=== PATIENT | female | born 1970 | race American Indian/Alaskan Native ===

== ENCOUNTER 2016-09-19 20:13 | Emergency (ER) | payer MEDICAID, OTHER ==
[2016-09-19] MEDS ORDERED: Sodium Chloride 0.9% 1,000 ML IV ONE (20:34)
--- NOTE | 2016-09-19 20:41 | EDM.PDOC ---
ED HPI GI/ABDOMINAL - General Chief Complaint: Gastrointestinal Problem Stated Complaint: BLEEDING Time Seen by Provider: 09/19/16 20:34 Source of Information: Reports: Patient History Limitations: Reports: No limitations - History of Present Illness INITIAL COMMENTS - FREE TEXT/NARRATIVE: 45 yo Ramona Female c/o blood per rectum started Tuesday AM. Pt. admits to taking daily aspirin and Naproxyn BID. 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 - Related Data Allergies/ADRs: Allergies Allergy/AdvReac Type Severity Reaction Status Date / Time No Known Allergies Allergy Verified 09/19/16 20:19 Home Meds: Home Meds Aspirin [Jane Chewable Aspirin] 1 tab PO DAILY 09/30/13 [History] Atenolol [Tenormin] 50 mg PO DAILY 09/30/13 [History] Fenofibrate [Fenoglide] 45 mg PO DAILY 09/30/13 [History] Gabapentin [Neurontin] 300 mg PO Q6HR PRN 09/30/13 [History] Lisinopril [Prinivil] 20 mg PO DAILY 09/30/13 [History] Omeprazole 20 mg PO DAILY 09/30/13 [History] Simvastatin [Zocor] 20 mg PO BEDTIME 09/30/13 [History] Insulin Detemir [Levemir] 20 units SQ BEDTIME 06/30/14 [History] buPROPion [Wellbutrin XL] 150 mg PO BID 06/30/14 [History] Insulin Aspart [NovoLOG] 15 unit SUBCUT BIDAC 09/19/16 [History] Past Medical History Cardiovascular History: Reports: High cholesterol, Hypertension Gastrointestinal History: Reports: Cholelithiasis Genitourinary History: Reports: Renal calculus 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: Psychiatric History: Reports: Anxiety Endocrine/Metabolic History: Reports: Diabetes, type II Dermatologic History: Reports: Cellulitis - Infectious Disease History Infectious Disease History: Reports: Chicken pox, MRSA - Past Surgical History GI Surgical History: Reports: Cholecystectomy Female Surgical History: Reports: Hysterectomy Other Female Surgeries/Procedures: partial hysterectomy, just took out urerus Social & Family History - Tobacco Use Smoking Status *Q: Current Every Day Smoker Years of Tobacco use: 20 Packs/Tins Daily: 0.3 Used Tobacco, but Quit: No Second Hand Smoke Exposure: Yes - Caffeine Use Caffeine Use: Reports: Coffee - Alcohol Use Days Per Week of Alcohol Use: 0 - Recreational Drug Use Recreational Drug Use: No ED ROS GENERAL - Review of Systems Review Of Systems: See Below Constitutional: Reports: no symptoms HEENT: Reports: No symptoms Respiratory: Reports: No Symptoms Cardiovascular: Reports: No symptoms Endocrine: Reports: no symptoms GI/Abdominal: Reports: Abdominal pain (low mid) : Reports: no symptoms Musculoskeletal: Reports: leg pain (chronic) Skin: Reports: no symptoms Neurological: Reports: No Symptoms Psychiatric: Reports: No symptoms Hematologic/Lymphatic: Reports: no symptoms Immunologic: Reports: no symptoms ED EXAM, GI/ABD - Physical Exam Exam: See Below Exam Limited By: No limitations General Appearance: alert, no apparent distress Eyes: bilateral: EOMI Ears: normal external exam Nose: normal inspection Throat/Mouth: Normal inspection Head: atraumatic Neck: normal inspection Respiratory/Chest: no respiratory distress, lungs clear Cardiovascular: normal peripheral pulses GI/Abdominal: normal bowel sounds, soft (Female) Exam: Normal external exam Rectal (Female) Exam: Bloody stool, Heme - stool, Heme + stool Back Exam: normal inspection Extremities: normal inspection Neurological: alert, oriented, CN II-XII intact Psychiatric: normal affect Skin Exam: Warm, Dry Lymphatic: no adenopathy Course - Vital Signs Text/Narrative:: Pt. observed while getting protonix and she had two stool with dark blood. Initial Hgb 13.4 and repeat Hgb 10.[address] Bianchi -Hospitalist @ will accept on transfer. Last Recorded V/S: Last Vital Signs Temp 37.3 C 09/19/16 23:01 Pulse 73 09/19/16 23:01 Resp 20 09/19/16 23:01 BP 107/67 09/20/16 00:24 Pulse Ox 96 09/20/16 00:24 - Orders/Labs/Meds Orders: Active Orders 24 hr Category Date Time Status IRON [REF] Stat Lab 09/19/16 20:35 Received Pantoprazole [ProTONIX IV] 40 mg Med 09/19/16 20:45 Active Sodium Chloride 0.9% [Normal Saline] 100 ml IV .CONTINUOS Medication Orders Pantoprazole Sodium 40 mg/ (Sodium Chloride) 100 mls @ 20 mls/hr IV .CONTINUOS [facility] Last Admin: 09/19/16 20:53 Dose: 20 mls/hr Labs: Laboratory Tests 09/19/16 09/19/16 09/19/16 Range/Units 20:35 20:35 20:35 WBC 9.1 (5.0-10.0) 10^3/uL RBC 4.25 (4.2-5.4) 10^6/uL Hgb 13.4 (12.0-16.0) g/dL Hct 37.3 (37.0-47.0) % MCV 87.8 (80-100) fL MCH 31.5 (27.0-34.0) pg MCHC 35.9 H (33.0-35.0) g/dL Plt Count 308 (150-450) 10^3/uL Neut % (Auto) 56.3 (42.2-75.2) % Lymph % (Auto) 32.6 (20.5-50.1) % [place] % (Auto) 8.9 H (2-8) % Eos % (Auto) 1.4 (1.0-3.0) % Baso % (Auto) 0.8 (0.0-1.0) % PT 9.8 (9.0-12.0) SEC INR 1.0 (0.9-1.2) Sodium 132 L (135-145) mmol/L Potassium 3.9 (3.6-5.0) mmol/L Chloride 98 L (101-111) mmol/L Carbon Dioxide 25.0 (21.0-31.0) mmol/L Anion Gap 12.9 BUN 20 H (7-18) mg/dL Creatinine 0.6 (0.6-1.3) mg/dL Est Cr Clr Drug Dosing 86.84 mL/min Estimated GFR (MDRD) > 60 BUN/Creatinine Ratio 33.33 Glucose 349 H (74-105) mg/dL Calcium 9.4 (8.4-10.2) mg/dl Total Bilirubin 0.3 (0.2-1.0) mg/dL AST 20 (10-42) IU/L ALT 24 (10-60) IU/L Alkaline Phosphatase 86 (42-121) IU/L Total Protein 7.2 (6.7-8.2) g/dl Albumin 3.9 (3.2-5.5) g/dl Globulin 3.3 Albumin/Globulin Ratio 1.18 Urine Color (YELLOW) Urine Appearance (CLEAR) Urine pH (5.0-9.0) Ur Specific [place] (1.005-1.030) Urine Protein (NEGATIVE) Urine Glucose (UA) (NEGATIVE) Urine Ketones (NEGATIVE) Urine Occult Blood (NEGATIVE) Urine Nitrite (NEGATIVE) Urine Bilirubin (NEGATIVE) Urine Urobilinogen (0.2-1.0) mg/dL Ur Leukocyte Esterase (NEGATIVE) Urine RBC /HPF Urine WBC (0-5/HPF) /HPF Ur Epithelial Cells /HPF Urine Bacteria (0-FEW/HPF) /HPF 09/19/16 09/20/16 Range/Units 23:05 01:44 WBC 9.4 (5.0-10.0) 10^3/uL RBC 3.47 L (4.2-5.4) 10^6/uL Hgb 10.8 L (12.0-16.0) g/dL Hct 31.0 L (37.0-47.0) % MCV 89.3 (80-100) fL MCH 31.1 (27.0-34.0) pg MCHC 34.8 (33.0-35.0) g/dL Plt Count 254 (150-450) 10^3/uL Neut % (Auto) 45.7 (42.2-75.2) % Lymph % (Auto) 43.1 (20.5-50.1) % [place] % (Auto) 8.1 H (2-8) % Eos % (Auto) 2.4 (1.0-3.0) % Baso % (Auto) 0.7 (0.0-1.0) % PT (9.0-12.0) SEC INR (0.9-1.2) Sodium (135-145) mmol/L Potassium (3.6-5.0) mmol/L Chloride (101-111) mmol/L Carbon Dioxide (21.0-31.0) mmol/L Anion Gap BUN (7-18) mg/dL Creatinine (0.6-1.3) mg/dL Est Cr Clr Drug Dosing mL/min Estimated GFR (MDRD) BUN/Creatinine Ratio Glucose (74-105) mg/dL Calcium (8.4-10.2) mg/dl Total Bilirubin (0.2-1.0) mg/dL AST (10-42) IU/L ALT (10-60) IU/L Alkaline Phosphatase (42-121) IU/L Total Protein (6.7-8.2) g/dl Albumin (3.2-5.5) g/dl Globulin Albumin/Globulin Ratio Urine Color Yellow (YELLOW) Urine Appearance Clear (CLEAR) Urine pH 5.5 (5.0-9.0) Ur Specific [place] 1.015 (1.005-1.030) Urine Protein Negative (NEGATIVE) Urine Glucose (UA) 500 H (NEGATIVE) Urine Ketones Negative (NEGATIVE) Urine Occult Blood Moderate H (NEGATIVE) Urine Nitrite Negative (NEGATIVE) Urine Bilirubin Negative (NEGATIVE) Urine Urobilinogen 0.2 (0.2-1.0) mg/dL Ur Leukocyte Esterase Negative (NEGATIVE) Urine RBC 30-40 H /HPF Urine WBC 0-5 (0-5/HPF) /HPF Ur Epithelial Cells Many H /HPF Urine Bacteria Few (0-FEW/HPF) /HPF Meds: Medications Generic Name Dose Route Start Last Admin Trade Name Freq PRN Reason Stop Dose Admin Pantoprazole Sodium 40 mg/ 100 mls @ 20 mls/hr 09/19/16 20:45 09/19/16 20:53 Sodium Chloride IV 20 mls/hr .CONTINUOS NGUYEN Administration Discontinued Medications Generic Name Dose Route Start Last Admin Trade Name Freq PRN Reason Stop Dose Admin Al Hydroxide/Mg Hydroxide 30 ml 09/19/16 22:19 09/19/16 22:24 Gi Cocktail PO 09/19/16 22:20 30 ml ONETIME ONE Administration Cyclobenzaprine HCl 10 mg 09/19/16 23:26 09/19/16 23:32 Flexeril PO 09/19/16 23:27 10 mg ONETIME ONE Administration Sodium Chloride 1,000 mls @ 999 mls/hr 09/19/16 20:34 09/19/16 20:53 Normal Saline IV 09/19/16 21:34 999 mls/hr .BOLUS ONE Administration Insulin Human Regular 5 unit 09/19/16 21:32 09/19/16 22:07 Novolin R SUBCUT 09/19/16 21:33 5 unit NOW STA Administration Protocol Ondansetron HCl 4 mg 09/19/16 22:19 09/19/16 22:23 Zofran IV 09/19/16 22:20 4 mg ONETIME ONE Administration Departure - Departure Time of Disposition: 02:19 Disposition: DC/Tfer to Acute Hospital 02 Condition: fair Clinical Impression: GI bleed Qualifiers: GI bleed type/associated pathology: unspecified gastrointestinal hemorrhage type Qualified Code(s): K92.2 - Gastrointestinal hemorrhage, unspecified Forms: ED Department Discharge, Interfacility Transfer EMTALA - My Orders Last 24 Hours: My Active Orders 09/19/16 20:35 IRON [REF] Stat 09/19/16 20:45 Pantoprazole [ProTONIX IV] 40 mg Sodium Chloride 0.9% [Normal Saline] 100 ml IV .CONTINUOS - Assessment/Plan Last 24 Hours: My Active Orders 09/19/16 20:35 IRON [REF] Stat 09/19/16 20:45 Pantoprazole [ProTONIX IV] 40 mg Sodium Chloride 0.9% [Normal Saline] 100 ml IV .CONTINUOS
[2016-09-19] MEDS ORDERED: Pantoprazole 40 MG in Sodium Chloride 0.9% 100 ML IV SCH (20:45)
[2016-09-19 21:07] LABS: CHLORIDE,CL 98 mmol/L (101-111); SODIUM,NA 132 mmol/L (135-145)
[2016-09-19] MEDS ORDERED: Insulin Regular, Human 100 Units/ML 10 ML Vial SUBCUT STA (21:32)
[2016-09-19] MEDS ORDERED: Ondansetron 4 MG/2 ML SDV IV ONE (22:19)
[2016-09-19] MEDS ORDERED: GI Cocktail Oral Solution 30 ML PO ONE (22:19)
[2016-09-19] MEDS ORDERED: Cyclobenzaprine 10 MG Tab PO ONE (23:26)
[2016-09-20 00:25] VITALS: BP 107/67
[2016-09-20] MEDS ORDERED: Sodium Chloride 0.9% 1,000 ML IV SCH (02:30)
== END 2016-09-20 02:56 ==
LOC: DL.ED 20:13
DX: K92.2 Gastrointestinal hemorrhage, unspecified (principal); I10 Essential (primary) hypertension; E78.00 Pure hypercholesterolemia, unspecified; E11.9 Type 2 diabetes mellitus without complications; Z79.4 Long term (current) use of insulin; F41.9 Anxiety disorder, unspecified; Z79.82 Long term (current) use of aspirin; Z79.899 Other long term (current) drug therapy
CPT/HCPCS: 36415; 80053; 81001; 82272; 82962; 83540; 85025; 85610; 96365; 96366; 96375; 99285; A9270; C9113; J2405; J7030; J7050; J1815-GY

== ENCOUNTER 2016-12-21 18:25 | Emergency (ER) | payer MEDICAID, OTHER ==
--- NOTE | 2016-12-21 19:27 | EDM.PDOC ---
ED HPI GENERAL MEDICAL PROBLEM - General Chief Complaint: Gastrointestinal Problem Stated Complaint: BLEEDING, [id number] Time Seen by Provider: 12/21/16 19:27 Source of Information: Reports: Patient History Limitations: Reports: No Limitations - History of Present Illness INITIAL COMMENTS - FREE TEXT/NARRATIVE: ED ambulatory with c/o lwer abdominal pain with 2 dark red stools with clots this afternoon., Nauseated. No vomiting. Prior hx GI bleed in September and transferred to , believed to have been caused by use of Naprosyn. Has not used Naprosyn or ibuprofen since. Rare ETOH use, smoker. Diabetic. Onset: Today Quality: Reports: Dull Severity: Mild Middle Abdomen Pain Score (Numeric/FACES): 5 - Related Data Allergies Allergy/AdvReac Type Severity Reaction Status Date / Time No Known Allergies Allergy Verified 12/21/16 18:51 Home Meds: Home Meds Aspirin [Jane Chewable Aspirin] 1 tab PO DAILY 09/30/13 [History] Atenolol [Tenormin] 50 mg PO DAILY 09/30/13 [History] Fenofibrate [Fenoglide] 45 mg PO DAILY 09/30/13 [History] Gabapentin [Neurontin] 300 mg PO Q6HR PRN 09/30/13 [History] Lisinopril [Prinivil] 20 mg PO DAILY 09/30/13 [History] Omeprazole 20 mg PO DAILY 09/30/13 [History] Simvastatin [Zocor] 20 mg PO BEDTIME 09/30/13 [History] Insulin Detemir [Levemir] 20 units SQ BEDTIME 06/30/14 [History] buPROPion [Wellbutrin XL] 150 mg PO BID 06/30/14 [History] Insulin Aspart [NovoLOG] 15 unit SUBCUT BIDAC 09/19/16 [History] Past Medical History HEENT History: Reports: None Cardiovascular History: Reports: High Cholesterol, Hypertension Respiratory History: Reports: None Gastrointestinal History: Reports: Cholelithiasis Genitourinary History: Reports: Renal Calculus 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: Musculoskeletal History: Reports: Arthritis Neurological History: Reports: None Psychiatric History: Reports: Anxiety Endocrine/Metabolic History: Reports: Diabetes, Type II Hematologic History: Reports: None Immunologic History: Reports: None Oncologic (Cancer) History: Reports: None Dermatologic History: Reports: Cellulitis - Infectious Disease History Infectious Disease History: Reports: Chicken Pox, MRSA - Past Surgical History GI Surgical History: Reports: Cholecystectomy Female Surgical History: Reports: Hysterectomy Social & Family History - Tobacco Use Smoking Status *Q: Heavy Tobacco Smoker Years of Tobacco use: 20 Packs/Tins Daily: 0.5 Used Tobacco, but Quit: No Second Hand Smoke Exposure: Yes - Caffeine Use Caffeine Use: Reports: Coffee, Soda - Alcohol Use Days Per Week of Alcohol Use: 0 - Recreational Drug Use Recreational Drug Use: No ED ROS GENERAL - Review of Systems Review Of Systems: See Below Constitutional: Reports: No Symptoms HEENT: Reports: No Symptoms Respiratory: Reports: No Symptoms Cardiovascular: Reports: Blood Pressure Problem (has been out of lisinopril and atenolol for one week) Endocrine: Reports: High Glucose (has been running 300's) GI/Abdominal: Reports: Abdominal Pain (epigastric and low abdomen), Hematemesis : Reports: No Symptoms Musculoskeletal: Reports: No Symptoms Skin: Reports: No Symptoms Neurological: Reports: No Symptoms Psychiatric: Reports: No Symptoms ED EXAM, GI/ABD - Physical Exam Exam: See Below Exam Limited By: No Limitations General Appearance: Alert, No Apparent Distress Eyes: Bilateral: EOMI Ears: Normal External Exam Throat/Mouth: Normal Inspection Head: Atraumatic, Normocephalic Neck: Normal Inspection Respiratory/Chest: No Respiratory Distress, Lungs Clear, Normal Breath Sounds Cardiovascular: Normal Peripheral Pulses, Regular Rate, Rhythm GI/Abdominal: Normal Bowel Sounds, Soft, Tenderness (epigastric RUQ and lower abdomen). No: Guarding, Rebound Rectal (Female) Exam: Normal Rectal Tone, Heme + Stool Back Exam: Normal Inspection Extremities: Normal Inspection Neurological: Alert, Oriented, CN II-XII Intact, Normal Cognition Psychiatric: Normal Affect, Normal Mood Skin Exam: Warm, Dry, Intact, Normal Color Course - Vital Signs Last Recorded V/S: Last Vital Signs Temp 98.3 F 12/21/16 20:50 Pulse 74 12/21/16 21:49 Resp 16 12/21/16 20:50 BP 169/113 H 12/21/16 21:49 Pulse Ox 98 12/21/16 20:50 - Orders/Labs/Meds Orders: Active Orders 24 hr Category Date Time Status Blood Glucose Check, Bedside [RC] ONETIME Care 12/21/16 20:48 Active CULTURE BLOOD [BC] Stat Lab 12/21/16 19:10 Received CULTURE BLOOD [BC] Stat Lab 12/21/16 19:15 Received Blood Culture x2 Reflex Set [OM.PC] Stat Oth 12/21/16 19:02 Ordered Labs: Laboratory Tests 12/21/16 12/21/16 12/21/16 Range/Units 19:10 19:10 19:10 WBC 6.9 (5.0-10.0) 10^3/uL RBC 6.04 H (4.2-5.4) 10^6/uL Hgb 15.8 (12.0-16.0) g/dL Hct 46.1 (37.0-47.0) % MCV 76.3 L (80-100) fL MCH 26.2 L (27.0-34.0) pg MCHC 34.3 (33.0-35.0) g/dL Plt Count 260 (150-450) 10^3/uL Neut % (Auto) 60.5 (42.2-75.2) % Lymph % (Auto) 27.8 (20.5-50.1) % [place] % (Auto) 9.2 H (2-8) % Eos % (Auto) 2.2 (1.0-3.0) % Baso % (Auto) 0.3 (0.0-1.0) % Sodium 133 L (135-145) mmol/L Potassium 3.3 L (3.6-5.0) mmol/L Chloride 98 L (101-111) mmol/L Carbon Dioxide 23.0 (21.0-31.0) mmol/L Anion Gap 15.3 BUN 10 (7-18) mg/dL Creatinine 0.5 L (0.6-1.3) mg/dL Est Cr Clr Drug Dosing 103.13 mL/min Estimated GFR (MDRD) > 60 BUN/Creatinine Ratio 20.00 Glucose 423 H* (74-105) mg/dL Lactic Acid 0.8 (0.5-2.2) mmol/L Calcium 8.9 (8.4-10.2) mg/dl Total Bilirubin 0.5 (0.2-1.0) mg/dL AST 16 (10-42) IU/L ALT 15 (10-60) IU/L Alkaline Phosphatase 112 (42-121) IU/L Total Protein 7.4 (6.7-8.2) g/dl Albumin 3.6 (3.2-5.5) g/dl Globulin 3.8 Albumin/Globulin Ratio 0.95 Amylase 65 (28-100) U/L Lipase 48 (22-51) U/L Urine Color (YELLOW) Urine Appearance (CLEAR) Urine pH (5.0-9.0) Ur Specific [place] (1.005-1.030) Urine Protein (NEGATIVE) Urine Glucose (UA) (NEGATIVE) Urine Ketones (NEGATIVE) Urine Occult Blood (NEGATIVE) Urine Nitrite (NEGATIVE) Urine Bilirubin (NEGATIVE) Urine Urobilinogen (0.2-1.0) mg/dL Ur Leukocyte Esterase (NEGATIVE) Urine RBC /HPF Urine WBC (0-5/HPF) /HPF Ur Epithelial Cells /HPF Urine Bacteria (0-FEW/HPF) /HPF Urine Yeast (0/HPF) /HPF 12/21/16 Range/Units 19:36 WBC (5.0-10.0) 10^3/uL RBC (4.2-5.4) 10^6/uL Hgb (12.0-16.0) g/dL Hct (37.0-47.0) % MCV (80-100) fL MCH (27.0-34.0) pg MCHC (33.0-35.0) g/dL Plt Count (150-450) 10^3/uL Neut % (Auto) (42.2-75.2) % Lymph % (Auto) (20.5-50.1) % [place] % (Auto) (2-8) % Eos % (Auto) (1.0-3.0) % Baso % (Auto) (0.0-1.0) % Sodium (135-145) mmol/L Potassium (3.6-5.0) mmol/L Chloride (101-111) mmol/L Carbon Dioxide (21.0-31.0) mmol/L Anion Gap BUN (7-18) mg/dL Creatinine (0.6-1.3) mg/dL Est Cr Clr Drug Dosing mL/min Estimated GFR (MDRD) BUN/Creatinine Ratio Glucose (74-105) mg/dL Lactic Acid (0.5-2.2) mmol/L Calcium (8.4-10.2) mg/dl Total Bilirubin (0.2-1.0) mg/dL AST (10-42) IU/L ALT (10-60) IU/L Alkaline Phosphatase (42-121) IU/L Total Protein (6.7-8.2) g/dl Albumin (3.2-5.5) g/dl Globulin Albumin/Globulin Ratio Amylase (28-100) U/L Lipase (22-51) U/L Urine Color Yellow (YELLOW) Urine Appearance Slightly cloudy (CLEAR) Urine pH 5.5 (5.0-9.0) Ur Specific [place] 1.015 (1.005-1.030) Urine Protein 100 H (NEGATIVE) Urine Glucose (UA) 500 H (NEGATIVE) Urine Ketones 40 H (NEGATIVE) Urine Occult Blood Trace-intact H (NEGATIVE) Urine Nitrite Negative (NEGATIVE) Urine Bilirubin Negative (NEGATIVE) Urine Urobilinogen 0.2 (0.2-1.0) mg/dL Ur Leukocyte Esterase Negative (NEGATIVE) Urine RBC 0-5 /HPF Urine WBC 10-20 H (0-5/HPF) /HPF Ur Epithelial Cells Few /HPF Urine Bacteria Rare (0-FEW/HPF) /HPF Urine Yeast Few H (0/HPF) /HPF Meds: Medications Discontinued Medications Generic Name Dose Route Start Last Admin Trade Name Freq PRN Reason Stop Dose Admin Sodium Chloride 1,000 mls @ 999 mls/hr 12/21/16 19:41 12/21/16 19:50 Normal Saline IV 12/21/16 20:41 999 mls/hr .BOLUS ONE Administration Potassium Chloride 10 meq/ 100 mls @ 100 mls/hr 12/21/16 19:47 12/21/16 20:31 Premix IV 12/21/16 20:46 100 mls/hr ONETIME ONE Administration Sodium Chloride 1,000 mls @ 150 mls/hr 12/21/16 21:14 12/21/16 21:16 Normal Saline IV 12/22/16 03:53 150 mls/hr .BOLUS ONE Administration Insulin Human Regular 5 unit 12/21/16 19:49 12/21/16 20:04 Humulin R IV 12/21/16 19:50 5 units ONETIME ONE Administration Protocol Iopamidol 75 ml 12/21/16 20:09 12/21/16 20:18 Isovue-300 (61%) IVPUSH 12/21/16 20:10 75 ml ONETIME ONE Administration Metoprolol Tartrate 2.5 mg 12/21/16 20:55 12/21/16 21:02 Lopressor IVPUSH 12/21/16 20:56 2.5 mg ONETIME ONE Administration Metoprolol Tartrate 2.5 mg 12/21/16 21:34 12/21/16 21:49 Lopressor IVPUSH 12/21/16 21:35 2.5 mg ONETIME ONE Administration Nicotine 21 mg 12/21/16 20:56 12/21/16 21:04 Habitrol TRDERM 12/21/16 20:57 21 mg ONETIME ONE Administration Ondansetron HCl 4 mg 12/21/16 19:48 12/21/16 20:06 Zofran IV 12/21/16 19:49 4 mg ONETIME ONE Administration Pantoprazole Sodium 80 mg 12/21/16 19:47 12/21/16 20:08 Protonix Iv IVPUSH 12/21/16 19:48 80 mg .BOLUS ONE Administration - Radiology Interpretation Free Text/Narrative:: Abdomen pelvis CT with contrast.: Few scattered diverticuli without signs of diverticulitis, Fluid within small bowel without evidence of mesenteric lymphadenopathy. Departure - Departure Time of Disposition: 22:00 Disposition: DC/Tfer to Acute Hospital 02 Condition: Fair Clinical Impression: GI bleed Qualifiers: GI bleed type/associated pathology: unspecified gastrointestinal hemorrhage type Qualified Code(s): K92.2 - Gastrointestinal hemorrhage, unspecified - Discharge Information Referrals: Shelbie Mcghee [Primary Care Provider] - Forms: ED Department Discharge - My Orders Last 24 Hours: My Active Orders 12/21/16 19:02 Blood Culture x2 Reflex Set [OM.PC] Stat 12/21/16 19:10 CULTURE BLOOD [BC] Stat 12/21/16 19:15 CULTURE BLOOD [BC] Stat 12/21/16 20:48 Blood Glucose Check, Bedside [RC] ONETIME - Assessment/Plan Last 24 Hours: My Active Orders 12/21/16 19:02 Blood Culture x2 Reflex Set [OM.PC] Stat 12/21/16 19:10 CULTURE BLOOD [BC] Stat 12/21/16 19:15 CULTURE BLOOD [BC] Stat 12/21/16 20:48 Blood Glucose Check, Bedside [RC] ONETIME
[2016-12-21 19:37] LABS: CHLORIDE,CL 98 mmol/L (101-111); SODIUM,NA 133 mmol/L (135-145)
[2016-12-21] MEDS ORDERED: Sodium Chloride 0.9% 1,000 ML IV ONE ×2 (19:41→21:14)
[2016-12-21] MEDS ORDERED: Potassium Chloride 10 MEQ in Premix Bag 1 BAG IV ONE (19:47)
[2016-12-21] MEDS ORDERED: Pantoprazole 40 MG Vial IVPUSH ONE (19:47)
[2016-12-21] MEDS ORDERED: Ondansetron 4 MG/2 ML SDV IV ONE (19:48)
[2016-12-21] MEDS ORDERED: Insulin Regular, Human 100 Units/ML 3 ML Vial IV ONE (19:49)
[2016-12-21] MEDS ORDERED: Iopamidol 612 MG/ML 75 ML Bottle IVPUSH ONE (20:09)
[2016-12-21] MEDS ORDERED: Metoprolol Tartrate 5 MG/5 ML SDV IVPUSH ONE ×2 (20:55→21:34)
[2016-12-21] MEDS ORDERED: Nicotine 21 MG/24 Hr Patch TRDERM ONE (20:56)
[2016-12-21 21:50] VITALS: BP 169/113
== END 2016-12-21 22:00 ==
LOC: DL.ED 18:25
DX: K92.2 Gastrointestinal hemorrhage, unspecified (principal); E11.9 Type 2 diabetes mellitus without complications; E78.00 Pure hypercholesterolemia, unspecified; I10 Essential (primary) hypertension; F41.9 Anxiety disorder, unspecified; F17.200 Nicotine dependence, unspecified, uncomplicated; Z79.899 Other long term (current) drug therapy; Z79.4 Long term (current) use of insulin; Z79.82 Long term (current) use of aspirin
CPT/HCPCS: 36415; 74177; 80053; 81001; 82150; 82272; 82962; 83605; 83690; 85025; 87040; 96361; 96365; 96375; 99285; A9270; C9113; J1815; J2405; J3480; J7030; Q9967; J3490

== ENCOUNTER 2017-06-30 14:18 | Observation (INO) | payer MEDICAID, OTHER ==
[2017-06-30] MEDS ORDERED: Sodium Chloride 0.9% 1,000 ML IV ONE (14:25)
[2017-06-30] MEDS ORDERED: Ondansetron 4 MG/2 ML SDV IV ONE (14:25)
[2017-06-30] MEDS ORDERED: diphenhydrAMINE 50 MG/ML SDV IVPUSH ONE (14:25)
[2017-06-30] MEDS ORDERED: Sodium Chloride 0.9% 10 ML Syringe FLUSH PRN (14:25)
--- NOTE | 2017-06-30 14:31 | EDM.PDOC ---
ED HPI GENERAL MEDICAL PROBLEM - General Chief Complaint: Gastrointestinal Problem Stated Complaint: AB PAIN IN BY AMBULANCE Time Seen by Provider: 06/30/17 14:18 Source of Information: Reports: Patient History Limitations: Reports: No Limitations - History of Present Illness INITIAL COMMENTS - FREE TEXT/NARRATIVE: Patient comes emergency Department today by ambulance with complaints of nausea vomiting and abdominal pain. The patient woke this morning at approximately 0800 hrs. and developed generalized abdominal pain and cramping. She has vomited multiple times at home and very weak and dizzy. She is a diabetic for which she takes insulin. She has not taken any insulin today she did take some yesterday but prior to that she had not taken it in quite some time. She is rather poor historian. She is unsure if she has not taken her insulin for 2 weeks or 2 months. But she did take some yesterday she was not feeling very well. She denies any fever or chills. She denies any chest pain shortness of breath difficulty breathing cough or congestion. She does complain of generalized malaise fatigue and body aches. She complains of generalized abdominal pain/cramping. She denies any flank pain. She denies any hematuria dysuria or urinary frequency. Left Upper Abdominal Pain Score (Numeric/FACES): 10 - Related Data Allergies Allergy/AdvReac Type Severity Reaction Status Date / Time No Known Allergies Allergy Verified 06/30/17 14:27 Home Meds: Home Meds Aspirin [Jane Chewable Aspirin] 1 tab PO DAILY 09/30/13 [History] Atenolol [Tenormin] 50 mg PO DAILY 09/30/13 [History] Fenofibrate [Fenoglide] 45 mg PO DAILY 09/30/13 [History] Gabapentin [Neurontin] 300 mg PO Q6HR PRN 09/30/13 [History] Lisinopril [Prinivil] 20 mg PO DAILY 09/30/13 [History] Omeprazole 20 mg PO DAILY 09/30/13 [History] Simvastatin [Zocor] 20 mg PO BEDTIME 09/30/13 [History] Insulin Detemir [Levemir] 20 units SQ BEDTIME 06/30/14 [History] buPROPion [Wellbutrin XL] 150 mg PO BID 06/30/14 [History] Insulin Aspart [NovoLOG] 15 unit SUBCUT BIDAC 09/19/16 [History] Past Medical History HEENT History: Reports: None Cardiovascular History: Reports: High Cholesterol, Hypertension Respiratory History: Reports: None Gastrointestinal History: Reports: Cholelithiasis Genitourinary History: Reports: Renal Calculus 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: Musculoskeletal History: Reports: Arthritis Neurological History: Reports: None Psychiatric History: Reports: Anxiety Endocrine/Metabolic History: Reports: Diabetes, Type II Hematologic History: Reports: None Immunologic History: Reports: None Oncologic (Cancer) History: Reports: None Dermatologic History: Reports: Cellulitis - Infectious Disease History Infectious Disease History: Reports: Chicken Pox, MRSA - Past Surgical History GI Surgical History: Reports: Cholecystectomy Female Surgical History: Reports: Hysterectomy Social & Family History - Tobacco Use Smoking Status *Q: Heavy Tobacco Smoker Years of Tobacco use: 20 Packs/Tins Daily: 0.5 Used Tobacco, but Quit: No Second Hand Smoke Exposure: Yes - Caffeine Use Caffeine Use: Reports: Coffee, Soda - Alcohol Use Days Per Week of Alcohol Use: 0 - Recreational Drug Use Recreational Drug Use: No ED ROS GENERAL - Review of Systems Review Of Systems: ROS reveals no pertinent complaints other than HPI. ED EXAM, GI/ABD - Physical Exam Exam: See Below Text/Narrative:: Patient is lying in the position on her left side with her knees up. Exam Limited By: No Limitations General Appearance: Alert, WD/WN, Mild Distress Eyes: Bilateral: Normal Appearance Ears: Normal External Exam, Normal Canal Nose: Normal Inspection, Normal Mucosa Throat/Mouth: Normal Lips, Normal Teeth, Normal Oropharynx. No: Normal Inspection (Normal except for dry mucous membranes.) Head: Atraumatic, Normocephalic Neck: Normal Inspection, Supple, Non-Tender, Full Range of Motion Respiratory/Chest: No Respiratory Distress, Lungs Clear, Normal Breath Sounds, No Accessory Muscle Use Cardiovascular: Normal Peripheral Pulses, Regular Rate, Rhythm (Mildly tachycardic) GI/Abdominal Exam: Normal Bowel Sounds, Soft, Tender (Generalized tenderness throughout. No guarding or rebound.). No: Distended (Female) Exam: Deferred Rectal (Female) Exam: Deferred Back Exam: Full Range of Motion, CVA Tenderness (L). No: CVA Tenderness (R) Extremities: Normal Inspection, Normal Range of Motion, Normal Capillary Refill Neurological: Alert, Oriented Psychiatric: Normal Affect, Normal Mood Skin Exam: Cool, Diaphoretic, Pallor, Other (horipilation. ) EKG INTERPRETATION EKG Date: 06/30/17 Time: 16:26 Rhythm: NSR Rate (Beats/Min): 64 [place]: Normal P-Wave: Present QRS: Normal ST-T: Normal QT: Normal Comparison: NA - No Prior EKG Course - Vital Signs Last Recorded V/S: Last Vital Signs Temp 36.1 C 06/30/17 14:28 Pulse 63 06/30/17 14:28 Resp 24 H 06/30/17 14:28 BP 197/82 H 06/30/17 14:28 Pulse Ox 97 06/30/17 14:28 - Orders/Labs/Meds Orders: Active Orders 24 hr Category Date Time Status Blood Glucose Check, Bedside [] ONETIME Care 06/30/17 14:25 Active EKG 12 Lead [EKG Documentation Completion] [] URGENT Care 06/30/17 16:00 Active Peripheral IV Care [] . DIRECTED Care 06/30/17 14:26 Active Insulin Regular, Human [HumuLIN R] 100 unit Med 06/30/17 16:15 Active Sodium Chloride 0.9% [Normal Saline] 99 ml IV TITRATE Sodium Chloride 0.9% [Normal Saline] 1,000 ml Med 06/30/17 15:15 Active IV ASDIRECTED Sodium Chloride 0.9% [Saline Flush] Med 06/30/17 14:25 Active 10 ml FLUSH ASDIRECTED PRN Peripheral IV Insertion Adult [OM.PC] Stat Oth 06/30/17 14:25 Ordered Medication Orders Sodium Chloride (Normal Saline) 1,000 mls @ 250 mls/hr IV ASDIRECTED NGUYEN Last Admin: 06/30/17 15:19 Dose: 250 mls/hr Insulin Human Regular 100 unit (/ Sodium Chloride) 100 mls @ 5.66 mls/hr IV TITRATE NGUYEN; 0.1 UNITS/KG/HR PRN Reason: Protocol Sodium Chloride (Saline Flush) 10 ml FLUSH ASDIRECTED PRN PRN Reason: Keep Vein Open Last Admin: 06/30/17 14:42 Dose: 10 ml Labs: Laboratory Tests 06/30/17 06/30/17 06/30/17 Range/Units 14:25 14:25 14:25 WBC (5.0-10.0) 10^3/uL RBC (4.2-5.4) 10^6/uL Hgb (12.0-16.0) g/dL Hct (37.0-47.0) % MCV (80-100) fL MCH (27.0-34.0) pg MCHC (33.0-35.0) g/dL Plt Count (150-450) 10^3/uL Neut % (Auto) (42.2-75.2) % Lymph % (Auto) (20.5-50.1) % [place] % (Auto) (2-8) % Eos % (Auto) (1.0-3.0) % Baso % (Auto) (0.0-1.0) % VBG pH 7.35 (7.31-7.41) VBG pCO2 30 L (41-51) mmHg VBG pO2 37 (35-42) mmHg VBG HCO3 21 (19-25) mmol/l VBG O2 Saturation 73 (60-80) % VBG Base Excess -4 L ((-2)-(+3)) mmol/l O2 Delivery Device Room air Sodium 132 L (135-145) mmol/L Potassium 4.3 (3.6-5.0) mmol/L Chloride 96 L (101-111) mmol/L Carbon Dioxide 22.0 (21.0-31.0) mmol/L Anion Gap 18.3 BUN 10 (7-18) mg/dL Creatinine 0.6 (0.6-1.3) mg/dL Est Cr Clr Drug Dosing 85.94 mL/min Estimated GFR (MDRD) > 60 BUN/Creatinine Ratio 16.66 Glucose 359 H (74-105) mg/dL Lactic Acid 2.0 (0.5-2.2) mmol/L Calcium 9.4 (8.4-10.2) mg/dl Total Bilirubin 1.4 H (0.2-1.0) mg/dL AST 67 H (10-42) IU/L ALT 135 H (10-60) IU/L Alkaline Phosphatase 95 (42-121) IU/L Total Protein 8.8 H (6.7-8.2) g/dl Albumin 4.5 (3.2-5.5) g/dl Globulin 4.3 Albumin/Globulin Ratio 1.05 Lipase 30 (22-51) U/L Urine Color (YELLOW) Urine Appearance (CLEAR) Urine pH (5.0-9.0) Ur Specific [place] (1.005-1.030) Urine Protein (NEGATIVE) Urine Glucose (UA) (NEGATIVE) Urine Ketones (NEGATIVE) Urine Occult Blood (NEGATIVE) Urine Nitrite (NEGATIVE) Urine Bilirubin (NEGATIVE) Urine Urobilinogen (0.2-1.0) mg/dL Ur Leukocyte Esterase (NEGATIVE) Urine RBC /HPF Urine WBC (0-5/HPF) /HPF Ur Epithelial Cells /HPF Urine Bacteria (0-FEW/HPF) /HPF Ketones 06/30/17 06/30/17 06/30/17 Range/Units 14:30 14:36 15:18 WBC 11.7 H (5.0-10.0) 10^3/uL RBC 5.85 H (4.2-5.4) 10^6/uL Hgb 17.3 H D (12.0-16.0) g/dL Hct 48.7 H (37.0-47.0) % MCV 83.2 D (80-100) fL MCH 29.6 (27.0-34.0) pg MCHC 35.5 H (33.0-35.0) g/dL Plt Count 263 (150-450) 10^3/uL Neut % (Auto) 89.0 H (42.2-75.2) % Lymph % (Auto) 8.5 L (20.5-50.1) % [place] % (Auto) 2.1 (2-8) % Eos % (Auto) 0.1 L (1.0-3.0) % Baso % (Auto) 0.3 (0.0-1.0) % VBG pH (7.31-7.41) VBG pCO2 (41-51) mmHg VBG pO2 (35-42) mmHg VBG HCO3 (19-25) mmol/l VBG O2 Saturation (60-80) % VBG Base Excess ((-2)-(+3)) mmol/l O2 Delivery Device Sodium (135-145) mmol/L Potassium (3.6-5.0) mmol/L Chloride (101-111) mmol/L Carbon Dioxide (21.0-31.0) mmol/L Anion Gap BUN (7-18) mg/dL Creatinine (0.6-1.3) mg/dL Est Cr Clr Drug Dosing mL/min Estimated GFR (MDRD) BUN/Creatinine Ratio Glucose (74-105) mg/dL Lactic Acid (0.5-2.2) mmol/L Calcium (8.4-10.2) mg/dl Total Bilirubin (0.2-1.0) mg/dL AST (10-42) IU/L ALT (10-60) IU/L Alkaline Phosphatase (42-121) IU/L Total Protein (6.7-8.2) g/dl Albumin (3.2-5.5) g/dl Globulin Albumin/Globulin Ratio Lipase (22-51) U/L Urine Color Yellow (YELLOW) Urine Appearance Clear (CLEAR) Urine pH 6.5 (5.0-9.0) Ur Specific [place] 1.015 (1.005-1.030) Urine Protein 100 H (NEGATIVE) Urine Glucose (UA) 500 H (NEGATIVE) Urine Ketones >=160 H (NEGATIVE) Urine Occult Blood Negative (NEGATIVE) Urine Nitrite Negative (NEGATIVE) Urine Bilirubin Negative (NEGATIVE) Urine Urobilinogen 0.2 (0.2-1.0) mg/dL Ur Leukocyte Esterase Negative (NEGATIVE) Urine RBC 0-5 /HPF Urine WBC 0-5 (0-5/HPF) /HPF Ur Epithelial Cells Occasional /HPF Urine Bacteria Occasional (0-FEW/HPF) /HPF Ketones Negative Meds: Medications Generic Name Dose Route Start Last Admin Trade Name Freq PRN Reason Stop Dose Admin Sodium Chloride 1,000 mls @ 250 mls/hr 06/30/17 15:15 06/30/17 15:19 Normal Saline IV 250 mls/hr ASDIRECTED NGUYEN Administration Insulin Human Regular 100 unit 100 mls @ 5.66 mls/hr 06/30/17 16:15 / Sodium Chloride IV TITRATE NGUYEN Protocol 0.1 UNITS/KG/HR Sodium Chloride 10 ml 06/30/17 14:25 06/30/17 14:42 Saline Flush FLUSH 10 ml ASDIRECTED PRN Administration Keep Vein Open Discontinued Medications Generic Name Dose Route Start Last Admin Trade Name Freq PRN Reason Stop Dose Admin Diphenhydramine HCl 25 mg 06/30/17 14:25 06/30/17 14:40 Benadryl IVPUSH 06/30/17 14:26 25 mg ONETIME ONE Administration Fentanyl 50 mcg 06/30/17 15:25 06/30/17 16:24 Sublimaze IVPUSH 06/30/17 15:26 50 mcg ONETIME ONE Administration Haloperidol Lactate 1 mg 06/30/17 16:23 Haldol IVPUSH 06/30/17 16:24 ONETIME ONE Sodium Chloride 1,000 mls @ 999 mls/hr 06/30/17 14:25 06/30/17 14:41 Normal Saline IV 06/30/17 15:25 999 mls/hr .BOLUS ONE Administration Insulin Human Regular 5 unit 06/30/17 15:58 06/30/17 16:30 Humulin R IV 06/30/17 15:59 5 unit ONETIME ONE Administration Protocol Iopamidol 75 ml 06/30/17 15:40 06/30/17 15:56 Isovue-300 (61%) IVPUSH 06/30/17 15:41 75 ml ONETIME ONE Administration Ketorolac Tromethamine 30 mg 06/30/17 14:38 06/30/17 14:43 Toradol IVPUSH 06/30/17 14:39 30 mg ONETIME ONE Administration Ondansetron HCl 4 mg 06/30/17 14:25 06/30/17 14:41 Zofran IV 06/30/17 14:26 4 mg ONETIME ONE Administration Pantoprazole Sodium 40 mg 06/30/17 16:24 Protonix Iv IVPUSH 06/30/17 16:25 ONETIME ONE Promethazine HCl 25 mg 06/30/17 15:06 06/30/17 15:19 Phenergan IM 06/30/17 15:07 25 mg ONETIME ONE Administration - Re-Assessments/Exams Free Text/Narrative Re-Assessment/Exam: 06/30/17 14:31 IV normal saline 1 L wide open. 25 mg Benadryl IV push for nausea. Zofran 4 mg IV push for nausea vomiting. 06/30/17 16:38 Patient received multiple doses of pain medication as well as nausea medication and continued to have nausea vomiting and retching in the emergency department. Although her pH is within normal limits she has quite a bit of ketonuria as well as hyperglycemia. CT of the abdomen shows a normal acute findings which was done as she has elevated liver enzymes with a normal lipase. She was initiated with a insulin bolus and insulin drip. She also received Protonix for gastritis concerns. We are unable to control her nausea vomiting and her pain I do not feel that discharge at this time is most appropriate. We will admit her to the hospital for further care and evaluation. The patient was comfortable with this plan. 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 Graves and my concerns of the ketosis and hyperglycemia. CT abd okay. PH okay but poor compliance at home and not tolderating PO in the ER with recurrent nausea and vomiting. HPI ER COURSE relayed and he accepted the patient under his care here at [facility].) - My Orders Last 24 Hours: My Active Orders 06/30/17 14:25 Blood Glucose Check, Bedside [RC] ONETIME Sodium Chloride 0.9% [Saline Flush] 10 ml FLUSH ASDIRECTED PRN Peripheral IV Insertion Adult [OM.PC] Stat 06/30/17 14:26 Peripheral IV Care [RC] . DIRECTED 06/30/17 15:15 Sodium Chloride 0.9% [Normal Saline] 1,000 ml IV ASDIRECTED 06/30/17 16:00 EKG 12 Lead [EKG Documentation Completion] [RC] URGENT 06/30/17 16:15 Insulin Regular, Human [HumuLIN R] 100 unit Sodium Chloride 0.9% [Normal Saline] 99 ml IV TITRATE - Assessment/Plan Last 24 Hours: My Active Orders 06/30/17 14:25 Blood Glucose Check, Bedside [RC] ONETIME Sodium Chloride 0.9% [Saline Flush] 10 ml FLUSH ASDIRECTED PRN Peripheral IV Insertion Adult [OM.PC] Stat 06/30/17 14:26 Peripheral IV Care [RC] . DIRECTED 06/30/17 15:15 Sodium Chloride 0.9% [Normal Saline] 1,000 ml IV ASDIRECTED 06/30/17 16:00 EKG 12 Lead [EKG Documentation Completion] [RC] URGENT 06/30/17 16:15 Insulin Regular, Human [HumuLIN R] 100 unit Sodium Chloride 0.9% [Normal Saline] 99 ml IV TITRATE Assessment:: Nausea vomiting generalized abdominal pain. Hyperglycemia as well as ketonuria. Does not meet criteria for DKA as her pH is within normal limits although she does not tolerate oral fluids. Elevated liver enzymes. Dehydration. Plan: Admit DR. Graves for further care management and work up.
[2017-06-30] MEDS ORDERED: Ketorolac 30 MG/ML SDV IVPUSH ONE (14:38)
[2017-06-30] MEDS ORDERED: Promethazine 25 MG/ML SDV IM ONE (15:06)
[2017-06-30 15:08] LABS: ANION GAP 18.3; CHLORIDE,CL 96 mmol/L (101-111); SODIUM,NA 132 mmol/L (135-145)
[2017-06-30 15:09] LABS: O2 DELIVERY DEVICE ROOM AIR
[2017-06-30 15:11] LABS: O2 SATURATION VENOUS 73 % (60-80); PCO2 VENOUS 30 mmHg (41-51); PH,VENOUS 7.35 (7.31-7.41); PO2 VENOUS 37 mmHg (35-42)
[2017-06-30 15:12] LABS: BASE EXCESS VENOUS -4 mmol/l ((-2)-(+3)); BICARBONATE,VENOUS 21 mmol/l (19-25)
[2017-06-30] MEDS: Sodium Chloride 0.9% 1,000 ML IV SCH ×2 (15:19→20:20)
[2017-06-30] MEDS ORDERED: fentaNYL 100 MCG/2 ML SDV IVPUSH ONE (15:25)
[2017-06-30] MEDS ORDERED: Iopamidol 612 MG/ML 75 ML Bottle IVPUSH ONE (15:40)
[2017-06-30] MEDS ORDERED: Insulin Regular, Human 100 Units/ML 3 ML Vial IV ONE (15:58)
--- NOTE | 2017-06-30 16:22 | CT ---
Clinical history: 46-year-old hypertensive 125 pound diabetic female smoker with diffuse abdominal pa in. Scan technique: Volume acquisition of data from the abdomen and pelvis obtained without oral contrast but during/after intravenous infusion 75 cc nonionic Isovue contrast while patient was lying supine on the Siemens multi slice scanner [place], [place]. All data archived in the PACS system for storage, reformatting and study. Interpretation: 1. Surgical clips gallbladder fossa RUQ. Gastric bypass surgery. 2. Diverticula sigmoid colon left lower quadrant without associated inflammatory changes. 3. Liver, spleen, pancreas and adrenal glands unremarkable. Normal reniform size axis and configurati on bilaterally. No renal cortical mass lesion, signs of nephrolithiasis or obstructive uropathy. Symm etrically distended normal appearing urinary bladder. 4. Apparent hysterectomy however solitary 3.6 cm diameter cyst left adnexa may originate in remaining ovary. 5. No other pelvic or abdominal mass lesion, signs of mesenteric or retroperitoneal lymphadenopathy, inflammatory "dirty" peritoneal fat, mechanical bowel obstruction, ascites or free intraperitoneal ai r. Normal appendix RLQ. 6. Normal caliber abdominal aorta. Lumbar spine unremarkable. Lung bases clear. CONCLUSION: Sigmoid diverticulosis. Solitary left adnexal cyst. Cholecystectomy and gastric surgery. Otherwise negative exam.
[2017-06-30] MEDS ORDERED: Haloperidol Lactate 5 MG/ML SDV IVPUSH ONE (16:23)
[2017-06-30] MEDS ORDERED: Pantoprazole 40 MG Vial IVPUSH ONE (16:24)
[2017-06-30] MEDS ORDERED: Gabapentin 300 MG Cap PO PRN (17:29)
[2017-06-30] MEDS ORDERED: Acetaminophen 325 MG Tab PO PRN (18:03)
[2017-06-30] MEDS ORDERED: LORazepam 2 MG/ML Syringe IVPUSH PRN (18:03)
[2017-06-30] MEDS ORDERED: Zolpidem 5 MG Tab PO PRN (18:03)
--- NOTE | 2017-06-30 18:16 | PCM.HP ---
H&P History of Present Illness - General Date of Service: 06/30/17 Admit Problem/Dx: Admission Diagnosis/Problem Admission Diagnosis/Problem Nausea and vomiting Source of Information: Patient - History of Present Illness Initial Comments - Free Text/Narative: The patient is a very poor historian. It appears that she has been taking aspirin for previous shoulder injury. She was not taking her blood pressure medications nor her insulin. Yesterday she was doing well but this morning woke up with the nausea and vomiting. This is associated with crampy abdominal pain. She had the last bowel movement early this morning which was "normal" The vomitus is yellow. No blood in it She came into the emergency room and was noted to have hyperglycemia. She continues to have severe nausea. Left Upper Abdominal Pain Score (Numeric/FACES): 10 - Related Data Allergies/Adverse Reactions: Allergies Allergy/AdvReac Type Severity Reaction Status Date / Time No Known Allergies Allergy Verified 06/30/17 14:27 Home Medications: Home Meds Atenolol [Tenormin] 50 mg PO DAILY 09/30/13 [History] Gabapentin [Neurontin] 100 mg PO TID PRN 09/30/13 [History] Lisinopril [Prinivil] 20 mg PO DAILY 09/30/13 [History] Omeprazole 20 mg PO BID 09/30/13 [History] Insulin Detemir [Levemir] 30 units SQ BEDTIME 06/30/14 [History] Insulin Aspart [NovoLOG] 15 unit SUBCUT BIDAC 09/19/16 [History] Simvastatin [Zocor] 10 mg PO DAILY 06/30/17 [History] Past Medical History HEENT History: Reports: None Cardiovascular History: Reports: High Cholesterol, Hypertension Respiratory History: Reports: None Gastrointestinal History: Reports: Cholelithiasis Genitourinary History: Reports: Renal Calculus 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: Musculoskeletal History: Reports: Arthritis Neurological History: Reports: None Psychiatric History: Reports: Anxiety Endocrine/Metabolic History: Reports: Diabetes, Type II Hematologic History: Reports: None Immunologic History: Reports: None Oncologic (Cancer) History: Reports: None Dermatologic History: Reports: Cellulitis - Infectious Disease History Infectious Disease History: Reports: Chicken Pox, MRSA - Past Surgical History GI Surgical History: Reports: Cholecystectomy Female Surgical History: Reports: Hysterectomy Social & Family History - Family History Family Medical History: Noncontributory - Tobacco Use Smoking Status *Q: Heavy Tobacco Smoker Years of Tobacco use: 20 Packs/Tins Daily: 0.5 Used Tobacco, but Quit: No Second Hand Smoke Exposure: Yes - Caffeine Use Caffeine Use: Reports: Coffee, Soda - Alcohol Use Days Per Week of Alcohol Use: 0 - Recreational Drug Use Recreational Drug Use: No H&P Review of Systems - Review of Systems: Review Of Systems: See Below General: Denies: Fever, Chills Pulmonary: Denies: Shortness of Breath Cardiovascular: Denies: Chest Pain Gastrointestinal: Reports: Abdominal Pain (Cramping), Nausea, Vomiting. Denies : Diarrhea Genitourinary: Denies: Dysuria Psychiatric: Denies: Confusion Exam - Exam Exam: See Below - Vital Signs Vital Signs: Last Vital Signs Temp 37.4 C 06/30/17 17:22 Pulse 66 06/30/17 17:22 Resp 20 06/30/17 17:22 BP 203/97 H 06/30/17 17:22 Pulse Ox 98 06/30/17 17:22 Weight: 59.375 kg - Exam General: Alert, Oriented, Moderate Distress (Complaining of nausea) Neck: Supple Lungs: Clear to Auscultation, Normal Respiratory Effort Cardiovascular: Regular Rate, Regular Rhythm GI/Abdominal Exam: Normal Bowel Sounds, Soft, No Distention. No: Distended, Rigid, Rebound, Tender Extremities: No Pedal Edema Neuro Extensive - Mental Status: Alert, Oriented x3 Psychiatric: Labile Mood (Irritated, poorly cooperating) - Patient Data Lab Results Last 24 hrs: Laboratory Results - last 24 hr 06/30/17 Range/Units 17:49 POC Glucose 236 H (70-105) mg/dl Result Diagrams: 06/30/17 14:36 06/30/17 14:25 *Q Meaningful Use (ADM) - VTE *Q VTE Criteria *Q: - Stroke *Q Stroke Criteria *Q: - AMI *Q AMI Criteria *Q: - Problem List (1) Nausea and vomiting SNOMED Code(s): 11258905 ICD Code: R11.2 - NAUSEA WITH VOMITING, UNSPECIFIED Status: Acute Current Visit: Yes (2) Diabetes SNOMED Code(s): 13394541 ICD Code: E11.9 - TYPE 2 DIABETES MELLITUS WITHOUT COMPLICATIONS Status: Acute Current Visit: Yes Problem List Initiated/Reviewed/Updated: Yes Orders Last 24hrs: Active Orders 24 hr Category Date Time Status Patient Status [ADT] Routine ADT 06/30/17 18:03 Ordered Antiembolic Devices [RC] PER UNIT ROUTINE Care 06/30/17 18:06 Ordered Blood Glucose Check, Bedside [RC] Q1HR Care 06/30/17 17:26 Active Oxygen Therapy [RC] PRN Care 06/30/17 18:03 Ordered POCTesting [POC Labs] [RC] ASDIRECTED Care 06/30/17 17:28 Active Up With Assistance [RC] ASDIRECTED Care 06/30/17 18:03 Ordered VTE/DVT Education [RC] PER UNIT ROUTINE Care 06/30/17 18:03 Ordered Vital Signs [RC] Q4H Care 06/30/17 18:03 Ordered Clear Liquid Diet [DIET] Diet 06/30/17 Breakfast Ordered BASIC METABOLIC PANEL,BMP [CHEM] AM Lab 07/01/17 05:15 Ordered CBC WITH AUTO DIFF [HEME] AM Lab 07/01/17 05:15 Ordered DRUG SCREEN, URINE [URCHEM] Routine Lab 06/30/17 17:31 Uncollected INSULIN [REF] Routine Lab 06/30/17 14:25 Stop Req LACTIC ACID [CHEM] AM Lab 07/01/17 05:11 Ordered MAGNESIUM [CHEM] AM Lab 07/01/17 05:11 Ordered PHOSPHORUS [CHEM] AM Lab 07/01/17 05:11 Ordered Acetaminophen [Tylenol] Med 06/30/17 18:03 Ordered 650 mg PO Q4H PRN Atenolol [Tenormin] Med 07/01/17 09:00 Ordered 50 mg PO DAILY Gabapentin [Neurontin] Med 07/01/17 00:00 Ordered 150 mg PO Q6HR Heparin Sodium Med 06/30/17 22:00 Ordered 5,000 units SUBCUT Q8HR Insulin Regular, Human [HumuLIN R] Med 06/30/17 17:30 Hold See Protocol IV Q1H LORazepam [Ativan] Med 06/30/17 18:03 Ordered 1 mg IVPUSH Q6H PRN Lisinopril [Prinivil] Med 07/01/17 09:00 Ordered 20 mg PO DAILY Morphine Med 06/30/17 17:57 Ordered 1 mg IVPUSH Q4H PRN Ondansetron [Zofran] Med 06/30/17 17:56 Ordered 4 mg IV Q4H PRN Pantoprazole [ProTONIX IV] Med 06/30/17 21:00 Ordered 40 mg IVPUSH BID Promethazine [Phenergan] Med 06/30/17 18:03 Ordered 12.5 mg IM Q6H PRN Zolpidem [Ambien] Med 06/30/17 18:03 Ordered 5 mg PO BEDTIME PRN buPROPion [Wellbutrin XL] Med 06/30/17 21:00 Active 150 mg PO BID Sequential Compression Device [OM.PC] Per Unit Routine Oth 06/30/17 18:05 Ordered Resuscitation Status Routine Resus Stat 06/30/17 18:03 Ordered Medication Orders Acetaminophen (Tylenol) 650 mg PO Q4H PRN PRN Reason: Pain (Mild 1-3)/fever Atenolol (Tenormin) 50 mg PO DAILY NGUYEN Bupropion HCl (Wellbutrin Xl) 150 mg PO BID NGUYEN Gabapentin (Neurontin) 150 mg PO Q6HR NGUYEN Heparin Sodium (Porcine) (Heparin Sodium) 5,000 units SUBCUT Q8HR NGUYEN Sodium Chloride (Normal Saline) 1,000 mls @ 150 mls/hr IV ASDIRECTED NGUYEN Last Infusion: 06/30/17 17:51 Dose: 150 mls/hr Admin: 06/30/17 15:19 Dose: 250 mls/hr Insulin Human Regular (Humulin R) 0 unit IV Q1H NGUYEN PRN Reason: Protocol Lisinopril (Prinivil) 20 mg PO DAILY NGUYEN Lorazepam (Ativan) 1 mg IVPUSH Q6H PRN PRN Reason: Anxiety Morphine Sulfate (Morphine) 1 mg IVPUSH Q4H PRN PRN Reason: Pain Ondansetron HCl (Zofran) 4 mg IV Q4H PRN PRN Reason: Nausea/Vomiting Pantoprazole Sodium (Protonix Iv) 40 mg IVPUSH BID NGUYEN Promethazine HCl (Phenergan) 12.5 mg IM Q6H PRN PRN Reason: Nausea/Vomiting Zolpidem Tartrate (Ambien) 5 mg PO BEDTIME PRN PRN Reason: Sleep Assessment/Plan Comment:: The patient is a 46-year-old lady with a history of diabetes, hypertension. She has poor medical compliance. She presented with nausea, abdominal cramping pain. #1 nausea, vomiting The etiology might be due to nonsteroidal use, gastritis. We'll start the patient on proton pump inhibitor twice a day The patient's abdomen examination is benign, lactic acid is not elevated. CT showed no acute findings. Will treat with antiemetics, pain medication Give IV fluids, clear liquid diet Follow clinically #2 diabetes uncontrolled hyperglycemia Doesn't appear to have DKA While the blood sugar is high Will give IV fluids, insulin drip Hydrate well When able to have good oral intake with transition to subcutaneous regimen #3 hypertension Treat with atenolol and lisinopril Right now the blood pressure measurements are not reliable while the patient has a active nausea #4 check urine test Check urine toxicology screen DVT prophylaxis with subcutaneous heparin
[2017-06-30] MEDS: Morphine 2 MG/ML Syringe IVPUSH PRN ×2 (18:38→22:45)
[2017-06-30] MEDS: Ondansetron 4 MG/2 ML SDV IV PRN (18:38)
[2017-06-30] MEDS: Insulin Regular, Human 100 Units/ML 3 ML Vial IV SCH ×6 (18:41→23:59)
[2017-06-30] MEDS: buPROPion 150 MG Tab.ER PO SCH ×2 (20:45→21:17)
[2017-06-30] MEDS: Promethazine 25 MG/ML SDV IM PRN (20:45)
[2017-06-30] MEDS: Pregabalin 50 MG Cap PO SCH ×2 (20:45→21:17)
[2017-06-30] MEDS: Heparin Sodium 5,000 Units/ML Vial SUBCUT SCH (21:17)
[2017-06-30] MEDS ORDERED: amLODIPine 5 MG Tab PO ONE (23:35)
[2017-07-01] MEDS ORDERED: Gabapentin 300 MG Cap PO SCH
[2017-07-01] MEDS: Insulin Regular, Human 100 Units/ML 3 ML Vial IV SCH ×11 (01:12→11:12)
[2017-07-01] MEDS: Ondansetron 4 MG/2 ML SDV IV PRN ×2 (01:32→10:17)
[2017-07-01] MEDS: Sodium Chloride 0.9% 1,000 ML IV SCH (03:10)
[2017-07-01] MEDS: Promethazine 25 MG/ML SDV IM PRN ×2 (03:32→12:23)
[2017-07-01] MEDS: Metoclopramide 10 MG/2 ML SDV IVPUSH PRN ×2 (04:54→12:25)
[2017-07-01] MEDS: Heparin Sodium 5,000 Units/ML Vial SUBCUT SCH ×2 (06:05→17:28)
[2017-07-01 07:07] LABS: CHLORIDE,CL 105 mmol/L (101-111); SODIUM,NA 137 mmol/L (135-145)
[2017-07-01] MEDS ORDERED: Atenolol 50 MG Tab PO SCH (09:00)
[2017-07-01] MEDS ORDERED: Pantoprazole 40 MG Vial IVPUSH SCH (09:00)
[2017-07-01] MEDS ORDERED: Lisinopril 20 MG Tab PO SCH (09:00)
[2017-07-01] MEDS ORDERED: Omeprazole 20 MG Cap.CR PO SCH (09:00)
[2017-07-01] MEDS ORDERED: Insulin Detemir 100 Units/ML 3 ML Pen SUBCUT SCH (09:00)
[2017-07-01] MEDS ORDERED: Aspirin 81 MG Tab.Chew PO SCH (09:00)
[2017-07-01] MEDS ORDERED: Pantoprazole 40 MG Tab.CR PO SCH (10:00)
[2017-07-01] MEDS: Phosphorus #1 250 MG Tab PO SCH ×2 (10:29→12:14)
[2017-07-01] MEDS: Potassium Chloride 10 MEQ Tab.ER PO SCH ×2 (10:29→17:28)
[2017-07-01] MEDS: buPROPion 150 MG Tab.ER PO SCH (10:29)
[2017-07-01] MEDS: Pregabalin 50 MG Cap PO SCH ×2 (10:31→17:28)
[2017-07-01] MEDS ORDERED: amLODIPine 5 MG Tab PO SCH (11:45)
--- NOTE | 2017-07-01 11:56 | PCM.DCSUM1 ---
Discharge Summary - Hospital Course Free Text/Narrative:: On admission: The patient is a 46-year-old lady with a history of diabetes, hypertension. She has poor medical compliance. The patient is a very poor historian. It appears that she has been taking aspirin for previous shoulder injury. She was not taking her blood pressure medications nor her insulin. Yesterday she was doing well but this morning woke up with the nausea and vomiting. This is associated with crampy abdominal pain. She had the last bowel movement early this morning which was "normal" The vomitus is yellow. No blood in it She came into the emergency room and was noted to have hyperglycemia. She continues to have severe nausea. Overnight: The patient was admitted and started on IV fluids, insulin drip. She has received multiple doses of different antiemetics including Zofran and metoclopramide, Phenergan. She received pain medication and Ativan. She continues to have severe nausea and dry heaving, crampy abdominal pain. #1 nausea, vomiting The patient's abdomen examination is benign, lactic acid is not elevated. CT showed no acute findings. The etiology might be due to nonsteroidal use, gastritis. Possible hyperemesis due to marijuana. treat the patient with proton pump inhibitor twice a day, Maalox Will treat with antiemetics, pain medication cont IV fluids will transfer to [facility] in case she needs GI consult if not improved #2 diabetes admitted with uncontrolled hyperglycemia Overnight has been on insulin drip Blood sugars have improved Transitioned to subcutaneous long-acting/short-acting regimen Hydrate well #3 hypertension Treat with atenolol and lisinopril Right now the blood pressure measurements are not reliable while the patient has a active nausea #4 DVT prophylaxis with subcutaneous heparin - Discharge Data Discharge Date: 07/01/17 Discharge Disposition: DC/Tfer to Acute Hospital 02 Condition: Good - Discharge Diagnosis/Problem(s) (1) Nausea and vomiting SNOMED Code(s): 54606893 ICD Code: R11.2 - NAUSEA WITH VOMITING, UNSPECIFIED Status: Acute Current Visit: Yes (2) Diabetes SNOMED Code(s): 76153763 ICD Code: E11.9 - TYPE 2 DIABETES MELLITUS WITHOUT COMPLICATIONS Status: Acute Current Visit: Yes - Patient Instructions Diet: Clear Liquid Diet Activity: As Tolerated - Discharge Plan Home Medications: Home Meds Atenolol [Tenormin] 50 mg PO DAILY 09/30/13 [History] Lisinopril [Prinivil] 20 mg PO DAILY 09/30/13 [History] Omeprazole 20 mg PO BID 09/30/13 [History] Insulin Detemir [Levemir] 30 units SQ BEDTIME 06/30/14 [History] Insulin Aspart [NovoLOG] 15 unit SUBCUT BIDAC 09/19/16 [History] Simvastatin [Zocor] 10 mg PO DAILY 06/30/17 [History] Alum Hydrox/Mag Hydrox/Simeth [Mag-Al Plus] 30 ml PO TID cup 07/01/17 [Rx] Insulin Aspart [NovoLOG] 0 unit SUBCUT TIDAC pen 07/01/17 [Rx] Insulin Detemir [Levemir] 20 unit SUBCUT DAILY pen 07/01/17 [Rx] Pantoprazole [ProTONIX] 40 mg PO BIDAC tab.cr 07/01/17 [Rx] Pregabalin [Lyrica] 100 mg PO TID cap 07/01/17 [Rx] buPROPion [buPROPion XL] 150 mg PO BID tab.er 07/01/17 [Rx] - General Info Date of Service: 07/01/17 Functional Status: Denies: Pain Controlled, Tolerating Diet - Review of Systems General: Reports: Weakness, Malaise. Denies: Fever Gastrointestinal: Reports: Abdominal Pain (Cramping), Nausea, Vomiting ( Intractable) Skin: Reports: No Symptoms Neurological: Reports: No Symptoms - Patient Data Vitals - Most Recent: Last Vital Signs Temp 37.4 C 07/01/17 03:45 Pulse 87 07/01/17 10:31 Resp 20 07/01/17 03:45 BP 181/92 H 07/01/17 10:31 Pulse Ox 97 07/01/17 03:45 Weight - Most Recent: 59.375 kg I&O - Last 24 hours: Intake & Output 06/30/17 07/01/17 07/01/17 22:59 06:59 14:59 Intake Total 653 Balance 653 Lab Results - Last 24 hrs: Laboratory Results - last 24 hr 06/30/17 06/30/17 06/30/17 Range/Units 18:30 19:54 21:07 WBC (5.0-10.0) 10^3/uL RBC (4.2-5.4) 10^6/uL Hgb (12.0-16.0) g/dL Hct (37.0-47.0) % MCV (80-100) fL MCH (27.0-34.0) pg MCHC (33.0-35.0) g/dL Plt Count (150-450) 10^3/uL Neut % (Auto) (42.2-75.2) % Lymph % (Auto) (20.5-50.1) % Robertson % (Auto) (2-8) % Eos % (Auto) (1.0-3.0) % Baso % (Auto) (0.0-1.0) % Sodium (135-145) mmol/L Potassium (3.6-5.0) mmol/L Chloride (101-111) mmol/L Carbon Dioxide (21.0-31.0) mmol/L Anion Gap BUN (7-18) mg/dL Creatinine (0.6-1.3) mg/dL Est Cr Clr Drug Dosing mL/min Estimated GFR (MDRD) Glucose (74-105) mg/dL POC Glucose 256 H 219 H (70-105) mg/dl Lactic Acid (0.5-2.2) mmol/L Calcium (8.4-10.2) mg/dl Phosphorus (2.5-4.6) mg/dL Magnesium (1.8-2.5) mg/dL Urine Opiates Screen Negative (NEGATIVE) Ur Oxycodone Screen Negative (NEGATIVE) Urine Methadone Screen Negative (NEGATIVE) Ur Barbiturates Screen Negative (NEGATIVE) U Tricyclic Antidepress Negative (NEGATIVE) Ur Phencyclidine Scrn Negative (NEGATIVE) Ur Amphetamine Screen Negative (NEGATIVE) U Methamphetamines Scrn Negative (NEGATIVE) Urine MDMA Screen Negative (NEGATIVE) U Benzodiazepines Scrn Negative (NEGATIVE) Urine Cocaine Screen Negative (NEGATIVE) U Marijuana (THC) Screen Positive H (NEGATIVE) 06/30/17 06/30/17 06/30/17 Range/Units 22:02 22:52 23:57 WBC (5.0-10.0) 10^3/uL RBC (4.2-5.4) 10^6/uL Hgb (12.0-16.0) g/dL Hct (37.0-47.0) % MCV (80-100) fL MCH (27.0-34.0) pg MCHC (33.0-35.0) g/dL Plt Count (150-450) 10^3/uL Neut % (Auto) (42.2-75.2) % Lymph % (Auto) (20.5-50.1) % Robertson % (Auto) (2-8) % Eos % (Auto) (1.0-3.0) % Baso % (Auto) (0.0-1.0) % Sodium (135-145) mmol/L Potassium (3.6-5.0) mmol/L Chloride (101-111) mmol/L Carbon Dioxide (21.0-31.0) mmol/L Anion Gap BUN (7-18) mg/dL Creatinine (0.6-1.3) mg/dL Est Cr Clr Drug Dosing mL/min Estimated GFR (MDRD) Glucose (74-105) mg/dL POC Glucose 203 H 196 H 164 H (70-105) mg/dl Lactic Acid (0.5-2.2) mmol/L Calcium (8.4-10.2) mg/dl Phosphorus (2.5-4.6) mg/dL Magnesium (1.8-2.5) mg/dL Urine Opiates Screen (NEGATIVE) Ur Oxycodone Screen (NEGATIVE) Urine Methadone Screen (NEGATIVE) Ur Barbiturates Screen (NEGATIVE) U Tricyclic Antidepress (NEGATIVE) Ur Phencyclidine Scrn (NEGATIVE) Ur Amphetamine Screen (NEGATIVE) U Methamphetamines Scrn (NEGATIVE) Urine MDMA Screen (NEGATIVE) U Benzodiazepines Scrn (NEGATIVE) Urine Cocaine Screen (NEGATIVE) U Marijuana (THC) Screen (NEGATIVE) 07/01/17 07/01/17 07/01/17 Range/Units 01:10 02:15 03:07 WBC (5.0-10.0) 10^3/uL RBC (4.2-5.4) 10^6/uL Hgb (12.0-16.0) g/dL Hct (37.0-47.0) % MCV (80-100) fL MCH (27.0-34.0) pg MCHC (33.0-35.0) g/dL Plt Count (150-450) 10^3/uL Neut % (Auto) (42.2-75.2) % Lymph % (Auto) (20.5-50.1) % Robertson % (Auto) (2-8) % Eos % (Auto) (1.0-3.0) % Baso % (Auto) (0.0-1.0) % Sodium (135-145) mmol/L Potassium (3.6-5.0) mmol/L Chloride (101-111) mmol/L Carbon Dioxide (21.0-31.0) mmol/L Anion Gap BUN (7-18) mg/dL Creatinine (0.6-1.3) mg/dL Est Cr Clr Drug Dosing mL/min Estimated GFR (MDRD) Glucose (74-105) mg/dL POC Glucose 180 H 185 H 162 H (70-105) mg/dl Lactic Acid (0.5-2.2) mmol/L Calcium (8.4-10.2) mg/dl Phosphorus (2.5-4.6) mg/dL Magnesium (1.8-2.5) mg/dL Urine Opiates Screen (NEGATIVE) Ur Oxycodone Screen (NEGATIVE) Urine Methadone Screen (NEGATIVE) Ur Barbiturates Screen (NEGATIVE) U Tricyclic Antidepress (NEGATIVE) Ur Phencyclidine Scrn (NEGATIVE) Ur Amphetamine Screen (NEGATIVE) U Methamphetamines Scrn (NEGATIVE) Urine MDMA Screen (NEGATIVE) U Benzodiazepines Scrn (NEGATIVE) Urine Cocaine Screen (NEGATIVE) U Marijuana (THC) Screen (NEGATIVE) 07/01/17 07/01/17 07/01/17 Range/Units 04:07 04:59 06:03 WBC (5.0-10.0) 10^3/uL RBC (4.2-5.4) 10^6/uL Hgb (12.0-16.0) g/dL Hct (37.0-47.0) % MCV (80-100) fL MCH (27.0-34.0) pg MCHC (33.0-35.0) g/dL Plt Count (150-450) 10^3/uL Neut % (Auto) (42.2-75.2) % Lymph % (Auto) (20.5-50.1) % Robertson % (Auto) (2-8) % Eos % (Auto) (1.0-3.0) % Baso % (Auto) (0.0-1.0) % Sodium (135-145) mmol/L Potassium (3.6-5.0) mmol/L Chloride (101-111) mmol/L Carbon Dioxide (21.0-31.0) mmol/L Anion Gap BUN (7-18) mg/dL Creatinine (0.6-1.3) mg/dL Est Cr Clr Drug Dosing mL/min Estimated GFR (MDRD) Glucose (74-105) mg/dL POC Glucose 153 H 155 H 155 H (70-105) mg/dl Lactic Acid (0.5-2.2) mmol/L Calcium (8.4-10.2) mg/dl Phosphorus (2.5-4.6) mg/dL Magnesium (1.8-2.5) mg/dL Urine Opiates Screen (NEGATIVE) Ur Oxycodone Screen (NEGATIVE) Urine Methadone Screen (NEGATIVE) Ur Barbiturates Screen (NEGATIVE) U Tricyclic Antidepress (NEGATIVE) Ur Phencyclidine Scrn (NEGATIVE) Ur Amphetamine Screen (NEGATIVE) U Methamphetamines Scrn (NEGATIVE) Urine MDMA Screen (NEGATIVE) U Benzodiazepines Scrn (NEGATIVE) Urine Cocaine Screen (NEGATIVE) U Marijuana (THC) Screen (NEGATIVE) 07/01/17 07/01/17 07/01/17 Range/Units 06:25 06:25 06:25 WBC 13.5 H (5.0-10.0) 10^3/uL RBC 5.04 (4.2-5.4) 10^6/uL Hgb 14.9 D (12.0-16.0) g/dL Hct 42.4 (37.0-47.0) % MCV 84.1 (80-100) fL MCH 29.6 (27.0-34.0) pg MCHC 35.1 H (33.0-35.0) g/dL Plt Count 253 (150-450) 10^3/uL Neut % (Auto) 80.7 H (42.2-75.2) % Lymph % (Auto) 12.0 L (20.5-50.1) % Robertson % (Auto) 7.2 (2-8) % Eos % (Auto) 0.0 L (1.0-3.0) % Baso % (Auto) 0.1 (0.0-1.0) % Sodium 137 (135-145) mmol/L Potassium 3.0 L (3.6-5.0) mmol/L Chloride 105 (101-111) mmol/L Carbon Dioxide 21.0 (21.0-31.0) mmol/L Anion Gap 14.0 BUN 15 (7-18) mg/dL Creatinine 0.5 L (0.6-1.3) mg/dL Est Cr Clr Drug Dosing 103.13 mL/min Estimated GFR (MDRD) > 60 Glucose 159 H (74-105) mg/dL POC Glucose (70-105) mg/dl Lactic Acid 0.8 (0.5-2.2) mmol/L Calcium 7.9 L D (8.4-10.2) mg/dl Phosphorus 1.9 L (2.5-4.6) mg/dL Magnesium 1.5 L (1.8-2.5) mg/dL Urine Opiates Screen (NEGATIVE) Ur Oxycodone Screen (NEGATIVE) Urine Methadone Screen (NEGATIVE) Ur Barbiturates Screen (NEGATIVE) U Tricyclic Antidepress (NEGATIVE) Ur Phencyclidine Scrn (NEGATIVE) Ur Amphetamine Screen (NEGATIVE) U Methamphetamines Scrn (NEGATIVE) Urine MDMA Screen (NEGATIVE) U Benzodiazepines Scrn (NEGATIVE) Urine Cocaine Screen (NEGATIVE) U Marijuana (THC) Screen (NEGATIVE) 07/01/17 07/01/17 07/01/17 Range/Units 07:05 08:06 09:01 WBC (5.0-10.0) 10^3/uL RBC (4.2-5.4) 10^6/uL Hgb (12.0-16.0) g/dL Hct (37.0-47.0) % MCV (80-100) fL MCH (27.0-34.0) pg MCHC (33.0-35.0) g/dL Plt Count (150-450) 10^3/uL Neut % (Auto) (42.2-75.2) % Lymph % (Auto) (20.5-50.1) % Robertson % (Auto) (2-8) % Eos % (Auto) (1.0-3.0) % Baso % (Auto) (0.0-1.0) % Sodium (135-145) mmol/L Potassium (3.6-5.0) mmol/L Chloride (101-111) mmol/L Carbon Dioxide (21.0-31.0) mmol/L Anion Gap BUN (7-18) mg/dL Creatinine (0.6-1.3) mg/dL Est Cr Clr Drug Dosing mL/min Estimated GFR (MDRD) Glucose (74-105) mg/dL POC Glucose 153 H 140 H 169 H (70-105) mg/dl Lactic Acid (0.5-2.2) mmol/L Calcium (8.4-10.2) mg/dl Phosphorus (2.5-4.6) mg/dL Magnesium (1.8-2.5) mg/dL Urine Opiates Screen (NEGATIVE) Ur Oxycodone Screen (NEGATIVE) Urine Methadone Screen (NEGATIVE) Ur Barbiturates Screen (NEGATIVE) U Tricyclic Antidepress (NEGATIVE) Ur Phencyclidine Scrn (NEGATIVE) Ur Amphetamine Screen (NEGATIVE) U Methamphetamines Scrn (NEGATIVE) Urine MDMA Screen (NEGATIVE) U Benzodiazepines Scrn (NEGATIVE) Urine Cocaine Screen (NEGATIVE) U Marijuana (THC) Screen (NEGATIVE) 07/01/17 07/01/17 Range/Units 10:11 11:10 WBC (5.0-10.0) 10^3/uL RBC (4.2-5.4) 10^6/uL Hgb (12.0-16.0) g/dL Hct (37.0-47.0) % MCV (80-100) fL MCH (27.0-34.0) pg MCHC (33.0-35.0) g/dL Plt Count (150-450) 10^3/uL Neut % (Auto) (42.2-75.2) % Lymph % (Auto) (20.5-50.1) % Robertson % (Auto) (2-8) % Eos % (Auto) (1.0-3.0) % Baso % (Auto) (0.0-1.0) % Sodium (135-145) mmol/L Potassium (3.6-5.0) mmol/L Chloride (101-111) mmol/L Carbon Dioxide (21.0-31.0) mmol/L Anion Gap BUN (7-18) mg/dL Creatinine (0.6-1.3) mg/dL Est Cr Clr Drug Dosing mL/min Estimated GFR (MDRD) Glucose (74-105) mg/dL POC Glucose 171 H 171 H (70-105) mg/dl Lactic Acid (0.5-2.2) mmol/L Calcium (8.4-10.2) mg/dl Phosphorus (2.5-4.6) mg/dL Magnesium (1.8-2.5) mg/dL Urine Opiates Screen (NEGATIVE) Ur Oxycodone Screen (NEGATIVE) Urine Methadone Screen (NEGATIVE) Ur Barbiturates Screen (NEGATIVE) U Tricyclic Antidepress (NEGATIVE) Ur Phencyclidine Scrn (NEGATIVE) Ur Amphetamine Screen (NEGATIVE) U Methamphetamines Scrn (NEGATIVE) Urine MDMA Screen (NEGATIVE) U Benzodiazepines Scrn (NEGATIVE) Urine Cocaine Screen (NEGATIVE) U Marijuana (THC) Screen (NEGATIVE) Med Orders - Current: Current Medications Acetaminophen (Tylenol) 650 mg PO Q4H PRN PRN Reason: Pain (Mild 1-3)/fever Last Admin: 07/01/17 10:30 Dose: 650 mg Al Hydroxide/Mg Hydroxide (Mag-Al Plus) 30 ml PO TID [facility] Stop: 07/02/17 09:01 Amlodipine Besylate (Norvasc) 5 mg PO DAILY [facility] Atenolol (Tenormin) 50 mg PO DAILY [facility] Last Admin: 07/01/17 10:31 Dose: 50 mg Bupropion HCl (Wellbutrin Xl) 150 mg PO BID [facility] Last Admin: 07/01/17 10:29 Dose: 150 mg Heparin Sodium (Porcine) (Heparin Sodium) 5,000 units SUBCUT Q8HR [facility] Last Admin: 07/01/17 06:05 Dose: 5,000 units Sodium Chloride (Normal Saline) 1,000 mls @ 150 mls/hr IV ASDIRECTED [facility] Last Admin: 07/01/17 03:10 Dose: 150 mls/hr Insulin Aspart (Novolog) 0 unit SUBCUT TIDAC [facility] PRN Reason: Protocol Insulin Detemir (Levemir) 20 unit SUBCUT DAILY [facility] Lisinopril (Prinivil) 20 mg PO DAILY [facility] Last Admin: 07/01/17 10:28 Dose: 20 mg Lorazepam (Ativan) 1 mg IVPUSH Q6H PRN PRN Reason: Anxiety Last Admin: 06/30/17 21:17 Dose: 1 mg Magnesium Oxide (Magnesium Oxide) 250 mg PO BIDM [facility] Stop: 07/01/17 18:01 Last Admin: 07/01/17 10:31 Dose: 250 mg Metoclopramide HCl (Reglan) 10 mg IVPUSH Q6H PRN PRN Reason: Nausea/Vomiting Last Admin: 07/01/17 04:54 Dose: 10 mg Morphine Sulfate (Morphine) 1 mg IVPUSH Q4H PRN PRN Reason: Pain Last Admin: 06/30/17 22:45 Dose: 1 mg Ondansetron HCl (Zofran) 4 mg IV Q4H PRN PRN Reason: Nausea/Vomiting Last Admin: 07/01/17 10:17 Dose: 4 mg Pantoprazole Sodium (Protonix) 40 mg PO BIDAC [facility] Last Admin: 07/01/17 10:31 Dose: 40 mg Potassium Chloride (Klor-Con 10) 40 meq PO Q6H [facility] Stop: 07/01/17 14:31 Last Admin: 07/01/17 10:29 Dose: 40 meq Pregabalin (Lyrica) 100 mg PO TID [facility] Last Admin: 07/01/17 10:31 Dose: 100 mg Promethazine HCl (Phenergan) 12.5 mg IM Q6H PRN PRN Reason: Nausea/Vomiting Last Admin: 07/01/17 03:32 Dose: 12.5 mg Sodium Phosphate (Neutra-Phos) 250 mg PO QID [facility] Stop: 07/01/17 13:01 Last Admin: 07/01/17 10:29 Dose: 250 mg Zolpidem Tartrate (Ambien) 5 mg PO BEDTIME PRN PRN Reason: Sleep Discontinued Medications Amlodipine Besylate (Norvasc) 5 mg PO ONETIME ONE Stop: 06/30/17 23:36 Last Admin: 06/30/17 23:53 Dose: 5 mg Aspirin (Aspirin) mg PO DAILY [facility] Diphenhydramine HCl (Benadryl) 25 mg IVPUSH ONETIME ONE Stop: 06/30/17 14:26 Last Admin: 06/30/17 14:40 Dose: 25 mg Fentanyl (Sublimaze) 50 mcg IVPUSH ONETIME ONE Stop: 06/30/17 15:26 Last Admin: 06/30/17 16:24 Dose: 50 mcg Gabapentin (Neurontin) 300 mg PO Q6HR PRN PRN Reason: Pain Gabapentin (Neurontin) 150 mg PO Q6HR [facility] Haloperidol Lactate (Haldol) 1 mg IVPUSH ONETIME ONE Stop: 06/30/17 16:24 Last Admin: 06/30/17 16:36 Dose: 1 mg Sodium Chloride (Normal Saline) 1,000 mls @ 999 mls/hr IV .BOLUS ONE Stop: 06/30/17 15:25 Last Admin: 06/30/17 14:41 Dose: 999 mls/hr Insulin Human Regular 100 unit (/ Sodium Chloride) 100 mls @ 5.66 mls/hr IV TITRATE NGUYEN; 0.1 UNITS/KG/HR PRN Reason: Protocol Insulin Human Regular 100 unit (/ Sodium Chloride) 100 mls @ 5.93 mls/hr IV TITRATE NGUYEN; 0.1 UNITS/KG/HR PRN Reason: Protocol Insulin Human Regular (Humulin R) 5 unit IV ONETIME ONE PRN Reason: Protocol Stop: 06/30/17 15:59 Last Admin: 06/30/17 16:30 Dose: 5 unit Insulin Human Regular (Humulin R) 0 unit IV Q1H [facility] PRN Reason: Protocol Last Admin: 07/01/17 11:12 Dose: 2 units Iopamidol (Isovue-300 (61%)) 75 ml IVPUSH ONETIME ONE Stop: 06/30/17 15:41 Last Admin: 06/30/17 15:56 Dose: 75 ml Ketorolac Tromethamine (Toradol) 30 mg IVPUSH ONETIME ONE Stop: 06/30/17 14:39 Last Admin: 06/30/17 14:43 Dose: 30 mg Omeprazole (Omeprazole) 20 mg PO DAILY [facility] Ondansetron HCl (Zofran) 4 mg IV ONETIME ONE Stop: 06/30/17 14:26 Last Admin: 06/30/17 14:41 Dose: 4 mg Pantoprazole Sodium (Protonix Iv) 40 mg IVPUSH ONETIME ONE Stop: 06/30/17 16:25 Last Admin: 06/30/17 16:39 Dose: 40 mg Pantoprazole Sodium (Protonix Iv) 40 mg IVPUSH BID [facility] Last Admin: 07/01/17 10:37 Dose: Not Given Promethazine HCl (Phenergan) 25 mg IM ONETIME ONE Stop: 06/30/17 15:07 Last Admin: 06/30/17 15:19 Dose: 25 mg Sodium Chloride (Saline Flush) 10 ml FLUSH ASDIRECTED PRN PRN Reason: Keep Vein Open Last Admin: 06/30/17 14:42 Dose: 10 ml - Exam General: Reports: Alert, Oriented, Moderate Distress Lungs: Reports: Clear to Auscultation, Normal Respiratory Effort Cardiovascular: Reports: Regular Rate, Regular Rhythm GI/Abdominal Exam: Soft, No Distention, Tender Extremities: No Pedal Edema Skin: Reports: Warm Neurological: Reports: No New Focal Deficit Psy/Mental Status: Reports: Alert, Other (Moderate distress) *Q Meaningful Use (DIS) - VTE *Q VTE Criteria *Q: - Stroke *Q Stroke Criteria *Q: - AMI *Q AMI Criteria *Q:
[2017-07-01] MEDS: Aluminum Hydroxide/Magnesium Hydroxide/Simethicone Susp 30 ML Cup PO SCH ×2 (12:15→17:28)
[2017-07-01 12:26] VITALS: BP 185/90
[2017-07-01] MEDS ORDERED: Insulin Aspart 100 Units/ML 3 ML Pen SUBCUT SCH (17:00)
--- NOTE | 2017-07-05 14:55 | EKG ---
06/30/2017- MAYRA CAMARENA - FINDINGS: EKG per my reading shows sinus rhythm at the rate of 64. MOD /[id number]
== END 2017-07-01 12:40 ==
LOC: DL.ED 14:18 → DL.MS 16:40 → UNDOADMOB 16:40 → DL.MS 18:03
PROVIDERS: ADMIT Internal Medicine; ATTEND Internal Medicine
DX: R11.2 Nausea with vomiting, unspecified (principal); E11.65 Type 2 diabetes mellitus with hyperglycemia; I10 Essential (primary) hypertension; R10.9 Unspecified abdominal pain; E78.00 Pure hypercholesterolemia, unspecified; F17.210 Nicotine dependence, cigarettes, uncomplicated; F41.0 Panic disorder [episodic paroxysmal anxiety]; E86.0 Dehydration; R94.5 Abnormal results of liver function studies; M19.90 Unspecified osteoarthritis, unspecified site; Z91.14 Patient's other noncompliance with medication regimen; Z87.442 Personal history of urinary calculi; Z86.14 Personal history of Methicillin resistant Staphylococcus aureus infection; Z79.4 Long term (current) use of insulin; Z79.899 Other long term (current) drug therapy; Z90.710 Acquired absence of both cervix and uterus; Z90.49 Acquired absence of other specified parts of digestive tract
CPT/HCPCS: 36415; 74177; 80048; 80053; 80305; 81001; 82009; 82803; 82962; 83605; 83690; 83735; 84100; 85025; 87804; 93005; 96365; 96372; 96375; 99285; A9270; C9113; J1200; J1630; J1644; J1815; J1885; J2060; J2270; J2405; J2550; J2765; J3010; J7030; J7050; Q9967; 96361; 96374; 96376; G0378

== ENCOUNTER 2017-08-01 00:46 | Inpatient (IN) | payer MEDICAID, OTHER ==
[2017-08-01] MEDS ORDERED: Sodium Chloride 0.9% 1,000 ML IV ONE ×3 (01:06→02:04)
[2017-08-01] MEDS ORDERED: Ondansetron 4 MG/2 ML SDV IV ONE (01:06)
[2017-08-01] MEDS ORDERED: LORazepam 2 MG/ML Syringe IVPUSH ONE (01:09)
[2017-08-01] MEDS ORDERED: HYDROmorphone 1 MG/ML Syringe IVPUSH ONE (01:16)
[2017-08-01] MEDS ORDERED: Insulin Regular, Human 100 Units/ML 3 ML Vial IV ONE (01:35)
[2017-08-01 01:40] LABS: O2 DELIVERY DEVICE ROOM AIR
[2017-08-01 01:51] LABS: ANION GAP 26.3; CHLORIDE,CL 87 mmol/L (101-111); SODIUM,NA 134 mmol/L (135-145)
[2017-08-01] MEDS ORDERED: Metoprolol Tartrate 5 MG/5 ML SDV IVPUSH ONE (02:09)
--- NOTE | 2017-08-01 02:29 | EDM.PDOC ---
ED HPI GENERAL MEDICAL PROBLEM - General Chief Complaint: Abdominal Pain Stated Complaint: IN BY AMBULANCE Time Seen by Provider: 08/01/17 02:20 Source of Information: Reports: Patient History Limitations: Reports: No Limitations - History of Present Illness INITIAL COMMENTS - FREE TEXT/NARRATIVE: ED with c/o severe abdominal pain, and vomiting tonight, loose slimy diarrhea this am. Vomiting most of day. Notes hx of upper and lower GI bleeds. No blood in stool, Some of vomit darker in color. Dabetic, has not taken any of her medications today. 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 (see below) Other Treatments POWERHOUSE MECHANIC HELPER: none Left Upper Abdomen Pain Score (Numeric/FACES): 9 - Related Data Allergies Allergy/AdvReac Type Severity Reaction Status Date / Time No Known Allergies Allergy Verified 08/01/17 03:44 Home Meds: Home Meds Atenolol [Tenormin] 50 mg PO DAILY 09/30/13 [History] Lisinopril [Prinivil] 20 mg PO DAILY 09/30/13 [History] Omeprazole 20 mg PO BID 09/30/13 [History] Insulin Detemir [Levemir] 30 units SQ BEDTIME 06/30/14 [History] Insulin Aspart [NovoLOG] 15 unit SUBCUT BIDAC 09/19/16 [History] Simvastatin [Zocor] 10 mg PO DAILY 06/30/17 [History] Alum Hydrox/Mag Hydrox/Simeth [Mag-Al Plus] 30 ml PO TID cup 07/01/17 [Rx] Insulin Aspart [NovoLOG] 0 unit SUBCUT TIDAC pen 07/01/17 [Rx] Insulin Detemir [Levemir] 20 unit SUBCUT DAILY pen 07/01/17 [Rx] Pantoprazole [ProTONIX] 40 mg PO BIDAC tab.cr 07/01/17 [Rx] Pregabalin [Lyrica] 100 mg PO TID cap 07/01/17 [Rx] buPROPion [buPROPion XL] 150 mg PO BID tab.er 07/01/17 [Rx] Past Medical History HEENT History: Reports: None Cardiovascular History: Reports: High Cholesterol, Hypertension Respiratory History: Reports: None Gastrointestinal History: Reports: Cholelithiasis Genitourinary History: Reports: Renal Calculus 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: Musculoskeletal History: Reports: Arthritis Neurological History: Reports: None Psychiatric History: Reports: Anxiety Endocrine/Metabolic History: Reports: Diabetes, Type II Hematologic History: Reports: None Immunologic History: Reports: None Oncologic (Cancer) History: Reports: None Dermatologic History: Reports: Cellulitis - Infectious Disease History Infectious Disease History: Reports: Chicken Pox, MRSA - Past Surgical History GI Surgical History: Reports: Cholecystectomy Female Surgical History: Reports: Hysterectomy Social & Family History - Family History Family Medical History: Noncontributory - Tobacco Use Smoking Status *Q: Heavy Tobacco Smoker Years of Tobacco use: 20 Packs/Tins Daily: 0.5 Used Tobacco, but Quit: No Second Hand Smoke Exposure: Yes - Caffeine Use Caffeine Use: Reports: Coffee, Soda - Alcohol Use Days Per Week of Alcohol Use: 0 - Recreational Drug Use Recreational Drug Use: No Recreational Drug Use Frequency: Patient Refuses To Answer ED ROS GENERAL - Review of Systems Review Of Systems: See Below Constitutional: Reports: Chills HEENT: Reports: No Symptoms Respiratory: Reports: No Symptoms Cardiovascular: Reports: No Symptoms Endocrine: Reports: High Glucose GI/Abdominal: Reports: Abdominal Pain (LUQ), Diarrhea, Nausea, Vomiting : Reports: Other (odor) Musculoskeletal: Reports: No Symptoms Skin: Reports: No Symptoms Neurological: Reports: No Symptoms Psychiatric: Reports: No Symptoms ED EXAM, GI/ABD - Physical Exam Exam: See Below Exam Limited By: No Limitations General Appearance: Alert, Moderate Distress Eyes: Bilateral: EOMI Ears: Normal External Exam Nose: Normal Inspection Throat/Mouth: Normal Inspection Head: Atraumatic, Normocephalic Neck: Normal Inspection, Full Range of Motion Respiratory/Chest: No Respiratory Distress, Lungs Clear Cardiovascular: No Edema, Tachycardia GI/Abdominal Exam: No Distention, Guarding, Tender (LUQ), Abnormal Bowel Sounds (hypoactive). No: Distended Back Exam: Normal Inspection. No: CVA Tenderness (L), CVA Tenderness (R) Extremities: Normal Range of Motion Neurological: Alert, Oriented, Normal Cognition Psychiatric: Anxious Skin Exam: Warm, Dry, Intact, Normal Color Course - Vital Signs Last Recorded V/S: Last Vital Signs Temp 98.8 F 08/01/17 02:56 Pulse 105 H 08/01/17 02:56 Resp 19 08/01/17 02:56 BP 133/75 08/01/17 02:56 Pulse Ox 95 02/19/18 02:56 - Orders/Labs/Meds Orders: Active Orders 24 hr Category Date Time Status EKG 12 Lead [EKG Documentation Completion] [] URGENT Care 08/01/17 01:53 Active Glucose [Blood Glucose Check, Bedside] [] ONETIME Care 08/01/17 01:16 Active Glucose [Blood Glucose Check, Bedside] [] ONETIME Care 08/01/17 02:04 Active Glucose [Blood Glucose Check, Bedside] [] ONETIME Care 08/01/17 04:12 Active CULTURE BLOOD [BC] Stat Lab 08/01/17 01:25 Received Labs: Laboratory Tests 08/01/17 08/01/17 08/01/17 Range/Units 00:58 00:58 01:25 WBC 18.0 H (5.0-10.0) 10^3/uL RBC 6.22 H (4.2-5.4) 10^6/uL Hgb 18.6 H D (12.0-16.0) g/dL Hct 50.9 H (37.0-47.0) % MCV 81.8 (80-100) fL MCH 29.9 (27.0-34.0) pg MCHC 36.5 H (33.0-35.0) g/dL Plt Count 316 (150-450) 10^3/uL Neut % (Auto) 86.7 H (42.2-75.2) % Lymph % (Auto) 6.8 L (20.5-50.1) % [place] % (Auto) 6.3 (2-8) % Eos % (Auto) 0.0 L (1.0-3.0) % Baso % (Auto) 0.2 (0.0-1.0) % VBG pH VBG pCO2 VBG pO2 VBG HCO3 VBG O2 Saturation VBG Base Excess Capillary pH (7.33-7.49) 2 Capillary pCO2 (31-50) mmHg Capillary pO2 (20-40) mmHg Capillary HCO3 (22-26) mmol/l Capillary Base Excess ((-2)-(+3)) mmol/l O2 Delivery Device Sodium 134 L (135-145) mmol/L Potassium 3.3 L (3.6-5.0) mmol/L Chloride 87 L D (101-111) mmol/L Carbon Dioxide 24.0 (21.0-31.0) mmol/L Anion Gap 26.3 BUN 20 H (7-18) mg/dL Creatinine 1.0 (0.6-1.3) mg/dL Est Cr Clr Drug Dosing TNP Estimated GFR (MDRD) > 60 BUN/Creatinine Ratio 20.00 Glucose 460 H* (74-105) mg/dL POC Glucose (70-105) mg/dl Lactic Acid (0.5-2.2) mmol/L Calcium 9.3 (8.4-10.2) mg/dl Total Bilirubin 1.6 H (0.2-1.0) mg/dL AST 32 (10-42) IU/L ALT 42 (10-60) IU/L Alkaline Phosphatase 101 (42-121) IU/L Troponin I (0.00-0.02) ng/ml Total Protein 9.2 H (6.7-8.2) g/dl Albumin 4.6 (3.2-5.5) g/dl Globulin 4.6 Albumin/Globulin Ratio 1.00 Amylase 50 (28-100) U/L Lipase 17 L (22-51) U/L Urine Color (YELLOW) Urine Appearance (CLEAR) Urine pH (5.0-9.0) Ur Specific [place] (1.005-1.030) Urine Protein (NEGATIVE) Urine Glucose (UA) (NEGATIVE) Urine Ketones (NEGATIVE) Urine Occult Blood (NEGATIVE) Urine Nitrite (NEGATIVE) Urine Bilirubin (NEGATIVE) Urine Urobilinogen (0.2-1.0) mg/dL Ur Leukocyte Esterase (NEGATIVE) Urine RBC /HPF Urine WBC (0-5/HPF) /HPF Ur Epithelial Cells /HPF Amorphous Sediment (0/HPF) /HPF Urine Bacteria (0-FEW/HPF) /HPF Ethyl Alcohol < 5 mg/dL Ketones Positive (small) 08/01/17 08/01/17 08/01/17 Range/Units 01:25 01:25 01:33 WBC (5.0-10.0) 10^3/uL RBC (4.2-5.4) 10^6/uL Hgb (12.0-16.0) g/dL Hct (37.0-47.0) % MCV (80-100) fL MCH (27.0-34.0) pg MCHC (33.0-35.0) g/dL Plt Count (150-450) 10^3/uL Neut % (Auto) (42.2-75.2) % Lymph % (Auto) (20.5-50.1) % [place] % (Auto) (2-8) % Eos % (Auto) (1.0-3.0) % Baso % (Auto) (0.0-1.0) % VBG pH VBG pCO2 VBG pO2 VBG HCO3 VBG O2 Saturation VBG Base Excess Capillary pH (7.33-7.49) 2 Capillary pCO2 (31-50) mmHg Capillary pO2 (20-40) mmHg Capillary HCO3 (22-26) mmol/l Capillary Base Excess ((-2)-(+3)) mmol/l O2 Delivery Device Sodium (135-145) mmol/L Potassium (3.6-5.0) mmol/L Chloride (101-111) mmol/L Carbon Dioxide (21.0-31.0) mmol/L Anion Gap BUN (7-18) mg/dL Creatinine (0.6-1.3) mg/dL Est Cr Clr Drug Dosing Estimated GFR (MDRD) BUN/Creatinine Ratio Glucose (74-105) mg/dL POC Glucose 424 H* (70-105) mg/dl Lactic Acid 3.8 H (0.5-2.2) mmol/L Calcium (8.4-10.2) mg/dl Total Bilirubin (0.2-1.0) mg/dL AST (10-42) IU/L ALT (10-60) IU/L Alkaline Phosphatase (42-121) IU/L Troponin I < 0.02 (0.00-0.02) ng/ml Total Protein (6.7-8.2) g/dl Albumin (3.2-5.5) g/dl Globulin Albumin/Globulin Ratio Amylase (28-100) U/L Lipase (22-51) U/L Urine Color (YELLOW) Urine Appearance (CLEAR) Urine pH (5.0-9.0) Ur Specific [place] (1.005-1.030) Urine Protein (NEGATIVE) Urine Glucose (UA) (NEGATIVE) Urine Ketones (NEGATIVE) Urine Occult Blood (NEGATIVE) Urine Nitrite (NEGATIVE) Urine Bilirubin (NEGATIVE) Urine Urobilinogen (0.2-1.0) mg/dL Ur Leukocyte Esterase (NEGATIVE) Urine RBC /HPF Urine WBC (0-5/HPF) /HPF Ur Epithelial Cells /HPF Amorphous Sediment (0/HPF) /HPF Urine Bacteria (0-FEW/HPF) /HPF Ethyl Alcohol mg/dL Ketones 08/01/17 08/01/17 08/01/17 Range/Units 01:35 02:05 02:45 WBC (5.0-10.0) 10^3/uL RBC (4.2-5.4) 10^6/uL Hgb (12.0-16.0) g/dL Hct (37.0-47.0) % MCV (80-100) fL MCH (27.0-34.0) pg MCHC (33.0-35.0) g/dL Plt Count (150-450) 10^3/uL Neut % (Auto) (42.2-75.2) % Lymph % (Auto) (20.5-50.1) % [place] % (Auto) (2-8) % Eos % (Auto) (1.0-3.0) % Baso % (Auto) (0.0-1.0) % VBG pH Cancelled VBG pCO2 Cancelled VBG pO2 Cancelled VBG HCO3 Cancelled VBG O2 Saturation Cancelled VBG Base Excess Cancelled Capillary pH 7.427 (7.33-7.49) 2 Capillary pCO2 33 (31-50) mmHg Capillary pO2 60 H (20-40) mmHg Capillary HCO3 22.1 (22-26) mmol/l Capillary Base Excess -2 ((-2)-(+3)) mmol/l O2 Delivery Device Room air Sodium (135-145) mmol/L Potassium (3.6-5.0) mmol/L Chloride (101-111) mmol/L Carbon Dioxide (21.0-31.0) mmol/L Anion Gap BUN (7-18) mg/dL Creatinine (0.6-1.3) mg/dL Est Cr Clr Drug Dosing Estimated GFR (MDRD) BUN/Creatinine Ratio Glucose (74-105) mg/dL POC Glucose 287 H (70-105) mg/dl Lactic Acid (0.5-2.2) mmol/L Calcium (8.4-10.2) mg/dl Total Bilirubin (0.2-1.0) mg/dL AST (10-42) IU/L ALT (10-60) IU/L Alkaline Phosphatase (42-121) IU/L Troponin I (0.00-0.02) ng/ml Total Protein (6.7-8.2) g/dl Albumin (3.2-5.5) g/dl Globulin Albumin/Globulin Ratio Amylase (28-100) U/L Lipase (22-51) U/L Urine Color Yellow (YELLOW) Urine Appearance Cloudy (CLEAR) Urine pH 5.0 (5.0-9.0) Ur Specific [place] 1.020 (1.005-1.030) Urine Protein >=300 H (NEGATIVE) Urine Glucose (UA) 500 H (NEGATIVE) Urine Ketones 80 H (NEGATIVE) Urine Occult Blood Trace-lysed H (NEGATIVE) Urine Nitrite Negative (NEGATIVE) Urine Bilirubin Negative (NEGATIVE) Urine Urobilinogen 0.2 (0.2-1.0) mg/dL Ur Leukocyte Esterase Negative (NEGATIVE) Urine RBC 0-5 /HPF Urine WBC 0-5 (0-5/HPF) /HPF Ur Epithelial Cells Moderate H /HPF Amorphous Sediment Many H (0/HPF) /HPF Urine Bacteria Moderate H (0-FEW/HPF) /HPF Ethyl Alcohol mg/dL Ketones //18 Range/Units 04:19 WBC (5.0-10.0) 10^3/uL RBC (4.2-5.4) 10^6/uL Hgb (12.0-16.0) g/dL Hct (37.0-47.0) % MCV (80-100) fL MCH (27.0-34.0) pg MCHC (33.0-35.0) g/dL Plt Count (150-450) 10^3/uL Neut % (Auto) (42.2-75.2) % Lymph % (Auto) (20.5-50.1) % [place] % (Auto) (2-8) % Eos % (Auto) (1.0-3.0) % Baso % (Auto) (0.0-1.0) % VBG pH VBG pCO2 VBG pO2 VBG HCO3 VBG O2 Saturation VBG Base Excess Capillary pH (7.33-7.49) 2 Capillary pCO2 (31-50) mmHg Capillary pO2 (20-40) mmHg Capillary HCO3 (22-26) mmol/l Capillary Base Excess ((-2)-(+3)) mmol/l O2 Delivery Device Sodium (135-145) mmol/L Potassium (3.6-5.0) mmol/L Chloride (101-111) mmol/L Carbon Dioxide (21.0-31.0) mmol/L Anion Gap BUN (7-18) mg/dL Creatinine (0.6-1.3) mg/dL Est Cr Clr Drug Dosing Estimated GFR (MDRD) BUN/Creatinine Ratio Glucose (74-105) mg/dL POC Glucose 306 H (70-105) mg/dl Lactic Acid (0.5-2.2) mmol/L Calcium (8.4-10.2) mg/dl Total Bilirubin (0.2-1.0) mg/dL AST (10-42) IU/L ALT (10-60) IU/L Alkaline Phosphatase (42-121) IU/L Troponin I (0.00-0.02) ng/ml Total Protein (6.7-8.2) g/dl Albumin (3.2-5.5) g/dl Globulin Albumin/Globulin Ratio Amylase (28-100) U/L Lipase (22-51) U/L Urine Color (YELLOW) Urine Appearance (CLEAR) Urine pH (5.0-9.0) Ur Specific [place] (1.005-1.030) Urine Protein (NEGATIVE) Urine Glucose (UA) (NEGATIVE) Urine Ketones (NEGATIVE) Urine Occult Blood (NEGATIVE) Urine Nitrite (NEGATIVE) Urine Bilirubin (NEGATIVE) Urine Urobilinogen (0.2-1.0) mg/dL Ur Leukocyte Esterase (NEGATIVE) Urine RBC /HPF Urine WBC (0-5/HPF) /HPF Ur Epithelial Cells /HPF Amorphous Sediment (0/HPF) /HPF Urine Bacteria (0-FEW/HPF) /HPF Ethyl Alcohol mg/dL Ketones Meds: Medications Discontinued Medications Generic Name Dose Route Start Last Admin Trade Name Freq PRN Reason Stop Dose Admin Hydromorphone HCl 1 mg 08/01/17 01:16 08/01/17 01:26 Dilaudid IVPUSH 08/01/17 01:17 1 mg ONETIME ONE Administration Sodium Chloride 1,000 mls @ 500 mls/hr 08/01/17 01:08 Normal Saline IV 02/19/18 03:07 ASDIRECTED ONE Sodium Chloride 1,000 mls @ 999 mls/hr 08/01/17 01:06 08/01/17 01:11 Normal Saline IV 08/01/17 02:06 999 mls/hr .BOLUS ONE Administration Sodium Chloride 1,000 mls @ 999 mls/hr 08/01/17 02:04 08/01/17 02:18 Normal Saline IV 08/01/17 03:04 999 mls/hr .BOLUS ONE Administration Insulin Human Regular 10 unit 08/01/17 01:35 08/01/17 01:40 Humulin R IV 08/01/17 01:36 10 units ONETIME ONE Administration Iopamidol 75 ml 08/01/17 02:36 08/01/17 03:30 Isovue-300 (61%) IVPUSH 08/01/17 02:37 75 ml ONETIME ONE Administration Lorazepam 1 mg 08/01/17 01:09 08/01/17 01:19 Ativan IVPUSH 08/01/17 01:10 1 mg ONETIME ONE Administration Metoprolol Tartrate 2.5 mg 08/01/17 02:09 08/01/17 02:18 Lopressor IVPUSH 08/01/17 02:10 2.5 mg ONETIME ONE Administration Ondansetron HCl 4 mg 08/01/17 01:06 08/01/17 01:16 Zofran IV 08/01/17 01:07 4 mg ONETIME ONE Administration - Radiology Interpretation Free Text/Narrative:: CXR: normal Abdomen pelvis CT: cystic mass within right labia some fluid seen within the endovaginal canal diverticulosis of descending and sigmoid colon without evidence of diverticulitis normal appearing appendix no evidence for ureteral obstruction - Re-Assessments/Exams Free Text/Narrative Re-Assessment/Exam: 08/01/17 02:31 Retching on arrival , clear watery emesis, no obvious blood, cramping stabbing LUQ pain. Improved following dilaudid resting no further emesis. LUQ mild tenderness with palpation. 08/01/17 04:40 Milld tenderness LUQ and low epigastric with palpation. Patient reporting pain returning, describes pain type as sharp and crampy but not as severe as on admission. TC consult Dr. Montenegro, accepting patient for admission hyperglycemia, vomiting, diarrhea with abdominal pain, Departure - Departure Time of Disposition: 04:43 Disposition: Admitted As Inpatient 68 Condition: Undetermined Clinical Impression: Gastroenteritis, Hyperglycemia Abdominal pain Qualifiers: Abdominal location: left upper quadrant Qualified Code(s): R10.12 - Left upper quadrant pain Nausea and vomiting Qualifiers: Vomiting type: unspecified Vomiting Intractability: non-intractable Qualified Code(s): R11.2 - Nausea with vomiting, unspecified - Discharge Information Forms: ED Department Discharge - My Orders Last 24 Hours: My Active Orders 08/01/17 01:16 Glucose [Blood Glucose Check, Bedside] [RC] ONETIME 08/01/17 01:25 CULTURE BLOOD [BC] Stat 08/01/17 01:53 EKG 12 Lead [EKG Documentation Completion] [RC] URGENT 08/01/17 02:04 Glucose [Blood Glucose Check, Bedside] [RC] ONETIME 08/01/17 04:12 Glucose [Blood Glucose Check, Bedside] [RC] ONETIME - Assessment/Plan Last 24 Hours: My Active Orders 08/01/17 01:16 Glucose [Blood Glucose Check, Bedside] [RC] ONETIME 08/01/17 01:25 CULTURE BLOOD [BC] Stat 08/01/17 01:53 EKG 12 Lead [EKG Documentation Completion] [RC] URGENT 08/01/17 02:04 Glucose [Blood Glucose Check, Bedside] [RC] ONETIME 08/01/17 04:12 Glucose [Blood Glucose Check, Bedside] [RC] ONETIME
[2017-08-01] MEDS ORDERED: Iopamidol 612 MG/ML 75 ML Bottle IVPUSH ONE (02:36)
--- NOTE | 2017-08-01 05:18 | PCM.HP ---
H&P History of Present Illness - General Date of Service: 08/01/17 Admit Problem/Dx: Admitted with: Nausea, Vomiting , Diarrhea and Mid-Epigastric Pain Source of Information: Patient, Old Records History Limitations: Reports: No Limitations - History of Present Illness Initial Comments - Free Text/Narative: This is a 46-year-old female who carries past medical history of: Hypertension and Diabetes mellitus requiring insulin.Pt presented to ER with epigastric pain. Onset of symptoms was abrupt 1 day~ago~with unchanged~course since that time., she had multiple vomiting episode with epigastic pain --- ~Vomitus was brown and yellow In 09/2016 she had EGD which showed gastritis. She had an EGD by Dr. Cortez, which showed some mild erythema in the gastric antrum and a colonoscopy that was negative except for some old blood in the colon and some diverticulosis. A capsule study was ordered, but the patient somehow did not follow up with that. In ED she had CT scan with IV contrast that showed : Cystic mass within Rt Labia -absecess can not be excluded, Diverticulosis of the descending and sigmoid colon without evidence of Diverticulitis, Normal appearing appendix, No evidence of ureteral obstruction. In ED lab showed WBC 18, Hgb 18.6 and Potassium was 3.3. in ED stool occult blood was negative. Onset of Symptoms: Reports: Gradual Duration of Symptoms: Reports: Colic, Getting Worse Location: Reports: Abdomen Quality: Reports: Sharp Improves with: Reports: None Left Upper Abdomen Pain Score (Numeric/FACES): 9 - Related Data Allergies/Adverse Reactions: Allergies Allergy/AdvReac Type Severity Reaction Status Date / Time No Known Allergies Allergy Verified 08/01/17 03:44 Home Medications: Home Meds Atenolol [Tenormin] 50 mg PO DAILY 09/30/13 [History] Lisinopril [Prinivil] 20 mg PO DAILY 09/30/13 [History] Omeprazole 20 mg PO BID 09/30/13 [History] Insulin Detemir [Levemir] 20 units SQ BEDTIME 06/30/14 [History] Insulin Aspart [NovoLOG] 18 unit SUBCUT BIDAC 09/19/16 [History] Pregabalin [Lyrica] 100 mg PO TID cap 07/01/17 [Rx] Insulin Detemir [Levemir] 15 unit SUBCUT DAILY 08/01/17 [History] Past Medical History HEENT History: Reports: None Cardiovascular History: Reports: High Cholesterol, Hypertension Respiratory History: Reports: None Gastrointestinal History: Reports: Cholelithiasis Genitourinary History: Reports: Renal Calculus 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: Musculoskeletal History: Reports: Arthritis Neurological History: Reports: None Psychiatric History: Reports: Anxiety Endocrine/Metabolic History: Reports: Diabetes, Type II Hematologic History: Reports: None Immunologic History: Reports: None Oncologic (Cancer) History: Reports: None Dermatologic History: Reports: Cellulitis - Infectious Disease History Infectious Disease History: Reports: Chicken Pox, MRSA - Past Surgical History GI Surgical History: Reports: Cholecystectomy Female Surgical History: Reports: Hysterectomy Social & Family History - Family History Family Medical History: Noncontributory - Tobacco Use Smoking Status *Q: Heavy Tobacco Smoker Years of Tobacco use: 20 Packs/Tins Daily: 0.5 Used Tobacco, but Quit: No Second Hand Smoke Exposure: Yes - Caffeine Use Caffeine Use: Reports: Coffee, Soda Other Caffeine Use: green tea - Alcohol Use Days Per Week of Alcohol Use: 0 - Recreational Drug Use Recreational Drug Use: No Drug Use in Last 12 Months: Yes Recreational Drug Type: Reports: Marijuana/Hashish Recreational Drug Use Frequency: Patient Refuses To Answer H&P Review of Systems - Review of Systems: Review Of Systems: See Below General: Reports: Weakness. Denies: Fever, Chills, Weight Loss HEENT: Denies: Hearing Changes, Rhinitis, Post Nasal Drip, Sinus Congestion, Sore Throat Pulmonary: Denies: Shortness of Breath, Wheezing, Pleuritic Chest Pain, Cough, Sputum, Hemoptysis Cardiovascular: Denies: Chest Pain, Palpitations, Lightheadedness Gastrointestinal: Reports: Abdominal Pain, Diarrhea, Mucous in Stool, Nausea, Vomiting. Denies: Difficulty Swallowing Genitourinary: Denies: Dysuria, Frequency, Burning, Urgency, Flank Pain Musculoskeletal: Denies: Neck Pain, Shoulder Pain, Joint Pain, Muscle Stiffness Skin: Denies: Cyanosis, Jaundice, Bruising, Pruritis, Rash Neurological: Denies: Confusion, Numbness, Tremors Hematologic/Lymphatic: Reports: No Symptoms Immunologic: Reports: No Symptoms Exam - Exam Exam: See Below - Vital Signs Vital Signs: Last Vital Signs Temp 37.1 C 08/01/17 02:56 Pulse 105 H 08/01/17 02:56 Resp 19 08/01/17 02:56 BP 133/75 08/01/17 02:56 Pulse Ox 95 08/01/17 02:56 Weight: 58.967 kg - Exam Quality Assessment: DVT Prophylaxis. No: Supplemental Oxygen, Urinary Catheter , Skin Breakdown General: Alert, Oriented, Cooperative HEENT: Conjunctiva Clear, EOMI, Hearing Intact, Mucosa Moist & [place], Pupils Equal Neck: Supple. No: Lymphadenopathy, JVD Lungs: Clear to Auscultation, Normal Respiratory Effort. No: Crackles, Wheezing Cardiovascular: Regular Rate, Regular Rhythm GI/Abdominal Exam: Normal Bowel Sounds, Soft, Tender (mid epigastric area). No : Guarding, Rebound (Female) Exam: Deferred Rectal (Female) Exam: Other (done in ED) Back Exam: Normal Inspection, Full Range of Motion Extremities: Normal Inspection, No Pedal Edema Skin: Warm, Dry, Intact Neurological: Cranial Nerves Intact, Reflexes Equal Bilateral Neuro Extensive - Mental Status: Alert, Oriented x3, Normal Mood/Affect, Normal Cognition Neuro Extensive - Motor, Sensory, Reflexes: CN II-XII Intact, Normal Gait, Normal Reflexes Psychiatric: Alert, Normal Affect, Normal Mood - Patient Data Result Diagrams: 08/01/17 00:58 08/01/17 00:58 *Q Meaningful Use (ADM) - VTE *Q VTE Criteria *Q: - Stroke *Q Stroke Criteria *Q: - AMI *Q AMI Criteria *Q: - Problem List (1) Abdominal pain SNOMED Code(s): 51325365 ICD Code: R10.9 - UNSPECIFIED ABDOMINAL PAIN Status: Acute Current Visit : Yes Qualifiers: Abdominal location: left upper quadrant Qualified Code(s): R10.12 - Left upper quadrant pain (2) Gastroenteritis SNOMED Code(s): 58668282 ICD Code: K52.9 - NONINFECTIVE GASTROENTERITIS AND COLITIS, UNSPECIFIED Status: Acute Current Visit: Yes (3) Hyperglycemia SNOMED Code(s): 82647822 ICD Code: R73.9 - HYPERGLYCEMIA, UNSPECIFIED Status: Acute Current Visit : Yes (4) Nausea and vomiting SNOMED Code(s): 49132183 ICD Code: R11.2 - NAUSEA WITH VOMITING, UNSPECIFIED Status: Acute Current Visit: Yes Qualifiers: Vomiting type: unspecified Vomiting Intractability: non-intractable Qualified Code(s): R11.2 - Nausea with vomiting, unspecified (5) Abscess of vulva SNOMED Code(s): 31906534 ICD Code: N76.4 - ABSCESS OF VULVA Status: Acute Current Visit: No Problem List Initiated/Reviewed/Updated: Yes Assessment/Plan Comment:: Ms. Damico is a 46 y.o.~ female~who presented with epigastric pain. Onset of symptoms was about 1 day ago with unchanged course since that time. She had vomited multiple times and also had several episode of diarrhea , stool occult blood negative, CT is negative for any itra-abdominal pathology , but noted to have cystic mass/abscess in Rt Labia, she is afebrile and had elevated blood sugar. Impression and Plan: 1. Epigastric Pain: This is likely from gastritis -Will start her on NS with potassium 20 meq at 100 ml/hr -Will give protonix IN 40 mg BID -Will keep her NPO and later advace diet as tolerated 2. Nausea and Vomiting: This is also likely from gastritis -Will continue IV fliuid and IV zofran -Keep NPO for Now 3. Diarrhea: This is also likely from Gatritis possily viral origin -Will send stool foe c.diff, [facility] and paracytes 4. Diabetes: Blood sugar was elevated, will start q4 hrs blood sugar check with high-dose insuulin sliding scale coverage 5. Hypertension: BP was elevated, will resume home Medication 6. GI prophylaxis: Start Protonix 40 mg IV BID 7. Hypokalemia: Will continue potssium in IV Fluids and re-check potassium at 4: 00 PM 8. DVT prophylaxis: Start Enoxapain 9. Code Status: Full Code
[2017-08-01] MEDS ORDERED: Acetaminophen 325 MG Tab PO PRN (05:35)
[2017-08-01] MEDS ORDERED: Docusate Sodium 100 MG Cap PO PRN (05:35)
[2017-08-01] MEDS ORDERED: Morphine 2 MG/ML Syringe SUBCUT PRN (05:43)
[2017-08-01] MEDS ORDERED: Loperamide 2 MG Cap PO PRN (05:44)
[2017-08-01] MEDS ORDERED: NS + KCl 20mEq/L 1,000 ML IV SCH (06:00)
[2017-08-01] MEDS: Ondansetron 4 MG/2 ML SDV IV PRN (06:20)
[2017-08-01] MEDS: Pantoprazole 40 MG Vial IVPUSH SCH ×2 (06:27→17:59)
[2017-08-01] MEDS ORDERED: Sodium Chloride 0.9% 10 ML Syringe FLUSH PRN (06:38)
[2017-08-01] MEDS: Morphine 2 MG/ML Syringe IV PRN ×2 (06:51→19:18)
[2017-08-01] MEDS ORDERED: Insulin Aspart 100 Units/ML 3 ML Pen SUBCUT SCH (09:00)
[2017-08-01] MEDS: Atenolol 25 MG Tab PO SCH (09:31)
[2017-08-01] MEDS: Pregabalin 50 MG Cap PO SCH ×3 (09:31→21:52)
[2017-08-01] MEDS: Lisinopril 5 MG Tab PO SCH (09:31)
[2017-08-01] MEDS: Enoxaparin 40 MG/0.4 ML Syringe SUBCUT SCH (09:32)
[2017-08-01] MEDS: Insulin Aspart 100 Units/ML 3 ML Pen SUBCUT SCH ×3 (09:32→17:59)
[2017-08-01 10:37] LABS: BASE EXCESS VENOUS -2.6 mmol/l ((-2)-(+3)); BICARBONATE,VENOUS 22 mmol/l (19-25); O2 DELIVERY DEVICE ROOM AIR; O2 SATURATION VENOUS 89.7 % (60-80); PCO2 VENOUS 40 mmHg (41-51); PH,VENOUS 7.36 (7.31-7.41); PO2 VENOUS 60 mmHg (35-42)
[2017-08-01] MEDS: Metoclopramide 10 MG/2 ML SDV IVPUSH PRN (10:38)
[2017-08-01 10:46] LABS: ANION GAP 19.1; CHLORIDE,CL 97 mmol/L (101-111); SODIUM,NA 134 mmol/L (135-145)
[2017-08-01] MEDS ORDERED: Magnesium Sulfate/Water 2 GM in Premix Bag 1 BAG IV ONE ×2 (11:19→15:45)
[2017-08-01] MEDS: Piperacillin/Tazobactam 3.375 GM in Sodium Chloride 0.9% 100 ML IV SCH ×2 (12:35→17:58)
--- NOTE | 2017-08-01 13:02 | CT ---
Addendum report: Well-defined, benign-appearing, oval fluid filled cyst vaginal labrum, on the right, on a plain with the urethra, that measures 1.3 x 2.1 cm. Probable [place]'s gland cyst. No associated inflammatory "dirty" surrounding fat. Note: This lesion probably present in retrospect on the lowest axial "cut" (#91) CT exam June 14 018; and, on earlier exam 21 December 2016 (smaller but present on [address] exam).
[2017-08-01 14:18] LABS: CHLORIDE,CL 101 mmol/L (101-111); SODIUM,NA 134 mmol/L (135-145)
[2017-08-01] MEDS ORDERED: Dextrose 5%-0.9% NaCl with KCl 1,000 ML IV SCH (15:15)
[2017-08-01] MEDS ORDERED: 50% Dextrose in Water 50 ML Syringe IVPUSH ONE (15:50)
[2017-08-01] MEDS ORDERED: 25% Dextrose in Water 10 ML Syringe IVPUSH ONE (15:51)
[2017-08-01] MEDS: NS + KCl 20mEq/L 1,000 ML IV SCH (17:58)
[2017-08-01 18:38] LABS: ANION GAP 15.4; CHLORIDE,CL 99 mmol/L (101-111); SODIUM,NA 133 mmol/L (135-145)
[2017-08-01 18:48] LABS: PCO2 CAPILLARY 33 mmHg (31-50); PH,CAPILLARY 7.427 2 (7.33-7.49)
[2017-08-01 18:49] LABS: BASE EXCESS CAPILLARY -2 mmol/l ((-2)-(+3)); BICARBONATE,CAPILLARY 22.1 mmol/l (22-26); PO2 CAPILLARY 60 mmHg (20-40)
[2017-08-01] MEDS: Insulin Detemir 100 Units/ML 3 ML Pen SUBCUT SCH (21:51)
[2017-08-01] MEDS: Acetaminophen/oxyCODONE 325-5 MG Tab PO PRN (22:37)
[2017-08-01] MEDS: GI Cocktail Oral Solution 30 ML PO PRN (22:41)
[2017-08-01 22:50] LABS: ANION GAP 10.6; CHLORIDE,CL 102 mmol/L (101-111); SODIUM,NA 135 mmol/L (135-145)
[2017-08-02] MEDS: Piperacillin/Tazobactam 3.375 GM in Sodium Chloride 0.9% 100 ML IV SCH ×4 (00:19→17:54)
[2017-08-02] MEDS: Morphine 2 MG/ML Syringe IV PRN ×2 (01:36→12:40)
[2017-08-02] MEDS: Pantoprazole 40 MG Vial IVPUSH SCH ×2 (06:30→17:13)
[2017-08-02 06:45] LABS: ANION GAP 8.1; CHLORIDE,CL 106 mmol/L (101-111); SODIUM,NA 135 mmol/L (135-145)
--- NOTE | 2017-08-02 07:09 | CONS ---
SERVICE DATE: 08/01/2017 INDICATION FOR CONSULTATION: Concern for right labial abscess, requesting incision and drainage of appropriate. HISTORY OF PRESENT ILLNESS: A 46-year-old female admitted to the hospital during the overnight hours with diabetic ketoacidosis and also reporting abdominal pain. CT scan showed an incidental cyst in the right labia. Hospitalist provider believes that this may be the source of an infection and requested evaluation for possible incision and drainage. The patient is currently on Zosyn and vancomycin. She also has a report of some diarrhea, so they are evaluating for possible C. difficile colitis. The patient reports that this cyst has been there for several years. Now, she denies any pain or discomfort with that. She has not had any fever or chills related to it. Denies that it is tender to the touch or having any redness, not having any difficulties with voiding. Denies dyspareunia. She would prefer to leave it alone and she has not reporting any complaints from it. OBSTETRICAL HISTORY: section x1 for vaginal after . GYNECOLOGICAL HISTORY: Prior abnormal Pap smears and a history of potential herpes per the ER notes at [facility]. PAST MEDICAL HISTORY: 1. Type 2 diabetes, poorly controlled with insulin. 2. Hypertension. 3. Kidney stones. 4. Epigastric pain. PAST SURGICAL HISTORY: 1. Cholecystectomy. 2. Diagnostic colonoscopy. 3. Achilles tendon repair on the left. 4. Laparoscopic-assisted vaginal hysterectomy. 5. History of lithotripsy. 6. History of laparoscopy for paratubal cyst. 7. History of section. 8. History of tubal ligation. 9. History of salpingo-oophorectomy done via scope for endometriosis as well. 10.History of upper diagnostic GI study. SOCIAL HISTORY: The patient is and lives with her 3 daughters. ALLERGIES: No known drug allergies. MEDICATIONS: Currently include: 1. Tylenol. 2. Atenolol. 3. Docusate sodium. 4. Lovenox. 5. Regular insulin. 6. Lisinopril. 7. Loperamide. 8. Magnesium sulfate. 9. Reglan. 10.Morphine sulfate. 11.Zofran. 12.Protonix. 13.Piperacillin and tazobactam. 14.Potassium chloride. 15.Pregabalin. 16.Vancomycin. REVIEW OF SYSTEMS: The patient is currently denying any fever or chills. Denies any unusual vaginal discharge. No lower pelvic discomfort. No unusual vaginal drainage or bleeding. Denies any pain radiating down into the thighs or buttocks region. PHYSICAL EXAMINATION: Temp 96.8, Pulse 70, BP 117/75, Resp 20, O2 sat 98%. General: A pleasant 46-year-old female, who is very tired at this time, but oriented to our conversation. Heart: Regular, no murmur. Lungs: Clear bilaterally. Genitourinary: External genitalia without any signs of any erythema, redness, or tenderness. No obvious discharge at the vaginal opening. On the right labia adjacent to the urethral opening, Denhoff's duct seems to be obstructed, and there is a 2 x 1.5 cm cyst present. No features of abscess such as erythema or tenderness to touch, pain on motion or other such indicators. The patient tolerates full exam including rather firm squeezing of the lesion without any discomfort. Skin: Warm, dry, appropriate for race. LABORATORY: Briefly reviewed. The patient's white cell count is 22.9, hemoglobin 16.5, neutrophils 87.2%, platelets 290. Blood gases and chemistries are being addressed by the hospitalist. Urinalysis did not show urinary tract infection, but did have a large amount of protein and glucose as well as ketones and epithelial cells. 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 PLAN: Discussed with the patient that I encouraged her having this followed up as an outpatient with a telephone sex worker for further surgical treatment and management. I have also called Dr. Wharton and discussed with him that unfortunately this is not the source of her infection; therefore, I did not recommend it being drained or treated at this time, especially during her acute hospitalization when she already has some other infection going on. This location is high risk for complications should it become infected, even spreading of infection through the fascial planes in the pelvic area. Current report of diarrhea increases risk of infection if the cyst is opened. Recommend that any surgical treatment be deferred until her diabetes is under better control. [facility] /[id number] [facility]
[2017-08-02] MEDS: NS + KCl 20mEq/L 1,000 ML IV SCH (07:55)
[2017-08-02] MEDS: Acetaminophen/oxyCODONE 325-5 MG Tab PO PRN ×3 (07:56→20:36)
[2017-08-02] MEDS: Pregabalin 50 MG Cap PO SCH ×4 (07:56→20:38)
[2017-08-02] MEDS: Enoxaparin 40 MG/0.4 ML Syringe SUBCUT SCH ×2 (07:58→08:29)
[2017-08-02] MEDS: Insulin Aspart 100 Units/ML 3 ML Pen SUBCUT SCH ×2 (08:06→17:26)
[2017-08-02] MEDS: GI Cocktail Oral Solution 30 ML PO PRN ×3 (08:22→17:12)
[2017-08-02] MEDS: Metoclopramide 10 MG/2 ML SDV IVPUSH PRN ×2 (08:22→17:13)
[2017-08-02] MEDS: Insulin Detemir 100 Units/ML 3 ML Pen SUBCUT SCH ×2 (08:27→23:00)
[2017-08-02] MEDS: Lisinopril 5 MG Tab PO SCH (08:30)
[2017-08-02] MEDS: Atenolol 25 MG Tab PO SCH (08:30)
[2017-08-02] MEDS ORDERED: Magnesium Sulfate/Water 2 GM in Premix Bag 1 BAG IV ONE (09:19)
--- NOTE | 2017-08-02 09:21 | PCM.PN ---
- General Info Date of Service: 08/02/17 Admission Dx/Problem (Free Text): Admitted with: Nausea, Vomiting , Diarrhea and Mid-Epigastric Pain Functional Status: Reports: Pain Controlled - Review of Systems General: Reports: No Symptoms HEENT: Reports: No Symptoms Pulmonary: Reports: No Symptoms Cardiovascular: Reports: No Symptoms Gastrointestinal: Reports: No Symptoms Genitourinary: Reports: No Symptoms Musculoskeletal: Reports: No Symptoms Skin: Reports: No Symptoms Neurological: Reports: No Symptoms Psychiatric: Reports: No Symptoms - Patient Data Vitals - Most Recent: Last Vital Signs Temp 96.8 F 08/02/17 08:11 Pulse 70 08/02/17 08:30 Resp 20 08/02/17 08:11 BP 117/75 08/02/17 08:30 Pulse Ox 98 08/02/17 08:11 Weight - Most Recent: 130 lb I&O - Last 24 Hours: Intake & Output 08/01/17 08/02/17 08/02/17 22:59 06:59 14:59 Intake Total 2107 1180 475 Output Total 500 200 Balance 1607 980 475 Lab Results Last 24 Hours: Laboratory Results - last 24 hr 08/01/17 08/01/17 08/01/17 Range/Units 10:12 10:12 10:12 WBC 22.9 H (5.0-10.0) 10^3/uL RBC 5.48 H (4.2-5.4) 10^6/uL Hgb 16.5 H D (12.0-16.0) g/dL Hct 45.8 (37.0-47.0) % MCV 83.6 (80-100) fL MCH 30.1 (27.0-34.0) pg MCHC 36.0 H (33.0-35.0) g/dL Plt Count 290 (150-450) 10^3/uL Neut % (Auto) 87.2 H (42.2-75.2) % Lymph % (Auto) 7.4 L (20.5-50.1) % [place] % (Auto) 5.3 (2-8) % Eos % (Auto) 0.0 L (1.0-3.0) % Baso % (Auto) 0.1 (0.0-1.0) % VBG pH 7.36 (7.31-7.41) VBG pCO2 40 L (41-51) mmHg VBG pO2 60 H (35-42) mmHg VBG HCO3 22 (19-25) mmol/l VBG O2 Saturation 89.7 H (60-80) % VBG Base Excess -2.6 L ((-2)-(+3)) mmol/l O2 Delivery Device Room air Sodium 134 L (135-145) mmol/L Potassium 3.1 L (3.6-5.0) mmol/L Chloride 97 L (101-111) mmol/L Carbon Dioxide 21.0 (21.0-31.0) mmol/L Anion Gap 19.1 BUN 17 (7-18) mg/dL Creatinine 0.8 (0.6-1.3) mg/dL Est Cr Clr Drug Dosing 64.46 mL/min Estimated GFR (MDRD) > 60 Glucose 310 H (74-105) mg/dL POC Glucose (70-105) mg/dl Lactic Acid (0.5-2.2) mmol/L Calcium 8.3 L (8.4-10.2) mg/dl Magnesium 1.6 L (1.8-2.5) mg/dL B-Natriuretic Peptide (0-100) pg/ml 08/01/17 08/01/17 08/01/17 Range/Units 10:12 10:12 10:15 WBC (5.0-10.0) 10^3/uL RBC (4.2-5.4) 10^6/uL Hgb (12.0-16.0) g/dL Hct (37.0-47.0) % MCV (80-100) fL MCH (27.0-34.0) pg MCHC (33.0-35.0) g/dL Plt Count (150-450) 10^3/uL Neut % (Auto) (42.2-75.2) % Lymph % (Auto) (20.5-50.1) % [place] % (Auto) (2-8) % Eos % (Auto) (1.0-3.0) % Baso % (Auto) (0.0-1.0) % VBG pH (7.31-7.41) VBG pCO2 (41-51) mmHg VBG pO2 (35-42) mmHg VBG HCO3 (19-25) mmol/l VBG O2 Saturation (60-80) % VBG Base Excess ((-2)-(+3)) mmol/l O2 Delivery Device Sodium (135-145) mmol/L Potassium (3.6-5.0) mmol/L Chloride (101-111) mmol/L Carbon Dioxide (21.0-31.0) mmol/L Anion Gap BUN (7-18) mg/dL Creatinine (0.6-1.3) mg/dL Est Cr Clr Drug Dosing mL/min Estimated GFR (MDRD) Glucose (74-105) mg/dL POC Glucose 270 H (70-105) mg/dl Lactic Acid 1.2 (0.5-2.2) mmol/L Calcium (8.4-10.2) mg/dl Magnesium (1.8-2.5) mg/dL B-Natriuretic Peptide 177 H (0-100) pg/ml 08/01/17 08/01/17 08/01/17 Range/Units 10:42 11:31 12:27 WBC (5.0-10.0) 10^3/uL RBC (4.2-5.4) 10^6/uL Hgb (12.0-16.0) g/dL Hct (37.0-47.0) % MCV (80-100) fL MCH (27.0-34.0) pg MCHC (33.0-35.0) g/dL Plt Count (150-450) 10^3/uL Neut % (Auto) (42.2-75.2) % Lymph % (Auto) (20.5-50.1) % [place] % (Auto) (2-8) % Eos % (Auto) (1.0-3.0) % Baso % (Auto) (0.0-1.0) % VBG pH (7.31-7.41) VBG pCO2 (41-51) mmHg VBG pO2 (35-42) mmHg VBG HCO3 (19-25) mmol/l VBG O2 Saturation (60-80) % VBG Base Excess ((-2)-(+3)) mmol/l O2 Delivery Device Sodium (135-145) mmol/L Potassium (3.6-5.0) mmol/L Chloride (101-111) mmol/L Carbon Dioxide (21.0-31.0) mmol/L Anion Gap BUN (7-18) mg/dL Creatinine (0.6-1.3) mg/dL Est Cr Clr Drug Dosing mL/min Estimated GFR (MDRD) Glucose (74-105) mg/dL POC Glucose 259 H 256 H 267 H (70-105) mg/dl Lactic Acid (0.5-2.2) mmol/L Calcium (8.4-10.2) mg/dl Magnesium (1.8-2.5) mg/dL B-Natriuretic Peptide (0-100) pg/ml 08/01/17 08/01/17 08/01/17 Range/Units 13:33 13:50 14:35 WBC (5.0-10.0) 10^3/uL RBC (4.2-5.4) 10^6/uL Hgb (12.0-16.0) g/dL Hct (37.0-47.0) % MCV (80-100) fL MCH (27.0-34.0) pg MCHC (33.0-35.0) g/dL Plt Count (150-450) 10^3/uL Neut % (Auto) (42.2-75.2) % Lymph % (Auto) (20.5-50.1) % [place] % (Auto) (2-8) % Eos % (Auto) (1.0-3.0) % Baso % (Auto) (0.0-1.0) % VBG pH (7.31-7.41) VBG pCO2 (41-51) mmHg VBG pO2 (35-42) mmHg VBG HCO3 (19-25) mmol/l VBG O2 Saturation (60-80) % VBG Base Excess ((-2)-(+3)) mmol/l O2 Delivery Device Sodium 134 L (135-145) mmol/L Potassium 3.0 L (3.6-5.0) mmol/L Chloride 101 (101-111) mmol/L Carbon Dioxide 24.0 (21.0-31.0) mmol/L Anion Gap 12.0 BUN 20 H (7-18) mg/dL Creatinine 0.8 (0.6-1.3) mg/dL Est Cr Clr Drug Dosing 64.46 mL/min Estimated GFR (MDRD) > 60 Glucose 246 H (74-105) mg/dL POC Glucose 234 H 151 H (70-105) mg/dl Lactic Acid (0.5-2.2) mmol/L Calcium 8.1 L (8.4-10.2) mg/dl Magnesium (1.8-2.5) mg/dL B-Natriuretic Peptide (0-100) pg/ml 08/01/17 08/01/17 08/01/17 Range/Units 15:44 16:39 18:12 WBC (5.0-10.0) 10^3/uL RBC (4.2-5.4) 10^6/uL Hgb (12.0-16.0) g/dL Hct (37.0-47.0) % MCV (80-100) fL MCH (27.0-34.0) pg MCHC (33.0-35.0) g/dL Plt Count (150-450) 10^3/uL Neut % (Auto) (42.2-75.2) % Lymph % (Auto) (20.5-50.1) % [place] % (Auto) (2-8) % Eos % (Auto) (1.0-3.0) % Baso % (Auto) (0.0-1.0) % VBG pH (7.31-7.41) VBG pCO2 (41-51) mmHg VBG pO2 (35-42) mmHg VBG HCO3 (19-25) mmol/l VBG O2 Saturation (60-80) % VBG Base Excess ((-2)-(+3)) mmol/l O2 Delivery Device Sodium 133 L (135-145) mmol/L Potassium 3.4 L (3.6-5.0) mmol/L Chloride 99 L (101-111) mmol/L Carbon Dioxide 22.0 (21.0-31.0) mmol/L Anion Gap 15.4 BUN 21 H (7-18) mg/dL Creatinine 0.9 (0.6-1.3) mg/dL Est Cr Clr Drug Dosing 57.30 mL/min Estimated GFR (MDRD) > 60 Glucose 243 H (74-105) mg/dL POC Glucose 38 L* 167 H (70-105) mg/dl Lactic Acid (0.5-2.2) mmol/L Calcium 8.1 L (8.4-10.2) mg/dl Magnesium (1.8-2.5) mg/dL B-Natriuretic Peptide (0-100) pg/ml 08/01/17 08/01/17 08/02/17 Range/Units 21:22 22:25 06:08 WBC 16.0 H (5.0-10.0) 10^3/uL RBC 4.20 (4.2-5.4) 10^6/uL Hgb 12.6 D (12.0-16.0) g/dL Hct 36.2 L (37.0-47.0) % MCV 86.2 (80-100) fL MCH 30.0 (27.0-34.0) pg MCHC 34.8 (33.0-35.0) g/dL Plt Count 221 (150-450) 10^3/uL Neut % (Auto) 66.6 (42.2-75.2) % Lymph % (Auto) 24.1 (20.5-50.1) % [place] % (Auto) 8.5 H (2-8) % Eos % (Auto) 0.6 L (1.0-3.0) % Baso % (Auto) 0.2 (0.0-1.0) % VBG pH (7.31-7.41) VBG pCO2 (41-51) mmHg VBG pO2 (35-42) mmHg VBG HCO3 (19-25) mmol/l VBG O2 Saturation (60-80) % VBG Base Excess ((-2)-(+3)) mmol/l O2 Delivery Device Sodium 135 (135-145) mmol/L Potassium 3.6 (3.6-5.0) mmol/L Chloride 102 (101-111) mmol/L Carbon Dioxide 26.0 (21.0-31.0) mmol/L Anion Gap 10.6 BUN 18 (7-18) mg/dL Creatinine 0.8 (0.6-1.3) mg/dL Est Cr Clr Drug Dosing 64.46 mL/min Estimated GFR (MDRD) > 60 Glucose 83 (74-105) mg/dL POC Glucose 126 H (70-105) mg/dl Lactic Acid (0.5-2.2) mmol/L Calcium 8.1 L (8.4-10.2) mg/dl Magnesium (1.8-2.5) mg/dL B-Natriuretic Peptide (0-100) pg/ml 08/02/17 08/02/17 Range/Units 06:08 07:24 WBC (5.0-10.0) 10^3/uL RBC (4.2-5.4) 10^6/uL Hgb (12.0-16.0) g/dL Hct (37.0-47.0) % MCV (80-100) fL MCH (27.0-34.0) pg MCHC (33.0-35.0) g/dL Plt Count (150-450) 10^3/uL Neut % (Auto) (42.2-75.2) % Lymph % (Auto) (20.5-50.1) % [place] % (Auto) (2-8) % Eos % (Auto) (1.0-3.0) % Baso % (Auto) (0.0-1.0) % VBG pH (7.31-7.41) VBG pCO2 (41-51) mmHg VBG pO2 (35-42) mmHg VBG HCO3 (19-25) mmol/l VBG O2 Saturation (60-80) % VBG Base Excess ((-2)-(+3)) mmol/l O2 Delivery Device Sodium 135 (135-145) mmol/L Potassium 3.1 L (3.6-5.0) mmol/L Chloride 106 (101-111) mmol/L Carbon Dioxide 24.0 (21.0-31.0) mmol/L Anion Gap 8.1 BUN 15 (7-18) mg/dL Creatinine 0.6 (0.6-1.3) mg/dL Est Cr Clr Drug Dosing 85.94 mL/min Estimated GFR (MDRD) > 60 Glucose 149 H (74-105) mg/dL POC Glucose 130 H (70-105) mg/dl Lactic Acid (0.5-2.2) mmol/L Calcium 7.5 L (8.4-10.2) mg/dl Magnesium (1.8-2.5) mg/dL B-Natriuretic Peptide (0-100) pg/ml Med Orders - Current: Current Medications Acetaminophen (Tylenol) 650 mg PO Q4H PRN PRN Reason: Pain (mild 1-3 )/fever Al Hydroxide/Mg Hydroxide (Gi Cocktail) 30 ml PO TID PRN PRN Reason: gi upsdet Last Admin: 08/02/17 08:22 Dose: 30 ml Atenolol (Tenormin) 50 mg PO DAILY [facility] Last Admin: 08/02/17 08:30 Dose: 50 mg Docusate Sodium (Colace) 100 mg PO DAILY PRN PRN Reason: Constipation Enoxaparin Sodium (Lovenox) 40 mg SUBCUT DAILY [facility] Last Admin: 08/02/17 08:29 Dose: Not Given Piperacillin Sod/Tazobactam (Sod 3.375 gm/ Sodium Chloride) 100 mls @ 200 mls/ hr IV Q6H [facility] Last Admin: 08/02/17 06:31 Dose: 200 mls/hr Vancomycin HCl 1 gm/ Sodium (Chloride) 250 mls @ 166.667 mls/hr IV Q12H [facility] Last Admin: 08/02/17 01:45 Dose: 166.667 mls/hr Potassium Chloride 20 meq/ (Premix) 100 mls @ 50 mls/hr IV Q2H [facility] Stop: 08/02/17 17:14 Sodium Chloride (Normal Saline) 1,000 mls @ 125 mls/hr IV ASDIRECTED [facility] Magnesium Sulfate 2 gm/ Premix 50 mls @ 25 mls/hr IV ONETIME ONE Stop: 08/02/17 11:18 Insulin Aspart (Novolog) 18 unit SUBCUT BIDAC [facility] Last Admin: 08/02/17 08:06 Dose: 18 units Insulin Detemir (Levemir) 20 unit SUBCUT BEDTIME [facility] Last Admin: 08/01/17 21:51 Dose: 20 units Insulin Detemir (Levemir) 15 unit SUBCUT DAILY [facility] Last Admin: 08/02/17 08:27 Dose: 15 units Lisinopril (Prinivil) 20 mg PO DAILY [facility] Last Admin: 08/02/17 08:30 Dose: 20 mg Loperamide HCl (Imodium) 2 mg PO Q4H PRN PRN Reason: Diarrhea Metoclopramide HCl (Reglan) 10 mg IVPUSH Q8H PRN PRN Reason: Nausea Last Admin: 08/02/17 08:22 Dose: 10 mg Morphine Sulfate (Morphine) 2 mg IV Q6H PRN PRN Reason: Pain Last Admin: 08/02/17 01:36 Dose: 2 mg Ondansetron HCl (Zofran) 4 mg IV Q6H PRN PRN Reason: Nausea/Vomiting Last Admin: 08/01/17 06:20 Dose: 4 mg Oxycodone/Acetaminophen (Percocet 325-5 Mg) 2 tab PO Q6H PRN PRN Reason: Pain Last Admin: 08/02/17 07:56 Dose: 2 tab Pantoprazole Sodium (Protonix Iv) 40 mg IVPUSH Q12H [facility] Last Admin: 08/02/17 06:30 Dose: 40 mg Pregabalin (Lyrica) 100 mg PO TID [facility] Last Admin: 08/02/17 08:28 Dose: Not Given Sodium Chloride (Saline Flush) 10 ml FLUSH ASDIRECTED PRN PRN Reason: Keep Vein Open Vancomycin HCl (Pharmacy To Dose - Vancomycin) 1 dose .XX ASDIRECTED NGUYEN Discontinued Medications Dextrose/Water (Dextrose 50% In Water) 50 ml IVPUSH ONETIME ONE Stop: 08/01/17 15:51 Last Admin: 08/01/17 15:58 Dose: 50 ml Dextrose/Water (Dextrose 25% In Water) 10 ml IVPUSH ONETIME ONE Stop: 08/01/17 15:52 Last Admin: 08/01/17 16:46 Dose: Not Given Hydromorphone HCl (Dilaudid) 1 mg IVPUSH ONETIME ONE Stop: 08/01/17 01:17 Last Admin: 08/01/17 01:26 Dose: 1 mg Sodium Chloride (Normal Saline) 1,000 mls @ 500 mls/hr IV ASDIRECTED ONE Stop: 08/01/17 03:07 Last Admin: 08/01/17 01:30 Dose: Not Given Sodium Chloride (Normal Saline) 1,000 mls @ 999 mls/hr IV .BOLUS ONE Stop: 08/01/17 02:06 Last Admin: 08/01/17 01:11 Dose: 999 mls/hr Sodium Chloride (Normal Saline) 1,000 mls @ 999 mls/hr IV .BOLUS ONE Stop: 08/01/17 03:04 Last Admin: 08/01/17 02:18 Dose: 999 mls/hr Potassium Chloride/Sodium Chloride (Normal Saline With 20 Meq Kcl) 1,000 mls @ 100 mls/hr IV ASDIRECTED [facility] Last Admin: 08/01/17 06:28 Dose: 100 mls/hr Insulin Human Regular 100 unit (/ Sodium Chloride) 100 mls @ 5.89 mls/hr IV TITRATE NGUYEN; 0.1 UNITS/KG/HR PRN Reason: Protocol Last Infusion: 08/01/17 14:54 Dose: 0.11 units/kg/hr, 6.6 mls/hr Potassium Chloride/Dextrose/Sod Cl (D5 Ns With 20 Meq Kcl) 1,000 mls @ 100 mls/ hr IV ASDIRECTED [facility] Last Admin: 08/01/17 16:10 Dose: 100 mls/hr Magnesium Sulfate 2 gm/ Premix 50 mls @ 25 mls/hr IV ONETIME ONE Stop: 08/01/17 17:44 Last Admin: 08/01/17 16:17 Dose: 25 mls/hr Potassium Chloride/Sodium Chloride (Normal Saline With 20 Meq Kcl) 1,000 mls @ 125 mls/hr IV ASDIRECTED [facility] Last Admin: 08/02/17 07:55 Dose: 125 mls/hr Insulin Aspart (Novolog) 0 unit SUBCUT QID [facility] PRN Reason: Protocol Insulin Aspart (Novolog) 0 unit SUBCUT QIDACANDBED [facility] PRN Reason: Protocol Last Admin: 08/01/17 13:38 Dose: Not Given Insulin Human Regular (Humulin R) 10 unit IV ONETIME ONE Stop: 08/01/17 01:36 Last Admin: 08/01/17 01:40 Dose: 10 units Iopamidol (Isovue-300 (61%)) 75 ml IVPUSH ONETIME ONE Stop: 08/01/17 02:37 Last Admin: 08/01/17 03:30 Dose: 75 ml Lorazepam (Ativan) 1 mg IVPUSH ONETIME ONE Stop: 08/01/17 01:10 Last Admin: 08/01/17 01:19 Dose: 1 mg Metoprolol Tartrate (Lopressor) 2.5 mg IVPUSH ONETIME ONE Stop: 08/01/17 02:10 Last Admin: 08/01/17 02:18 Dose: 2.5 mg Morphine Sulfate (Morphine) 2 mg SUBCUT Q6H PRN PRN Reason: Pain Ondansetron HCl (Zofran) 4 mg IV ONETIME ONE Stop: 08/01/17 01:07 Last Admin: 08/01/17 01:16 Dose: 4 mg - Exam General: Alert, Oriented HEENT: Pupils Equal, Pupils Reactive, EOMI, Mucous Membr. Moist/[place] Neck: Supple Lungs: Clear to Auscultation, Normal Respiratory Effort Cardiovascular: Regular Rate, Regular Rhythm GI/Abdominal Exam: Normal Bowel Sounds, Soft, Non-Tender, No Organomegaly, No Distention, No Abnormal Bruit, No Mass, Pelvis Stable (Female) Exam: Normal External Exam, Normal Speculum Exam, Normal Bimanual Exam Back Exam: Normal Inspection, Full Range of Motion Extremities: Normal Inspection, Normal Range of Motion, Non-Tender, No Pedal Edema, Normal Capillary Refill Skin: Warm, Dry, Intact Wound/Incisions: Healing Well Neurological: No New Focal Deficit Psy/Mental Status: Alert, Normal Affect, Normal Mood EKG INTERPRETATION Rhythm: NSR [place]: Normal P-Wave: Present QRS: Normal ST-T: Normal QT: Normal - Problem List & Annotations (1) Epigastric pain SNOMED Code(s): 56719665 Code(s): R10.13 - EPIGASTRIC PAIN Status: Acute Current Visit: Yes - Problem List Review Problem List Initiated/Reviewed/Updated: Yes - My Orders Last 24 Hours: My Active Orders 08/01/17 09:54 Metoclopramide [Reglan] 10 mg IVPUSH Q8H PRN 08/01/17 11:11 Blood Glucose Check, Bedside [RC] QIDACANDBED 08/01/17 11:30 Vancomycin Pharmacy to Dose [Pharmacy to Dose - Vancomycin] 1 dose .XX ASDIRECTED 08/01/17 11:40 Communication Order [RC] ROUTINE 08/01/17 12:00 Piperacillin/Tazobactam [Zosyn] 3.375 gm Sodium Chloride 0.9% [Normal Saline] 100 ml IV Q6H 08/01/17 13:00 Communication Order [RC] DAILY Vancomycin [Vancocin] 1 gm Sodium Chloride 0.9% [Normal Saline] 250 ml IV Q12H 08/01/17 17:00 Insulin Aspart [NovoLOG] 18 unit SUBCUT BIDAC 08/01/17 21:00 Insulin Detemir [Levemir] 20 unit SUBCUT BEDTIME 08/01/17 22:02 GI Cocktail 30 ml PO TID PRN 08/01/17 22:06 Acetaminophen/oxyCODONE [Percocet 325-5 MG] 2 tab PO Q6H PRN 08/01/17 Dinner Consistent Carbohydrate Diet [DIET] 08/02/17 09:00 Insulin Detemir [Levemir] 15 unit SUBCUT DAILY 08/02/17 09:15 Potassium Chloride [KCL 20 MEQ in Water 100 ML] 20 meq Premix Bag 1 bag IV Q2H 08/02/17 09:19 Magnesium Sulfate/Water [Magnesium Sulfate 2 GM in Water 50 ML] 2 gm Premix Bag 1 bag IV ONETIME 08/02/17 09:30 Sodium Chloride 0.9% @ 125 MLS/HR (1000ml) Sodium Chloride 0.9% [Normal Saline] 1,000 ml IV ASDIRECTED - Plan Plan:: Ms. Damico is a 46 y.o. female who presented with epigastric pain. Onset of symptoms was about 1 day ago with unchanged course since that time. She had vomited multiple times and also had several episode of diarrhea , stool occult blood negative, CT is negative for any itra-abdominal pathology , but noted to have cystic mass/abscess in Rt [place], she is afebrile and had elevated blood sugar. Impression and Plan: 1. Epigastric Pain: This is likely from gastritis -Improving. She is tolerating diet -Continue protonix IV 40 mg BID -For GI consult today 2. Nausea and Vomiting -Resolved -Zofran prn 3. DKA - Likely early stage -Resolved with Insulin drip -will resume home insulin regimen 4. Leukocytosis -Source of infection not clear -wbc trending down -No fever spikes -will continue IV abx for now -follow cx 5. Diarrhea: This is also likely from Gatritis possily -Patient has not had any bowel movement since admission 6. Diabetes -Now controlled -Will continue insulin regimen -Monitor FSG 4x dailt 7. Hypertension -BP at goal -continue current care 8. GI prophylaxis -Protonix 40 mg IV BID 9. Hypokalemia -Will replace IV and recheck level 10. DVT prophylaxis -Enoxaparin 9. Code Status -Full Code
[2017-08-02] MEDS ORDERED: Sodium Chloride 0.9% 1,000 ML IV SCH (09:30)
[2017-08-02] MEDS: Potassium Chloride 20 MEQ in Premix Bag 1 BAG IV SCH ×4 (12:22→19:00)
[2017-08-02] MEDS: Ondansetron 4 MG/2 ML SDV IV PRN (12:40)
[2017-08-03] MEDS: Piperacillin/Tazobactam 3.375 GM in Sodium Chloride 0.9% 100 ML IV SCH ×2 (00:27→06:26)
[2017-08-03] MEDS: Morphine 2 MG/ML Syringe IV PRN ×2 (00:38→06:56)
[2017-08-03] MEDS: Pantoprazole 40 MG Vial IVPUSH SCH ×2 (06:25→17:45)
[2017-08-03] MEDS: Ondansetron 4 MG/2 ML SDV IV PRN (06:25)
[2017-08-03 06:43] LABS: ANION GAP 11.1; CHLORIDE,CL 104 mmol/L (101-111); SODIUM,NA 133 mmol/L (135-145)
[2017-08-03] MEDS: GI Cocktail Oral Solution 30 ML PO PRN ×3 (08:08→17:45)
[2017-08-03] MEDS: Pregabalin 50 MG Cap PO SCH ×3 (08:11→21:03)
[2017-08-03] MEDS: Lisinopril 5 MG Tab PO SCH (08:12)
[2017-08-03] MEDS: Enoxaparin 40 MG/0.4 ML Syringe SUBCUT SCH (08:12)
[2017-08-03] MEDS: Atenolol 25 MG Tab PO SCH (08:13)
[2017-08-03] MEDS: Acetaminophen/oxyCODONE 325-5 MG Tab PO PRN ×3 (08:26→22:44)
[2017-08-03] MEDS: Metoclopramide 10 MG/2 ML SDV IVPUSH PRN (08:26)
[2017-08-03] MEDS: Insulin Aspart 100 Units/ML 3 ML Pen SUBCUT SCH ×2 (09:16→17:45)
[2017-08-03] MEDS: Insulin Detemir 100 Units/ML 3 ML Pen SUBCUT SCH ×2 (09:16→21:00)
--- NOTE | 2017-08-03 10:18 | PCM.PN ---
- General Info Date of Service: 08/03/17 Admission Dx/Problem (Free Text): Epigastric pain, nausea, vomiting Subjective Update: Margaux is a 46 y.o. female who presented with epigastric pain x 1 day. She had vomited multiple times and also had several episode of diarrhea , stool occult blood negative, CT is negative for any itra-abdominal pathology , but noted to have cystic mass/abscess in Rt Labia, she was afebrile and had leukocytosis and elevated blood sugar. She was managed as case of early DKA with insulin drip with resolution, acute gastritis. She was evaluated by OB/GY and rt. labia abscess ruled out. Her leukocytosis resolved on IV antibiotics. Today she feel a little better. Nausea and vomiting has resolved but patient is still not able tolerate meals because of persistent epigastric pain. Pain is sharp, 5/10, non radiating. She had 6 loose bowel movements last ight. She has not had any diarrhea since admission. No bowel movement this morning. Stool sample s were sent for C.diff. She remains afebrile. She denies any other symptoms. Functional Status: Reports: Pain Controlled - Review of Systems General: Reports: No Symptoms HEENT: Reports: No Symptoms Pulmonary: Reports: No Symptoms Cardiovascular: Reports: No Symptoms Gastrointestinal: Reports: No Symptoms, Decreased Appetite, Other (epigastric pain) Genitourinary: Reports: No Symptoms Musculoskeletal: Reports: No Symptoms Skin: Reports: No Symptoms Neurological: Reports: No Symptoms Psychiatric: Reports: No Symptoms - Patient Data Vitals - Most Recent: Last Vital Signs Temp 98.9 F 08/03/17 08:00 Pulse 62 08/03/17 09:22 Resp 18 08/03/17 08:00 BP 149/83 H 08/03/17 09:22 Pulse Ox 99 08/03/17 08:00 Weight - Most Recent: 135 lb 2 oz I&O - Last 24 Hours: Intake & Output 08/02/17 08/03/17 08/03/17 22:59 06:59 14:59 Intake Total 2653 495 119 Output Total 500 Balance 2653 -5 119 Lab Results Last 24 Hours: Laboratory Results - last 24 hr 08/02/17 08/02/17 08/02/17 Range/Units 06:08 10:52 17:04 WBC (5.0-10.0) 10^3/uL RBC (4.2-5.4) 10^6/uL Hgb (12.0-16.0) g/dL Hct (37.0-47.0) % MCV (80-100) fL MCH (27.0-34.0) pg MCHC (33.0-35.0) g/dL Plt Count (150-450) 10^3/uL Neut % (Auto) (42.2-75.2) % Lymph % (Auto) (20.5-50.1) % [place] % (Auto) (2-8) % Eos % (Auto) (1.0-3.0) % Baso % (Auto) (0.0-1.0) % Sodium (135-145) mmol/L Potassium (3.6-5.0) mmol/L Chloride (101-111) mmol/L Carbon Dioxide (21.0-31.0) mmol/L Anion Gap BUN (7-18) mg/dL Creatinine (0.6-1.3) mg/dL Est Cr Clr Drug Dosing mL/min Estimated GFR (MDRD) Glucose (74-105) mg/dL POC Glucose 177 H 184 H (70-105) mg/dl Calcium (8.4-10.2) mg/dl Magnesium 2.1 (1.8-2.5) mg/dL 08/02/17 08/02/17 08/02/17 Range/Units 20:45 22:18 22:52 WBC (5.0-10.0) 10^3/uL RBC (4.2-5.4) 10^6/uL Hgb (12.0-16.0) g/dL Hct (37.0-47.0) % MCV (80-100) fL MCH (27.0-34.0) pg MCHC (33.0-35.0) g/dL Plt Count (150-450) 10^3/uL Neut % (Auto) (42.2-75.2) % Lymph % (Auto) (20.5-50.1) % [place] % (Auto) (2-8) % Eos % (Auto) (1.0-3.0) % Baso % (Auto) (0.0-1.0) % Sodium (135-145) mmol/L Potassium 4.6 D (3.6-5.0) mmol/L Chloride (101-111) mmol/L Carbon Dioxide (21.0-31.0) mmol/L Anion Gap BUN (7-18) mg/dL Creatinine (0.6-1.3) mg/dL Est Cr Clr Drug Dosing mL/min Estimated GFR (MDRD) Glucose (74-105) mg/dL POC Glucose 54 L 130 H (70-105) mg/dl Calcium (8.4-10.2) mg/dl Magnesium (1.8-2.5) mg/dL 08/03/17 08/03/17 08/03/17 Range/Units 06:12 06:12 06:15 WBC 11.4 H (5.0-10.0) 10^3/uL RBC 4.64 (4.2-5.4) 10^6/uL Hgb 13.9 (12.0-16.0) g/dL Hct 40.3 (37.0-47.0) % MCV 86.9 (80-100) fL MCH 30.0 (27.0-34.0) pg MCHC 34.5 (33.0-35.0) g/dL Plt Count 225 (150-450) 10^3/uL Neut % (Auto) 62.1 (42.2-75.2) % Lymph % (Auto) 28.1 (20.5-50.1) % [place] % (Auto) 8.8 H (2-8) % Eos % (Auto) 0.6 L (1.0-3.0) % Baso % (Auto) 0.4 (0.0-1.0) % Sodium 133 L (135-145) mmol/L Potassium 4.1 (3.6-5.0) mmol/L Chloride 104 (101-111) mmol/L Carbon Dioxide 22.0 (21.0-31.0) mmol/L Anion Gap 11.1 BUN 7 (7-18) mg/dL Creatinine 0.5 L (0.6-1.3) mg/dL Est Cr Clr Drug Dosing 103.13 mL/min Estimated GFR (MDRD) > 60 Glucose 150 H (74-105) mg/dL POC Glucose 141 H (70-105) mg/dl Calcium 8.1 L (8.4-10.2) mg/dl Magnesium (1.8-2.5) mg/dL 08/03/17 Range/Units 07:33 WBC (5.0-10.0) 10^3/uL RBC (4.2-5.4) 10^6/uL Hgb (12.0-16.0) g/dL Hct (37.0-47.0) % MCV (80-100) fL MCH (27.0-34.0) pg MCHC (33.0-35.0) g/dL Plt Count (150-450) 10^3/uL Neut % (Auto) (42.2-75.2) % Lymph % (Auto) (20.5-50.1) % [place] % (Auto) (2-8) % Eos % (Auto) (1.0-3.0) % Baso % (Auto) (0.0-1.0) % Sodium (135-145) mmol/L Potassium (3.6-5.0) mmol/L Chloride (101-111) mmol/L Carbon Dioxide (21.0-31.0) mmol/L Anion Gap BUN (7-18) mg/dL Creatinine (0.6-1.3) mg/dL Est Cr Clr Drug Dosing mL/min Estimated GFR (MDRD) Glucose (74-105) mg/dL POC Glucose 146 H (70-105) mg/dl Calcium (8.4-10.2) mg/dl Magnesium (1.8-2.5) mg/dL Med Orders - Current: Current Medications Acetaminophen (Tylenol) 650 mg PO Q4H PRN PRN Reason: Pain (mild 1-3 )/fever Al Hydroxide/Mg Hydroxide (Gi Cocktail) 30 ml PO TID PRN PRN Reason: gi upsdet Last Admin: 08/03/17 08:08 Dose: 30 ml Atenolol (Tenormin) 50 mg PO DAILY [facility] Last Admin: 08/03/17 08:13 Dose: 50 mg Docusate Sodium (Colace) 100 mg PO DAILY PRN PRN Reason: Constipation Enoxaparin Sodium (Lovenox) 40 mg SUBCUT DAILY [facility] Last Admin: 08/03/17 08:12 Dose: 40 mg Insulin Aspart (Novolog) 18 unit SUBCUT BIDAC@0800,1700 [facility] Last Admin: 08/03/17 09:16 Dose: Not Given Insulin Detemir (Levemir) 20 unit SUBCUT BEDTIME [facility] Last Admin: 08/02/17 23:00 Dose: Not Given Insulin Detemir (Levemir) 15 unit SUBCUT DAILY [facility] Last Admin: 08/03/17 09:16 Dose: Not Given Lisinopril (Prinivil) 20 mg PO DAILY [facility] Last Admin: 08/03/17 08:12 Dose: 20 mg Metoclopramide HCl (Reglan) 10 mg IVPUSH Q8H PRN PRN Reason: Nausea Last Admin: 08/03/17 08:26 Dose: 10 mg Ondansetron HCl (Zofran) 4 mg IV Q6H PRN PRN Reason: Nausea/Vomiting Last Admin: 08/03/17 06:25 Dose: 4 mg Oxycodone/Acetaminophen (Percocet 325-5 Mg) 2 tab PO Q8H PRN PRN Reason: Pain Pantoprazole Sodium (Protonix Iv) 40 mg IVPUSH Q12H [facility] Last Admin: 08/03/17 06:25 Dose: 40 mg Pregabalin (Lyrica) 100 mg PO TID [facility] Last Admin: 08/03/17 08:11 Dose: 100 mg Sodium Chloride (Saline Flush) 10 ml FLUSH ASDIRECTED PRN PRN Reason: Keep Vein Open Sodium Chloride (Saline Flush) 10 ml FLUSH ASDIRECTED PRN PRN Reason: Keep Vein Open Discontinued Medications Dextrose/Water (Dextrose 50% In Water) 50 ml IVPUSH ONETIME ONE Stop: 08/01/17 15:51 Last Admin: 08/01/17 15:58 Dose: 50 ml Dextrose/Water (Dextrose 25% In Water) 10 ml IVPUSH ONETIME ONE Stop: 08/01/17 15:52 Last Admin: 08/01/17 16:46 Dose: Not Given Hydromorphone HCl (Dilaudid) 1 mg IVPUSH ONETIME ONE Stop: 08/01/17 01:17 Last Admin: 08/01/17 01:26 Dose: 1 mg Sodium Chloride (Normal Saline) 1,000 mls @ 500 mls/hr IV ASDIRECTED ONE Stop: 08/01/17 03:07 Last Admin: 08/01/17 01:30 Dose: Not Given Sodium Chloride (Normal Saline) 1,000 mls @ 999 mls/hr IV .BOLUS ONE Stop: 08/01/17 02:06 Last Admin: 08/01/17 01:11 Dose: 999 mls/hr Sodium Chloride (Normal Saline) 1,000 mls @ 999 mls/hr IV .BOLUS ONE Stop: 08/01/17 03:04 Last Admin: 08/01/17 02:18 Dose: 999 mls/hr Potassium Chloride/Sodium Chloride (Normal Saline With 20 Meq Kcl) 1,000 mls @ 100 mls/hr IV ASDIRECTED [facility] Last Admin: 08/01/17 06:28 Dose: 100 mls/hr Insulin Human Regular 100 unit (/ Sodium Chloride) 100 mls @ 5.89 mls/hr IV TITRATE NGU[facility]EN; 0.1 UNITS/KG/HR PRN Reason: Protocol Last Infusion: 08/01/17 14:54 Dose: 0.11 units/kg/hr, 6.6 mls/hr Piperacillin Sod/Tazobactam (Sod 3.375 gm/ Sodium Chloride) 100 mls @ 200 mls/ hr IV Q6H [facility] Last Admin: 08/03/17 06:26 Dose: 200 mls/hr Vancomycin HCl 1 gm/ Sodium (Chloride) 250 mls @ 166.667 mls/hr IV Q12H [facility] Last Admin: 08/03/17 01:05 Dose: 166.667 mls/hr Potassium Chloride/Dextrose/Sod Cl (D5 Ns With 20 Meq Kcl) 1,000 mls @ 100 mls/ hr IV ASDIRECTED [facility] Last Admin: 08/01/17 16:10 Dose: 100 mls/hr Magnesium Sulfate 2 gm/ Premix 50 mls @ 25 mls/hr IV ONETIME ONE Stop: 08/01/17 17:44 Last Admin: 08/01/17 16:17 Dose: 25 mls/hr Potassium Chloride/Sodium Chloride (Normal Saline With 20 Meq Kcl) 1,000 mls @ 125 mls/hr IV ASDIRECTED [facility] Last Infusion: 08/02/17 07:55 Dose: 125 mls/hr Potassium Chloride 20 meq/ (Premix) 100 mls @ 50 mls/hr IV Q2H [facility] Stop: 08/02/17 17:14 Last Admin: 08/02/17 19:00 Dose: 50 mls/hr Sodium Chloride (Normal Saline) 1,000 mls @ 125 mls/hr IV ASDIRECTED [facility] Last Admin: 08/02/17 12:26 Dose: 125 mls/hr Magnesium Sulfate 2 gm/ Premix 50 mls @ 25 mls/hr IV ONETIME ONE Stop: 08/02/17 11:18 Last Admin: 08/02/17 11:20 Dose: Not Given Insulin Aspart (Novolog) 0 unit SUBCUT QID [facility] PRN Reason: Protocol Insulin Aspart (Novolog) 0 unit SUBCUT QIDACANDBED [facility] PRN Reason: Protocol Last Admin: 08/01/17 13:38 Dose: Not Given Insulin Aspart (Novolog) 18 unit SUBCUT BIDAC [facility] Last Admin: 08/02/17 08:06 Dose: 18 units Insulin Human Regular (Humulin R) 10 unit IV ONETIME ONE Stop: 08/01/17 01:36 Last Admin: 08/01/17 01:40 Dose: 10 units Iopamidol (Isovue-300 (61%)) 75 ml IVPUSH ONETIME ONE Stop: 08/01/17 02:37 Last Admin: 08/01/17 03:30 Dose: 75 ml Loperamide HCl (Imodium) 2 mg PO Q4H PRN PRN Reason: Diarrhea Last Admin: 08/03/17 06:58 Dose: 2 mg Lorazepam (Ativan) 1 mg IVPUSH ONETIME ONE Stop: 08/01/17 01:10 Last Admin: 08/01/17 01:19 Dose: 1 mg Metoprolol Tartrate (Lopressor) 2.5 mg IVPUSH ONETIME ONE Stop: 08/01/17 02:10 Last Admin: 08/01/17 02:18 Dose: 2.5 mg Morphine Sulfate (Morphine) 2 mg SUBCUT Q6H PRN PRN Reason: Pain Morphine Sulfate (Morphine) 2 mg IV Q6H PRN PRN Reason: Pain Last Admin: 08/03/17 06:56 Dose: 2 mg Ondansetron HCl (Zofran) 4 mg IV ONETIME ONE Stop: 08/01/17 01:07 Last Admin: 08/01/17 01:16 Dose: 4 mg Oxycodone/Acetaminophen (Percocet 325-5 Mg) 2 tab PO Q6H PRN PRN Reason: Pain Last Admin: 08/03/17 08:26 Dose: 2 tab Vancomycin HCl (Pharmacy To Dose - Vancomycin) 1 dose .XX ASDIRECTED [facility] - Exam General: Alert, Oriented, Cooperative, No Acute Distress HEENT: Pupils Equal, Pupils Reactive, EOMI, Mucous Membr. Moist/[place] Neck: Supple Lungs: Clear to Auscultation, Normal Respiratory Effort Cardiovascular: Regular Rate, Regular Rhythm GI/Abdominal Exam: Other (epigastric joanna tenderness) Back Exam: Normal Inspection, Full Range of Motion Extremities: Normal Inspection, Normal Range of Motion, Non-Tender, No Pedal Edema, Normal Capillary Refill Skin: Warm, Dry, Intact Wound/Incisions: Other (intact) Psy/Mental Status: Alert, Normal Affect, Normal Mood - Problem List & Annotations (1) Epigastric pain SNOMED Code(s): 26010958 Code(s): R10.13 - EPIGASTRIC PAIN Status: Acute Priority: Medium Current Visit: Yes - Problem List Review Problem List Initiated/Reviewed/Updated: Yes - My Orders Last 24 Hours: My Active Orders 08/02/17 10:34 Consult to Physician [CONS] Routine 08/02/17 17:00 Insulin Aspart [NovoLOG] 18 unit SUBCUT BIDAC@0800,1700 08/02/17 20:16 Sodium Chloride 0.9% [Saline Flush] 10 ml FLUSH ASDIRECTED PRN Convert IV to Saline Lock [OM.PC] Routine 08/03/17 10:10 Acetaminophen/oxyCODONE [Percocet 325-5 MG] 2 tab PO Q8H PRN - Plan Plan:: Ms. Damico is a 46 y.o. female who presented with epigastric pain x 1 day. She had vomited multiple times and also had several episode of diarrhea , stool occult blood negative, CT adomen was negative for any itra- abdominal pathology. Impression and Plan: 1. Epigastric Pain: This is likely from gastritis -Improving. She is still not tolerating diet well -Continue protonix IV 40 mg BID -Liquid diet and advance as tolerated 2. Nausea and Vomiting -Resolved -Zofran prn 3. DKA - Likely early stage -Resolved with Insulin drip -Continue home insulin regimen 4. Leukocytosis -Now resloved -Source of infection was not clear -D/c abx 5. Diarrhea -Had 6 loose bowel movements last night -Follow up stool studies including C. diff 6. Diabetes -Now controlled -Continue current care -Monitor FSG 4x daily 7. Hypertension -BP at goal -continue current care 8. GI prophylaxis -On Protonix 40 mg IV BID 9. Hypokalemia -Resolved 10. DVT prophylaxis -Enoxaparin 9. Code Status -Full Code
[2017-08-03] MEDS: Sodium Chloride 0.9% 10 ML Syringe FLUSH PRN ×2 (21:24→21:25)
[2017-08-04] MEDS: Sodium Chloride 0.9% 10 ML Syringe FLUSH PRN ×2 (05:51→06:01)
[2017-08-04] MEDS: Pantoprazole 40 MG Vial IVPUSH SCH (05:52)
[2017-08-04 07:14] VITALS: BP 179/83
[2017-08-04] MEDS: Lisinopril 5 MG Tab PO SCH ×2 (07:32→09:23)
[2017-08-04] MEDS: Acetaminophen/oxyCODONE 325-5 MG Tab PO PRN (07:34)
[2017-08-04] MEDS: GI Cocktail Oral Solution 30 ML PO PRN (08:05)
[2017-08-04] MEDS: Insulin Aspart 100 Units/ML 3 ML Pen SUBCUT SCH (08:07)
[2017-08-04 09:12] LABS: ANION GAP 10.6; CHLORIDE,CL 100 mmol/L (101-111); SODIUM,NA 136 mmol/L (135-145)
[2017-08-04] MEDS: Enoxaparin 40 MG/0.4 ML Syringe SUBCUT SCH (09:13)
[2017-08-04] MEDS: Atenolol 25 MG Tab PO SCH (09:14)
[2017-08-04] MEDS: Pregabalin 50 MG Cap PO SCH (09:15)
[2017-08-04] MEDS: Insulin Detemir 100 Units/ML 3 ML Pen SUBCUT SCH (09:17)
--- NOTE | 2017-08-04 09:55 | PCM.DCSUM1 ---
Discharge Summary - Hospital Course Free Text/Narrative:: Ms. Damico is a 46 y.o. female who presented with epigastric pain x 1 day. She had vomited multiple times and also had several episode of diarrhea , Impression and Plan: 1. Epigastric Pain stool occult blood negative, CT adomen was negative for any intra-abdominal pathology. This is likely from gastritis treated with protonix cont PPI after discharge has appt. with GI tomorrow 2. Nausea and Vomiting -Resolved -tolerating diet 3. Diarrhea -negative C diff, stool cx-s leukocytosis resolved treat empirically with imodium 4. DKA - -Resolved with Insulin drip -Continue home insulin regimen - Discharge Data Discharge Date: 08/04/17 Discharge Disposition: Home, Self-Care 01 Condition: Good - Patient Summary/Data Consults: Consultations 08/02/17 10:34 Consult to Physician [CONS] Routine - Patient Instructions Diet: Heart Healthy Diet Activity: As Tolerated - Discharge Plan Home Medications: Home Meds Atenolol [Tenormin] 50 mg PO DAILY 09/30/13 [History] Lisinopril [Prinivil] 20 mg PO DAILY 09/30/13 [History] Omeprazole 20 mg PO BID 09/30/13 [History] Insulin Aspart [NovoLOG] 18 unit SUBCUT BIDAC 09/19/16 [History] Pregabalin [Lyrica] 100 mg PO TID cap 07/01/17 [Rx] Insulin Detemir [Levemir] 15 unit SUBCUT DAILY 08/01/17 [History] - Discharge Summary/Plan Comment DC Time >30 min.: No - General Info Date of Service: 08/04/17 - Review of Systems General: Denies: Fever Pulmonary: Denies: Shortness of Breath Cardiovascular: Denies: Chest Pain Gastrointestinal: Reports: Diarrhea. Denies: Abdominal Pain, Nausea, Vomiting - Patient Data Vitals - Most Recent: Last Vital Signs Temp 36.9 C 08/04/17 07:00 Pulse 61 08/04/17 09:14 Resp 20 08/04/17 07:00 BP 179/83 H 08/04/17 09:23 Pulse Ox 97 08/04/17 07:00 Weight - Most Recent: 61.292 kg I&O - Last 24 hours: Intake & Output 08/03/17 08/04/17 08/04/17 22:59 06:59 14:59 Intake Total 1200 500 Output Total 2000 Balance -800 500 Lab Results - Last 24 hrs: Laboratory Results - last 24 hr 08/03/17 08/03/17 08/03/17 Range/Units 11:54 17:00 20:43 WBC (5.0-10.0) 10^3/uL RBC (4.2-5.4) 10^6/uL Hgb (12.0-16.0) g/dL Hct (37.0-47.0) % MCV (80-100) fL MCH (27.0-34.0) pg MCHC (33.0-35.0) g/dL Plt Count (150-450) 10^3/uL Neut % (Auto) (42.2-75.2) % Lymph % (Auto) (20.5-50.1) % [place] % (Auto) (2-8) % Eos % (Auto) (1.0-3.0) % Baso % (Auto) (0.0-1.0) % Sodium (135-145) mmol/L Potassium (3.6-5.0) mmol/L Chloride (101-111) mmol/L Carbon Dioxide (21.0-31.0) mmol/L Anion Gap BUN (7-18) mg/dL Creatinine (0.6-1.3) mg/dL Est Cr Clr Drug Dosing mL/min Estimated GFR (MDRD) Glucose (74-105) mg/dL POC Glucose 192 H 211 H 148 H (70-105) mg/dl Calcium (8.4-10.2) mg/dl 08/04/17 08/04/17 08/04/17 Range/Units 05:49 07:31 08:33 WBC 8.6 (5.0-10.0) 10^3/uL RBC 5.22 (4.2-5.4) 10^6/uL Hgb 15.5 D (12.0-16.0) g/dL Hct 44.4 (37.0-47.0) % MCV 85.1 (80-100) fL MCH 29.7 (27.0-34.0) pg MCHC 34.9 (33.0-35.0) g/dL Plt Count 257 (150-450) 10^3/uL Neut % (Auto) 65.1 (42.2-75.2) % Lymph % (Auto) 27.7 (20.5-50.1) % [place] % (Auto) 5.8 (2-8) % Eos % (Auto) 0.9 L (1.0-3.0) % Baso % (Auto) 0.5 (0.0-1.0) % Sodium (135-145) mmol/L Potassium (3.6-5.0) mmol/L Chloride (101-111) mmol/L Carbon Dioxide (21.0-31.0) mmol/L Anion Gap BUN (7-18) mg/dL Creatinine (0.6-1.3) mg/dL Est Cr Clr Drug Dosing mL/min Estimated GFR (MDRD) Glucose (74-105) mg/dL POC Glucose 158 H 208 H (70-105) mg/dl Calcium (8.4-10.2) mg/dl 08/04/17 Range/Units 08:33 WBC (5.0-10.0) 10^3/uL RBC (4.2-5.4) 10^6/uL Hgb (12.0-16.0) g/dL Hct (37.0-47.0) % MCV (80-100) fL MCH (27.0-34.0) pg MCHC (33.0-35.0) g/dL Plt Count (150-450) 10^3/uL Neut % (Auto) (42.2-75.2) % Lymph % (Auto) (20.5-50.1) % [place] % (Auto) (2-8) % Eos % (Auto) (1.0-3.0) % Baso % (Auto) (0.0-1.0) % Sodium 136 (135-145) mmol/L Potassium 3.6 (3.6-5.0) mmol/L Chloride 100 L (101-111) mmol/L Carbon Dioxide 29.0 (21.0-31.0) mmol/L Anion Gap 10.6 BUN 4 L (7-18) mg/dL Creatinine 0.5 L (0.6-1.3) mg/dL Est Cr Clr Drug Dosing 103.13 mL/min Estimated GFR (MDRD) > 60 Glucose 188 H (74-105) mg/dL POC Glucose (70-105) mg/dl Calcium 9.1 (8.4-10.2) mg/dl VAN Results - Last 24 hrs: Microbiology 08/02/17 20:45 Cryptosporidium/Giardia - Final Stool / Feces 08/02/17 20:45 Shiga Toxin I & II - Final Stool / Feces 08/02/17 20:45 Clostridium difficile (PCR) - Final Stool / Feces Med Orders - Current: Current Medications Acetaminophen (Tylenol) 650 mg PO Q4H PRN PRN Reason: Pain (mild 1-3 )/fever Al Hydroxide/Mg Hydroxide (Gi Cocktail) 30 ml PO TID PRN PRN Reason: gi upsdet Last Admin: 08/04/17 08:05 Dose: 30 ml Atenolol (Tenormin) 50 mg PO DAILY [facility] Last Admin: 08/04/17 09:14 Dose: 50 mg Docusate Sodium (Colace) 100 mg PO DAILY PRN PRN Reason: Constipation Enoxaparin Sodium (Lovenox) 40 mg SUBCUT DAILY [facility] Last Admin: 08/04/17 09:13 Dose: 40 mg Insulin Aspart (Novolog) 18 unit SUBCUT BIDAC@0800,1700 [facility] Last Admin: 08/04/17 08:07 Dose: 18 units Insulin Detemir (Levemir) 20 unit SUBCUT BEDTIME [facility] Last Admin: 08/03/17 21:00 Dose: 20 units Insulin Detemir (Levemir) 15 unit SUBCUT DAILY [facility] Last Admin: 08/04/17 09:17 Dose: 15 units Lisinopril (Prinivil) 20 mg PO DAILY [facility] Last Admin: 08/04/17 09:23 Dose: Not Given Metoclopramide HCl (Reglan) 10 mg IVPUSH Q8H PRN PRN Reason: Nausea Last Admin: 08/03/17 08:26 Dose: 10 mg Ondansetron HCl (Zofran) 4 mg IV Q6H PRN PRN Reason: Nausea/Vomiting Last Admin: 08/03/17 06:25 Dose: 4 mg Oxycodone/Acetaminophen (Percocet 325-5 Mg) 2 tab PO Q8H PRN PRN Reason: Pain Last Admin: 08/04/17 07:34 Dose: 2 tab Pantoprazole Sodium (Protonix Iv) 40 mg IVPUSH Q12H [facility] Last Admin: 08/04/17 05:52 Dose: 40 mg Pregabalin (Lyrica) 100 mg PO TID [facility] Last Admin: 08/04/17 09:15 Dose: 100 mg Sodium Chloride (Saline Flush) 10 ml FLUSH ASDIRECTED PRN PRN Reason: Keep Vein Open Sodium Chloride (Saline Flush) 10 ml FLUSH ASDIRECTED PRN PRN Reason: Keep Vein Open Last Admin: 08/04/17 06:01 Dose: 10 ml Discontinued Medications Dextrose/Water (Dextrose 50% In Water) 50 ml IVPUSH ONETIME ONE Stop: 08/01/17 15:51 Last Admin: 08/01/17 15:58 Dose: 50 ml Dextrose/Water (Dextrose 25% In Water) 10 ml IVPUSH ONETIME ONE Stop: 08/01/17 15:52 Last Admin: 08/01/17 16:46 Dose: Not Given Hydromorphone HCl (Dilaudid) 1 mg IVPUSH ONETIME ONE Stop: 08/01/17 01:17 Last Admin: 08/01/17 01:26 Dose: 1 mg Sodium Chloride (Normal Saline) 1,000 mls @ 500 mls/hr IV ASDIRECTED ONE Stop: 08/01/17 03:07 Last Admin: 08/01/17 01:30 Dose: Not Given Sodium Chloride (Normal Saline) 1,000 mls @ 999 mls/hr IV .BOLUS ONE Stop: 08/01/17 02:06 Last Admin: 08/01/17 01:11 Dose: 999 mls/hr Sodium Chloride (Normal Saline) 1,000 mls @ 999 mls/hr IV .BOLUS ONE Stop: 08/01/17 03:04 Last Admin: 08/01/17 02:18 Dose: 999 mls/hr Potassium Chloride/Sodium Chloride (Normal Saline With 20 Meq Kcl) 1,000 mls @ 100 mls/hr IV ASDIRECTED [facility] Last Admin: 08/01/17 06:28 Dose: 100 mls/hr Insulin Human Regular 100 unit (/ Sodium Chloride) 100 mls @ 5.89 mls/hr IV TITRATE NGU[facility]EN; 0.1 UNITS/KG/HR PRN Reason: Protocol Last Infusion: 08/01/17 14:54 Dose: 0.11 units/kg/hr, 6.6 mls/hr Piperacillin Sod/Tazobactam (Sod 3.375 gm/ Sodium Chloride) 100 mls @ 200 mls/ hr IV Q6H [facility] Last Admin: 08/03/17 06:26 Dose: 200 mls/hr Vancomycin HCl 1 gm/ Sodium (Chloride) 250 mls @ 166.667 mls/hr IV Q12H [facility] Last Admin: 08/03/17 01:05 Dose: 166.667 mls/hr Potassium Chloride/Dextrose/Sod Cl (D5 Ns With 20 Meq Kcl) 1,000 mls @ 100 mls/ hr IV ASDIRECTED [facility] Last Admin: 08/01/17 16:10 Dose: 100 mls/hr Magnesium Sulfate 2 gm/ Premix 50 mls @ 25 mls/hr IV ONETIME ONE Stop: 08/01/17 17:44 Last Admin: 08/01/17 16:17 Dose: 25 mls/hr Potassium Chloride/Sodium Chloride (Normal Saline With 20 Meq Kcl) 1,000 mls @ 125 mls/hr IV ASDIRECTED [facility] Last Infusion: 08/02/17 07:55 Dose: 125 mls/hr Potassium Chloride 20 meq/ (Premix) 100 mls @ 50 mls/hr IV Q2H [facility] Stop: 08/02/17 17:14 Last Admin: 08/02/17 19:00 Dose: 50 mls/hr Sodium Chloride (Normal Saline) 1,000 mls @ 125 mls/hr IV ASDIRECTED [facility] Last Admin: 08/02/17 12:26 Dose: 125 mls/hr Magnesium Sulfate 2 gm/ Premix 50 mls @ 25 mls/hr IV ONETIME ONE Stop: 08/02/17 11:18 Last Admin: 08/02/17 11:20 Dose: Not Given Insulin Aspart (Novolog) 0 unit SUBCUT QID [facility] PRN Reason: Protocol Insulin Aspart (Novolog) 0 unit SUBCUT QIDACANDBED [facility] PRN Reason: Protocol Last Admin: 08/01/17 13:38 Dose: Not Given Insulin Aspart (Novolog) 18 unit SUBCUT BIDAC [facility] Last Admin: 08/02/17 08:06 Dose: 18 units Insulin Human Regular (Humulin R) 10 unit IV ONETIME ONE Stop: 08/01/17 01:36 Last Admin: 08/01/17 01:40 Dose: 10 units Iopamidol (Isovue-300 (61%)) 75 ml IVPUSH ONETIME ONE Stop: 08/01/17 02:37 Last Admin: 08/01/17 03:30 Dose: 75 ml Loperamide HCl (Imodium) 2 mg PO Q4H PRN PRN Reason: Diarrhea Last Admin: 08/03/17 06:58 Dose: 2 mg Lorazepam (Ativan) 1 mg IVPUSH ONETIME ONE Stop: 08/01/17 01:10 Last Admin: 08/01/17 01:19 Dose: 1 mg Metoprolol Tartrate (Lopressor) 2.5 mg IVPUSH ONETIME ONE Stop: 08/01/17 02:10 Last Admin: 08/01/17 02:18 Dose: 2.5 mg Morphine Sulfate (Morphine) 2 mg SUBCUT Q6H PRN PRN Reason: Pain Morphine Sulfate (Morphine) 2 mg IV Q6H PRN PRN Reason: Pain Last Admin: 08/03/17 06:56 Dose: 2 mg Ondansetron HCl (Zofran) 4 mg IV ONETIME ONE Stop: 08/01/17 01:07 Last Admin: 08/01/17 01:16 Dose: 4 mg Oxycodone/Acetaminophen (Percocet 325-5 Mg) 2 tab PO Q6H PRN PRN Reason: Pain Last Admin: 08/03/17 08:26 Dose: 2 tab Vancomycin HCl (Pharmacy To Dose - Vancomycin) 1 dose .XX ASDIRECTED [facility] - Exam General: Reports: Alert, Oriented Neck: Reports: Supple Lungs: Reports: Clear to Auscultation, Normal Respiratory Effort GI/Abdominal Exam: Normal Bowel Sounds, Soft, No Distention Extremities: No Pedal Edema Neurological: Reports: No New Focal Deficit Psy/Mental Status: Reports: Alert, Normal Affect *Q Meaningful Use (DIS) - VTE *Q VTE Criteria *Q: - Stroke *Q Stroke Criteria *Q: - AMI *Q AMI Criteria *Q:
--- NOTE | 2017-08-08 10:42 | EKG ---
08/01/2017- MAYRA CAMARENA - EKG per my reading shows sinus tachycardia at a rate of 120s. [facility] /[id number]
== END 2017-08-04 11:57 | disposition home or self-care (01) | DRG 639 ==
LOC: DL.ED 00:46 → UNDOADMIN 04:46 → DL.MS 04:46
PROVIDERS: ADMIT Internal Medicine Nephrology; ATTEND Internal Medicine Nephrology
DX: E11.10 Type 2 diabetes mellitus with ketoacidosis without coma (principal); E11.65 Type 2 diabetes mellitus with hyperglycemia; K52.9 Noninfective gastroenteritis and colitis, unspecified; N36.8 Other specified disorders of urethra; I10 Essential (primary) hypertension; E87.6 Hypokalemia; E78.00 Pure hypercholesterolemia, unspecified; M19.90 Unspecified osteoarthritis, unspecified site; F41.9 Anxiety disorder, unspecified; Z86.14 Personal history of Methicillin resistant Staphylococcus aureus infection; F17.200 Nicotine dependence, unspecified, uncomplicated; Z79.4 Long term (current) use of insulin; Z79.899 Other long term (current) drug therapy
CPT/HCPCS: 36415; 36416; 71045; 74177; 80053; 81001; 82009; 82150; 82272; 82803; 82962 ×3; 83605; 83690; 84484; 85025; 87040; 93005; 96361; 96374; 96375; 99285; G0480; J1170; J1815; J2060; J2405; J7030 ×2; Q9967; 80048; 83735; 83880; 84132; 87177; 87209; 87328; 87329; 87493; 87899; A9270-GY; C9113; J1650; J2270; J2543; J2765; J3370; J3475; J3480; J3490; J7050; J7060

== ENCOUNTER 2017-12-05 13:54 | Emergency (ER) | payer MEDICAID, OTHER ==
[2017-12-05 14:04] VITALS: BP 226/128
[2017-12-05] MEDS ORDERED: Sodium Chloride 0.9% 1,000 ML IV ONE (14:29)
[2017-12-05] MEDS ORDERED: Ondansetron 4 MG/2 ML SDV IV ONE ×2 (14:29→15:08)
--- NOTE | 2017-12-05 14:39 | EDM.PDOC ---
ED HPI GENERAL MEDICAL PROBLEM - General Chief Complaint: Gastrointestinal Problem Stated Complaint: NOT FEELING GOOD Time Seen by Provider: 12/05/17 14:25 Source of Information: Reports: Patient History Limitations: Reports: No Limitations - History of Present Illness INITIAL COMMENTS - FREE TEXT/NARRATIVE: This 47 yo female patient reports to the ED with a 2 day history of not feeling well. The patient reports that she started to vomit this morning. The patient reports that she has not taken anything to improve her symptoms. The patient reports a past surgical history of c-sections, hysterectomy and gall bladder removal. The patient reports she has a past medical history of acid reflux and stomach ulcers. The patient denies any drug or ETOH use. Onset: Today Duration: Constant Location: Reports: Abdomen Quality: Reports: Ache, Sharp Severity: Severe Improves with: Reports: None Worsens with: Reports: None Associated Symptoms: Reports: Nausea/Vomiting, Other (abdominal pain) Middle Abdomen Pain Score (Numeric/FACES): 8 - Related Data Allergies Allergy/AdvReac Type Severity Reaction Status Date / Time No Known Allergies Allergy Verified 12/05/17 14:03 Home Meds: Home Meds Atenolol [Tenormin] 50 mg PO DAILY 09/30/13 [History] Lisinopril [Prinivil] 20 mg PO DAILY 09/30/13 [History] Omeprazole 20 mg PO BID 09/30/13 [History] Insulin Aspart [NovoLOG] 18 unit SUBCUT BIDAC 09/19/16 [History] Pregabalin [Lyrica] 100 mg PO TID cap 07/01/17 [Rx] Insulin Detemir [Levemir] 15 unit SUBCUT DAILY 08/01/17 [History] Past Medical History HEENT History: Reports: None Cardiovascular History: Reports: High Cholesterol, Hypertension Respiratory History: Reports: None Gastrointestinal History: Reports: Cholelithiasis, Hepatitis Genitourinary History: Reports: Renal Calculus 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: Musculoskeletal History: Reports: Arthritis Neurological History: Reports: None Psychiatric History: Reports: Anxiety Endocrine/Metabolic History: Reports: Diabetes, Type II Other Endocrine/Metabolic History: diagnosed in 2009 Hematologic History: Reports: None Immunologic History: Reports: None Oncologic (Cancer) History: Reports: None Dermatologic History: Reports: Cellulitis - Infectious Disease History Infectious Disease History: Reports: Chicken Pox, MRSA - Past Surgical History GI Surgical History: Reports: Cholecystectomy Female Surgical History: Reports: Hysterectomy Social & Family History - Family History Family Medical History: Noncontributory - Tobacco Use Smoking Status *Q: Current Some Day Smoker Years of Tobacco use: 10 Packs/Tins Daily: 0.1 - Caffeine Use Caffeine Use: Reports: Coffee, Soda Other Caffeine Use: green tea - Recreational Drug Use Recreational Drug Use: No ED ROS GENERAL - Review of Systems Review Of Systems: ROS reveals no pertinent complaints other than HPI. ED EXAM, GI/ABD - Physical Exam Exam: See Below Exam Limited By: No Limitations General Appearance: Alert, WD/WN, Moderate Distress Eyes: Bilateral: Normal Appearance, EOMI Ears: Normal External Exam, Normal Canal, Hearing Grossly Normal, Normal TMs Nose: Normal Inspection, Normal Mucosa, No Blood Throat/Mouth: Normal Inspection, Normal Lips, Normal Teeth, Normal Gums, Normal Oropharynx, Normal Voice, No Airway Compromise Head: Atraumatic, Normocephalic Neck: Normal Inspection, Supple, Non-Tender, Full Range of Motion Respiratory/Chest: No Respiratory Distress, Lungs Clear, Normal Breath Sounds, No Accessory Muscle Use, Chest Non-Tender Cardiovascular: Normal Peripheral Pulses, Regular Rate, Rhythm, No Edema, No Gallop, No JVD, No Murmur, No Rub GI/Abdominal Exam: Normal Bowel Sounds, Soft, No Organomegaly, No Distention, No Abnormal Bruit, No Mass, Pelvis Stable, Tender (generalized tenderness) (Female) Exam: Deferred Rectal (Female) Exam: Deferred Back Exam: Normal Inspection, Full Range of Motion, NT Extremities: Normal Inspection, Normal Range of Motion, Non-Tender, Normal Capillary Refill, No Pedal Edema Neurological: Alert Psychiatric: Normal Affect, Normal Mood Skin Exam: Warm, Dry, Intact, Normal Color, No Rash Lymphatic: No Adenopathy Course - Vital Signs Last Recorded V/S: Last Vital Signs Temp 36.7 C 12/05/17 14:02 Pulse 84 12/05/17 14:02 Resp 19 12/05/17 14:02 BP 226/128 H 12/05/17 14:02 Pulse Ox 98 12/05/17 14:02 - Orders/Labs/Meds Orders: Active Orders 24 hr Category Date Time Status Gastric Occult/pH Collection D [RC] ASDIRECTED Care 12/05/17 14:50 Ordered DRUG SCREEN URINE BIORAD [URCHEM] Stat Lab 12/05/17 14:29 Ordered UA W/MICROSCOPIC [URIN] Stat Lab 12/05/17 14:29 Ordered Labs: Laboratory Tests 12/05/17 12/05/17 12/05/17 Range/Units 14:10 14:10 14:10 WBC 12.3 H (5.0-10.0) 10^3/uL RBC 6.11 H (4.2-5.4) 10^6/uL Hgb 18.4 H D (12.0-16.0) g/dL Hct 51.4 H (37.0-47.0) % MCV 84.1 (80-100) fL MCH 30.1 (27.0-34.0) pg MCHC 35.8 H (33.0-35.0) g/dL Plt Count 289 (150-450) 10^3/uL Neut % (Auto) 82.7 H (42.2-75.2) % Lymph % (Auto) 11.3 L (20.5-50.1) % Mathews % (Auto) 4.8 (2-8) % Eos % (Auto) 0.9 L (1.0-3.0) % Baso % (Auto) 0.3 (0.0-1.0) % Sodium 133 L (135-145) mmol/L Potassium 3.9 (3.6-5.0) mmol/L Chloride 99 L (101-111) mmol/L Carbon Dioxide 22.0 (21.0-31.0) mmol/L Anion Gap 15.9 BUN 10 (7-18) mg/dL Creatinine 0.6 (0.6-1.3) mg/dL Est Cr Clr Drug Dosing 85.05 mL/min Estimated GFR (MDRD) > 60 BUN/Creatinine Ratio 16.66 Glucose 306 H (74-105) mg/dL Calcium 9.2 (8.4-10.2) mg/dl Magnesium 1.7 L (1.8-2.5) mg/dL Total Bilirubin 1.3 H (0.2-1.0) mg/dL AST 21 (10-42) IU/L ALT 19 (10-60) IU/L Alkaline Phosphatase 94 (42-121) IU/L Total Protein 8.6 H (6.7-8.2) g/dl Albumin 4.5 (3.2-5.5) g/dl Globulin 4.1 Albumin/Globulin Ratio 1.10 Amylase 50 (28-100) U/L Lipase 30 (22-51) U/L Urine Color (YELLOW) Urine Appearance (CLEAR) Urine pH (5.0-9.0) Ur Specific Dilworth (1.005-1.030) Urine Protein (NEGATIVE) Urine Glucose (UA) (NEGATIVE) Urine Ketones (NEGATIVE) Urine Occult Blood (NEGATIVE) Urine Nitrite (NEGATIVE) Urine Bilirubin (NEGATIVE) Urine Urobilinogen (0.2-1.0) mg/dL Ur Leukocyte Esterase (NEGATIVE) Urine RBC /HPF Urine WBC (0-5/HPF) /HPF Ur Epithelial Cells /HPF Amorphous Sediment (0/HPF) /HPF Urine Bacteria (0-FEW/HPF) /HPF Urine Opiates Screen (NEGATIVE) Ur Oxycodone Screen (NEGATIVE) Urine Methadone Screen (NEGATIVE) Ur Barbiturates Screen (NEGATIVE) U Tricyclic Antidepress (NEGATIVE) Ur Phencyclidine Scrn (NEGATIVE) Ur Amphetamine Screen (NEGATIVE) U Methamphetamines Scrn (NEGATIVE) Urine MDMA Screen (NEGATIVE) U Benzodiazepines Scrn (NEGATIVE) Urine Cocaine Screen (NEGATIVE) U Marijuana (THC) Screen (NEGATIVE) Ethyl Alcohol < 5 mg/dL 12/05/17 12/05/17 Range/Units 15:17 15:17 WBC (5.0-10.0) 10^3/uL RBC (4.2-5.4) 10^6/uL Hgb (12.0-16.0) g/dL Hct (37.0-47.0) % MCV (80-100) fL MCH (27.0-34.0) pg MCHC (33.0-35.0) g/dL Plt Count (150-450) 10^3/uL Neut % (Auto) (42.2-75.2) % Lymph % (Auto) (20.5-50.1) % Mathews % (Auto) (2-8) % Eos % (Auto) (1.0-3.0) % Baso % (Auto) (0.0-1.0) % Sodium (135-145) mmol/L Potassium (3.6-5.0) mmol/L Chloride (101-111) mmol/L Carbon Dioxide (21.0-31.0) mmol/L Anion Gap BUN (7-18) mg/dL Creatinine (0.6-1.3) mg/dL Est Cr Clr Drug Dosing mL/min Estimated GFR (MDRD) BUN/Creatinine Ratio Glucose (74-105) mg/dL Calcium (8.4-10.2) mg/dl Magnesium (1.8-2.5) mg/dL Total Bilirubin (0.2-1.0) mg/dL AST (10-42) IU/L ALT (10-60) IU/L Alkaline Phosphatase (42-121) IU/L Total Protein (6.7-8.2) g/dl Albumin (3.2-5.5) g/dl Globulin Albumin/Globulin Ratio Amylase (28-100) U/L Lipase (22-51) U/L Urine Color Light yellow (YELLOW) Urine Appearance Clear (CLEAR) Urine pH 5.5 (5.0-9.0) Ur Specific Dilworth 1.020 (1.005-1.030) Urine Protein 100 H (NEGATIVE) Urine Glucose (UA) 500 H (NEGATIVE) Urine Ketones 80 H (NEGATIVE) Urine Occult Blood Trace-lysed H (NEGATIVE) Urine Nitrite Negative (NEGATIVE) Urine Bilirubin Negative (NEGATIVE) Urine Urobilinogen 0.2 (0.2-1.0) mg/dL Ur Leukocyte Esterase Negative (NEGATIVE) Urine RBC 0-5 /HPF Urine WBC 0-5 (0-5/HPF) /HPF Ur Epithelial Cells Rare /HPF Amorphous Sediment Rare (0/HPF) /HPF Urine Bacteria Rare (0-FEW/HPF) /HPF Urine Opiates Screen Negative (NEGATIVE) Ur Oxycodone Screen Negative (NEGATIVE) Urine Methadone Screen Negative (NEGATIVE) Ur Barbiturates Screen Negative (NEGATIVE) U Tricyclic Antidepress Negative (NEGATIVE) Ur Phencyclidine Scrn Negative (NEGATIVE) Ur Amphetamine Screen Negative (NEGATIVE) U Methamphetamines Scrn Negative (NEGATIVE) Urine MDMA Screen Negative (NEGATIVE) U Benzodiazepines Scrn Negative (NEGATIVE) Urine Cocaine Screen Negative (NEGATIVE) U Marijuana (THC) Screen Positive H (NEGATIVE) Ethyl Alcohol mg/dL Meds: Medications Discontinued Medications Generic Name Dose Route Start Last Admin Trade Name Freq PRN Reason Stop Dose Admin Sodium Chloride 1,000 mls @ 999 mls/hr 12/05/17 14:29 06/25/18 14:44 Normal Saline IV 12/05/17 15:29 999 mls/hr .BOLUS ONE Administration Iopamidol 75 ml 12/05/17 15:08 12/05/17 15:43 Isovue-300 (61%) IVPUSH 12/05/17 15:09 75 ml ONETIME ONE Administration Metoclopramide HCl 10 mg 12/05/17 15:24 12/05/17 15:30 Reglan IVPUSH 12/05/17 15:25 10 mg ONETIME ONE Administration Ondansetron HCl 4 mg 12/05/17 14:29 12/05/17 14:44 Zofran IV 12/05/17 14:30 4 mg ONETIME ONE Administration Ondansetron HCl 4 mg 12/05/17 15:08 12/05/17 15:16 Zofran IV 12/05/17 15:09 4 mg ONETIME ONE Administration Pantoprazole Sodium 80 mg 12/05/17 16:16 Protonix Iv IVPUSH 12/05/17 16:17 .BOLUS ONE Departure - Departure Time of Disposition: 16:18 Disposition: Home, Self-Care 01 Condition: Fair Clinical Impression: Gastroenteritis - Discharge Information Instructions: Viral Gastroenteritis, Adult, [id number] Forms: ED Department Discharge Care Plan Goals: The patient was advised of the examination, lab and CT results during the visit. The patient was given 2 doses of Zofran, 1 dose of Reglan, 1 liter of IV fluid and 1 dose of IV Protonix while in the ED. The patient was encouraged to stick to a BRAT diet over the next 48 hours. The patient was given a script for Zofran ODT (4 mg) #20 to take 1 by mouth every 6 hours as needed for nausea. If the patient has any additional symptoms or concerns, the patient should follow- up with her primary care facility or return to the emergency department. - My Orders Last 24 Hours: My Active Orders 12/05/17 14:29 DRUG SCREEN URINE BIORAD [URCHEM] Stat UA W/MICROSCOPIC [URIN] Stat 12/05/17 14:50 Gastric Occult/pH Collection D [RC] ASDIRECTED - Assessment/Plan Last 24 Hours: My Active Orders 12/05/17 14:29 DRUG SCREEN URINE BIORAD [URCHEM] Stat UA W/MICROSCOPIC [URIN] Stat 12/05/17 14:50 Gastric Occult/pH Collection D [RC] ASDIRECTED
[2017-12-05 14:52] LABS: CHLORIDE,CL 99 mmol/L (101-111); SODIUM,NA 133 mmol/L (135-145)
[2017-12-05] MEDS ORDERED: Iopamidol 612 MG/ML 75 ML Bottle IVPUSH ONE (15:08)
[2017-12-05] MEDS ORDERED: Metoclopramide 10 MG/2 ML SDV IVPUSH ONE (15:24)
[2017-12-05] MEDS ORDERED: Pantoprazole 40 MG Vial IVPUSH ONE (16:16)
== END 2017-12-05 16:48 | disposition home or self-care (01) ==
LOC: DL.ED 13:54
DX: K52.9 Noninfective gastroenteritis and colitis, unspecified (principal); E78.00 Pure hypercholesterolemia, unspecified; I10 Essential (primary) hypertension; E11.9 Type 2 diabetes mellitus without complications; F17.210 Nicotine dependence, cigarettes, uncomplicated; Z79.899 Other long term (current) drug therapy; Z79.4 Long term (current) use of insulin
CPT/HCPCS: 36415; 74177; 80053; 80305; 81001; 82150; 82271; 83690; 83735; 85025; 96365; 96375; 96376; 99284; C9113; G0480; J2405; J2765; J7030; Q9967

== ENCOUNTER 2017-12-07 20:04 | Inpatient (IN) | payer MEDICAID, OTHER ==
[2017-12-07 20:32] LABS: BASE EXCESS ARTERIAL -24 mmol/L ((-2)-(+3)); BICARBONATE,ARTERIAL 4.9 mmol/L (22-26); O2 DELIVERY DEVICE ROOM AIR; O2 SATURATION ARTERIAL 99 % (95-100); PO2 ARTERIAL 133 mmHg (70-100)
[2017-12-07] MEDS ORDERED: Insulin Regular, Human 100 Units/ML 3 ML Vial IV ONE (20:33)
[2017-12-07 20:34] LABS: O2 FLOW RATE 0; PCO2 ARTERIAL 14 mmHg (35-45)
--- NOTE | 2017-12-07 21:23 | EDM.PDOC ---
ED HPI GENERAL MEDICAL PROBLEM - General Chief Complaint: General Stated Complaint: SICK PERSON- BY AMBULANCE Time Seen by Provider: 12/07/17 20:30 Source of Information: Reports: EMS, Family History Limitations: Reports: No Limitations - History of Present Illness INITIAL COMMENTS - FREE TEXT/NARRATIVE: ED via [facility] report of not feeling well and high blood sugar. Patient reported to not be taking medications. Was seen earlier in week for nausea. - Related Data Allergies Allergy/AdvReac Type Severity Reaction Status Date / Time No Known Allergies Allergy Verified 12/05/17 14:03 Home Meds: Home Meds Atenolol [Tenormin] 50 mg PO DAILY 09/30/13 [History] Lisinopril [Prinivil] 20 mg PO DAILY 09/30/13 [History] Omeprazole 20 mg PO BID 09/30/13 [History] Insulin Aspart [NovoLOG] 18 unit SUBCUT BIDAC 09/19/16 [History] Pregabalin [Lyrica] 100 mg PO TID cap 07/01/17 [Rx] Insulin Detemir [Levemir] 15 unit SUBCUT DAILY 08/01/17 [History] Past Medical History HEENT History: Reports: None Cardiovascular History: Reports: High Cholesterol, Hypertension Respiratory History: Reports: None Gastrointestinal History: Reports: Cholelithiasis, Hepatitis Genitourinary History: Reports: Renal Calculus RN NEUROLOGY History: Reports: Musculoskeletal History: Reports: Arthritis Neurological History: Reports: None Psychiatric History: Reports: Anxiety Endocrine/Metabolic History: Reports: Diabetes, Type II Other Endocrine/Metabolic History: diagnosed in 2009 Hematologic History: Reports: None Immunologic History: Reports: None Oncologic (Cancer) History: Reports: None Dermatologic History: Reports: Cellulitis - Infectious Disease History Infectious Disease History: Reports: Chicken Pox, MRSA - Past Surgical History GI Surgical History: Reports: Cholecystectomy Female Surgical History: Reports: Hysterectomy Social & Family History - Family History Family Medical History: Noncontributory - Tobacco Use Smoking Status *Q: Unknown Ever Smoked - Caffeine Use Caffeine Use: Reports: Coffee, Soda Other Caffeine Use: green tea ED ROS GENERAL - Review of Systems Review Of Systems: See Below Constitutional: Reports: Malaise, Weakness, Fatigue, Decreased Appetite HEENT: Reports: No Symptoms Respiratory: Reports: No Symptoms Cardiovascular: Reports: No Symptoms Endocrine: Reports: High Glucose GI/Abdominal: Reports: Abdominal Pain, Nausea. Denies: Vomiting Musculoskeletal: Reports: Other (generalized aches) Skin: Reports: No Symptoms Neurological: Reports: Dizziness ED EXAM, GENERAL - Physical Exam Exam: See Below Exam Limited By: No Limitations General Appearance: Alert, Lethargic Eye Exam: Bilateral Eye: EOMI, PERRL (4 sluggish) Ears: Normal External Exam Nose: Normal Inspection Throat/Mouth: Other (mucus membranes dry fruity odor) Head: Atraumatic, Normocephalic Neck: Normal Inspection Respiratory/Chest: No Respiratory Distress, Lungs Clear (shallow) Cardiovascular: Normal Peripheral Pulses, Regular Rate, Rhythm GI/Abdominal: Soft, Tender, Abnormal Bowel Sounds (hypoacitve) Neurological: Slow to Respond, Other (lethargic slow arousal to tactile stimuli. ) Skin Exam: Warm, Dry, Intact Course - Vital Signs Last Recorded V/S: Last Vital Signs Temp 97.7 F 12/08/17 04:51 Pulse 110 H 12/08/17 04:51 Resp 22 H 12/08/17 04:51 BP 164/86 H 12/08/17 04:51 Pulse Ox 99 12/08/17 04:51 - Orders/Labs/Meds Orders: Active Orders 24 hr Category Date Time Status Patient Status [ADT] Routine ADT 12/07/17 21:26 Active Cardiac Monitoring [RC] 08,20 Care 12/07/17 21:27 Active Diabetes Education [RC] Click to Edit Care 12/07/17 21:28 Active EKG 12 Lead [EKG Documentation Completion] [RC] URGENT Care 12/07/17 21:10 Active Intake and Output [RC] QSHIFT Care 12/07/17 21:27 Active Oxygen Therapy [RC] PRN Care 12/07/17 21:26 Active Up With Assistance [RC] ASDIRECTED Care 12/07/17 21:25 Active VTE/DVT Education [RC] PER UNIT ROUTINE Care 12/07/17 21:26 Active Vital Signs [RC] Q4H Care 12/07/17 21:26 Active Nothing per Oral Now Diet [DIET] Diet 12/07/17 Dinner Active CULTURE BLOOD [BC] Stat Lab 12/07/17 20:50 Received CULTURE BLOOD [BC] Stat Lab 12/07/17 22:22 Received DRUG SCREEN URINE BIORAD [URCHEM] Stat Lab 12/07/17 21:00 Ordered Hemoccult [OCCULT BLOOD DIAGNOSTIC] [OP] Stat Lab 12/07/17 21:00 Ordered UA W/MICROSCOPIC [URIN] Stat Lab 12/07/17 21:00 Ordered Heparin Sodium Med 12/07/17 22:00 Active 5,000 units SUBCUT Q8HR Blood Culture x2 Reflex Set [OM.PC] Stat [facility] 12/07/17 20:33 Ordered Glucose Management Sub Q Reflex [OM.PC] [address] 12/07/17 21:25 Ordered Glucose Management Sub Q Reflex [OM.PC] [address] 12/08/17 21:25 Ordered Glucose Management Sub Q Reflex [OM.PC] [address] 12/09/17 21:25 Ordered Glucose Management Sub Q Reflex [OM.PC] [address] 12/10/17 21:25 Ordered Glucose Management Sub Q Reflex [OM.PC] [address] 12/11/17 21:25 Ordered Glucose Management Sub Q Reflex [OM.PC] [address] 12/12/17 21:25 Ordered Glucose Management Sub Q Reflex [OM.PC] [address] 12/13/17 21:25 Ordered Glucose Management Sub Q Reflex [OM.PC] [address] 12/14/17 21:25 Ordered Glucose Management Sub Q Reflex [OM.PC] [address] 12/15/17 21:25 Ordered Glucose Management Sub Q Reflex [OM.PC] [address] 12/16/17 21:25 Ordered Resuscitation Status Routine Resus Stat 12/07/17 21:25 Ordered Medication Orders Heparin Sodium (Porcine) (Heparin Sodium) 5,000 units SUBCUT Q8HR [facility] Last Admin: 12/08/17 05:50 Dose: 5,000 units Admin: 12/07/17 22:45 Dose: 5,000 units Sodium Chloride (Normal Saline) 1,000 mls @ 1,000 drops/hr IV ASDIRECTED [facility] Stop: 12/11/17 21:39 Last Admin: 12/07/17 23:38 Dose: 1,000 drops/hr Infusion: 12/07/17 23:32 Dose: 1,000 drops/hr Admin: 12/07/17 22:32 Dose: 1,000 drops/hr Insulin Human Regular 100 unit (/ Sodium Chloride) 100 mls @ 5.66 mls/hr IV TITRATE NGUYEN; Protocol Last Infusion: 12/08/17 05:56 Dose: 0.1 units/kg/hr, 6 mls/hr Infusion: 12/08/17 01:18 Dose: 0.08 units/kg/hr, 4.8 mls/hr Infusion: 12/08/17 00:04 Dose: 0.11 units/kg/hr, 6.4 mls/hr Infusion: 12/07/17 23:10 Dose: 0.14 units/kg/hr, 7.93 mls/hr Admin: 12/07/17 21:47 Dose: 0.1 units/kg/hr, 5.66 mls/hr Dextrose/Sodium Chloride (Dextrose 5%-1/2 Ns) 1,000 mls @ 200 mls/hr IV ASDIRECTED NGUYEN Last Admin: 12/08/17 07:02 Dose: 200 mls/hr Infusion: 12/08/17 06:41 Dose: 200 mls/hr Admin: 12/08/17 01:41 Dose: 200 mls/hr Potassium Chloride 20 meq/ (Premix) 100 mls @ 50 mls/hr IV Q2H NGUYEN Stop: 12/08/17 07:44 Last Admin: 12/08/17 05:51 Dose: 50 mls/hr Infusion: 12/08/17 05:42 Dose: 50 mls/hr Admin: 12/08/17 03:42 Dose: 50 mls/hr Morphine Sulfate (Morphine) 2 mg IVPUSH Q2H PRN PRN Reason: chest pain Last Admin: 12/08/17 01:46 Dose: 2 mg Admin: 12/07/17 23:46 Dose: 2 mg Nitroglycerin (Nitrostat) 0.4 mg SL Q5M PRN PRN Reason: Chest pain Last Admin: 12/08/17 00:07 Dose: 0.4 mg Admin: 12/07/17 23:50 Dose: 0.4 mg Ondansetron HCl (Zofran) 4 mg IVPUSH Q6H PRN PRN Reason: Nausea/Vomiting Last Admin: 12/08/17 05:47 Dose: 4 mg Admin: 12/07/17 23:40 Dose: 4 mg Pantoprazole Sodium (Protonix Iv) 40 mg IVPUSH DAILY [facility] Last Admin: 12/07/17 23:49 Dose: 40 mg Labs: Laboratory Tests 12/07/17 12/07/17 12/07/17 Range/Units 20:10 20:11 20:50 WBC 23.3 H (5.0-10.0) 10^3/uL RBC 6.24 H (4.2-5.4) 10^6/uL Hgb 18.6 H (12.0-16.0) g/dL Hct 52.3 H (37.0-47.0) % MCV 83.8 (80-100) fL MCH 29.8 (27.0-34.0) pg MCHC 35.6 H (33.0-35.0) g/dL Plt Count 367 D (150-450) 10^3/uL Neut % (Auto) 96.0 H (42.2-75.2) % Lymph % (Auto) 2.9 L (20.5-50.1) % [place] % (Auto) 0.8 L (2-8) % Eos % (Auto) 0.0 L (1.0-3.0) % Baso % (Auto) 0.3 (0.0-1.0) % ABG pH 7.16 L* (7.35-7.45) ABG pCO2 14 L* (35-45) mmHg ABG pO2 133 H (70-100) mmHg ABG HCO3 4.9 L (22-26) mmol/L ABG O2 Saturation 99 (95-100) % ABG Base Excess -24 L ((-2)-(+3)) mmol/L Sawyer Test na O2 Delivery Device Room air Oxygen Flow Rate 0 Sodium (135-145) mmol/L Potassium (3.6-5.0) mmol/L Chloride (101-111) mmol/L Carbon Dioxide (21.0-31.0) mmol/L Anion Gap BUN (7-18) mg/dL Creatinine (0.6-1.3) mg/dL Est Cr Clr Drug Dosing mL/min Estimated GFR (MDRD) BUN/Creatinine Ratio Glucose (74-105) mg/dL POC Glucose > 500 H* (70-105) mg/dl Lactic Acid (0.5-2.2) mmol/L Calcium (8.4-10.2) mg/dl Phosphorus (2.5-4.6) mg/dL Magnesium (1.8-2.5) mg/dL Total Bilirubin (0.2-1.0) mg/dL AST (10-42) IU/L ALT (10-60) IU/L Alkaline Phosphatase (42-121) IU/L Total Protein (6.7-8.2) g/dl Albumin (3.2-5.5) g/dl Globulin Albumin/Globulin Ratio Urine Color (YELLOW) Urine Appearance (CLEAR) Urine pH (5.0-9.0) Ur Specific [place] (1.005-1.030) Urine Protein (NEGATIVE) Urine Glucose (UA) (NEGATIVE) Urine Ketones (NEGATIVE) Urine Occult Blood (NEGATIVE) Urine Nitrite (NEGATIVE) Urine Bilirubin (NEGATIVE) Urine Urobilinogen (0.2-1.0) mg/dL Ur Leukocyte Esterase (NEGATIVE) Urine RBC /HPF Urine WBC (0-5/HPF) /HPF Ur Epithelial Cells /HPF Amorphous Sediment (0/HPF) /HPF Urine Bacteria (0-FEW/HPF) /HPF Urine Mucus /LPF Urine Opiates Screen (NEGATIVE) Ur Oxycodone Screen (NEGATIVE) Urine Methadone Screen (NEGATIVE) Ur Barbiturates Screen (NEGATIVE) U Tricyclic Antidepress (NEGATIVE) Ur Phencyclidine Scrn (NEGATIVE) Ur Amphetamine Screen (NEGATIVE) U Methamphetamines Scrn (NEGATIVE) Urine MDMA Screen (NEGATIVE) U Benzodiazepines Scrn (NEGATIVE) Urine Cocaine Screen (NEGATIVE) U Marijuana (THC) Screen (NEGATIVE) Ethyl Alcohol mg/dL 12/07/17 12/07/17 12/07/17 Range/Units 20:50 20:50 20:50 WBC (5.0-10.0) 10^3/uL RBC (4.2-5.4) 10^6/uL Hgb (12.0-16.0) g/dL Hct (37.0-47.0) % MCV (80-100) fL MCH (27.0-34.0) pg MCHC (33.0-35.0) g/dL Plt Count (150-450) 10^3/uL Neut % (Auto) (42.2-75.2) % Lymph % (Auto) (20.5-50.1) % [place] % (Auto) (2-8) % Eos % (Auto) (1.0-3.0) % Baso % (Auto) (0.0-1.0) % ABG pH (7.35-7.45) ABG pCO2 (35-45) mmHg ABG pO2 (70-100) mmHg ABG HCO3 (22-26) mmol/L ABG O2 Saturation (95-100) % ABG Base Excess ((-2)-(+3)) mmol/L Sawyer Test O2 Delivery Device Oxygen Flow Rate Sodium 118 L* D (135-145) mmol/L Potassium 3.8 (3.6-5.0) mmol/L Chloride 82 L D (101-111) mmol/L Carbon Dioxide 6.0 L* D (21.0-31.0) mmol/L Anion Gap 33.8 BUN 60 H D (7-18) mg/dL Creatinine 1.5 H (0.6-1.3) mg/dL Est Cr Clr Drug Dosing 34.02 mL/min Estimated GFR (MDRD) 38 BUN/Creatinine Ratio 40.00 Glucose 776 H* (74-105) mg/dL POC Glucose (70-105) mg/dl Lactic Acid 1.3 (0.5-2.2) mmol/L Calcium 9.5 (8.4-10.2) mg/dl Phosphorus (2.5-4.6) mg/dL Magnesium (1.8-2.5) mg/dL Total Bilirubin 1.8 H (0.2-1.0) mg/dL AST 8 L (10-42) IU/L ALT 15 (10-60) IU/L Alkaline Phosphatase 102 (42-121) IU/L Total Protein 8.2 (6.7-8.2) g/dl Albumin 4.4 (3.2-5.5) g/dl Globulin 3.8 Albumin/Globulin Ratio 1.16 Urine Color (YELLOW) Urine Appearance (CLEAR) Urine pH (5.0-9.0) Ur Specific [place] (1.005-1.030) Urine Protein (NEGATIVE) Urine Glucose (UA) (NEGATIVE) Urine Ketones (NEGATIVE) Urine Occult Blood (NEGATIVE) Urine Nitrite (NEGATIVE) Urine Bilirubin (NEGATIVE) Urine Urobilinogen (0.2-1.0) mg/dL Ur Leukocyte Esterase (NEGATIVE) Urine RBC /HPF Urine WBC (0-5/HPF) /HPF Ur Epithelial Cells /HPF Amorphous Sediment (0/HPF) /HPF Urine Bacteria (0-FEW/HPF) /HPF Urine Mucus /LPF Urine Opiates Screen (NEGATIVE) Ur Oxycodone Screen (NEGATIVE) Urine Methadone Screen (NEGATIVE) Ur Barbiturates Screen (NEGATIVE) U Tricyclic Antidepress (NEGATIVE) Ur Phencyclidine Scrn (NEGATIVE) Ur Amphetamine Screen (NEGATIVE) U Methamphetamines Scrn (NEGATIVE) Urine MDMA Screen (NEGATIVE) U Benzodiazepines Scrn (NEGATIVE) Urine Cocaine Screen (NEGATIVE) U Marijuana (THC) Screen (NEGATIVE) Ethyl Alcohol < 5 mg/dL 12/07/17 12/07/17 12/07/17 Range/Units 20:50 21:00 21:00 WBC (5.0-10.0) 10^3/uL RBC (4.2-5.4) 10^6/uL Hgb (12.0-16.0) g/dL Hct (37.0-47.0) % MCV (80-100) fL MCH (27.0-34.0) pg MCHC (33.0-35.0) g/dL Plt Count (150-450) 10^3/uL Neut % (Auto) (42.2-75.2) % Lymph % (Auto) (20.5-50.1) % [place] % (Auto) (2-8) % Eos % (Auto) (1.0-3.0) % Baso % (Auto) (0.0-1.0) % ABG pH (7.35-7.45) ABG pCO2 (35-45) mmHg ABG pO2 (70-100) mmHg ABG HCO3 (22-26) mmol/L ABG O2 Saturation (95-100) % ABG Base Excess ((-2)-(+3)) mmol/L Sawyer Test O2 Delivery Device Oxygen Flow Rate Sodium (135-145) mmol/L Potassium (3.6-5.0) mmol/L Chloride (101-111) mmol/L Carbon Dioxide (21.0-31.0) mmol/L Anion Gap BUN (7-18) mg/dL Creatinine (0.6-1.3) mg/dL Est Cr Clr Drug Dosing mL/min Estimated GFR (MDRD) BUN/Creatinine Ratio Glucose (74-105) mg/dL POC Glucose (70-105) mg/dl Lactic Acid (0.5-2.2) mmol/L Calcium (8.4-10.2) mg/dl Phosphorus 5.8 H (2.5-4.6) mg/dL Magnesium 2.4 (1.8-2.5) mg/dL Total Bilirubin (0.2-1.0) mg/dL AST (10-42) IU/L ALT (10-60) IU/L Alkaline Phosphatase (42-121) IU/L Total Protein (6.7-8.2) g/dl Albumin (3.2-5.5) g/dl Globulin Albumin/Globulin Ratio Urine Color Light yellow (YELLOW) Urine Appearance Cloudy (CLEAR) Urine pH 5.0 (5.0-9.0) Ur Specific [place] 1.015 (1.005-1.030) Urine Protein 30 H (NEGATIVE) Urine Glucose (UA) 500 H (NEGATIVE) Urine Ketones 80 H (NEGATIVE) Urine Occult Blood Small H (NEGATIVE) Urine Nitrite Negative (NEGATIVE) Urine Bilirubin Small H (NEGATIVE) Urine Urobilinogen 0.2 (0.2-1.0) mg/dL Ur Leukocyte Esterase Negative (NEGATIVE) Urine RBC 5-10 H /HPF Urine WBC 0-5 (0-5/HPF) /HPF Ur Epithelial Cells Few /HPF Amorphous Sediment Many H (0/HPF) /HPF Urine Bacteria Few (0-FEW/HPF) /HPF Urine Mucus Few H /LPF Urine Opiates Screen Negative (NEGATIVE) Ur Oxycodone Screen Negative (NEGATIVE) Urine Methadone Screen Negative (NEGATIVE) Ur Barbiturates Screen Negative (NEGATIVE) U Tricyclic Antidepress Negative (NEGATIVE) Ur Phencyclidine Scrn Negative (NEGATIVE) Ur Amphetamine Screen Negative (NEGATIVE) U Methamphetamines Scrn Negative (NEGATIVE) Urine MDMA Screen Negative (NEGATIVE) U Benzodiazepines Scrn Negative (NEGATIVE) Urine Cocaine Screen Negative (NEGATIVE) U Marijuana (THC) Screen Negative (NEGATIVE) Ethyl Alcohol mg/dL 12/07/17 Range/Units 21:10 WBC (5.0-10.0) 10^3/uL RBC (4.2-5.4) 10^6/uL Hgb (12.0-16.0) g/dL Hct (37.0-47.0) % MCV (80-100) fL MCH (27.0-34.0) pg MCHC (33.0-35.0) g/dL Plt Count (150-450) 10^3/uL Neut % (Auto) (42.2-75.2) % Lymph % (Auto) (20.5-50.1) % [place] % (Auto) (2-8) % Eos % (Auto) (1.0-3.0) % Baso % (Auto) (0.0-1.0) % ABG pH (7.35-7.45) ABG pCO2 (35-45) mmHg ABG pO2 (70-100) mmHg ABG HCO3 (22-26) mmol/L ABG O2 Saturation (95-100) % ABG Base Excess ((-2)-(+3)) mmol/L Sawyer Test O2 Delivery Device Oxygen Flow Rate Sodium (135-145) mmol/L Potassium (3.6-5.0) mmol/L Chloride (101-111) mmol/L Carbon Dioxide (21.0-31.0) mmol/L Anion Gap BUN (7-18) mg/dL Creatinine (0.6-1.3) mg/dL Est Cr Clr Drug Dosing mL/min Estimated GFR (MDRD) BUN/Creatinine Ratio Glucose (74-105) mg/dL POC Glucose > 500 H* (70-105) mg/dl Lactic Acid (0.5-2.2) mmol/L Calcium (8.4-10.2) mg/dl Phosphorus (2.5-4.6) mg/dL Magnesium (1.8-2.5) mg/dL Total Bilirubin (0.2-1.0) mg/dL AST (10-42) IU/L ALT (10-60) IU/L Alkaline Phosphatase (42-121) IU/L Total Protein (6.7-8.2) g/dl Albumin (3.2-5.5) g/dl Globulin Albumin/Globulin Ratio Urine Color (YELLOW) Urine Appearance (CLEAR) Urine pH (5.0-9.0) Ur Specific [place] (1.005-1.030) Urine Protein (NEGATIVE) Urine Glucose (UA) (NEGATIVE) Urine Ketones (NEGATIVE) Urine Occult Blood (NEGATIVE) Urine Nitrite (NEGATIVE) Urine Bilirubin (NEGATIVE) Urine Urobilinogen (0.2-1.0) mg/dL Ur Leukocyte Esterase (NEGATIVE) Urine RBC /HPF Urine WBC (0-5/HPF) /HPF Ur Epithelial Cells /HPF Amorphous Sediment (0/HPF) /HPF Urine Bacteria (0-FEW/HPF) /HPF Urine Mucus /LPF Urine Opiates Screen (NEGATIVE) Ur Oxycodone Screen (NEGATIVE) Urine Methadone Screen (NEGATIVE) Ur Barbiturates Screen (NEGATIVE) U Tricyclic Antidepress (NEGATIVE) Ur Phencyclidine Scrn (NEGATIVE) Ur Amphetamine Screen (NEGATIVE) U Methamphetamines Scrn (NEGATIVE) Urine MDMA Screen (NEGATIVE) U Benzodiazepines Scrn (NEGATIVE) Urine Cocaine Screen (NEGATIVE) U Marijuana (THC) Screen (NEGATIVE) Ethyl Alcohol mg/dL Meds: Medications Generic Name Dose Route Start Last Admin Trade Name Freq PRN Reason Stop Dose Admin Heparin Sodium (Porcine) 5,000 units 12/07/17 22:00 12/08/17 05:50 Heparin Sodium SUBCUT 5,000 units Q8HR NGUYEN Administration Sodium Chloride 1,000 mls @ 1,000 drops/hr 12/07/17 21:45 12/07/17 23:38 Normal Saline IV 12/11/17 21:39 1,000 drops/hr ASDIRECTED NGUYEN Administration Insulin Human Regular 100 unit 100 mls @ 5.66 mls/hr 12/07/17 21:45 12/08/17 05:56 / Sodium Chloride IV 0.1 units/kg/hr TITRATE NGUYEN 6 mls/hr Infusion Protocol 0.1 UNITS/KG/HR Dextrose/Sodium Chloride 1,000 mls @ 200 mls/hr 12/08/17 01:32 12/08/17 07:02 Dextrose 5%-1/2 Ns IV 200 mls/hr ASDIRECTED NGUYEN Administration Potassium Chloride 20 meq/ 100 mls @ 50 mls/hr 12/08/17 03:45 12/08/17 05:51 Premix IV 12/08/17 07:44 50 mls/hr Q2H NGUYEN Administration Morphine Sulfate 2 mg 12/07/17 23:23 12/08/17 01:46 Morphine IVPUSH 2 mg Q2H PRN Administration chest pain Nitroglycerin 0.4 mg 12/07/17 23:27 12/08/17 00:07 Nitrostat SL 0.4 mg Q5M PRN Administration Chest pain Ondansetron HCl 4 mg 12/07/17 21:31 12/08/17 05:47 Zofran IVPUSH 4 mg Q6H PRN Administration Nausea/Vomiting Pantoprazole Sodium 40 mg 12/07/17 23:30 12/07/17 23:49 Protonix Iv IVPUSH 40 mg DAILY NGUYEN Administration Discontinued Medications Generic Name Dose Route Start Last Admin Trade Name Freq PRN Reason Stop Dose Admin Insulin Human Regular 100 unit 100 mls @ 5.66 mls/hr 12/07/17 21:30 / Sodium Chloride IV TITRATE NGUYEN Protocol 0.1 UNITS/KG/HR Sodium Chloride 1,000 mls @ 500 mls/hr 12/07/17 21:30 12/08/17 00:38 Normal Saline IV 12/08/17 01:30 500 mls/hr ASDIRECTED NGUYEN Administration Dextrose/Sodium Chloride 1,000 mls @ 200 mls/hr 12/08/17 04:00 Dextrose 5%-1/2 Ns IV ASDIRECTED NGUYEN Insulin Human Regular 10 unit 12/07/17 20:33 12/07/17 20:41 Humulin R IV 12/07/17 20:34 10 units ONETIME ONE Administration Sodium Phosphate 250 mg 12/08/17 03:09 12/08/17 03:30 Neutra-Phos PO 12/08/17 03:10 250 mg ONETIME ONE Administration - Re-Assessments/Exams Free Text/Narrative Re-Assessment/Exam: 12/08/17 07:18 Patient out of bed per self to bathroom, found by nursing unsteady, assited to wheelchair, shakey, near syncope. TC Dr rod accepting of patient for admission further management DKA. Departure - Departure Time of Disposition: 21:55 Disposition: DC/Tfer to Acute Hospital 02 Condition: Fair Clinical Impression: Hyponatremia DKA, type 2 Qualifiers: Diabetes mellitus terminal carman insulin use: with half-way use Diabetes mellitus complication detail: without coma Qualified Code(s): E11.10 - Type 2 diabetes mellitus with ketoacidosis without coma - Discharge Information - My Orders Last 24 Hours: My Active Orders 12/07/17 20:33 Blood Culture x2 Reflex Set [OM.PC] Stat 12/07/17 20:50 CULTURE BLOOD [BC] Stat 12/07/17 21:00 DRUG SCREEN URINE BIORAD [URCHEM] Stat Hemoccult [OCCULT BLOOD DIAGNOSTIC] [OP] Stat UA W/MICROSCOPIC [URIN] Stat 12/07/17 21:10 EKG 12 Lead [EKG Documentation Completion] [RC] URGENT 12/07/17 22:22 CULTURE BLOOD [BC] Stat - Assessment/Plan Last 24 Hours: My Active Orders 12/07/17 20:33 Blood Culture x2 Reflex Set [OM.PC] Stat 12/07/17 20:50 CULTURE BLOOD [BC] Stat 12/07/17 21:00 DRUG SCREEN URINE BIORAD [URCHEM] Stat Hemoccult [OCCULT BLOOD DIAGNOSTIC] [OP] Stat UA W/MICROSCOPIC [URIN] Stat 12/07/17 21:10 EKG 12 Lead [EKG Documentation Completion] [RC] URGENT 12/07/17 22:22 CULTURE BLOOD [BC] Stat
[2017-12-07] MEDS ORDERED: Sodium Chloride 0.9% 1,000 ML IV SCH (21:30)
[2017-12-07] MEDS: Sodium Chloride 0.9% 1,000 ML IV SCH ×2 (22:32→23:38)
[2017-12-07] MEDS: Heparin Sodium 5,000 Units/ML Vial SUBCUT SCH (22:45)
--- NOTE | 2017-12-07 23:26 | PCM.HP ---
H&P History of Present Illness - General Date of Service: 12/07/17 Admit Problem/Dx: Admission Diagnosis/Problem Admission Diagnosis/Problem Diabetic ketoacidosis Source of Information: Patient History Limitations: Reports: Uncooperative - History of Present Illness Onset of Symptoms: Reports: Other (2 days) Location: Reports: Chest, Abdomen Worsens with: Reports: Eating Associated Symptoms: Reports: Malaise, Nausea/Vomiting, Shortness of Breath, Weakness Middle Chest Pain Score (Numeric/FACES): 8 - Related Data Allergies/Adverse Reactions: Allergies Allergy/AdvReac Type Severity Reaction Status Date / Time No Known Allergies Allergy Verified 12/05/17 14:03 Home Medications: Home Meds Atenolol [Tenormin] 50 mg PO DAILY 09/30/13 [History] Lisinopril [Prinivil] 20 mg PO DAILY 09/30/13 [History] Omeprazole 20 mg PO BID 09/30/13 [History] Insulin Aspart [NovoLOG] 18 unit SUBCUT BIDAC 09/19/16 [History] Pregabalin [Lyrica] 100 mg PO TID cap 07/01/17 [Rx] Insulin Detemir [Levemir] 15 unit SUBCUT BEDTIME 08/01/17 [History] Aspirin [Ecotrin] 325 mg PO WITHBREAKFAST tab.ec 12/08/17 [Rx] Dextrose 5%-0.45% NaCl [Dextrose 5%-1/2NS] 1,000 ml IV ASDIRECTED bag 12/08/17 [Rx] Heparin Sodium 5,000 units SUBCUT Q8HR vial 12/08/17 [Rx] Insulin Regular, Human [HumuLIN R] 100 unit IV TITRATE vial 12/08/17 [Rx] LORazepam 0.5 mg PO DAILY PRN 12/08/17 [History] Morphine 2 mg IVPUSH Q2H PRN syringe 12/08/17 [Rx] Nitroglycerin [Nitrostat] 0.4 mg SL Q5M PRN tab.sl 12/08/17 [Rx] Pantoprazole [ProTONIX IV] 40 mg IVPUSH DAILY #1 vial 12/08/17 [Rx] Piperacillin/Tazobactam [Zosyn] 3.375 gm IV Q6H vial 12/08/17 [Rx] Vancomycin 1 gm IV Q8H sdv 12/08/17 [Rx] Vancomycin Pharmacy to Dose [Pharmacy to Dose - Vancomycin] 1 dose .XX ASDIRECTED each 12/08/17 [Rx] Past Medical History HEENT History: Reports: None Cardiovascular History: Reports: High Cholesterol, Hypertension Respiratory History: Reports: None Gastrointestinal History: Reports: Cholelithiasis, Hepatitis Genitourinary History: Reports: Renal Calculus 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: Musculoskeletal History: Reports: Arthritis Neurological History: Reports: None Psychiatric History: Reports: Anxiety Endocrine/Metabolic History: Reports: Diabetes, Type II Other Endocrine/Metabolic History: diagnosed in 2009 Hematologic History: Reports: None Immunologic History: Reports: None Oncologic (Cancer) History: Reports: None Dermatologic History: Reports: Cellulitis - Infectious Disease History Infectious Disease History: Reports: Chicken Pox, MRSA - Past Surgical History GI Surgical History: Reports: Cholecystectomy Female Surgical History: Reports: Hysterectomy Social & Family History - Family History Family Medical History: Noncontributory - Tobacco Use Smoking Status *Q: Unknown Ever Smoked - Caffeine Use Caffeine Use: Reports: Coffee, Soda Other Caffeine Use: green tea H&P Review of Systems - Review of Systems: Review Of Systems: See Below General: Reports: Malaise, Weakness HEENT: Reports: No Symptoms Pulmonary: Reports: No Symptoms Cardiovascular: Reports: Chest Pain Gastrointestinal: Reports: Abdominal Pain, Nausea, Vomiting Musculoskeletal: Reports: No Symptoms Skin: Reports: No Symptoms Psychiatric: Reports: No Symptoms, Anxiety Neurological: Reports: No Symptoms Hematologic/Lymphatic: Reports: No Symptoms Exam - Exam Exam: See Below - Vital Signs Vital Signs: Last Vital Signs Temp 35.6 C 12/07/17 21:26 Pulse 116 H 12/07/17 20:32 Resp 25 H 12/07/17 21:26 BP 158/102 H 12/07/17 21:26 Pulse Ox 100 12/07/17 21:26 Weight: 56.699 kg - Exam Quality Assessment: Supplemental Oxygen General: Alert, Oriented Neck: Supple Lungs: Clear to Auscultation Cardiovascular: Regular Rate GI/Abdominal Exam: Normal Bowel Sounds, Soft Skin: Warm Neuro Extensive - Mental Status: Alert, Oriented x3 Psychiatric: Alert - Patient Data Lab Results Last 24 hrs: Laboratory Results - last 24 hr 12/07/17 12/07/17 12/07/17 Range/Units 20:10 20:11 20:50 WBC 23.3 H (5.0-10.0) 10^3/uL RBC 6.24 H (4.2-5.4) 10^6/uL Hgb 18.6 H (12.0-16.0) g/dL Hct 52.3 H (37.0-47.0) % MCV 83.8 (80-100) fL MCH 29.8 (27.0-34.0) pg MCHC 35.6 H (33.0-35.0) g/dL Plt Count 367 D (150-450) 10^3/uL Neut % (Auto) 96.0 H (42.2-75.2) % Lymph % (Auto) 2.9 L (20.5-50.1) % [place] % (Auto) 0.8 L (2-8) % Eos % (Auto) 0.0 L (1.0-3.0) % Baso % (Auto) 0.3 (0.0-1.0) % ABG pH 7.16 L* (7.35-7.45) ABG pCO2 14 L* (35-45) mmHg ABG pO2 133 H (70-100) mmHg ABG HCO3 4.9 L (22-26) mmol/L ABG O2 Saturation 99 (95-100) % ABG Base Excess -24 L ((-2)-(+3)) mmol/L Sawyer Test na O2 Delivery Device Room air Oxygen Flow Rate 0 Sodium (135-145) mmol/L Potassium (3.6-5.0) mmol/L Chloride (101-111) mmol/L Carbon Dioxide (21.0-31.0) mmol/L Anion Gap BUN (7-18) mg/dL Creatinine (0.6-1.3) mg/dL Est Cr Clr Drug Dosing mL/min Estimated GFR (MDRD) BUN/Creatinine Ratio Glucose (74-105) mg/dL POC Glucose > 500 H* (70-105) mg/dl Lactic Acid (0.5-2.2) mmol/L Calcium (8.4-10.2) mg/dl Phosphorus (2.5-4.6) mg/dL Magnesium (1.8-2.5) mg/dL Total Bilirubin (0.2-1.0) mg/dL AST (10-42) IU/L ALT (10-60) IU/L Alkaline Phosphatase (42-121) IU/L Total Protein (6.7-8.2) g/dl Albumin (3.2-5.5) g/dl Globulin Albumin/Globulin Ratio Urine Color (YELLOW) Urine Appearance (CLEAR) Urine pH (5.0-9.0) Ur Specific [place] (1.005-1.030) Urine Protein (NEGATIVE) Urine Glucose (UA) (NEGATIVE) Urine Ketones (NEGATIVE) Urine Occult Blood (NEGATIVE) Urine Nitrite (NEGATIVE) Urine Bilirubin (NEGATIVE) Urine Urobilinogen (0.2-1.0) mg/dL Ur Leukocyte Esterase (NEGATIVE) Urine RBC /HPF Urine WBC (0-5/HPF) /HPF Ur Epithelial Cells /HPF Amorphous Sediment (0/HPF) /HPF Urine Bacteria (0-FEW/HPF) /HPF Urine Mucus /LPF Urine Opiates Screen (NEGATIVE) Ur Oxycodone Screen (NEGATIVE) Urine Methadone Screen (NEGATIVE) Ur Barbiturates Screen (NEGATIVE) U Tricyclic Antidepress (NEGATIVE) Ur Phencyclidine Scrn (NEGATIVE) Ur Amphetamine Screen (NEGATIVE) U Methamphetamines Scrn (NEGATIVE) Urine MDMA Screen (NEGATIVE) U Benzodiazepines Scrn (NEGATIVE) Urine Cocaine Screen (NEGATIVE) U Marijuana (THC) Screen (NEGATIVE) Ethyl Alcohol mg/dL 12/07/17 12/07/17 12/07/17 Range/Units 20:50 20:50 20:50 WBC (5.0-10.0) 10^3/uL RBC (4.2-5.4) 10^6/uL Hgb (12.0-16.0) g/dL Hct (37.0-47.0) % MCV (80-100) fL MCH (27.0-34.0) pg MCHC (33.0-35.0) g/dL Plt Count (150-450) 10^3/uL Neut % (Auto) (42.2-75.2) % Lymph % (Auto) (20.5-50.1) % [place] % (Auto) (2-8) % Eos % (Auto) (1.0-3.0) % Baso % (Auto) (0.0-1.0) % ABG pH (7.35-7.45) ABG pCO2 (35-45) mmHg ABG pO2 (70-100) mmHg ABG HCO3 (22-26) mmol/L ABG O2 Saturation (95-100) % ABG Base Excess ((-2)-(+3)) mmol/L Sawyer Test O2 Delivery Device Oxygen Flow Rate Sodium 118 L* D (135-145) mmol/L Potassium 3.8 (3.6-5.0) mmol/L Chloride 82 L D (101-111) mmol/L Carbon Dioxide 6.0 L* D (21.0-31.0) mmol/L Anion Gap 33.8 BUN 60 H D (7-18) mg/dL Creatinine 1.5 H (0.6-1.3) mg/dL Est Cr Clr Drug Dosing 34.02 mL/min Estimated GFR (MDRD) 38 BUN/Creatinine Ratio 40.00 Glucose 776 H* (74-105) mg/dL POC Glucose (70-105) mg/dl Lactic Acid 1.3 (0.5-2.2) mmol/L Calcium 9.5 (8.4-10.2) mg/dl Phosphorus (2.5-4.6) mg/dL Magnesium (1.8-2.5) mg/dL Total Bilirubin 1.8 H (0.2-1.0) mg/dL AST 8 L (10-42) IU/L ALT 15 (10-60) IU/L Alkaline Phosphatase 102 (42-121) IU/L Total Protein 8.2 (6.7-8.2) g/dl Albumin 4.4 (3.2-5.5) g/dl Globulin 3.8 Albumin/Globulin Ratio 1.16 Urine Color (YELLOW) Urine Appearance (CLEAR) Urine pH (5.0-9.0) Ur Specific [place] (1.005-1.030) Urine Protein (NEGATIVE) Urine Glucose (UA) (NEGATIVE) Urine Ketones (NEGATIVE) Urine Occult Blood (NEGATIVE) Urine Nitrite (NEGATIVE) Urine Bilirubin (NEGATIVE) Urine Urobilinogen (0.2-1.0) mg/dL Ur Leukocyte Esterase (NEGATIVE) Urine RBC /HPF Urine WBC (0-5/HPF) /HPF Ur Epithelial Cells /HPF Amorphous Sediment (0/HPF) /HPF Urine Bacteria (0-FEW/HPF) /HPF Urine Mucus /LPF Urine Opiates Screen (NEGATIVE) Ur Oxycodone Screen (NEGATIVE) Urine Methadone Screen (NEGATIVE) Ur Barbiturates Screen (NEGATIVE) U Tricyclic Antidepress (NEGATIVE) Ur Phencyclidine Scrn (NEGATIVE) Ur Amphetamine Screen (NEGATIVE) U Methamphetamines Scrn (NEGATIVE) Urine MDMA Screen (NEGATIVE) U Benzodiazepines Scrn (NEGATIVE) Urine Cocaine Screen (NEGATIVE) U Marijuana (THC) Screen (NEGATIVE) Ethyl Alcohol < 5 mg/dL 12/07/17 12/07/17 12/07/17 Range/Units 20:50 21:00 21:00 WBC (5.0-10.0) 10^3/uL RBC (4.2-5.4) 10^6/uL Hgb (12.0-16.0) g/dL Hct (37.0-47.0) % MCV (80-100) fL MCH (27.0-34.0) pg MCHC (33.0-35.0) g/dL Plt Count (150-450) 10^3/uL Neut % (Auto) (42.2-75.2) % Lymph % (Auto) (20.5-50.1) % [place] % (Auto) (2-8) % Eos % (Auto) (1.0-3.0) % Baso % (Auto) (0.0-1.0) % ABG pH (7.35-7.45) ABG pCO2 (35-45) mmHg ABG pO2 (70-100) mmHg ABG HCO3 (22-26) mmol/L ABG O2 Saturation (95-100) % ABG Base Excess ((-2)-(+3)) mmol/L Sawyer Test O2 Delivery Device Oxygen Flow Rate Sodium (135-145) mmol/L Potassium (3.6-5.0) mmol/L Chloride (101-111) mmol/L Carbon Dioxide (21.0-31.0) mmol/L Anion Gap BUN (7-18) mg/dL Creatinine (0.6-1.3) mg/dL Est Cr Clr Drug Dosing mL/min Estimated GFR (MDRD) BUN/Creatinine Ratio Glucose (74-105) mg/dL POC Glucose (70-105) mg/dl Lactic Acid (0.5-2.2) mmol/L Calcium (8.4-10.2) mg/dl Phosphorus 5.8 H (2.5-4.6) mg/dL Magnesium 2.4 (1.8-2.5) mg/dL Total Bilirubin (0.2-1.0) mg/dL AST (10-42) IU/L ALT (10-60) IU/L Alkaline Phosphatase (42-121) IU/L Total Protein (6.7-8.2) g/dl Albumin (3.2-5.5) g/dl Globulin Albumin/Globulin Ratio Urine Color Light yellow (YELLOW) Urine Appearance Cloudy (CLEAR) Urine pH 5.0 (5.0-9.0) Ur Specific [place] 1.015 (1.005-1.030) Urine Protein 30 H (NEGATIVE) Urine Glucose (UA) 500 H (NEGATIVE) Urine Ketones 80 H (NEGATIVE) Urine Occult Blood Small H (NEGATIVE) Urine Nitrite Negative (NEGATIVE) Urine Bilirubin Small H (NEGATIVE) Urine Urobilinogen 0.2 (0.2-1.0) mg/dL Ur Leukocyte Esterase Negative (NEGATIVE) Urine RBC 5-10 H /HPF Urine WBC 0-5 (0-5/HPF) /HPF Ur Epithelial Cells Few /HPF Amorphous Sediment Many H (0/HPF) /HPF Urine Bacteria Few (0-FEW/HPF) /HPF Urine Mucus Few H /LPF Urine Opiates Screen Negative (NEGATIVE) Ur Oxycodone Screen Negative (NEGATIVE) Urine Methadone Screen Negative (NEGATIVE) Ur Barbiturates Screen Negative (NEGATIVE) U Tricyclic Antidepress Negative (NEGATIVE) Ur Phencyclidine Scrn Negative (NEGATIVE) Ur Amphetamine Screen Negative (NEGATIVE) U Methamphetamines Scrn Negative (NEGATIVE) Urine MDMA Screen Negative (NEGATIVE) U Benzodiazepines Scrn Negative (NEGATIVE) Urine Cocaine Screen Negative (NEGATIVE) U Marijuana (THC) Screen Negative (NEGATIVE) Ethyl Alcohol mg/dL 12/07/17 12/07/17 Range/Units 21:10 23:07 WBC (5.0-10.0) 10^3/uL RBC (4.2-5.4) 10^6/uL Hgb (12.0-16.0) g/dL Hct (37.0-47.0) % MCV (80-100) fL MCH (27.0-34.0) pg MCHC (33.0-35.0) g/dL Plt Count (150-450) 10^3/uL Neut % (Auto) (42.2-75.2) % Lymph % (Auto) (20.5-50.1) % [place] % (Auto) (2-8) % Eos % (Auto) (1.0-3.0) % Baso % (Auto) (0.0-1.0) % ABG pH (7.35-7.45) ABG pCO2 (35-45) mmHg ABG pO2 (70-100) mmHg ABG HCO3 (22-26) mmol/L ABG O2 Saturation (95-100) % ABG Base Excess ((-2)-(+3)) mmol/L Sawyer Test O2 Delivery Device Oxygen Flow Rate Sodium (135-145) mmol/L Potassium (3.6-5.0) mmol/L Chloride (101-111) mmol/L Carbon Dioxide (21.0-31.0) mmol/L Anion Gap BUN (7-18) mg/dL Creatinine (0.6-1.3) mg/dL Est Cr Clr Drug Dosing mL/min Estimated GFR (MDRD) BUN/Creatinine Ratio Glucose (74-105) mg/dL POC Glucose > 500 H* > 500 H* (70-105) mg/dl Lactic Acid (0.5-2.2) mmol/L Calcium (8.4-10.2) mg/dl Phosphorus (2.5-4.6) mg/dL Magnesium (1.8-2.5) mg/dL Total Bilirubin (0.2-1.0) mg/dL AST (10-42) IU/L ALT (10-60) IU/L Alkaline Phosphatase (42-121) IU/L Total Protein (6.7-8.2) g/dl Albumin (3.2-5.5) g/dl Globulin Albumin/Globulin Ratio Urine Color (YELLOW) Urine Appearance (CLEAR) Urine pH (5.0-9.0) Ur Specific [place] (1.005-1.030) Urine Protein (NEGATIVE) Urine Glucose (UA) (NEGATIVE) Urine Ketones (NEGATIVE) Urine Occult Blood (NEGATIVE) Urine Nitrite (NEGATIVE) Urine Bilirubin (NEGATIVE) Urine Urobilinogen (0.2-1.0) mg/dL Ur Leukocyte Esterase (NEGATIVE) Urine RBC /HPF Urine WBC (0-5/HPF) /HPF Ur Epithelial Cells /HPF Amorphous Sediment (0/HPF) /HPF Urine Bacteria (0-FEW/HPF) /HPF Urine Mucus /LPF Urine Opiates Screen (NEGATIVE) Ur Oxycodone Screen (NEGATIVE) Urine Methadone Screen (NEGATIVE) Ur Barbiturates Screen (NEGATIVE) U Tricyclic Antidepress (NEGATIVE) Ur Phencyclidine Scrn (NEGATIVE) Ur Amphetamine Screen (NEGATIVE) U Methamphetamines Scrn (NEGATIVE) Urine MDMA Screen (NEGATIVE) U Benzodiazepines Scrn (NEGATIVE) Urine Cocaine Screen (NEGATIVE) U Marijuana (THC) Screen (NEGATIVE) Ethyl Alcohol mg/dL Result Diagrams: 12/08/17 05:50 12/08/17 10:14 Manuel Results Last 24 hrs: Microbiology 12/07/17 21:00 Stool Occult Blood (MANUEL) - Final Stool / Feces Problem List Initiated/Reviewed/Updated: Yes Orders Last 24hrs: Active Orders 24 hr Category Date Time Status Patient Status [ADT] Routine ADT 12/07/17 21:26 Active Cardiac Monitoring [RC] 08,20 Care 12/07/17 21:27 Active Diabetes Education [RC] Click to Edit Care 12/07/17 21:28 Active EKG 12 Lead [EKG Documentation Completion] [RC] URGENT Care 12/07/17 21:10 Active Glucose [Blood Glucose Check, Bedside] [RC] ONETIME Care 12/07/17 21:10 Active Intake and Output [RC] QSHIFT Care 12/07/17 21:27 Active Oxygen Therapy [RC] PRN Care 12/07/17 21:26 Active Up With Assistance [RC] ASDIRECTED Care 12/07/17 21:25 Active VTE/DVT Education [RC] PER UNIT ROUTINE Care 12/07/17 21:26 Active Vital Signs [RC] Q4H Care 12/07/17 21:26 Active Nothing per Oral Now Diet [DIET] Diet 12/07/17 Dinner Active BASIC METABOLIC PANEL,BMP [CHEM] Q8H Lab 12/08/17 05:31 Ordered BASIC METABOLIC PANEL,BMP [CHEM] Q8H Lab 12/08/17 13:31 Ordered CULTURE BLOOD [BC] Stat Lab 12/07/17 20:50 Received CULTURE BLOOD [BC] Stat Lab 12/07/17 22:22 Received DRUG SCREEN URINE BIORAD [URCHEM] Stat Lab 12/07/17 21:00 Ordered Hemoccult [OCCULT BLOOD DIAGNOSTIC] [OP] Stat Lab 12/07/17 21:00 Ordered MAGNESIUM [CHEM] Q4 Lab 12/08/17 01:31 Ordered MAGNESIUM [CHEM] Q4 Lab 12/08/17 05:31 Ordered MAGNESIUM [CHEM] Q4 Lab 12/08/17 09:31 Ordered PHOSPHORUS [CHEM] Q4 Lab 12/08/17 01:31 Ordered PHOSPHORUS [CHEM] Q4 Lab 12/08/17 05:31 Ordered PHOSPHORUS [CHEM] Q4 Lab 12/08/17 09:31 Ordered POTASSIUM,K [CHEM] Q4 Lab 12/08/17 01:31 Ordered POTASSIUM,K [CHEM] Q4 Lab 12/08/17 05:31 Ordered POTASSIUM,K [CHEM] Q4 Lab 12/08/17 09:31 Ordered TROPONIN I [CHEM] 6 Lab 12/07/17 23:25 Ordered TROPONIN I [CHEM] Q6 Lab 12/08/17 05:25 Ordered UA W/MICROSCOPIC [URIN] Stat Lab 12/07/17 21:00 Ordered Dextrose 5%-0.45% NaCl [Dextrose 5%-1/2 NS] 1,000 ml Med 12/08/17 04:00 Active IV ASDIRECTED Heparin Sodium Med 12/07/17 22:00 Active 5,000 units SUBCUT Q8HR Insulin Regular, Human [HumuLIN R] 100 unit Med 12/07/17 21:45 Active Sodium Chloride 0.9% [Normal Saline] 99 ml IV TITRATE Morphine Med 12/07/17 23:23 Ordered 2 mg IVPUSH Q2H PRN Ondansetron [Zofran] Med 12/07/17 21:31 Active 4 mg IVPUSH Q6H PRN Pantoprazole [ProTONIX IV] Med 12/07/17 23:30 Ordered 40 mg IVPUSH DAILY Sodium Chloride 0.9% [Normal Saline] 1,000 ml Med 12/07/17 21:30 Active IV ASDIRECTED Sodium Chloride 0.9% [Normal Saline] 1,000 ml Med 12/07/17 21:45 Active IV ASDIRECTED Blood Culture x2 Reflex Set [OM.PC] Stat Ot 12/07/17 20:33 Ordered Glucose Management Sub Q Reflex [OM.PC] Q1HWA Ot 12/07/17 21:25 Ordered Glucose Management Sub Q Reflex [OM.PC] [address] 12/08/17 21:25 Ordered Glucose Management Sub Q Reflex [OM.PC] [address] 12/09/17 21:25 Ordered Glucose Management Sub Q Reflex [OM.PC] [address] 12/10/17 21:25 Ordered Glucose Management Sub Q Reflex [OM.PC] [address] 12/11/17 21:25 Ordered Glucose Management Sub Q Reflex [OM.PC] [address] 12/12/17 21:25 Ordered Glucose Management Sub Q Reflex [OM.PC] [address] 12/13/17 21:25 Ordered Glucose Management Sub Q Reflex [OM.PC] [address] 12/14/17 21:25 Ordered Glucose Management Sub Q Reflex [OM.PC] [address] 12/15/17 21:25 Ordered Glucose Management Sub Q Reflex [OM.PC] [address] 12/16/17 21:25 Ordered Resuscitation Status Routine Resus Stat 12/07/17 21:25 Ordered Medication Orders Heparin Sodium (Porcine) (Heparin Sodium) 5,000 units SUBCUT Q8HR NGUYEN Last Admin: 12/07/17 22:45 Dose: 5,000 units Sodium Chloride (Normal Saline) 1,000 mls @ 500 mls/hr IV ASDIRECTED NGUYEN Stop: 12/08/17 01:30 Dextrose/Sodium Chloride (Dextrose 5%-1/2 Ns) 1,000 mls @ 200 mls/hr IV ASDIRECTED NGUYEN Sodium Chloride (Normal Saline) 1,000 mls @ 1,000 drops/hr IV ASDIRECTED NGUYEN Stop: 12/11/17 21:39 Last Admin: 12/07/17 22:32 Dose: 1,000 drops/hr Insulin Human Regular 100 unit (/ Sodium Chloride) 100 mls @ 5.66 mls/hr IV TITRATE NGUYEN; Protocol Last Admin: 12/07/17 21:47 Dose: 0.1 units/kg/hr, 5.66 mls/hr Ondansetron HCl (Zofran) 4 mg IVPUSH Q6H PRN PRN Reason: Nausea/Vomiting Assessment/Plan Comment:: #. Diabetic ketoacidosis Patient's arterial blood gas showed pH of 7.12 Blood sugar is more than several 700 Anion gap is elevated #. Acute renal failure Serum creatinine is elevated up to 1.5 This is as a result of severe dehydration #. Poorly controlled type 1 diabetes mellitus Patient has not been very compliant with medications. Was not using her insulin. #. Chest pain Patient started complaining or chest pain on the medical floor Troponin came back elevated at 0.04 I obtained an EKG and it showed T-wave inversion in lateral leads. #. Nausea and vomiting Plan: Admit patient to medical floor Start continuous intravenous insulin drip based on diabetic ketoacidosis protocol Start patient on aggressive intravenous fluid with normal saline Obtain basic metabolic panel every 4 hours Obtain serum magnesium level every 4 hours Obtain serum phosphorus level every 4 hours Obtain troponin every 62 EKG obtained Close hemodynamic monitoring.
[2017-12-07] MEDS: Ondansetron 4 MG/2 ML SDV IVPUSH PRN (23:40)
[2017-12-07] MEDS: Morphine 2 MG/ML Syringe IVPUSH PRN (23:46)
[2017-12-07] MEDS: Pantoprazole 40 MG Vial IVPUSH SCH (23:49)
[2017-12-07] MEDS: Nitroglycerin 0.4 MG Tab.SL SL PRN (23:50)
[2017-12-08] MEDS: Nitroglycerin 0.4 MG Tab.SL SL PRN ×2 (00:07→07:46)
[2017-12-08] MEDS: Dextrose 5%-0.45% NaCl 1,000 ML IV SCH ×2 (01:41→07:02)
[2017-12-08] MEDS: Morphine 2 MG/ML Syringe IVPUSH PRN ×2 (01:46→07:47)
[2017-12-08 02:16] LABS: CHLORIDE,CL 105 mmol/L (101-111); SODIUM,NA 131 mmol/L (135-145)
[2017-12-08] MEDS ORDERED: Phosphorus #1 250 MG Tab PO ONE ×2 (03:09→07:13)
[2017-12-08] MEDS ORDERED: Potassium Chloride 20 MEQ in Premix Bag 2 BAG IV STA (03:14)
[2017-12-08] MEDS: Potassium Chloride 20 MEQ in Premix Bag 1 BAG IV SCH ×2 (03:42→05:51)
[2017-12-08] MEDS ORDERED: Potassium Chloride 100 ML IV ONE (03:45)
[2017-12-08] MEDS ORDERED: Dextrose 5%-0.45% NaCl 1,000 ML IV SCH (04:00)
[2017-12-08] MEDS: Ondansetron 4 MG/2 ML SDV IVPUSH PRN (05:47)
[2017-12-08] MEDS: Heparin Sodium 5,000 Units/ML Vial SUBCUT SCH (05:50)
[2017-12-08] MEDS ORDERED: Magnesium Sulfate/Water 2 GM in Premix Bag 1 BAG IV ONE (07:30)
[2017-12-08] MEDS ORDERED: Aspirin 325 MG Tab.EC PO SCH (08:00)
[2017-12-08] MEDS: Pantoprazole 40 MG Vial IVPUSH SCH (08:07)
[2017-12-08] MEDS ORDERED: Atenolol 25 MG Tab PO SCH (10:00)
--- NOTE | 2017-12-08 10:30 | PCM.DCSUM1 ---
Discharge Summary - Hospital Course Free Text/Narrative:: The patient presented to the emergency room with complaint of nausea and vomiting that started 2 days ago. She has not been able to keep food down. She was not using her insulin for a few days. She has vomited more than 10 times. Denies diarrhea or constipation. Denies headache or blurring of vision. On arrival to medical floor, the patient began to complain more chest pain and was pointing to the retrosternal area. Intensity of the pain was about 8-9 on a scale of 0-10. There was associated generalized body malaise and nausea. She vomited emergency room. She denied having fever chills rigos. Denies cough or wheezing. Denies dysuria or frequency or micturition. #. Diabetic ketoacidosis Patient's arterial blood gas showed pH of 7.12 Blood sugar is more than several 700 Anion gap is elevated #. Acute renal failure Serum creatinine is elevated up to 1.5 This is as a result of severe dehydration #. Poorly controlled type 1 diabetes mellitus Patient has not been very compliant with medications. Was not using her insulin. #. Chest pain Patient started complaining or chest pain on the medical floor Troponin came back elevated at 0.04 I obtained an EKG and it showed T-wave inversion in lateral leads. #. Nausea and vomiting Today Patient has continued to complain of chest pain. Her troponin is elevated up to 0.05. I will proceed to transfer the patient to [facility] for further evaluation because of chest pain. We will obtain CT scan of the chest and abdomen I discussed with Dr. Salazar - Discharge Data Discharge Date: 12/08/17 Discharge Disposition: DC/Tfer to Acute Hospital 02 Condition: Serious - Discharge Plan Prescriptions/Med Rec: Pantoprazole [ProTONIX IV] 40 mg IVPUSH DAILY #1 vial Home Medications: Home Meds Atenolol [Tenormin] 50 mg PO DAILY 09/30/13 [History] Lisinopril [Prinivil] 20 mg PO DAILY 09/30/13 [History] Omeprazole 20 mg PO BID 09/30/13 [History] Insulin Aspart [NovoLOG] 18 unit SUBCUT BIDAC 09/19/16 [History] Pregabalin [Lyrica] 100 mg PO TID cap 07/01/17 [Rx] Insulin Detemir [Levemir] 15 unit SUBCUT BEDTIME 08/01/17 [History] Aspirin [Ecotrin] 325 mg PO WITHBREAKFAST tab.ec 12/08/17 [Rx] Dextrose 5%-0.45% NaCl [Dextrose 5%-1/2NS] 1,000 ml IV ASDIRECTED bag 12/08/17 [Rx] Heparin Sodium 5,000 units SUBCUT Q8HR vial 12/08/17 [Rx] Insulin Regular, Human [HumuLIN R] 100 unit IV TITRATE vial 12/08/17 [Rx] LORazepam 0.5 mg PO DAILY PRN 12/08/17 [History] Morphine 2 mg IVPUSH Q2H PRN syringe 12/08/17 [Rx] Nitroglycerin [Nitrostat] 0.4 mg SL Q5M PRN tab.sl 12/08/17 [Rx] Pantoprazole [ProTONIX IV] 40 mg IVPUSH DAILY #1 vial 12/08/17 [Rx] Piperacillin/Tazobactam [Zosyn] 3.375 gm IV Q6H vial 12/08/17 [Rx] Vancomycin 1 gm IV Q8H sdv 12/08/17 [Rx] Vancomycin Pharmacy to Dose [Pharmacy to Dose - Vancomycin] 1 dose .XX ASDIRECTED each 12/08/17 [Rx] - Review of Systems General: Reports: Weakness, Fatigue Pulmonary: Reports: Shortness of Breath, Pleuritic Chest Pain Cardiovascular: Reports: Chest Pain Gastrointestinal: Reports: Abdominal Pain, Decreased Appetite Skin: Reports: No Symptoms - Patient Data Vitals - Most Recent: Last Vital Signs Temp 36.8 C 12/08/17 08:04 Pulse 110 H 12/08/17 08:04 Resp 20 12/08/17 08:04 BP 190/88 H 12/08/17 08:04 Pulse Ox 99 12/08/17 08:04 Weight - Most Recent: 53.615 kg I&O - Last 24 hours: Intake & Output 12/07/17 12/08/17 12/08/17 22:59 06:59 14:59 Intake Total 3274 100 Output Total 1600 Balance 1674 100 Lab Results - Last 24 hrs: Laboratory Results - last 24 hr 12/07/17 12/07/17 12/07/17 Range/Units 20:10 20:11 20:50 WBC 23.3 H (5.0-10.0) 10^3/uL RBC 6.24 H (4.2-5.4) 10^6/uL Hgb 18.6 H (12.0-16.0) g/dL Hct 52.3 H (37.0-47.0) % MCV 83.8 (80-100) fL MCH 29.8 (27.0-34.0) pg MCHC 35.6 H (33.0-35.0) g/dL Plt Count 367 D (150-450) 10^3/uL Neut % (Auto) 96.0 H (42.2-75.2) % Lymph % (Auto) 2.9 L (20.5-50.1) % Ida % (Auto) 0.8 L (2-8) % Eos % (Auto) 0.0 L (1.0-3.0) % Baso % (Auto) 0.3 (0.0-1.0) % ABG pH 7.16 L* (7.35-7.45) ABG pCO2 14 L* (35-45) mmHg ABG pO2 133 H (70-100) mmHg ABG HCO3 4.9 L (22-26) mmol/L ABG O2 Saturation 99 (95-100) % ABG Base Excess -24 L ((-2)-(+3)) mmol/L Sawyer Test na O2 Delivery Device Room air Oxygen Flow Rate 0 Sodium (135-145) mmol/L Potassium (3.6-5.0) mmol/L Chloride (101-111) mmol/L Carbon Dioxide (21.0-31.0) mmol/L Anion Gap BUN (7-18) mg/dL Creatinine (0.6-1.3) mg/dL Est Cr Clr Drug Dosing mL/min Estimated GFR (MDRD) BUN/Creatinine Ratio Glucose (74-105) mg/dL POC Glucose > 500 H* (70-105) mg/dl Lactic Acid (0.5-2.2) mmol/L Calcium (8.4-10.2) mg/dl Phosphorus (2.5-4.6) mg/dL Magnesium (1.8-2.5) mg/dL Total Bilirubin (0.2-1.0) mg/dL AST (10-42) IU/L ALT (10-60) IU/L Alkaline Phosphatase (42-121) IU/L Troponin I (0.00-0.02) ng/ml Total Protein (6.7-8.2) g/dl Albumin (3.2-5.5) g/dl Globulin Albumin/Globulin Ratio Urine Color (YELLOW) Urine Appearance (CLEAR) Urine pH (5.0-9.0) Ur Specific [place] (1.005-1.030) Urine Protein (NEGATIVE) Urine Glucose (UA) (NEGATIVE) Urine Ketones (NEGATIVE) Urine Occult Blood (NEGATIVE) Urine Nitrite (NEGATIVE) Urine Bilirubin (NEGATIVE) Urine Urobilinogen (0.2-1.0) mg/dL Ur Leukocyte Esterase (NEGATIVE) Urine RBC /HPF Urine WBC (0-5/HPF) /HPF Ur Epithelial Cells /HPF Amorphous Sediment (0/HPF) /HPF Urine Bacteria (0-FEW/HPF) /HPF Urine Mucus /LPF Urine Opiates Screen (NEGATIVE) Ur Oxycodone Screen (NEGATIVE) Urine Methadone Screen (NEGATIVE) Ur Barbiturates Screen (NEGATIVE) U Tricyclic Antidepress (NEGATIVE) Ur Phencyclidine Scrn (NEGATIVE) Ur Amphetamine Screen (NEGATIVE) U Methamphetamines Scrn (NEGATIVE) Urine MDMA Screen (NEGATIVE) U Benzodiazepines Scrn (NEGATIVE) Urine Cocaine Screen (NEGATIVE) U Marijuana (THC) Screen (NEGATIVE) Ethyl Alcohol mg/dL 12/07/17 12/07/17 12/07/17 Range/Units 20:50 20:50 20:50 WBC (5.0-10.0) 10^3/uL RBC (4.2-5.4) 10^6/uL Hgb (12.0-16.0) g/dL Hct (37.0-47.0) % MCV (80-100) fL MCH (27.0-34.0) pg MCHC (33.0-35.0) g/dL Plt Count (150-450) 10^3/uL Neut % (Auto) (42.2-75.2) % Lymph % (Auto) (20.5-50.1) % Ida % (Auto) (2-8) % Eos % (Auto) (1.0-3.0) % Baso % (Auto) (0.0-1.0) % ABG pH (7.35-7.45) ABG pCO2 (35-45) mmHg ABG pO2 (70-100) mmHg ABG HCO3 (22-26) mmol/L ABG O2 Saturation (95-100) % ABG Base Excess ((-2)-(+3)) mmol/L Sawyer Test O2 Delivery Device Oxygen Flow Rate Sodium 118 L* D (135-145) mmol/L Potassium 3.8 (3.6-5.0) mmol/L Chloride 82 L D (101-111) mmol/L Carbon Dioxide 6.0 L* D (21.0-31.0) mmol/L Anion Gap 33.8 BUN 60 H D (7-18) mg/dL Creatinine 1.5 H (0.6-1.3) mg/dL Est Cr Clr Drug Dosing 34.02 mL/min Estimated GFR (MDRD) 38 BUN/Creatinine Ratio 40.00 Glucose 776 H* (74-105) mg/dL POC Glucose (70-105) mg/dl Lactic Acid 1.3 (0.5-2.2) mmol/L Calcium 9.5 (8.4-10.2) mg/dl Phosphorus (2.5-4.6) mg/dL Magnesium (1.8-2.5) mg/dL Total Bilirubin 1.8 H (0.2-1.0) mg/dL AST 8 L (10-42) IU/L ALT 15 (10-60) IU/L Alkaline Phosphatase 102 (42-121) IU/L Troponin I (0.00-0.02) ng/ml Total Protein 8.2 (6.7-8.2) g/dl Albumin 4.4 (3.2-5.5) g/dl Globulin 3.8 Albumin/Globulin Ratio 1.16 Urine Color (YELLOW) Urine Appearance (CLEAR) Urine pH (5.0-9.0) Ur Specific [place] (1.005-1.030) Urine Protein (NEGATIVE) Urine Glucose (UA) (NEGATIVE) Urine Ketones (NEGATIVE) Urine Occult Blood (NEGATIVE) Urine Nitrite (NEGATIVE) Urine Bilirubin (NEGATIVE) Urine Urobilinogen (0.2-1.0) mg/dL Ur Leukocyte Esterase (NEGATIVE) Urine RBC /HPF Urine WBC (0-5/HPF) /HPF Ur Epithelial Cells /HPF Amorphous Sediment (0/HPF) /HPF Urine Bacteria (0-FEW/HPF) /HPF Urine Mucus /LPF Urine Opiates Screen (NEGATIVE) Ur Oxycodone Screen (NEGATIVE) Urine Methadone Screen (NEGATIVE) Ur Barbiturates Screen (NEGATIVE) U Tricyclic Antidepress (NEGATIVE) Ur Phencyclidine Scrn (NEGATIVE) Ur Amphetamine Screen (NEGATIVE) U Methamphetamines Scrn (NEGATIVE) Urine MDMA Screen (NEGATIVE) U Benzodiazepines Scrn (NEGATIVE) Urine Cocaine Screen (NEGATIVE) U Marijuana (THC) Screen (NEGATIVE) Ethyl Alcohol < 5 mg/dL 12/07/17 12/07/17 12/07/17 Range/Units 20:50 21:00 21:00 WBC (5.0-10.0) 10^3/uL RBC (4.2-5.4) 10^6/uL Hgb (12.0-16.0) g/dL Hct (37.0-47.0) % MCV (80-100) fL MCH (27.0-34.0) pg MCHC (33.0-35.0) g/dL Plt Count (150-450) 10^3/uL Neut % (Auto) (42.2-75.2) % Lymph % (Auto) (20.5-50.1) % Ida % (Auto) (2-8) % Eos % (Auto) (1.0-3.0) % Baso % (Auto) (0.0-1.0) % ABG pH (7.35-7.45) ABG pCO2 (35-45) mmHg ABG pO2 (70-100) mmHg ABG HCO3 (22-26) mmol/L ABG O2 Saturation (95-100) % ABG Base Excess ((-2)-(+3)) mmol/L Sawyer Test O2 Delivery Device Oxygen Flow Rate Sodium (135-145) mmol/L Potassium (3.6-5.0) mmol/L Chloride (101-111) mmol/L Carbon Dioxide (21.0-31.0) mmol/L Anion Gap BUN (7-18) mg/dL Creatinine (0.6-1.3) mg/dL Est Cr Clr Drug Dosing mL/min Estimated GFR (MDRD) BUN/Creatinine Ratio Glucose (74-105) mg/dL POC Glucose (70-105) mg/dl Lactic Acid (0.5-2.2) mmol/L Calcium (8.4-10.2) mg/dl Phosphorus 5.8 H (2.5-4.6) mg/dL Magnesium 2.4 (1.8-2.5) mg/dL Total Bilirubin (0.2-1.0) mg/dL AST (10-42) IU/L ALT (10-60) IU/L Alkaline Phosphatase (42-121) IU/L Troponin I (0.00-0.02) ng/ml Total Protein (6.7-8.2) g/dl Albumin (3.2-5.5) g/dl Globulin Albumin/Globulin Ratio Urine Color Light yellow (YELLOW) Urine Appearance Cloudy (CLEAR) Urine pH 5.0 (5.0-9.0) Ur Specific [place] 1.015 (1.005-1.030) Urine Protein 30 H (NEGATIVE) Urine Glucose (UA) 500 H (NEGATIVE) Urine Ketones 80 H (NEGATIVE) Urine Occult Blood Small H (NEGATIVE) Urine Nitrite Negative (NEGATIVE) Urine Bilirubin Small H (NEGATIVE) Urine Urobilinogen 0.2 (0.2-1.0) mg/dL Ur Leukocyte Esterase Negative (NEGATIVE) Urine RBC 5-10 H /HPF Urine WBC 0-5 (0-5/HPF) /HPF Ur Epithelial Cells Few /HPF Amorphous Sediment Many H (0/HPF) /HPF Urine Bacteria Few (0-FEW/HPF) /HPF Urine Mucus Few H /LPF Urine Opiates Screen Negative (NEGATIVE) Ur Oxycodone Screen Negative (NEGATIVE) Urine Methadone Screen Negative (NEGATIVE) Ur Barbiturates Screen Negative (NEGATIVE) U Tricyclic Antidepress Negative (NEGATIVE) Ur Phencyclidine Scrn Negative (NEGATIVE) Ur Amphetamine Screen Negative (NEGATIVE) U Methamphetamines Scrn Negative (NEGATIVE) Urine MDMA Screen Negative (NEGATIVE) U Benzodiazepines Scrn Negative (NEGATIVE) Urine Cocaine Screen Negative (NEGATIVE) U Marijuana (THC) Screen Negative (NEGATIVE) Ethyl Alcohol mg/dL 12/07/17 12/07/17 12/07/17 Range/Units 21:10 23:07 23:38 WBC (5.0-10.0) 10^3/uL RBC (4.2-5.4) 10^6/uL Hgb (12.0-16.0) g/dL Hct (37.0-47.0) % MCV (80-100) fL MCH (27.0-34.0) pg MCHC (33.0-35.0) g/dL Plt Count (150-450) 10^3/uL Neut % (Auto) (42.2-75.2) % Lymph % (Auto) (20.5-50.1) % Ida % (Auto) (2-8) % Eos % (Auto) (1.0-3.0) % Baso % (Auto) (0.0-1.0) % ABG pH (7.35-7.45) ABG pCO2 (35-45) mmHg ABG pO2 (70-100) mmHg ABG HCO3 (22-26) mmol/L ABG O2 Saturation (95-100) % ABG Base Excess ((-2)-(+3)) mmol/L Sawyer Test O2 Delivery Device Oxygen Flow Rate Sodium (135-145) mmol/L Potassium (3.6-5.0) mmol/L Chloride (101-111) mmol/L Carbon Dioxide (21.0-31.0) mmol/L Anion Gap BUN (7-18) mg/dL Creatinine (0.6-1.3) mg/dL Est Cr Clr Drug Dosing mL/min Estimated GFR (MDRD) BUN/Creatinine Ratio Glucose (74-105) mg/dL POC Glucose > 500 H* > 500 H* (70-105) mg/dl Lactic Acid (0.5-2.2) mmol/L Calcium (8.4-10.2) mg/dl Phosphorus (2.5-4.6) mg/dL Magnesium (1.8-2.5) mg/dL Total Bilirubin (0.2-1.0) mg/dL AST (10-42) IU/L ALT (10-60) IU/L Alkaline Phosphatase (42-121) IU/L Troponin I 0.04 H* (0.00-0.02) ng/ml Total Protein (6.7-8.2) g/dl Albumin (3.2-5.5) g/dl Globulin Albumin/Globulin Ratio Urine Color (YELLOW) Urine Appearance (CLEAR) Urine pH (5.0-9.0) Ur Specific [place] (1.005-1.030) Urine Protein (NEGATIVE) Urine Glucose (UA) (NEGATIVE) Urine Ketones (NEGATIVE) Urine Occult Blood (NEGATIVE) Urine Nitrite (NEGATIVE) Urine Bilirubin (NEGATIVE) Urine Urobilinogen (0.2-1.0) mg/dL Ur Leukocyte Esterase (NEGATIVE) Urine RBC /HPF Urine WBC (0-5/HPF) /HPF Ur Epithelial Cells /HPF Amorphous Sediment (0/HPF) /HPF Urine Bacteria (0-FEW/HPF) /HPF Urine Mucus /LPF Urine Opiates Screen (NEGATIVE) Ur Oxycodone Screen (NEGATIVE) Urine Methadone Screen (NEGATIVE) Ur Barbiturates Screen (NEGATIVE) U Tricyclic Antidepress (NEGATIVE) Ur Phencyclidine Scrn (NEGATIVE) Ur Amphetamine Screen (NEGATIVE) U Methamphetamines Scrn (NEGATIVE) Urine MDMA Screen (NEGATIVE) U Benzodiazepines Scrn (NEGATIVE) Urine Cocaine Screen (NEGATIVE) U Marijuana (THC) Screen (NEGATIVE) Ethyl Alcohol mg/dL 12/07/17 12/08/17 12/08/17 Range/Units 23:59 01:09 01:40 WBC (5.0-10.0) 10^3/uL RBC (4.2-5.4) 10^6/uL Hgb (12.0-16.0) g/dL Hct (37.0-47.0) % MCV (80-100) fL MCH (27.0-34.0) pg MCHC (33.0-35.0) g/dL Plt Count (150-450) 10^3/uL Neut % (Auto) (42.2-75.2) % Lymph % (Auto) (20.5-50.1) % Ida % (Auto) (2-8) % Eos % (Auto) (1.0-3.0) % Baso % (Auto) (0.0-1.0) % ABG pH (7.35-7.45) ABG pCO2 (35-45) mmHg ABG pO2 (70-100) mmHg ABG HCO3 (22-26) mmol/L ABG O2 Saturation (95-100) % ABG Base Excess ((-2)-(+3)) mmol/L Sawyer Test O2 Delivery Device Oxygen Flow Rate Sodium (135-145) mmol/L Potassium (3.6-5.0) mmol/L Chloride (101-111) mmol/L Carbon Dioxide (21.0-31.0) mmol/L Anion Gap BUN (7-18) mg/dL Creatinine (0.6-1.3) mg/dL Est Cr Clr Drug Dosing mL/min Estimated GFR (MDRD) BUN/Creatinine Ratio Glucose (74-105) mg/dL POC Glucose 367 H 237 H (70-105) mg/dl Lactic Acid (0.5-2.2) mmol/L Calcium (8.4-10.2) mg/dl Phosphorus 2.1 L (2.5-4.6) mg/dL Magnesium 1.7 L (1.8-2.5) mg/dL Total Bilirubin (0.2-1.0) mg/dL AST (10-42) IU/L ALT (10-60) IU/L Alkaline Phosphatase (42-121) IU/L Troponin I (0.00-0.02) ng/ml Total Protein (6.7-8.2) g/dl Albumin (3.2-5.5) g/dl Globulin Albumin/Globulin Ratio Urine Color (YELLOW) Urine Appearance (CLEAR) Urine pH (5.0-9.0) Ur Specific [place] (1.005-1.030) Urine Protein (NEGATIVE) Urine Glucose (UA) (NEGATIVE) Urine Ketones (NEGATIVE) Urine Occult Blood (NEGATIVE) Urine Nitrite (NEGATIVE) Urine Bilirubin (NEGATIVE) Urine Urobilinogen (0.2-1.0) mg/dL Ur Leukocyte Esterase (NEGATIVE) Urine RBC /HPF Urine WBC (0-5/HPF) /HPF Ur Epithelial Cells /HPF Amorphous Sediment (0/HPF) /HPF Urine Bacteria (0-FEW/HPF) /HPF Urine Mucus /LPF Urine Opiates Screen (NEGATIVE) Ur Oxycodone Screen (NEGATIVE) Urine Methadone Screen (NEGATIVE) Ur Barbiturates Screen (NEGATIVE) U Tricyclic Antidepress (NEGATIVE) Ur Phencyclidine Scrn (NEGATIVE) Ur Amphetamine Screen (NEGATIVE) U Methamphetamines Scrn (NEGATIVE) Urine MDMA Screen (NEGATIVE) U Benzodiazepines Scrn (NEGATIVE) Urine Cocaine Screen (NEGATIVE) U Marijuana (THC) Screen (NEGATIVE) Ethyl Alcohol mg/dL 12/08/17 12/08/17 12/08/17 Range/Units 01:40 02:14 03:05 WBC (5.0-10.0) 10^3/uL RBC (4.2-5.4) 10^6/uL Hgb (12.0-16.0) g/dL Hct (37.0-47.0) % MCV (80-100) fL MCH (27.0-34.0) pg MCHC (33.0-35.0) g/dL Plt Count (150-450) 10^3/uL Neut % (Auto) (42.2-75.2) % Lymph % (Auto) (20.5-50.1) % Ida % (Auto) (2-8) % Eos % (Auto) (1.0-3.0) % Baso % (Auto) (0.0-1.0) % ABG pH (7.35-7.45) ABG pCO2 (35-45) mmHg ABG pO2 (70-100) mmHg ABG HCO3 (22-26) mmol/L ABG O2 Saturation (95-100) % ABG Base Excess ((-2)-(+3)) mmol/L Sawyer Test O2 Delivery Device Oxygen Flow Rate Sodium 131 L D (135-145) mmol/L Potassium 3.1 L (3.6-5.0) mmol/L Chloride 105 D (101-111) mmol/L Carbon Dioxide 14.0 L (21.0-31.0) mmol/L Anion Gap 15.1 BUN 44 H (7-18) mg/dL Creatinine 0.8 (0.6-1.3) mg/dL Est Cr Clr Drug Dosing 63.79 mL/min Estimated GFR (MDRD) > 60 BUN/Creatinine Ratio Glucose 252 H (74-105) mg/dL POC Glucose 217 H 225 H (70-105) mg/dl Lactic Acid (0.5-2.2) mmol/L Calcium 7.9 L D (8.4-10.2) mg/dl Phosphorus (2.5-4.6) mg/dL Magnesium (1.8-2.5) mg/dL Total Bilirubin (0.2-1.0) mg/dL AST (10-42) IU/L ALT (10-60) IU/L Alkaline Phosphatase (42-121) IU/L Troponin I (0.00-0.02) ng/ml Total Protein (6.7-8.2) g/dl Albumin (3.2-5.5) g/dl Globulin Albumin/Globulin Ratio Urine Color (YELLOW) Urine Appearance (CLEAR) Urine pH (5.0-9.0) Ur Specific [place] (1.005-1.030) Urine Protein (NEGATIVE) Urine Glucose (UA) (NEGATIVE) Urine Ketones (NEGATIVE) Urine Occult Blood (NEGATIVE) Urine Nitrite (NEGATIVE) Urine Bilirubin (NEGATIVE) Urine Urobilinogen (0.2-1.0) mg/dL Ur Leukocyte Esterase (NEGATIVE) Urine RBC /HPF Urine WBC (0-5/HPF) /HPF Ur Epithelial Cells /HPF Amorphous Sediment (0/HPF) /HPF Urine Bacteria (0-FEW/HPF) /HPF Urine Mucus /LPF Urine Opiates Screen (NEGATIVE) Ur Oxycodone Screen (NEGATIVE) Urine Methadone Screen (NEGATIVE) Ur Barbiturates Screen (NEGATIVE) U Tricyclic Antidepress (NEGATIVE) Ur Phencyclidine Scrn (NEGATIVE) Ur Amphetamine Screen (NEGATIVE) U Methamphetamines Scrn (NEGATIVE) Urine MDMA Screen (NEGATIVE) U Benzodiazepines Scrn (NEGATIVE) Urine Cocaine Screen (NEGATIVE) U Marijuana (THC) Screen (NEGATIVE) Ethyl Alcohol mg/dL 12/08/17 12/08/17 12/08/17 Range/Units 04:17 05:09 05:50 WBC (5.0-10.0) 10^3/uL RBC (4.2-5.4) 10^6/uL Hgb (12.0-16.0) g/dL Hct (37.0-47.0) % MCV (80-100) fL MCH (27.0-34.0) pg MCHC (33.0-35.0) g/dL Plt Count (150-450) 10^3/uL Neut % (Auto) (42.2-75.2) % Lymph % (Auto) (20.5-50.1) % Ida % (Auto) (2-8) % Eos % (Auto) (1.0-3.0) % Baso % (Auto) (0.0-1.0) % ABG pH (7.35-7.45) ABG pCO2 (35-45) mmHg ABG pO2 (70-100) mmHg ABG HCO3 (22-26) mmol/L ABG O2 Saturation (95-100) % ABG Base Excess ((-2)-(+3)) mmol/L Sawyer Test O2 Delivery Device Oxygen Flow Rate Sodium (135-145) mmol/L Potassium (3.6-5.0) mmol/L Chloride (101-111) mmol/L Carbon Dioxide (21.0-31.0) mmol/L Anion Gap BUN (7-18) mg/dL Creatinine (0.6-1.3) mg/dL Est Cr Clr Drug Dosing mL/min Estimated GFR (MDRD) BUN/Creatinine Ratio Glucose (74-105) mg/dL POC Glucose 242 H 257 H (70-105) mg/dl Lactic Acid (0.5-2.2) mmol/L Calcium (8.4-10.2) mg/dl Phosphorus 1.4 L (2.5-4.6) mg/dL Magnesium 1.5 L (1.8-2.5) mg/dL Total Bilirubin (0.2-1.0) mg/dL AST (10-42) IU/L ALT (10-60) IU/L Alkaline Phosphatase (42-121) IU/L Troponin I 0.05 H* (0.00-0.02) ng/ml Total Protein (6.7-8.2) g/dl Albumin (3.2-5.5) g/dl Globulin Albumin/Globulin Ratio Urine Color (YELLOW) Urine Appearance (CLEAR) Urine pH (5.0-9.0) Ur Specific [place] (1.005-1.030) Urine Protein (NEGATIVE) Urine Glucose (UA) (NEGATIVE) Urine Ketones (NEGATIVE) Urine Occult Blood (NEGATIVE) Urine Nitrite (NEGATIVE) Urine Bilirubin (NEGATIVE) Urine Urobilinogen (0.2-1.0) mg/dL Ur Leukocyte Esterase (NEGATIVE) Urine RBC /HPF Urine WBC (0-5/HPF) /HPF Ur Epithelial Cells /HPF Amorphous Sediment (0/HPF) /HPF Urine Bacteria (0-FEW/HPF) /HPF Urine Mucus /LPF Urine Opiates Screen (NEGATIVE) Ur Oxycodone Screen (NEGATIVE) Urine Methadone Screen (NEGATIVE) Ur Barbiturates Screen (NEGATIVE) U Tricyclic Antidepress (NEGATIVE) Ur Phencyclidine Scrn (NEGATIVE) Ur Amphetamine Screen (NEGATIVE) U Methamphetamines Scrn (NEGATIVE) Urine MDMA Screen (NEGATIVE) U Benzodiazepines Scrn (NEGATIVE) Urine Cocaine Screen (NEGATIVE) U Marijuana (THC) Screen (NEGATIVE) Ethyl Alcohol mg/dL 12/08/17 12/08/17 12/08/17 Range/Units 05:50 06:03 07:08 WBC 22.3 H (5.0-10.0) 10^3/uL RBC 5.29 (4.2-5.4) 10^6/uL Hgb 15.8 D (12.0-16.0) g/dL Hct 42.4 (37.0-47.0) % MCV 80.2 D (80-100) fL MCH 29.9 (27.0-34.0) pg MCHC 37.3 H (33.0-35.0) g/dL Plt Count 295 (150-450) 10^3/uL Neut % (Auto) 84.2 H (42.2-75.2) % Lymph % (Auto) 5.5 L (20.5-50.1) % Ida % (Auto) 10.1 H (2-8) % Eos % (Auto) 0.0 L (1.0-3.0) % Baso % (Auto) 0.2 (0.0-1.0) % ABG pH (7.35-7.45) ABG pCO2 (35-45) mmHg ABG pO2 (70-100) mmHg ABG HCO3 (22-26) mmol/L ABG O2 Saturation (95-100) % ABG Base Excess ((-2)-(+3)) mmol/L Sawyer Test O2 Delivery Device Oxygen Flow Rate Sodium (135-145) mmol/L Potassium (3.6-5.0) mmol/L Chloride (101-111) mmol/L Carbon Dioxide (21.0-31.0) mmol/L Anion Gap BUN (7-18) mg/dL Creatinine (0.6-1.3) mg/dL Est Cr Clr Drug Dosing mL/min Estimated GFR (MDRD) BUN/Creatinine Ratio Glucose (74-105) mg/dL POC Glucose 234 H 196 H (70-105) mg/dl Lactic Acid (0.5-2.2) mmol/L Calcium (8.4-10.2) mg/dl Phosphorus (2.5-4.6) mg/dL Magnesium (1.8-2.5) mg/dL Total Bilirubin (0.2-1.0) mg/dL AST (10-42) IU/L ALT (10-60) IU/L Alkaline Phosphatase (42-121) IU/L Troponin I (0.00-0.02) ng/ml Total Protein (6.7-8.2) g/dl Albumin (3.2-5.5) g/dl Globulin Albumin/Globulin Ratio Urine Color (YELLOW) Urine Appearance (CLEAR) Urine pH (5.0-9.0) Ur Specific [place] (1.005-1.030) Urine Protein (NEGATIVE) Urine Glucose (UA) (NEGATIVE) Urine Ketones (NEGATIVE) Urine Occult Blood (NEGATIVE) Urine Nitrite (NEGATIVE) Urine Bilirubin (NEGATIVE) Urine Urobilinogen (0.2-1.0) mg/dL Ur Leukocyte Esterase (NEGATIVE) Urine RBC /HPF Urine WBC (0-5/HPF) /HPF Ur Epithelial Cells /HPF Amorphous Sediment (0/HPF) /HPF Urine Bacteria (0-FEW/HPF) /HPF Urine Mucus /LPF Urine Opiates Screen (NEGATIVE) Ur Oxycodone Screen (NEGATIVE) Urine Methadone Screen (NEGATIVE) Ur Barbiturates Screen (NEGATIVE) U Tricyclic Antidepress (NEGATIVE) Ur Phencyclidine Scrn (NEGATIVE) Ur Amphetamine Screen (NEGATIVE) U Methamphetamines Scrn (NEGATIVE) Urine MDMA Screen (NEGATIVE) U Benzodiazepines Scrn (NEGATIVE) Urine Cocaine Screen (NEGATIVE) U Marijuana (THC) Screen (NEGATIVE) Ethyl Alcohol mg/dL 12/08/17 12/08/17 12/08/17 Range/Units 07:57 09:09 10:11 WBC (5.0-10.0) 10^3/uL RBC (4.2-5.4) 10^6/uL Hgb (12.0-16.0) g/dL Hct (37.0-47.0) % MCV (80-100) fL MCH (27.0-34.0) pg MCHC (33.0-35.0) g/dL Plt Count (150-450) 10^3/uL Neut % (Auto) (42.2-75.2) % Lymph % (Auto) (20.5-50.1) % Ida % (Auto) (2-8) % Eos % (Auto) (1.0-3.0) % Baso % (Auto) (0.0-1.0) % ABG pH (7.35-7.45) ABG pCO2 (35-45) mmHg ABG pO2 (70-100) mmHg ABG HCO3 (22-26) mmol/L ABG O2 Saturation (95-100) % ABG Base Excess ((-2)-(+3)) mmol/L Sawyer Test O2 Delivery Device Oxygen Flow Rate Sodium (135-145) mmol/L Potassium (3.6-5.0) mmol/L Chloride (101-111) mmol/L Carbon Dioxide (21.0-31.0) mmol/L Anion Gap BUN (7-18) mg/dL Creatinine (0.6-1.3) mg/dL Est Cr Clr Drug Dosing mL/min Estimated GFR (MDRD) BUN/Creatinine Ratio Glucose (74-105) mg/dL POC Glucose 175 H 166 H 149 H (70-105) mg/dl Lactic Acid (0.5-2.2) mmol/L Calcium (8.4-10.2) mg/dl Phosphorus (2.5-4.6) mg/dL Magnesium (1.8-2.5) mg/dL Total Bilirubin (0.2-1.0) mg/dL AST (10-42) IU/L ALT (10-60) IU/L Alkaline Phosphatase (42-121) IU/L Troponin I (0.00-0.02) ng/ml Total Protein (6.7-8.2) g/dl Albumin (3.2-5.5) g/dl Globulin Albumin/Globulin Ratio Urine Color (YELLOW) Urine Appearance (CLEAR) Urine pH (5.0-9.0) Ur Specific [place] (1.005-1.030) Urine Protein (NEGATIVE) Urine Glucose (UA) (NEGATIVE) Urine Ketones (NEGATIVE) Urine Occult Blood (NEGATIVE) Urine Nitrite (NEGATIVE) Urine Bilirubin (NEGATIVE) Urine Urobilinogen (0.2-1.0) mg/dL Ur Leukocyte Esterase (NEGATIVE) Urine RBC /HPF Urine WBC (0-5/HPF) /HPF Ur Epithelial Cells /HPF Amorphous Sediment (0/HPF) /HPF Urine Bacteria (0-FEW/HPF) /HPF Urine Mucus /LPF Urine Opiates Screen (NEGATIVE) Ur Oxycodone Screen (NEGATIVE) Urine Methadone Screen (NEGATIVE) Ur Barbiturates Screen (NEGATIVE) U Tricyclic Antidepress (NEGATIVE) Ur Phencyclidine Scrn (NEGATIVE) Ur Amphetamine Screen (NEGATIVE) U Methamphetamines Scrn (NEGATIVE) Urine MDMA Screen (NEGATIVE) U Benzodiazepines Scrn (NEGATIVE) Urine Cocaine Screen (NEGATIVE) U Marijuana (THC) Screen (NEGATIVE) Ethyl Alcohol mg/dL VAN Results - Last 24 hrs: Microbiology 12/07/17 21:00 Stool Occult Blood (VAN) - Final Stool / Feces Med Orders - Current: Current Medications Aspirin (Ecotrin) 325 mg PO WITHBREAKFAST [facility] Atenolol (Tenormin) 50 mg PO DAILY [facility] Heparin Sodium (Porcine) (Heparin Sodium) 5,000 units SUBCUT Q8HR [facility] Last Admin: 12/08/17 05:50 Dose: 5,000 units Sodium Chloride (Normal Saline) 1,000 mls @ 1,000 drops/hr IV ASDIRECTED [facility] Stop: 12/11/17 21:39 Last Admin: 12/07/17 23:38 Dose: 1,000 drops/hr Insulin Human Regular 100 unit (/ Sodium Chloride) 100 mls @ 5.66 mls/hr IV TITRATE [facility]; Protocol Last Infusion: 12/08/17 10:15 Dose: 0.03 units/kg/hr, 2 mls/hr Dextrose/Sodium Chloride (Dextrose 5%-1/2 Ns) 1,000 mls @ 200 mls/hr IV ASDIRECTED [facility] Last Infusion: 12/08/17 08:09 Dose: 100 mls/hr Piperacillin Sod/Tazobactam (Sod 3.375 gm/ Sodium Chloride) 100 mls @ 200 mls/ hr IV Q6H [facility] Vancomycin HCl 1 gm/ Sodium (Chloride) 250 mls @ 166.667 mls/hr IV Q8H [facility] Lisinopril (Prinivil) 20 mg PO DAILY [facility] Morphine Sulfate (Morphine) 2 mg IVPUSH Q2H PRN PRN Reason: chest pain Last Admin: 12/08/17 07:47 Dose: 2 mg Nitroglycerin (Nitrostat) 0.4 mg SL Q5M PRN PRN Reason: Chest pain Last Admin: 12/08/17 07:46 Dose: 0.4 mg Ondansetron HCl (Zofran) 4 mg IVPUSH Q6H PRN PRN Reason: Nausea/Vomiting Last Admin: 12/08/17 05:47 Dose: 4 mg Pantoprazole Sodium (Protonix Iv) 40 mg IVPUSH DAILY [facility] Last Admin: 12/08/17 08:07 Dose: 40 mg Vancomycin HCl (Pharmacy To Dose - Vancomycin) 1 dose .XX ASDIRECTED [facility] Discontinued Medications Insulin Human Regular 100 unit (/ Sodium Chloride) 100 mls @ 5.66 mls/hr IV TITRATE NGUYEN; Protocol Sodium Chloride (Normal Saline) 1,000 mls @ 500 mls/hr IV ASDIRECTED [facility] Stop: 12/08/17 01:30 Last Admin: 12/08/17 00:38 Dose: 500 mls/hr Dextrose/Sodium Chloride (Dextrose 5%-1/2 Ns) 1,000 mls @ 200 mls/hr IV ASDIRECTED [facility] Potassium Chloride 20 meq/ (Premix) 100 mls @ 50 mls/hr IV Q2H [facility] Stop: 12/08/17 07:44 Last Admin: 12/08/17 05:51 Dose: 50 mls/hr Magnesium Sulfate 2 gm/ Premix 50 mls @ 25 mls/hr IV ONETIME ONE Stop: 12/08/17 09:29 Last Admin: 12/08/17 07:47 Dose: 25 mls/hr Insulin Human Regular (Humulin R) 10 unit IV ONETIME ONE Stop: 12/07/17 20:34 Last Admin: 12/07/17 20:41 Dose: 10 units Sodium Phosphate (Neutra-Phos) 250 mg PO ONETIME ONE Stop: 12/08/17 03:10 Last Admin: 12/08/17 03:30 Dose: 250 mg Sodium Phosphate (Neutra-Phos) 250 mg PO ONETIME ONE Stop: 12/08/17 07:14 Last Admin: 12/08/17 07:47 Dose: 250 mg - Exam Quality Assessment: Reports: Supplemental Oxygen General: Reports: Alert, Oriented, Cooperative HEENT: Reports: Pupils Equal, Pupils Reactive, EOMI, Mucous Membr. Moist/Arjay Neck: Reports: Supple Lungs: Reports: Clear to Auscultation, Normal Respiratory Effort Cardiovascular: Reports: Regular Rate, Regular Rhythm GI/Abdominal Exam: Normal Bowel Sounds, Soft, Non-Tender, No Organomegaly, No Distention, No Abnormal Bruit, No Mass, Pelvis Stable
[2017-12-08 10:42] VITALS: BP 168/87
[2017-12-08] MEDS ORDERED: Iopamidol 612 MG/ML 100 ML Bottle IVPUSH ONE (10:44)
[2017-12-08 10:57] LABS: CHLORIDE,CL 105 mmol/L (101-111); SODIUM,NA 128 mmol/L (135-145)
[2017-12-08] MEDS ORDERED: Piperacillin/Tazobactam 3.375 GM in Sodium Chloride 0.9% 100 ML IV SCH (12:00)
--- NOTE | 2017-12-08 13:03 | EKG ---
12/07/2017 - MAYRA CAMARENA - TIME: 2115 hours. FINDINGS: EKG shows nonspecific T and ST-segment elevation. There is probably left ventricular hypertrophy. [facility] /[id number]
--- NOTE | 2017-12-08 13:45 | EKG ---
12/07/2017 - MAYRA CAMARENA - TIME: 2330 hours. FINDINGS: EKG shows nonspecific T-wave abnormality, diffuse. Sinus rhythm. [facility] /[id number]
[2017-12-09] MEDS ORDERED: Lisinopril 20 MG Tab PO SCH (09:00)
== END 2017-12-08 11:24 | DRG 682 ==
LOC: DL.ED 20:04 → DL.MS 21:26
PROVIDERS: ADMIT Hospitalist; ATTEND Hospitalist
DX: N17.9 Acute kidney failure, unspecified (principal); E11.10 Type 2 diabetes mellitus with ketoacidosis without coma; E87.1 Hypo-osmolality and hyponatremia; E86.0 Dehydration; Z79.82 Long term (current) use of aspirin; Z79.4 Long term (current) use of insulin; E11.65 Type 2 diabetes mellitus with hyperglycemia; R53.81 Other malaise; R10.9 Unspecified abdominal pain; R11.0 Nausea; R53.83 Other fatigue; I10 Essential (primary) hypertension; E78.00 Pure hypercholesterolemia, unspecified; F41.9 Anxiety disorder, unspecified; M19.90 Unspecified osteoarthritis, unspecified site; R07.9 Chest pain, unspecified; Z91.14 Patient's other noncompliance with medication regimen; Z79.899 Other long term (current) drug therapy
CPT/HCPCS: 36415; 36600; 80053; 80305; 81001; 82272; 82803; 82962 ×2; 83605; 83735; 84100; 85025; 87040; 93005; 96374; 99284; G0480; J1815; 71045; 71260; 74177; 80048; 80076; 84484; 96376; A9270-GY; C9113; J1644; J2270; J2405; J2543; J3370; J3475; J3480; J7030; J7042; J7050; Q9967

== ENCOUNTER 2018-08-22 17:33 | Emergency (ER) | payer MEDICAID ==
[2018-08-22] MEDS ORDERED: Sodium Chloride 0.9% 10 ML Syringe FLUSH PRN (17:47)
--- NOTE | 2018-08-22 18:21 | EDM.PDOC ---
<Harriet Laurent - Last Filed: 08/22/18 18:37> ED HPI GENERAL MEDICAL PROBLEM - General Chief Complaint: Gastrointestinal Problem Stated Complaint: AMBULANCE Time Seen by Provider: 08/22/18 18:18 Source of Information: Reports: Patient, EMS, EMS Notes Reviewed, RN, RN Notes Reviewed History Limitations: Reports: No Limitations - History of Present Illness INITIAL COMMENTS - FREE TEXT/NARRATIVE: Patient presents to ER per [facility] with complaint of vomiting since yesterday. States heartburn yesterday and today. She has had nausea and vomiting. No diarrhea, chest pain or shortness of breath. Onset Date: 08/21/18 Duration: Getting Worse Location: Reports: Abdomen Quality: Reports: Ache Severity: Moderate Improves with: Reports: None Worsens with: Reports: None Associated Symptoms: Reports: No Other Symptoms Abdominal Pain Score (Numeric/FACES): 8 - Related Data Allergies Allergy/AdvReac Type Severity Reaction Status Date / Time No Known Allergies Allergy Verified 06/16/18 20:24 Home Meds: Home Meds Atenolol [Tenormin] 50 mg PO DAILY 09/30/13 [History] Pregabalin [Lyrica] 100 mg PO TID cap 07/01/17 [Rx] DULoxetine HCl [Duloxetine HCl] 30 mg PO BID 04/11/18 [History] Insulin Aspart [NovoLOG] 15 unit SQ TIDAC 04/11/18 [History] Pantoprazole Sodium [Protonix] 40 mg PO BID 04/11/18 [History] Simvastatin [Zocor] 10 mg PO BEDTIME 04/11/18 [History] Acetaminophen [Tylenol] 650 mg PO Q4H PRN tablet 04/12/18 [Rx] Acetaminophen/HYDROcodone [[facility] 325-10 MG] 1 tab PO Q4H PRN #10 tablet [Rx] Insulin Detemir [Levemir] 15 unit SUBCUT BEDTIME #5 pen 04/12/18 [Rx] Lisinopril [Prinivil] 20 mg PO DAILY #0 04/12/18 [Rx] Nicotine [Habitrol] 21 mg TRDERM DAILY #30 patch 04/12/18 [Rx] Past Medical History HEENT History: Reports: None Cardiovascular History: Reports: High Cholesterol, Hypertension Respiratory History: Reports: None Gastrointestinal History: Reports: Cholelithiasis, Hepatitis Genitourinary History: Reports: Renal Calculus 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: Musculoskeletal History: Reports: Arthritis Neurological History: Reports: None Psychiatric History: Reports: Anxiety Endocrine/Metabolic History: Reports: Diabetes, Type II, IDDM, Other (See Below) Other Endocrine/Metabolic History: diagnosed in 2009 Hematologic History: Reports: None Immunologic History: Reports: None Oncologic (Cancer) History: Reports: None Dermatologic History: Reports: Cellulitis - Infectious Disease History Infectious Disease History: Reports: Chicken Pox, MRSA - Past Surgical History GI Surgical History: Reports: Cholecystectomy Female Surgical History: Reports: Hysterectomy Social & Family History - Family History Family Medical History: Noncontributory - Caffeine Use Caffeine Use: Reports: None Other Caffeine Use: green tea - Living Situation & Occupation Living situation: Reports: with Family Occupation: Unemployed ED ROS GENERAL - Review of Systems Review Of Systems: ROS reveals no pertinent complaints other than HPI. ED EXAM GENERAL NO PERIP PULSE - Physical Exam Exam: See Below Exam Limited By: No Limitations General Appearance: Lethargic Eye Exam: Bilateral Eye: EOMI, Normal Inspection, PERRL Ears: Normal External Exam, Normal Canal, Hearing Grossly Normal, Normal TMs Nose: Normal Inspection, Normal Mucosa, No Blood Throat/Mouth: Normal Inspection, Normal Lips, Normal Teeth, Normal Gums, Normal Oropharynx, Normal Voice, No Airway Compromise Head: Atraumatic, Normocephalic Neck: Normal Inspection, Supple, Non-Tender, Full Range of Motion Respiratory/Chest: No Respiratory Distress, Lungs Clear, Normal Breath Sounds, No Accessory Muscle Use, Chest Non-Tender Cardiovascular: Tachycardia GI/Abdominal: Tender (epigastric) (Female) Exam: Deferred Rectal (Female) Exam: Deferred Back Exam: Normal Inspection, Full Range of Motion, NT Extremities: Normal Inspection, Normal Range of Motion, Non-Tender, Normal Capillary Refill, No Pedal Edema Neurological: Other (flat) Psychiatric: Flat Affect Skin Exam: Warm, Dry, Intact Lymphatic: No Adenopathy Course - Vital Signs Last Recorded V/S: Last Vital Signs Temp 98.2 F 08/22/18 21:11 Pulse 111 H 08/22/18 21:11 Resp 17 08/22/18 21:11 BP 139/89 08/22/18 21:11 Pulse Ox 98 08/22/18 21:11 - Orders/Labs/Meds Orders: Active Orders 24 hr Category Date Time Status Peripheral IV Care [RC] . DIRECTED Care 08/22/18 17:47 Active Chest 1V Frontal [CR] Stat Exams 08/22/18 17:47 Taken CULTURE BLOOD [BC] Stat Lab 08/22/18 17:57 Received CULTURE BLOOD [BC] Stat Lab 08/22/18 18:02 Received Blood Culture x2 Reflex Set [OM.PC] Stat Oth 08/22/18 17:47 Ordered Peripheral IV Insertion Adult [OM.PC] Stat Oth 08/22/18 17:46 Ordered Labs: Laboratory Tests 08/22/18 08/22/18 08/22/18 Range/Units 17:39 17:57 17:57 WBC 20.5 H (5.0-10.0) 10^3/uL RBC 6.36 H (4.2-5.4) 10^6/uL Hgb 16.8 H (12.0-16.0) g/dL Hct 49.2 H (37.0-47.0) % MCV 77.4 L D (80-100) fL MCH 26.4 L (27.0-34.0) pg MCHC 34.1 (33.0-35.0) g/dL Plt Count 423 (150-450) 10^3/uL Neut % (Auto) 91.4 H (42.2-75.2) % Lymph % (Auto) 6.4 L (20.5-50.1) % [place] % (Auto) 2.1 (2-8) % Eos % (Auto) 0.0 L (1.0-3.0) % Baso % (Auto) 0.1 (0.0-1.0) % Sodium 133 L (135-145) mmol/L Potassium 3.8 (3.6-5.0) mmol/L Chloride 94 L (101-111) mmol/L Carbon Dioxide 19.0 L (21.0-31.0) mmol/L Anion Gap 23.8 BUN 17 (7-18) mg/dL Creatinine 0.6 (0.6-1.3) mg/dL Est Cr Clr Drug Dosing 85.05 mL/min Estimated GFR (MDRD) > 60 BUN/Creatinine Ratio 28.33 Glucose 374 H (74-105) mg/dL POC Glucose 319 H (70-105) mg/dl Lactic Acid (0.5-2.2) mmol/L Calcium 10.1 (8.4-10.2) mg/dl Total Bilirubin 1.3 H (0.2-1.0) mg/dL AST 21 (10-42) IU/L ALT 16 (10-60) IU/L Alkaline Phosphatase 106 (42-121) IU/L Total Protein 10.4 H (6.7-8.2) g/dl Albumin 5.0 (3.2-5.5) g/dl Globulin 5.4 Albumin/Globulin Ratio 0.93 Amylase (28-100) U/L Lipase (22-51) U/L Urine Color (YELLOW) Urine Appearance (CLEAR) Urine pH (5.0-9.0) Ur Specific [place] (1.005-1.030) Urine Protein (NEGATIVE) Urine Glucose (UA) (NEGATIVE) Urine Ketones (NEGATIVE) Urine Occult Blood (NEGATIVE) Urine Nitrite (NEGATIVE) Urine Bilirubin (NEGATIVE) Urine Urobilinogen (0.2-1.0) mg/dL Ur Leukocyte Esterase (NEGATIVE) Urine RBC /HPF Urine WBC (0-5/HPF) /HPF Ur Epithelial Cells /HPF Amorphous Sediment (0/HPF) /HPF Urine Bacteria (0-FEW/HPF) /HPF Hyaline Casts /LPF Fine Granular Casts (0/LPF) /LPF Urine Mucus /LPF Urine Opiates Screen (NEGATIVE) Ur Oxycodone Screen (NEGATIVE) Urine Methadone Screen (NEGATIVE) Ur Barbiturates Screen (NEGATIVE) U Tricyclic Antidepress (NEGATIVE) Ur Phencyclidine Scrn (NEGATIVE) Ur Amphetamine Screen (NEGATIVE) U Methamphetamines Scrn (NEGATIVE) Urine MDMA Screen (NEGATIVE) U Benzodiazepines Scrn (NEGATIVE) Urine Cocaine Screen (NEGATIVE) U Marijuana (THC) Screen (NEGATIVE) Ethyl Alcohol 5 mg/dL Ketones Positive 08/22/18 08/22/18 08/22/18 Range/Units 17:57 17:57 19:07 WBC (5.0-10.0) 10^3/uL RBC (4.2-5.4) 10^6/uL Hgb (12.0-16.0) g/dL Hct (37.0-47.0) % MCV (80-100) fL MCH (27.0-34.0) pg MCHC (33.0-35.0) g/dL Plt Count (150-450) 10^3/uL Neut % (Auto) (42.2-75.2) % Lymph % (Auto) (20.5-50.1) % [place] % (Auto) (2-8) % Eos % (Auto) (1.0-3.0) % Baso % (Auto) (0.0-1.0) % Sodium (135-145) mmol/L Potassium (3.6-5.0) mmol/L Chloride (101-111) mmol/L Carbon Dioxide (21.0-31.0) mmol/L Anion Gap BUN (7-18) mg/dL Creatinine (0.6-1.3) mg/dL Est Cr Clr Drug Dosing mL/min Estimated GFR (MDRD) BUN/Creatinine Ratio Glucose (74-105) mg/dL POC Glucose (70-105) mg/dl Lactic Acid 1.7 (0.5-2.2) mmol/L Calcium (8.4-10.2) mg/dl Total Bilirubin (0.2-1.0) mg/dL AST (10-42) IU/L ALT (10-60) IU/L Alkaline Phosphatase (42-121) IU/L Total Protein (6.7-8.2) g/dl Albumin (3.2-5.5) g/dl Globulin Albumin/Globulin Ratio Amylase 52 (28-100) U/L Lipase 29 (22-51) U/L Urine Color Yellow (YELLOW) Urine Appearance Slightly cloudy (CLEAR) Urine pH 5.5 (5.0-9.0) Ur Specific [place] 1.025 (1.005-1.030) Urine Protein >=300 H (NEGATIVE) Urine Glucose (UA) 500 H (NEGATIVE) Urine Ketones >=160 H (NEGATIVE) Urine Occult Blood Moderate H (NEGATIVE) Urine Nitrite Negative (NEGATIVE) Urine Bilirubin Negative (NEGATIVE) Urine Urobilinogen 0.2 (0.2-1.0) mg/dL Ur Leukocyte Esterase Negative (NEGATIVE) Urine RBC 5-10 H /HPF Urine WBC 0-5 (0-5/HPF) /HPF Ur Epithelial Cells Moderate H /HPF Amorphous Sediment Moderate H (0/HPF) /HPF Urine Bacteria Rare (0-FEW/HPF) /HPF Hyaline Casts Few H /LPF Fine Granular Casts Few H (0/LPF) /LPF Urine Mucus Few H /LPF Urine Opiates Screen (NEGATIVE) Ur Oxycodone Screen (NEGATIVE) Urine Methadone Screen (NEGATIVE) Ur Barbiturates Screen (NEGATIVE) U Tricyclic Antidepress (NEGATIVE) Ur Phencyclidine Scrn (NEGATIVE) Ur Amphetamine Screen (NEGATIVE) U Methamphetamines Scrn (NEGATIVE) Urine MDMA Screen (NEGATIVE) U Benzodiazepines Scrn (NEGATIVE) Urine Cocaine Screen (NEGATIVE) U Marijuana (THC) Screen (NEGATIVE) Ethyl Alcohol mg/dL Ketones 08/22/18 08/22/18 08/22/18 Range/Units 19:07 19:17 20:29 WBC (5.0-10.0) 10^3/uL RBC (4.2-5.4) 10^6/uL Hgb (12.0-16.0) g/dL Hct (37.0-47.0) % MCV (80-100) fL MCH (27.0-34.0) pg MCHC (33.0-35.0) g/dL Plt Count (150-450) 10^3/uL Neut % (Auto) (42.2-75.2) % Lymph % (Auto) (20.5-50.1) % [place] % (Auto) (2-8) % Eos % (Auto) (1.0-3.0) % Baso % (Auto) (0.0-1.0) % Sodium (135-145) mmol/L Potassium (3.6-5.0) mmol/L Chloride (101-111) mmol/L Carbon Dioxide (21.0-31.0) mmol/L Anion Gap BUN (7-18) mg/dL Creatinine (0.6-1.3) mg/dL Est Cr Clr Drug Dosing mL/min Estimated GFR (MDRD) BUN/Creatinine Ratio Glucose (74-105) mg/dL POC Glucose 273 H 281 H (70-105) mg/dl Lactic Acid (0.5-2.2) mmol/L Calcium (8.4-10.2) mg/dl Total Bilirubin (0.2-1.0) mg/dL AST (10-42) IU/L ALT (10-60) IU/L Alkaline Phosphatase (42-121) IU/L Total Protein (6.7-8.2) g/dl Albumin (3.2-5.5) g/dl Globulin Albumin/Globulin Ratio Amylase (28-100) U/L Lipase (22-51) U/L Urine Color (YELLOW) Urine Appearance (CLEAR) Urine pH (5.0-9.0) Ur Specific [place] (1.005-1.030) Urine Protein (NEGATIVE) Urine Glucose (UA) (NEGATIVE) Urine Ketones (NEGATIVE) Urine Occult Blood (NEGATIVE) Urine Nitrite (NEGATIVE) Urine Bilirubin (NEGATIVE) Urine Urobilinogen (0.2-1.0) mg/dL Ur Leukocyte Esterase (NEGATIVE) Urine RBC /HPF Urine WBC (0-5/HPF) /HPF Ur Epithelial Cells /HPF Amorphous Sediment (0/HPF) /HPF Urine Bacteria (0-FEW/HPF) /HPF Hyaline Casts /LPF Fine Granular Casts (0/LPF) /LPF Urine Mucus /LPF Urine Opiates Screen Negative (NEGATIVE) Ur Oxycodone Screen Negative (NEGATIVE) Urine Methadone Screen Negative (NEGATIVE) Ur Barbiturates Screen Negative (NEGATIVE) U Tricyclic Antidepress Negative (NEGATIVE) Ur Phencyclidine Scrn Negative (NEGATIVE) Ur Amphetamine Screen Negative (NEGATIVE) U Methamphetamines Scrn Negative (NEGATIVE) Urine MDMA Screen Negative (NEGATIVE) U Benzodiazepines Scrn Negative (NEGATIVE) Urine Cocaine Screen Negative (NEGATIVE) U Marijuana (THC) Screen Positive H (NEGATIVE) Ethyl Alcohol mg/dL Ketones 08/22/18 Range/Units 21:42 WBC (5.0-10.0) 10^3/uL RBC (4.2-5.4) 10^6/uL Hgb (12.0-16.0) g/dL Hct (37.0-47.0) % MCV (80-100) fL MCH (27.0-34.0) pg MCHC (33.0-35.0) g/dL Plt Count (150-450) 10^3/uL Neut % (Auto) (42.2-75.2) % Lymph % (Auto) (20.5-50.1) % [place] % (Auto) (2-8) % Eos % (Auto) (1.0-3.0) % Baso % (Auto) (0.0-1.0) % Sodium (135-145) mmol/L Potassium (3.6-5.0) mmol/L Chloride (101-111) mmol/L Carbon Dioxide (21.0-31.0) mmol/L Anion Gap BUN (7-18) mg/dL Creatinine (0.6-1.3) mg/dL Est Cr Clr Drug Dosing mL/min Estimated GFR (MDRD) BUN/Creatinine Ratio Glucose (74-105) mg/dL POC Glucose 249 H (70-105) mg/dl Lactic Acid (0.5-2.2) mmol/L Calcium (8.4-10.2) mg/dl Total Bilirubin (0.2-1.0) mg/dL AST (10-42) IU/L ALT (10-60) IU/L Alkaline Phosphatase (42-121) IU/L Total Protein (6.7-8.2) g/dl Albumin (3.2-5.5) g/dl Globulin Albumin/Globulin Ratio Amylase (28-100) U/L Lipase (22-51) U/L Urine Color (YELLOW) Urine Appearance (CLEAR) Urine pH (5.0-9.0) Ur Specific [place] (1.005-1.030) Urine Protein (NEGATIVE) Urine Glucose (UA) (NEGATIVE) Urine Ketones (NEGATIVE) Urine Occult Blood (NEGATIVE) Urine Nitrite (NEGATIVE) Urine Bilirubin (NEGATIVE) Urine Urobilinogen (0.2-1.0) mg/dL Ur Leukocyte Esterase (NEGATIVE) Urine RBC /HPF Urine WBC (0-5/HPF) /HPF Ur Epithelial Cells /HPF Amorphous Sediment (0/HPF) /HPF Urine Bacteria (0-FEW/HPF) /HPF Hyaline Casts /LPF Fine Granular Casts (0/LPF) /LPF Urine Mucus /LPF Urine Opiates Screen (NEGATIVE) Ur Oxycodone Screen (NEGATIVE) Urine Methadone Screen (NEGATIVE) Ur Barbiturates Screen (NEGATIVE) U Tricyclic Antidepress (NEGATIVE) Ur Phencyclidine Scrn (NEGATIVE) Ur Amphetamine Screen (NEGATIVE) U Methamphetamines Scrn (NEGATIVE) Urine MDMA Screen (NEGATIVE) U Benzodiazepines Scrn (NEGATIVE) Urine Cocaine Screen (NEGATIVE) U Marijuana (THC) Screen (NEGATIVE) Ethyl Alcohol mg/dL Ketones Meds: Medications Discontinued Medications Generic Name Dose Route Start Last Admin Trade Name Freq PRN Reason Stop Dose Admin Hydralazine HCl 10 mg 08/22/18 19:33 08/22/18 19:45 Apresoline IVPUSH 08/22/18 19:34 10 mg ONETIME ONE Administration Hydromorphone HCl 1 mg 08/22/18 19:54 08/22/18 20:09 Dilaudid IVPUSH 08/22/18 19:55 1 mg ONETIME ONE Administration Sodium Chloride 1,000 mls @ 999 mls/hr 08/22/18 18:24 08/22/18 18:40 Normal Saline IV 08/22/18 19:24 999 mls/hr .BOLUS ONE Administration Sodium Chloride 1,000 mls @ 999 mls/hr 08/22/18 20:18 08/22/18 20:44 Normal Saline IV 08/22/18 21:18 999 mls/hr .BOLUS ONE Administration Insulin Human Regular 100 unit 100 mls @ 5.44 mls/hr 08/22/18 20:30 08/22/18 20:27 / Sodium Chloride IV 0.1 units/kg/hr TITRATE NGUYEN 5.44 mls/hr Administration Protocol 0.1 UNITS/KG/HR Piperacillin Sod/Tazobactam 100 mls @ 200 mls/hr 08/22/18 20:21 08/22/18 20: 44 Sod 3.375 gm/ Sodium Chloride IV 08/22/18 20:50 200 mls/hr ONETIME ONE Administration Insulin Human Regular 10 unit 08/22/18 18:26 08/22/18 18:37 Humulin R IV 08/22/18 18:27 10 units ONETIME ONE Administration Labetalol HCl 20 mg 08/22/18 18:25 08/22/18 18:41 Normodyne IVPUSH 08/22/18 18:26 20 mg ONETIME ONE Administration Protocol Pantoprazole Sodium 40 mg 08/22/18 19:55 08/22/18 20:02 Protonix Iv IVPUSH 08/22/18 19:56 40 mg ONETIME ONE Administration Sodium Chloride 10 ml 08/22/18 17:47 08/22/18 18:38 Saline Flush FLUSH 10 ml ASDIRECTED PRN Administration Keep Vein Open - Radiology Interpretation Free Text/Narrative:: Chest x-ray: No acute findings. There is no significant interval change. See rad report. 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 Continues c/o epigastric discomfort. BP continued elevated following Labetolol. Hydralazine improved. TC consult Dr Sharon Bryson accepting of patient. Tx via [facility] No available ground transport.. Insulin gtt infusing. IV zosyn - elevated WBC hx diverticulitis. Departure - Departure Time of Disposition: 22:00 Condition: Undetermined - Discharge Information *PRESCRIPTION DRUG MONITORING PROGRAM REVIEWED*: No *COPY OF PRESCRIPTION DRUG MONITORING REPORT IN PATIENT LIAN: No
[2018-08-22 18:22] LABS: ANION GAP 23.8; CHLORIDE,CL 94 mmol/L (101-111); SODIUM,NA 133 mmol/L (135-145)
[2018-08-22] MEDS ORDERED: Sodium Chloride 0.9% 1,000 ML IV ONE ×2 (18:24→20:18)
[2018-08-22] MEDS ORDERED: Labetalol 100 MG/20 ML MDV IVPUSH ONE (18:25)
[2018-08-22] MEDS ORDERED: Insulin Regular, Human 100 Units/ML 3 ML Vial IV ONE (18:26)
[2018-08-22] MEDS ORDERED: hydrALAZINE 20 MG/ML SDV IVPUSH ONE (19:33)
[2018-08-22] MEDS ORDERED: HYDROmorphone 1 MG/ML Syringe IVPUSH ONE (19:54)
[2018-08-22] MEDS ORDERED: Pantoprazole 40 MG Vial IVPUSH ONE (19:55)
[2018-08-22] MEDS ORDERED: Piperacillin/Tazobactam 3.375 GM in Sodium Chloride 0.9% 100 ML IV ONE (20:21)
[2018-08-22 21:12] VITALS: BP 139/89
== END 2018-08-22 22:04 ==
LOC: DL.ED 17:33
DX: E11.10 Type 2 diabetes mellitus with ketoacidosis without coma (principal); K57.30 Diverticulosis of large intestine without perforation or abscess without bleeding; K92.0 Hematemesis; I10 Essential (primary) hypertension; Z90.49 Acquired absence of other specified parts of digestive tract; Z90.710 Acquired absence of both cervix and uterus; Z79.4 Long term (current) use of insulin; Z79.899 Other long term (current) drug therapy
CPT/HCPCS: 36415; 71045; 80053; 80305; 81001; 82009; 82150; 82272; 82962; 83605; 83690; 85025; 87040; 87804; 96361; 96365; 96368; 96375; 96376; 99285; C9113; G0480; J0360; J1170; J1815; J2543; J3490; J7030; J7050

== ENCOUNTER 2019-01-27 15:10 | Inpatient (IN) | payer MEDICAID ==
--- NOTE | 2019-01-27 15:42 | EDM.PDOC ---
ED HPI GENERAL MEDICAL PROBLEM - General Chief Complaint: Neurological Problem Time Seen by Provider: 01/27/19 15:30 Source of Information: Reports: Patient History Limitations: Reports: No Limitations - History of Present Illness INITIAL COMMENTS - FREE TEXT/NARRATIVE: This 48 yo female patient was brought to the ED by [facility] and [facility] due to an intercept and a "diabetic reaction." The patient initially did not want to participate in the examination by reporting she was "sick", but refused to expound on that. After asking several times, the patient reports she has been throwing up since 0400 this morning with the last episode in the ambulance on the way. EMS gave the patient a dose of Zofran while on the way in. The patient reports she did smoke marijuana last night. The patient reports she smokes marijuana on a regular basis. The patient denies any other drug or alcohol use. Onset: Today Onset Date: 01/27/19 Onset Time: 04:00 Duration: Constant Location: Reports: Abdomen Quality: Reports: Ache, Dull Severity: Moderate Improves with: Reports: None Worsens with: Reports: None Context: Reports: Other Associated Symptoms: Reports: Nausea/Vomiting - Related Data Allergies Allergy/AdvReac Type Severity Reaction Status Date / Time No Known Allergies Allergy Verified 06/16/18 20:24 Home Meds: Home Meds Atenolol [Tenormin] 50 mg PO DAILY 09/30/13 [History] Pregabalin [Lyrica] 100 mg PO TID cap 07/01/17 [Rx] DULoxetine HCl [Duloxetine HCl] 30 mg PO BID 04/11/18 [History] Insulin Aspart [NovoLOG] 15 unit SQ TIDAC 04/11/18 [History] Pantoprazole Sodium [Protonix] 40 mg PO BID 04/11/18 [History] Simvastatin [Zocor] 10 mg PO BEDTIME 04/11/18 [History] Acetaminophen [Tylenol] 650 mg PO Q4H PRN tablet 04/12/18 [Rx] Acetaminophen/HYDROcodone [[place] 325-10 MG] 1 tab PO Q4H PRN #10 tablet [Rx] Insulin Detemir [Levemir] 15 unit SUBCUT BEDTIME #5 pen 04/12/18 [Rx] Lisinopril [Prinivil] 20 mg PO DAILY #0 04/12/18 [Rx] Nicotine [Habitrol] 21 mg TRDERM DAILY #30 patch 04/12/18 [Rx] Past Medical History HEENT History: Reports: None Cardiovascular History: Reports: High Cholesterol, Hypertension Respiratory History: Reports: None Gastrointestinal History: Reports: Cholelithiasis, Hepatitis Genitourinary History: Reports: Renal Calculus 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: Musculoskeletal History: Reports: Arthritis Neurological History: Reports: None Psychiatric History: Reports: Anxiety Endocrine/Metabolic History: Reports: Diabetes, Type II, IDDM, Other (See Below) Other Endocrine/Metabolic History: diagnosed in 2009 Hematologic History: Reports: None Immunologic History: Reports: None Oncologic (Cancer) History: Reports: None Dermatologic History: Reports: Cellulitis - Infectious Disease History Infectious Disease History: Reports: Chicken Pox, MRSA - Past Surgical History GI Surgical History: Reports: Cholecystectomy Female Surgical History: Reports: Hysterectomy Social & Family History - Family History Family Medical History: Noncontributory - Caffeine Use Caffeine Use: Reports: None Other Caffeine Use: green tea - Living Situation & Occupation Living situation: Reports: with Family Occupation: Unemployed ED ROS GENERAL - Review of Systems Review Of Systems: ROS reveals no pertinent complaints other than HPI. ED EXAM, GENERAL - Physical Exam Exam: See Below Exam Limited By: No Limitations General Appearance: Alert, WD/WN, Mild Distress Eye Exam: Bilateral Eye: EOMI, Normal Inspection, PERRL Ears: Normal External Exam, Normal Canal, Hearing Grossly Normal, Normal TMs Nose: Normal Inspection, Normal Mucosa, No Blood Throat/Mouth: Normal Inspection, Normal Lips, Normal Teeth, Normal Gums, Normal Oropharynx, Normal Voice, No Airway Compromise Head: Atraumatic, Normocephalic Neck: Normal Inspection, Supple, Non-Tender, Full Range of Motion Respiratory/Chest: No Respiratory Distress, Lungs Clear, Normal Breath Sounds, No Accessory Muscle Use, Chest Non-Tender Cardiovascular: Normal Peripheral Pulses, Regular Rate, Rhythm, No Edema, No Gallop, No JVD, No Murmur, No Rub (Female) Exam: Deferred Rectal (Female) Exam: Deferred Back Exam: Normal Inspection, Full Range of Motion, NT Extremities: Normal Inspection, Normal Range of Motion, Non-Tender, Normal Capillary Refill, No Pedal Edema Neurological: Alert, Oriented, CN II-XII Intact, Normal Cognition Psychiatric: Normal Mood, Flat Affect Skin Exam: Warm, Dry, Intact, Normal Color, No Rash Lymphatic: No Adenopathy Course - Vital Signs Last Recorded V/S: Last Vital Signs Temp 36.4 C 01/27/19 15:10 Pulse 75 01/27/19 15:10 Resp 14 01/27/19 15:10 BP 230/113 H 01/27/19 15:10 Pulse Ox 96 01/27/19 15:10 - Orders/Labs/Meds Orders: Active Orders 24 hr Category Date Time Status Glucose [Blood Glucose Check, Bedside] [RC] ONETIME Care 01/27/19 17:30 Ordered Urinary Catheter Assessment [RC] ASDIRECTED Care 01/27/19 15:36 Active Urinary Catheter Insertion [Insert Urinary Catheter] [ Care 01/27/19 15:45 Ordered OM.PC] Q24H Abdomen Pelvis w Cont [CT] Urgent Exams 01/27/19 16:40 Ordered CULTURE BLOOD [BC] Stat Lab 01/27/19 16:06 Received CULTURE BLOOD [BC] Stat Lab 01/27/19 16:21 Ordered Labs: Laboratory Tests 01/27/19 01/27/19 01/27/19 Range/Units 15:24 15:25 15:25 WBC 23.2 H (5.0-10.0) 10^3/uL RBC 6.46 H (4.2-5.4) 10^6/uL Hgb 18.3 H D (12.0-16.0) g/dL Hct 51.6 H (37.0-47.0) % MCV 79.9 L (80-100) fL MCH 28.3 (27.0-34.0) pg MCHC 35.5 H (33.0-35.0) g/dL Plt Count 349 (150-450) 10^3/uL Neut % (Auto) 93.6 H (42.2-75.2) % Lymph % (Auto) 3.5 L (20.5-50.1) % [place] % (Auto) 2.8 (2-8) % Eos % (Auto) 0.0 L (1.0-3.0) % Baso % (Auto) 0.1 (0.0-1.0) % VBG pH (7.31-7.41) VBG pCO2 (41-51) mmHg VBG pO2 (35-42) mmHg VBG HCO3 (19-25) mmol/l VBG O2 Saturation (60-80) % VBG Base Excess ((-2)-(+3)) mmol/l O2 Delivery Device Sodium 137 (135-145) mmol/L Potassium 3.9 (3.6-5.0) mmol/L Chloride 98 L (101-111) mmol/L Carbon Dioxide 22.0 (21.0-31.0) mmol/L Anion Gap 20.9 BUN 19 H (7-18) mg/dL Creatinine 0.7 (0.6-1.3) mg/dL Est Cr Clr Drug Dosing 91.32 mL/min Estimated GFR (MDRD) > 60 BUN/Creatinine Ratio 27.14 Glucose 361 H (74-105) mg/dL POC Glucose 322 H (70-105) mg/dl Lactic Acid (0.5-2.2) mmol/L Calcium 9.6 (8.4-10.2) mg/dl Magnesium 1.7 L (1.8-2.5) mg/dL Total Bilirubin 0.9 (0.2-1.0) mg/dL AST 21 (10-42) IU/L ALT 20 (10-60) IU/L Alkaline Phosphatase 102 (42-121) IU/L Ammonia (11-35) umol/L Total Protein 9.4 H (6.7-8.2) g/dl Albumin 4.8 (3.2-5.5) g/dl Globulin 4.6 Albumin/Globulin Ratio 1.04 Amylase 116 H (28-100) U/L Lipase 33 (22-51) U/L Urine Color (YELLOW) Urine Appearance (CLEAR) Urine pH (5.0-9.0) Ur Specific [place] (1.005-1.030) Urine Protein (NEGATIVE) Urine Glucose (UA) (NEGATIVE) Urine Ketones (NEGATIVE) Urine Occult Blood (NEGATIVE) Urine Nitrite (NEGATIVE) Urine Bilirubin (NEGATIVE) Urine Urobilinogen (0.2-1.0) mg/dL Ur Leukocyte Esterase (NEGATIVE) Urine RBC /HPF Urine WBC (0-5/HPF) /HPF Ur Epithelial Cells (NOT SEEN) /HPF Amorphous Sediment (NOT SEEN) /HPF Urine Bacteria (0-FEW/HPF) /HPF Urine Mucus (NOT SEEN) /LPF Urine Opiates Screen (NEGATIVE) Ur Oxycodone Screen (NEGATIVE) Urine Methadone Screen (NEGATIVE) Acetaminophen < 10 ug/mL Ur Barbiturates Screen (NEGATIVE) U Tricyclic Antidepress (NEGATIVE) Ur Phencyclidine Scrn (NEGATIVE) Ur Amphetamine Screen (NEGATIVE) U Methamphetamines Scrn (NEGATIVE) Urine MDMA Screen (NEGATIVE) U Benzodiazepines Scrn (NEGATIVE) Urine Cocaine Screen (NEGATIVE) U Marijuana (THC) Screen (NEGATIVE) Ethyl Alcohol < 5 mg/dL Ketones Positive 01/27/19 01/27/19 01/27/19 Range/Units 15:25 15:45 15:45 WBC (5.0-10.0) 10^3/uL RBC (4.2-5.4) 10^6/uL Hgb (12.0-16.0) g/dL Hct (37.0-47.0) % MCV (80-100) fL MCH (27.0-34.0) pg MCHC (33.0-35.0) g/dL Plt Count (150-450) 10^3/uL Neut % (Auto) (42.2-75.2) % Lymph % (Auto) (20.5-50.1) % [place] % (Auto) (2-8) % Eos % (Auto) (1.0-3.0) % Baso % (Auto) (0.0-1.0) % VBG pH (7.31-7.41) VBG pCO2 (41-51) mmHg VBG pO2 (35-42) mmHg VBG HCO3 (19-25) mmol/l VBG O2 Saturation (60-80) % VBG Base Excess ((-2)-(+3)) mmol/l O2 Delivery Device Sodium (135-145) mmol/L Potassium (3.6-5.0) mmol/L Chloride (101-111) mmol/L Carbon Dioxide (21.0-31.0) mmol/L Anion Gap BUN (7-18) mg/dL Creatinine (0.6-1.3) mg/dL Est Cr Clr Drug Dosing mL/min Estimated GFR (MDRD) BUN/Creatinine Ratio Glucose (74-105) mg/dL POC Glucose (70-105) mg/dl Lactic Acid 2.0 (0.5-2.2) mmol/L Calcium (8.4-10.2) mg/dl Magnesium (1.8-2.5) mg/dL Total Bilirubin (0.2-1.0) mg/dL AST (10-42) IU/L ALT (10-60) IU/L Alkaline Phosphatase (42-121) IU/L Ammonia (11-35) umol/L Total Protein (6.7-8.2) g/dl Albumin (3.2-5.5) g/dl Globulin Albumin/Globulin Ratio Amylase (28-100) U/L Lipase (22-51) U/L Urine Color Yellow (YELLOW) Urine Appearance Cloudy (CLEAR) Urine pH 5.5 (5.0-9.0) Ur Specific [place] 1.025 (1.005-1.030) Urine Protein >=300 H (NEGATIVE) Urine Glucose (UA) 500 H (NEGATIVE) Urine Ketones >=160 H (NEGATIVE) Urine Occult Blood Small H (NEGATIVE) Urine Nitrite Negative (NEGATIVE) Urine Bilirubin Negative (NEGATIVE) Urine Urobilinogen 0.2 (0.2-1.0) mg/dL Ur Leukocyte Esterase Negative (NEGATIVE) Urine RBC 5-10 H /HPF Urine WBC 0-5 (0-5/HPF) /HPF Ur Epithelial Cells Few (NOT SEEN) /HPF Amorphous Sediment Many H (NOT SEEN) /HPF Urine Bacteria Rare (0-FEW/HPF) /HPF Urine Mucus Few H (NOT SEEN) /LPF Urine Opiates Screen Negative (NEGATIVE) Ur Oxycodone Screen Positive H (NEGATIVE) Urine Methadone Screen Negative (NEGATIVE) Acetaminophen ug/mL Ur Barbiturates Screen Negative (NEGATIVE) U Tricyclic Antidepress Negative (NEGATIVE) Ur Phencyclidine Scrn Negative (NEGATIVE) Ur Amphetamine Screen Negative (NEGATIVE) U Methamphetamines Scrn Negative (NEGATIVE) Urine MDMA Screen Negative (NEGATIVE) U Benzodiazepines Scrn Negative (NEGATIVE) Urine Cocaine Screen Negative (NEGATIVE) U Marijuana (THC) Screen Positive H (NEGATIVE) Ethyl Alcohol mg/dL Ketones 01/27/19 01/27/19 01/27/19 Range/Units 16:06 17:34 18:18 WBC (5.0-10.0) 10^3/uL RBC (4.2-5.4) 10^6/uL Hgb (12.0-16.0) g/dL Hct (37.0-47.0) % MCV (80-100) fL MCH (27.0-34.0) pg MCHC (33.0-35.0) g/dL Plt Count (150-450) 10^3/uL Neut % (Auto) (42.2-75.2) % Lymph % (Auto) (20.5-50.1) % [place] % (Auto) (2-8) % Eos % (Auto) (1.0-3.0) % Baso % (Auto) (0.0-1.0) % VBG pH 7.33 (7.31-7.41) VBG pCO2 40 L (41-51) mmHg VBG pO2 48 H (35-42) mmHg VBG HCO3 21 (19-25) mmol/l VBG O2 Saturation 80.8 H (60-80) % VBG Base Excess -4.5 L ((-2)-(+3)) mmol/l O2 Delivery Device Room air Sodium (135-145) mmol/L Potassium (3.6-5.0) mmol/L Chloride (101-111) mmol/L Carbon Dioxide (21.0-31.0) mmol/L Anion Gap BUN (7-18) mg/dL Creatinine (0.6-1.3) mg/dL Est Cr Clr Drug Dosing mL/min Estimated GFR (MDRD) BUN/Creatinine Ratio Glucose (74-105) mg/dL POC Glucose 292 H (70-105) mg/dl Lactic Acid (0.5-2.2) mmol/L Calcium (8.4-10.2) mg/dl Magnesium (1.8-2.5) mg/dL Total Bilirubin (0.2-1.0) mg/dL AST (10-42) IU/L ALT (10-60) IU/L Alkaline Phosphatase (42-121) IU/L Ammonia 20 (11-35) umol/L Total Protein (6.7-8.2) g/dl Albumin (3.2-5.5) g/dl Globulin Albumin/Globulin Ratio Amylase (28-100) U/L Lipase (22-51) U/L Urine Color (YELLOW) Urine Appearance (CLEAR) Urine pH (5.0-9.0) Ur Specific [place] (1.005-1.030) Urine Protein (NEGATIVE) Urine Glucose (UA) (NEGATIVE) Urine Ketones (NEGATIVE) Urine Occult Blood (NEGATIVE) Urine Nitrite (NEGATIVE) Urine Bilirubin (NEGATIVE) Urine Urobilinogen (0.2-1.0) mg/dL Ur Leukocyte Esterase (NEGATIVE) Urine RBC /HPF Urine WBC (0-5/HPF) /HPF Ur Epithelial Cells (NOT SEEN) /HPF Amorphous Sediment (NOT SEEN) /HPF Urine Bacteria (0-FEW/HPF) /HPF Urine Mucus (NOT SEEN) /LPF Urine Opiates Screen (NEGATIVE) Ur Oxycodone Screen (NEGATIVE) Urine Methadone Screen (NEGATIVE) Acetaminophen ug/mL Ur Barbiturates Screen (NEGATIVE) U Tricyclic Antidepress (NEGATIVE) Ur Phencyclidine Scrn (NEGATIVE) Ur Amphetamine Screen (NEGATIVE) U Methamphetamines Scrn (NEGATIVE) Urine MDMA Screen (NEGATIVE) U Benzodiazepines Scrn (NEGATIVE) Urine Cocaine Screen (NEGATIVE) U Marijuana (THC) Screen (NEGATIVE) Ethyl Alcohol mg/dL Ketones Meds: Medications Discontinued Medications Generic Name Dose Route Start Last Admin Trade Name Lexq PRN Reason Stop Dose Admin Sodium Chloride 1,000 mls @ 999 mls/hr 01/27/19 16:39 01/27/19 17:00 Normal Saline IV 01/27/19 17:39 999 mls/hr .BOLUS ONE Administration Piperacillin Sod/Tazobactam 100 mls @ 200 mls/hr 01/27/19 18:08 01/27/19 18: 28 Sod 3.375 gm/ Sodium Chloride IV 01/27/19 18:37 200 mls/hr ONETIME ONE Administration Insulin Human Regular 10 unit 01/27/19 18:07 01/27/19 18:28 Humulin R IV 01/27/19 18:08 10 units ONETIME ONE Administration Iopamidol 75 ml 01/27/19 16:40 01/27/19 16:44 Isovue-300 (61%) IVPUSH 01/27/19 16:41 75 ml ONETIME ONE Administration Metoclopramide HCl 10 mg 01/27/19 16:37 01/27/19 16:46 Reglan IVPUSH 01/27/19 16:38 10 mg ONETIME ONE Administration - Re-Assessments/Exams Free Text/Narrative Re-Assessment/Exam: 01/27/19 16:44 The patient vomited while in the ED. An order for Reglan was placed. The patient was advised of the examination and lab results. The patient was sent to CT for further evaluation of the abdominal pain. Departure - Departure Time of Disposition: 18:39 Disposition: Admitted As Inpatient 68 Condition: Fair Clinical Impression: Diverticulosis Leukocytosis Qualifiers: Leukocytosis type: bandemia Qualified Code(s): D72.825 - Bandemia Abdominal pain Qualifiers: Abdominal location: left upper quadrant Qualified Code(s): R10.12 - Left upper quadrant pain - Discharge Information *PRESCRIPTION DRUG MONITORING PROGRAM REVIEWED*: Not Applicable *COPY OF PRESCRIPTION DRUG MONITORING REPORT IN PATIENT LIAN: Not Applicable Care Plan Goals: Discussed the patient's history, examination, lab and CT results with Dr. Wharton. Dr. Wharton accepted the patient for continued evaluation as an inpatient at [facility]. - My Orders Last 24 Hours: My Active Orders 01/27/19 15:36 Urinary Catheter Assessment [RC] ASDIRECTED 01/27/19 15:45 Urinary Catheter Insertion [Insert Urinary Catheter] [OM.PC] Q24H 01/27/19 16:06 CULTURE BLOOD [BC] Stat 01/27/19 16:21 CULTURE BLOOD [BC] Stat 01/27/19 16:40 Abdomen Pelvis w Cont [CT] Urgent 01/27/19 17:30 Glucose [Blood Glucose Check, Bedside] [RC] ONETIME - Assessment/Plan Last 24 Hours: My Active Orders 01/27/19 15:36 Urinary Catheter Assessment [RC] ASDIRECTED 01/27/19 15:45 Urinary Catheter Insertion [Insert Urinary Catheter] [OM.PC] Q24H 01/27/19 16:06 CULTURE BLOOD [BC] Stat 01/27/19 16:21 CULTURE BLOOD [BC] Stat 01/27/19 16:40 Abdomen Pelvis w Cont [CT] Urgent 01/27/19 17:30 Glucose [Blood Glucose Check, Bedside] [RC] ONETIME
[2019-01-27 16:28] LABS: ANION GAP 20.9; CHLORIDE,CL 98 mmol/L (101-111); SODIUM,NA 137 mmol/L (135-145)
[2019-01-27 16:29] LABS: ACETAMINOPHEN < 10 ug/mL
[2019-01-27] MEDS ORDERED: Metoclopramide 10 MG/2 ML SDV IVPUSH ONE (16:37)
[2019-01-27] MEDS ORDERED: Iopamidol 612 MG/ML 75 ML Bottle IVPUSH ONE (16:40)
[2019-01-27] MEDS: Sodium Chloride 0.9% 1,000 ML IV ONE ×2 (17:00→19:23)
[2019-01-27] MEDS ORDERED: Insulin Regular, Human 100 Units/ML 3 ML Vial IV ONE (18:07)
[2019-01-27] MEDS ORDERED: Piperacillin/Tazobactam 3.375 GM in Sodium Chloride 0.9% 100 ML IV ONE (18:08)
[2019-01-27 18:28] LABS: O2 DELIVERY DEVICE ROOM AIR
[2019-01-27 18:35] LABS: BASE EXCESS VENOUS -4.5 mmol/l ((-2)-(+3)); BICARBONATE,VENOUS 21 mmol/l (19-25); O2 SATURATION VENOUS 80.8 % (60-80); PCO2 VENOUS 40 mmHg (41-51); PH,VENOUS 7.33 (7.31-7.41); PO2 VENOUS 48 mmHg (35-42)
[2019-01-27] MEDS ORDERED: Docusate Sodium 100 MG Cap PO PRN (19:28)
[2019-01-27] MEDS ORDERED: Magnesium Hydroxide 400 MG/5 ML Susp 30 ML Cup PO PRN (19:28)
[2019-01-27] MEDS ORDERED: Dextrose 5%-0.9% NaCl 1,000 ML IV SCH (19:45)
--- NOTE | 2019-01-27 19:46 | PCM.HP ---
H&P History of Present Illness - General Date of Service: 01/27/19 Admit Problem/Dx: Admission Diagnosis/Problem Admission Diagnosis/Problem Leukocytosis Source of Information: Patient History Limitations: Reports: No Limitations - History of Present Illness Initial Comments - Free Text/Narative: Viviane is 48 y/o F with PMH of DM II who was brought to the ED with intractable nausea, vomiting an abdominal pain since. 0400 this morning. 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 Says she has been vomiting several times. She does not know how many times. She vomited about 2x in the ED. She reports generalized abdominal pain but can not tell whether she had fever or chills. Patient not volunteering information. She denies sick contact. Vitals in the ED was unremarkable. Labs wbc 23 with left shift, glucose 322, anion gap 20.1, pH 7.33, Ua positive for ketones. Utox positive for oxycodone and marijuana. She endorsed using marijuana yesterday. CT abd/pel shows evidence of diverticulosis without diverticulitis. She is being admitted for further management. Onset of Symptoms: Reports: Today Duration of Symptoms: Reports: Hour(s): Location: Reports: Abdomen Quality: Reports: Ache Severity: Moderate Improves with: Reports: None Worsens with: Reports: None Associated Symptoms: Reports: No Other Symptoms Abdomen Pain Score (Numeric/FACES): 7 - Related Data Allergies/Adverse Reactions: Allergies Allergy/AdvReac Type Severity Reaction Status Date / Time No Known Allergies Allergy Verified 06/16/18 20:24 Home Medications: Home Meds RX: Atenolol [Tenormin] 50 mg PO DAILY 09/30/13 [History] RX: DULoxetine HCl [Duloxetine HCl] 30 mg PO BID 04/11/18 [History] RX: Insulin Aspart [NovoLOG] 15 unit SQ TIDAC 04/11/18 [History] RX: Pantoprazole Sodium [Protonix] 40 mg PO BID 04/11/18 [History] Simvastatin [Zocor] 10 mg PO BEDTIME 04/11/18 [History] RX: Acetaminophen [Tylenol] 650 mg PO Q4H PRN tablet 04/12/18 [Rx] RX: Acetaminophen/HYDROcodone [War 325-10 MG] 1 tab PO Q4H PRN #10 tablet [Rx] RX: Insulin Detemir [Levemir] 15 unit SUBCUT BEDTIME #5 pen 04/12/18 [Rx] RX: Lisinopril [Prinivil] 20 mg PO DAILY #0 04/12/18 [Rx] RX: Nicotine [Habitrol] 21 mg TRDERM DAILY #30 patch 04/12/18 [Rx] Pregabalin [Lyrica] 25 mg PO TID 01/27/19 [History] RX: tiZANidine [Zanaflex] 4 mg PO Q8H PRN 01/27/19 [History] Past Medical History HEENT History: Reports: None Cardiovascular History: Reports: High Cholesterol, Hypertension Respiratory History: Reports: None Gastrointestinal History: Reports: Cholelithiasis, Hepatitis Genitourinary History: Reports: Renal Calculus 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: Musculoskeletal History: Reports: Arthritis Neurological History: Reports: None Psychiatric History: Reports: Anxiety Endocrine/Metabolic History: Reports: Diabetes, Type II, IDDM, Other (See Below) Other Endocrine/Metabolic History: diagnosed in 2009 Hematologic History: Reports: None Immunologic History: Reports: None Oncologic (Cancer) History: Reports: None Dermatologic History: Reports: Cellulitis - Infectious Disease History Infectious Disease History: Reports: Chicken Pox, MRSA - Past Surgical History GI Surgical History: Reports: Cholecystectomy Female Surgical History: Reports: Hysterectomy Social & Family History - Family History Family Medical History: Noncontributory - Tobacco Use Smoking Status *Q: Never Smoker Second Hand Smoke Exposure: Yes - Caffeine Use Caffeine Use: Reports: None Other Caffeine Use: green tea - Recreational Drug Use Recreational Drug Use: Yes Recreational Drug Type: Reports: Marijuana/Hashish Recreational Drug Use Frequency: Daily - Living Situation & Occupation Living situation: Reports: with Family Occupation: Unemployed H&P Review of Systems - Review of Systems: Review Of Systems: See Below General: Reports: No Symptoms HEENT: Reports: No Symptoms Pulmonary: Reports: No Symptoms Cardiovascular: Reports: No Symptoms Gastrointestinal: Reports: Abdominal Pain, Anorexia, Decreased Appetite, Nausea , Vomiting Genitourinary: Reports: No Symptoms Musculoskeletal: Reports: No Symptoms Skin: Reports: No Symptoms Psychiatric: Reports: No Symptoms Neurological: Reports: No Symptoms Hematologic/Lymphatic: Reports: No Symptoms Immunologic: Reports: No Symptoms Exam - Exam Exam: See Below - Vital Signs Vital Signs: Last Vital Signs Temp 97.6 F 01/27/19 15:10 Pulse 75 01/27/19 15:10 Resp 14 01/27/19 15:10 BP 230/113 H 01/27/19 15:10 Pulse Ox 96 01/27/19 15:10 Weight: 127 lb - Exam Quality Assessment: Supplemental Oxygen, DVT Prophylaxis General: Alert, Oriented, 4 HEENT: PERRLA, Hearing Intact, Mucosa Moist & [place], Nares Patent, Normal Nasal Septum, Posterior Pharynx Clear, Conjunctiva Clear, EOMI, EACs Clear, TMs Clear Neck: Supple, Trachea Midline, 2 Lungs: Clear to Auscultation, Normal Respiratory Effort Cardiovascular: Regular Rate, Regular Rhythm GI/Abdominal Exam: Normal Bowel Sounds, Soft, No Organomegaly, No Distention, No Abnormal Bruit, No Mass, Pelvis Stable, Tender (Female) Exam: Normal External Exam, Normal Speculum Exam, Normal Bimanual Exam, Deferred Rectal (Female) Exam: Normal Exam, Normal Rectal Tone Back Exam: Normal Inspection, Full Range of Motion, NT Extremities: Normal Inspection, Normal Range of Motion, Non-Tender, No Pedal Edema, Normal Capillary Refill Skin: Warm, Dry, Intact Neurological: Cranial Nerves Intact, Reflexes Equal Bilateral Neuro Extensive - Mental Status: Alert, Oriented x3, Normal Mood/Affect, Normal Cognition Neuro Extensive - Motor, Sensory, Reflexes: CN II-XII Intact, Normal Gait, Normal Reflexes Psychiatric: Alert, Normal Affect, Normal Mood - Patient Data Lab Results Last 24 hrs: Laboratory Results - last 24 hr 01/27/19 01/27/19 01/27/19 Range/Units 15:24 15:25 15:25 WBC 23.2 H (5.0-10.0) 10^3/uL RBC 6.46 H (4.2-5.4) 10^6/uL Hgb 18.3 H D (12.0-16.0) g/dL Hct 51.6 H (37.0-47.0) % MCV 79.9 L (80-100) fL MCH 28.3 (27.0-34.0) pg MCHC 35.5 H (33.0-35.0) g/dL Plt Count 349 (150-450) 10^3/uL Neut % (Auto) 93.6 H (42.2-75.2) % Lymph % (Auto) 3.5 L (20.5-50.1) % [place] % (Auto) 2.8 (2-8) % Eos % (Auto) 0.0 L (1.0-3.0) % Baso % (Auto) 0.1 (0.0-1.0) % VBG pH (7.31-7.41) VBG pCO2 (41-51) mmHg VBG pO2 (35-42) mmHg VBG HCO3 (19-25) mmol/l VBG O2 Saturation (60-80) % VBG Base Excess ((-2)-(+3)) mmol/l O2 Delivery Device Sodium 137 (135-145) mmol/L Potassium 3.9 (3.6-5.0) mmol/L Chloride 98 L (101-111) mmol/L Carbon Dioxide 22.0 (21.0-31.0) mmol/L Anion Gap 20.9 BUN 19 H (7-18) mg/dL Creatinine 0.7 (0.6-1.3) mg/dL Est Cr Clr Drug Dosing 91.32 mL/min Estimated GFR (MDRD) > 60 BUN/Creatinine Ratio 27.14 Glucose 361 H (74-105) mg/dL POC Glucose 322 H (70-105) mg/dl Lactic Acid (0.5-2.2) mmol/L Calcium 9.6 (8.4-10.2) mg/dl Magnesium 1.7 L (1.8-2.5) mg/dL Total Bilirubin 0.9 (0.2-1.0) mg/dL AST 21 (10-42) IU/L ALT 20 (10-60) IU/L Alkaline Phosphatase 102 (42-121) IU/L Ammonia (11-35) umol/L Total Protein 9.4 H (6.7-8.2) g/dl Albumin 4.8 (3.2-5.5) g/dl Globulin 4.6 Albumin/Globulin Ratio 1.04 Amylase 116 H (28-100) U/L Lipase 33 (22-51) U/L Urine Color (YELLOW) Urine Appearance (CLEAR) Urine pH (5.0-9.0) Ur Specific [place] (1.005-1.030) Urine Protein (NEGATIVE) Urine Glucose (UA) (NEGATIVE) Urine Ketones (NEGATIVE) Urine Occult Blood (NEGATIVE) Urine Nitrite (NEGATIVE) Urine Bilirubin (NEGATIVE) Urine Urobilinogen (0.2-1.0) mg/dL Ur Leukocyte Esterase (NEGATIVE) Urine RBC /HPF Urine WBC (0-5/HPF) /HPF Ur Epithelial Cells (NOT SEEN) /HPF Amorphous Sediment (NOT SEEN) /HPF Urine Bacteria (0-FEW/HPF) /HPF Urine Mucus (NOT SEEN) /LPF Urine Opiates Screen (NEGATIVE) Ur Oxycodone Screen (NEGATIVE) Urine Methadone Screen (NEGATIVE) Acetaminophen < 10 ug/mL Ur Barbiturates Screen (NEGATIVE) U Tricyclic Antidepress (NEGATIVE) Ur Phencyclidine Scrn (NEGATIVE) Ur Amphetamine Screen (NEGATIVE) U Methamphetamines Scrn (NEGATIVE) Urine MDMA Screen (NEGATIVE) U Benzodiazepines Scrn (NEGATIVE) Urine Cocaine Screen (NEGATIVE) U Marijuana (THC) Screen (NEGATIVE) Ethyl Alcohol < 5 mg/dL Ketones Positive 01/27/19 01/27/19 01/27/19 Range/Units 15:25 15:45 15:45 WBC (5.0-10.0) 10^3/uL RBC (4.2-5.4) 10^6/uL Hgb (12.0-16.0) g/dL Hct (37.0-47.0) % MCV (80-100) fL MCH (27.0-34.0) pg MCHC (33.0-35.0) g/dL Plt Count (150-450) 10^3/uL Neut % (Auto) (42.2-75.2) % Lymph % (Auto) (20.5-50.1) % [place] % (Auto) (2-8) % Eos % (Auto) (1.0-3.0) % Baso % (Auto) (0.0-1.0) % VBG pH (7.31-7.41) VBG pCO2 (41-51) mmHg VBG pO2 (35-42) mmHg VBG HCO3 (19-25) mmol/l VBG O2 Saturation (60-80) % VBG Base Excess ((-2)-(+3)) mmol/l O2 Delivery Device Sodium (135-145) mmol/L Potassium (3.6-5.0) mmol/L Chloride (101-111) mmol/L Carbon Dioxide (21.0-31.0) mmol/L Anion Gap BUN (7-18) mg/dL Creatinine (0.6-1.3) mg/dL Est Cr Clr Drug Dosing mL/min Estimated GFR (MDRD) BUN/Creatinine Ratio Glucose (74-105) mg/dL POC Glucose (70-105) mg/dl Lactic Acid 2.0 (0.5-2.2) mmol/L Calcium (8.4-10.2) mg/dl Magnesium (1.8-2.5) mg/dL Total Bilirubin (0.2-1.0) mg/dL AST (10-42) IU/L ALT (10-60) IU/L Alkaline Phosphatase (42-121) IU/L Ammonia (11-35) umol/L Total Protein (6.7-8.2) g/dl Albumin (3.2-5.5) g/dl Globulin Albumin/Globulin Ratio Amylase (28-100) U/L Lipase (22-51) U/L Urine Color Yellow (YELLOW) Urine Appearance Cloudy (CLEAR) Urine pH 5.5 (5.0-9.0) Ur Specific [place] 1.025 (1.005-1.030) Urine Protein >=300 H (NEGATIVE) Urine Glucose (UA) 500 H (NEGATIVE) Urine Ketones >=160 H (NEGATIVE) Urine Occult Blood Small H (NEGATIVE) Urine Nitrite Negative (NEGATIVE) Urine Bilirubin Negative (NEGATIVE) Urine Urobilinogen 0.2 (0.2-1.0) mg/dL Ur Leukocyte Esterase Negative (NEGATIVE) Urine RBC 5-10 H /HPF Urine WBC 0-5 (0-5/HPF) /HPF Ur Epithelial Cells Few (NOT SEEN) /HPF Amorphous Sediment Many H (NOT SEEN) /HPF Urine Bacteria Rare (0-FEW/HPF) /HPF Urine Mucus Few H (NOT SEEN) /LPF Urine Opiates Screen Negative (NEGATIVE) Ur Oxycodone Screen Positive H (NEGATIVE) Urine Methadone Screen Negative (NEGATIVE) Acetaminophen ug/mL Ur Barbiturates Screen Negative (NEGATIVE) U Tricyclic Antidepress Negative (NEGATIVE) Ur Phencyclidine Scrn Negative (NEGATIVE) Ur Amphetamine Screen Negative (NEGATIVE) U Methamphetamines Scrn Negative (NEGATIVE) Urine MDMA Screen Negative (NEGATIVE) U Benzodiazepines Scrn Negative (NEGATIVE) Urine Cocaine Screen Negative (NEGATIVE) U Marijuana (THC) Screen Positive H (NEGATIVE) Ethyl Alcohol mg/dL Ketones 01/27/19 01/27/19 01/27/19 Range/Units 16:06 17:34 18:18 WBC (5.0-10.0) 10^3/uL RBC (4.2-5.4) 10^6/uL Hgb (12.0-16.0) g/dL Hct (37.0-47.0) % MCV (80-100) fL MCH (27.0-34.0) pg MCHC (33.0-35.0) g/dL Plt Count (150-450) 10^3/uL Neut % (Auto) (42.2-75.2) % Lymph % (Auto) (20.5-50.1) % [place] % (Auto) (2-8) % Eos % (Auto) (1.0-3.0) % Baso % (Auto) (0.0-1.0) % VBG pH 7.33 (7.31-7.41) VBG pCO2 40 L (41-51) mmHg VBG pO2 48 H (35-42) mmHg VBG HCO3 21 (19-25) mmol/l VBG O2 Saturation 80.8 H (60-80) % VBG Base Excess -4.5 L ((-2)-(+3)) mmol/l O2 Delivery Device Room air Sodium (135-145) mmol/L Potassium (3.6-5.0) mmol/L Chloride (101-111) mmol/L Carbon Dioxide (21.0-31.0) mmol/L Anion Gap BUN (7-18) mg/dL Creatinine (0.6-1.3) mg/dL Est Cr Clr Drug Dosing mL/min Estimated GFR (MDRD) BUN/Creatinine Ratio Glucose (74-105) mg/dL POC Glucose 292 H (70-105) mg/dl Lactic Acid (0.5-2.2) mmol/L Calcium (8.4-10.2) mg/dl Magnesium (1.8-2.5) mg/dL Total Bilirubin (0.2-1.0) mg/dL AST (10-42) IU/L ALT (10-60) IU/L Alkaline Phosphatase (42-121) IU/L Ammonia 20 (11-35) umol/L Total Protein (6.7-8.2) g/dl Albumin (3.2-5.5) g/dl Globulin Albumin/Globulin Ratio Amylase (28-100) U/L Lipase (22-51) U/L Urine Color (YELLOW) Urine Appearance (CLEAR) Urine pH (5.0-9.0) Ur Specific [place] (1.005-1.030) Urine Protein (NEGATIVE) Urine Glucose (UA) (NEGATIVE) Urine Ketones (NEGATIVE) Urine Occult Blood (NEGATIVE) Urine Nitrite (NEGATIVE) Urine Bilirubin (NEGATIVE) Urine Urobilinogen (0.2-1.0) mg/dL Ur Leukocyte Esterase (NEGATIVE) Urine RBC /HPF Urine WBC (0-5/HPF) /HPF Ur Epithelial Cells (NOT SEEN) /HPF Amorphous Sediment (NOT SEEN) /HPF Urine Bacteria (0-FEW/HPF) /HPF Urine Mucus (NOT SEEN) /LPF Urine Opiates Screen (NEGATIVE) Ur Oxycodone Screen (NEGATIVE) Urine Methadone Screen (NEGATIVE) Acetaminophen ug/mL Ur Barbiturates Screen (NEGATIVE) U Tricyclic Antidepress (NEGATIVE) Ur Phencyclidine Scrn (NEGATIVE) Ur Amphetamine Screen (NEGATIVE) U Methamphetamines Scrn (NEGATIVE) Urine MDMA Screen (NEGATIVE) U Benzodiazepines Scrn (NEGATIVE) Urine Cocaine Screen (NEGATIVE) U Marijuana (THC) Screen (NEGATIVE) Ethyl Alcohol mg/dL Ketones 01/27/19 Range/Units 19:18 WBC (5.0-10.0) 10^3/uL RBC (4.2-5.4) 10^6/uL Hgb (12.0-16.0) g/dL Hct (37.0-47.0) % MCV (80-100) fL MCH (27.0-34.0) pg MCHC (33.0-35.0) g/dL Plt Count (150-450) 10^3/uL Neut % (Auto) (42.2-75.2) % Lymph % (Auto) (20.5-50.1) % [place] % (Auto) (2-8) % Eos % (Auto) (1.0-3.0) % Baso % (Auto) (0.0-1.0) % VBG pH (7.31-7.41) VBG pCO2 (41-51) mmHg VBG pO2 (35-42) mmHg VBG HCO3 (19-25) mmol/l VBG O2 Saturation (60-80) % VBG Base Excess ((-2)-(+3)) mmol/l O2 Delivery Device Sodium (135-145) mmol/L Potassium (3.6-5.0) mmol/L Chloride (101-111) mmol/L Carbon Dioxide (21.0-31.0) mmol/L Anion Gap BUN (7-18) mg/dL Creatinine (0.6-1.3) mg/dL Est Cr Clr Drug Dosing mL/min Estimated GFR (MDRD) BUN/Creatinine Ratio Glucose (74-105) mg/dL POC Glucose 242 H (70-105) mg/dl Lactic Acid (0.5-2.2) mmol/L Calcium (8.4-10.2) mg/dl Magnesium (1.8-2.5) mg/dL Total Bilirubin (0.2-1.0) mg/dL AST (10-42) IU/L ALT (10-60) IU/L Alkaline Phosphatase (42-121) IU/L Ammonia (11-35) umol/L Total Protein (6.7-8.2) g/dl Albumin (3.2-5.5) g/dl Globulin Albumin/Globulin Ratio Amylase (28-100) U/L Lipase (22-51) U/L Urine Color (YELLOW) Urine Appearance (CLEAR) Urine pH (5.0-9.0) Ur Specific [place] (1.005-1.030) Urine Protein (NEGATIVE) Urine Glucose (UA) (NEGATIVE) Urine Ketones (NEGATIVE) Urine Occult Blood (NEGATIVE) Urine Nitrite (NEGATIVE) Urine Bilirubin (NEGATIVE) Urine Urobilinogen (0.2-1.0) mg/dL Ur Leukocyte Esterase (NEGATIVE) Urine RBC /HPF Urine WBC (0-5/HPF) /HPF Ur Epithelial Cells (NOT SEEN) /HPF Amorphous Sediment (NOT SEEN) /HPF Urine Bacteria (0-FEW/HPF) /HPF Urine Mucus (NOT SEEN) /LPF Urine Opiates Screen (NEGATIVE) Ur Oxycodone Screen (NEGATIVE) Urine Methadone Screen (NEGATIVE) Acetaminophen ug/mL Ur Barbiturates Screen (NEGATIVE) U Tricyclic Antidepress (NEGATIVE) Ur Phencyclidine Scrn (NEGATIVE) Ur Amphetamine Screen (NEGATIVE) U Methamphetamines Scrn (NEGATIVE) Urine MDMA Screen (NEGATIVE) U Benzodiazepines Scrn (NEGATIVE) Urine Cocaine Screen (NEGATIVE) U Marijuana (THC) Screen (NEGATIVE) Ethyl Alcohol mg/dL Ketones Result Diagrams: 01/29/19 05:48 01/29/19 05:48 Manuel Results Last 24 hrs: Microbiology 01/27/19 15:25 Anaerobic Blood Culture - Final Blood - Problem List (1) Gastritis SNOMED Code(s): 5829156 ICD Code: K29.70 - GASTRITIS, UNSPECIFIED, WITHOUT BLEEDING Status: Acute Current Visit: Yes (2) Abdominal pain SNOMED Code(s): 57109040 ICD Code: R10.9 - UNSPECIFIED ABDOMINAL PAIN Status: Acute Current Visit : No Qualifiers: Abdominal location: left upper quadrant Qualified Code(s): R10.12 - Left upper quadrant pain (3) Accelerated hypertension SNOMED Code(s): 96643555 ICD Code: I10 - ESSENTIAL (PRIMARY) HYPERTENSION Status: Acute Current Visit: No (4) DKA (diabetic ketoacidoses) SNOMED Code(s): 222453422, 326554485 ICD Code: E13.10 - OTH DIABETES MELLITUS WITH KETOACIDOSIS WITHOUT COMA Status: Acute Current Visit: No Qualifiers: Diabetes mellitus type: type 2 Diabetes mellitus complication detail: without coma Qualified Code(s): E11.10 - Type 2 diabetes mellitus with ketoacidosis without coma (5) DKA, type 2 SNOMED Code(s): 162529000, 010955939 ICD Code: E11.10 - TYPE 2 DIABETES MELLITUS WITH KETOACIDOSIS WITHOUT COMA Status: Acute Current Visit: No Qualifiers: Diabetes mellitus 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 insulin 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 Diabetes mellitus complication detail: without coma Qualified Code(s): E11.10 - Type 2 diabetes mellitus with ketoacidosis without coma; Z79.4 - assisted (current) use of insulin Problem List Initiated/Reviewed/Updated: Yes Orders Last 24hrs: Active Orders 24 hr Category Date Time Status Admission Diagnosis [ADT] Urgent ADT 01/27/19 18:42 Ordered Admission Status [Patient Status] [ADT] Routine ADT 01/27/19 18:42 Active Blood Glucose Check, Bedside [RC] QIDACANDBED Care 01/27/19 19:28 Ordered Cardiac Monitoring [RC] CONTINUOUS Care 01/27/19 19:28 Ordered Glucose [Blood Glucose Check, Bedside] [RC] ONETIME Care 01/27/19 17:30 Active Intake and Output [RC] QSHIFT Care 01/27/19 19:28 Ordered Notify Provider Vital Signs [RC] ASDIRECTED Care 01/27/19 19:28 Ordered Oxygen Therapy [RC] PRN Care 01/27/19 19:28 Ordered Up With Assistance [RC] ASDIRECTED Care 01/27/19 19:28 Ordered Urinary Catheter Assessment [RC] ASDIRECTED Care 01/27/19 15:36 Active Urinary Catheter Insertion [Insert Urinary Catheter] [ Care 01/27/19 15:45 Ordered OM.PC] Q24H VTE/DVT Education [RC] PER UNIT ROUTINE Care 01/27/19 19:28 Ordered Vital Signs [RC] Q4H Care 01/27/19 19:28 Ordered Nothing per Oral Now Diet [DIET] Diet 01/27/19 Dinner Ordered Abdomen Pelvis w Cont [CT] Urgent Exams 01/27/19 16:40 Taken BASIC METABOLIC PANEL,BMP [CHEM] Q4H Lab 01/27/19 19:28 Ordered BASIC METABOLIC PANEL,BMP [CHEM] Q4H Lab 01/27/19 23:28 Ordered BASIC METABOLIC PANEL,BMP [CHEM] Q4H Lab 01/28/19 03:28 Ordered BLOOD GAS VENOUS [BG] Routine Lab 01/27/19 22:00 Ordered CBC WITH AUTO DIFF [HEME] Routine Lab 01/27/19 19:28 Ordered CBC WITH AUTO DIFF [HEME] Routine Lab 01/28/19 07:00 Ordered CULTURE BLOOD [BC] Stat Lab 01/27/19 15:25 Results CULTURE BLOOD [BC] Stat Lab 01/27/19 16:06 Received CULTURE URINE [RM] Stat Lab 01/27/19 19:28 Ordered Dextrose 5%-Normal Saline @ 100 MLS/HR(1000ml) Med 01/27/19 19:45 Ordered Dextrose 5%-0.9% NaCl [Dextrose 5%-Normal Saline] 1,000 ml IV ASDIRECTED Docusate Sodium [Colace] Med 01/27/19 19:28 Ordered 100 mg PO BID PRN Heparin Sodium Med 01/27/19 21:00 Ordered 5,000 units SUBCUT Q12HR Magnesium Hydroxide [Milk of Magnesia] Med 01/27/19 19:28 Ordered 30 ml PO Q12H PRN Ondansetron [Zofran] Med 01/27/19 19:28 Ordered 4 mg IVPUSH Q6H PRN Regular Insulin,Human 100 Units in Normal Saline @ 0.1 Med 01/27/19 19:45 Ordered UNITS/KG/HR Insulin Regular, Human [HumuLIN R] 100 unit Sodium Chloride 0.9% [Normal Saline] 99 ml IV TITRATE fentaNYL [Sublimaze] Med 01/27/19 19:36 Ordered 25 mcg IVPUSH Q2H PRN Resuscitation Status Routine Resus Stat 01/27/19 19:28 Ordered Medication Orders Docusate Sodium (Colace) 100 mg PO BID PRN PRN Reason: Constipation Fentanyl (Sublimaze) 25 mcg IVPUSH Q2H PRN PRN Reason: Pain Heparin Sodium (Porcine) (Heparin Sodium) 5,000 units SUBCUT Q12HR NGUYEN Dextrose/Sodium Chloride (Dextrose 5%-Normal Saline) 1,000 mls @ 100 mls/hr IV ASDIRECTED [facility] Insulin Human Regular 100 unit (/ Sodium Chloride) 100 mls @ 5.76 mls/hr IV TITRATE NGUYEN; Protocol Magnesium Hydroxide (Milk Of Magnesia) 30 ml PO Q12H PRN PRN Reason: Constipation Ondansetron HCl (Zofran) 4 mg IVPUSH Q6H PRN PRN Reason: Nausea/Vomiting Assessment/Plan Comment:: #Acute Gastritis -Patient presented to the ER with nuasea, vomiting and abdominal pain -Admit to general medical floor -IVF -Zofran prn for n/v -IV pantoprazole #Hyperglycemia due to uncontrolled Type 2 diabetes vs early DKA -IVF -Insulin drip -DKA protocol -A1c #Probable sepsis -IVF -IV Zosyn -Follow cxs #Uncontrolled HTN -IV hydralazine -Amlodipine 10 mg daily -Monitor BP closely #Substance abuse -Patient counseled on quitting #NPO for now #Code -Full
[2019-01-27] MEDS ORDERED: hydrALAZINE 20 MG/ML SDV IVPUSH ONE (19:56)
[2019-01-27] MEDS: Pantoprazole 40 MG Vial IVPUSH SCH (20:18)
[2019-01-27 20:27] LABS: ANION GAP 18.4; CHLORIDE,CL 103 mmol/L (101-111); SODIUM,NA 139 mmol/L (135-145)
[2019-01-27] MEDS ORDERED: hydrALAZINE 20 MG/ML SDV IVPUSH PRN (20:35)
[2019-01-27] MEDS ORDERED: Acetaminophen 325 MG Tab PO PRN (20:36)
[2019-01-27] MEDS: fentaNYL 100 MCG/2 ML SDV IVPUSH PRN (20:54)
[2019-01-27] MEDS ORDERED: Pregabalin 50 MG Cap PO SCH (21:00)
[2019-01-27] MEDS ORDERED: Insulin Glarg,Human.Rec.Analog 100 UNIT/ML ML SUBCUT SCH (21:00)
[2019-01-27] MEDS: Ondansetron 4 MG/2 ML SDV IVPUSH PRN (21:53)
[2019-01-27 22:10] LABS: BASE EXCESS VENOUS -4.6 mmol/l ((-2)-(+3)); BICARBONATE,VENOUS 20 mmol/l (19-25); O2 DELIVERY DEVICE ROOM AIR; O2 SATURATION VENOUS 83.2 % (60-80); PCO2 VENOUS 35 mmHg (41-51); PH,VENOUS 7.37 (7.31-7.41); PO2 VENOUS 46 mmHg (35-42)
[2019-01-27] MEDS: DULoxetine 30 MG Cap PO SCH (22:55)
[2019-01-27] MEDS: Heparin Sodium 5,000 Units/ML Vial SUBCUT SCH (22:55)
[2019-01-27] MEDS: Simvastatin 10 MG Tab PO SCH (22:56)
[2019-01-27 23:53] LABS: ANION GAP 14.9; CHLORIDE,CL 107 mmol/L (101-111); SODIUM,NA 139 mmol/L (135-145)
[2019-01-28] MEDS: Sodium Chloride 0.9% 1,000 ML IV SCH ×2 (00:19→10:46)
[2019-01-28] MEDS: Piperacillin/Tazobactam 4.5 GM in Sodium Chloride 0.9% 100 ML IV SCH ×4 (00:23→18:25)
[2019-01-28] MEDS: Metoclopramide 10 MG/2 ML SDV IVPUSH PRN ×2 (00:43→12:32)
[2019-01-28 04:28] LABS: ANION GAP 18.2; CHLORIDE,CL 104 mmol/L (101-111); SODIUM,NA 138 mmol/L (135-145)
[2019-01-28] MEDS: Ondansetron 4 MG/2 ML SDV IVPUSH PRN ×2 (05:53→18:35)
[2019-01-28] MEDS: fentaNYL 100 MCG/2 ML SDV IVPUSH PRN (05:53)
[2019-01-28] MEDS: Acetaminophen/HYDROcodone 325-10 MG Tab PO PRN ×3 (08:24→18:37)
[2019-01-28] MEDS ORDERED: Pregabalin 50 MG Cap PO SCH (09:00)
[2019-01-28] MEDS: Insulin Lispro 100 Units/ML 3 ML Vial SUBCUT SCH ×4 (09:48→21:16)
[2019-01-28] MEDS ORDERED: Magnesium Sulfate/Water 2 GM in Premix Bag 1 BAG IV ONE (09:52)
[2019-01-28] MEDS: DULoxetine 30 MG Cap PO SCH ×2 (09:53→20:44)
[2019-01-28] MEDS: amLODIPine 5 MG Tab PO SCH (09:53)
[2019-01-28] MEDS: Lisinopril 5 MG Tab PO SCH (09:53)
[2019-01-28] MEDS: Nicotine 21 MG/24 Hr Patch TRDERM SCH (09:54)
[2019-01-28] MEDS: Atenolol 50 MG Tab PO SCH (09:54)
[2019-01-28] MEDS: Heparin Sodium 5,000 Units/ML Vial SUBCUT SCH ×2 (09:55→20:45)
[2019-01-28] MEDS: Potassium Chloride 10 MEQ in Premix Bag 1 BAG IV SCH ×3 (10:00→13:04)
--- NOTE | 2019-01-28 10:49 | PCM.PN ---
- General Info Date of Service: 01/28/19 Admission Dx/Problem (Free Text): Admission Diagnosis/Problem Admission Diagnosis/Problem Leukocytosis Subjective Update: Viviane is 48 y/o F with PMH of DM II who was brought to the ED with intractable nausea, vomiting an abdominal pain. She was admitted for acute gastritis vs DKA. Today patient says she is feeling better. N/V has resolved. Abdominal pain improved. wbc is trending down. Functional Status: Reports: Pain Controlled - Review of Systems General: Reports: No Symptoms HEENT: Reports: No Symptoms Pulmonary: Reports: No Symptoms Cardiovascular: Reports: No Symptoms Gastrointestinal: Reports: No Symptoms Genitourinary: Reports: No Symptoms Musculoskeletal: Reports: No Symptoms Skin: Reports: No Symptoms Neurological: Reports: No Symptoms Psychiatric: Reports: No Symptoms - Patient Data Vitals - Most Recent: Last Vital Signs Temp 98.7 F 01/28/19 08:00 Pulse 88 01/28/19 09:54 Resp 17 01/28/19 08:00 BP 189/95 H 01/28/19 09:54 Pulse Ox 100 01/28/19 08:00 Weight - Most Recent: 127 lb I&O - Last 24 Hours: Intake & Output 01/27/19 01/28/19 01/28/19 22:59 06:59 14:59 Intake Total 41822 1900 Output Total 800 1150 Balance 33123 750 Lab Results Last 24 Hours: Laboratory Results - last 24 hr 01/27/19 01/27/19 01/27/19 Range/Units 15:24 15:25 15:25 WBC 23.2 H (5.0-10.0) 10^3/uL RBC 6.46 H (4.2-5.4) 10^6/uL Hgb 18.3 H D (12.0-16.0) g/dL Hct 51.6 H (37.0-47.0) % MCV 79.9 L (80-100) fL MCH 28.3 (27.0-34.0) pg MCHC 35.5 H (33.0-35.0) g/dL Plt Count 349 (150-450) 10^3/uL Neut % (Auto) 93.6 H (42.2-75.2) % Lymph % (Auto) 3.5 L (20.5-50.1) % [place] % (Auto) 2.8 (2-8) % Eos % (Auto) 0.0 L (1.0-3.0) % Baso % (Auto) 0.1 (0.0-1.0) % VBG pH (7.31-7.41) VBG pCO2 (41-51) mmHg VBG pO2 (35-42) mmHg VBG HCO3 (19-25) mmol/l VBG O2 Saturation (60-80) % VBG Base Excess ((-2)-(+3)) mmol/l O2 Delivery Device Sodium 137 (135-145) mmol/L Potassium 3.9 (3.6-5.0) mmol/L Chloride 98 L (101-111) mmol/L Carbon Dioxide 22.0 (21.0-31.0) mmol/L Anion Gap 20.9 BUN 19 H (7-18) mg/dL Creatinine 0.7 (0.6-1.3) mg/dL Est Cr Clr Drug Dosing 91.32 mL/min Estimated GFR (MDRD) > 60 BUN/Creatinine Ratio 27.14 Glucose 361 H (74-105) mg/dL POC Glucose 322 H (70-105) mg/dl Lactic Acid (0.5-2.2) mmol/L Calcium 9.6 (8.4-10.2) mg/dl Magnesium 1.7 L (1.8-2.5) mg/dL Total Bilirubin 0.9 (0.2-1.0) mg/dL AST 21 (10-42) IU/L ALT 20 (10-60) IU/L Alkaline Phosphatase 102 (42-121) IU/L Ammonia (11-35) umol/L Total Protein 9.4 H (6.7-8.2) g/dl Albumin 4.8 (3.2-5.5) g/dl Globulin 4.6 Albumin/Globulin Ratio 1.04 Amylase 116 H (28-100) U/L Lipase 33 (22-51) U/L Urine Color (YELLOW) Urine Appearance (CLEAR) Urine pH (5.0-9.0) Ur Specific [place] (1.005-1.030) Urine Protein (NEGATIVE) Urine Glucose (UA) (NEGATIVE) Urine Ketones (NEGATIVE) Urine Occult Blood (NEGATIVE) Urine Nitrite (NEGATIVE) Urine Bilirubin (NEGATIVE) Urine Urobilinogen (0.2-1.0) mg/dL Ur Leukocyte Esterase (NEGATIVE) Urine RBC /HPF Urine WBC (0-5/HPF) /HPF Ur Epithelial Cells (NOT SEEN) /HPF Amorphous Sediment (NOT SEEN) /HPF Urine Bacteria (0-FEW/HPF) /HPF Urine Mucus (NOT SEEN) /LPF Urine Opiates Screen (NEGATIVE) Ur Oxycodone Screen (NEGATIVE) Urine Methadone Screen (NEGATIVE) Acetaminophen < 10 ug/mL Ur Barbiturates Screen (NEGATIVE) U Tricyclic Antidepress (NEGATIVE) Ur Phencyclidine Scrn (NEGATIVE) Ur Amphetamine Screen (NEGATIVE) U Methamphetamines Scrn (NEGATIVE) Urine MDMA Screen (NEGATIVE) U Benzodiazepines Scrn (NEGATIVE) Urine Cocaine Screen (NEGATIVE) U Marijuana (THC) Screen (NEGATIVE) Ethyl Alcohol < 5 mg/dL Ketones Positive 01/27/19 01/27/19 01/27/19 Range/Units 15:25 15:45 15:45 WBC (5.0-10.0) 10^3/uL RBC (4.2-5.4) 10^6/uL Hgb (12.0-16.0) g/dL Hct (37.0-47.0) % MCV (80-100) fL MCH (27.0-34.0) pg MCHC (33.0-35.0) g/dL Plt Count (150-450) 10^3/uL Neut % (Auto) (42.2-75.2) % Lymph % (Auto) (20.5-50.1) % [place] % (Auto) (2-8) % Eos % (Auto) (1.0-3.0) % Baso % (Auto) (0.0-1.0) % VBG pH (7.31-7.41) VBG pCO2 (41-51) mmHg VBG pO2 (35-42) mmHg VBG HCO3 (19-25) mmol/l VBG O2 Saturation (60-80) % VBG Base Excess ((-2)-(+3)) mmol/l O2 Delivery Device Sodium (135-145) mmol/L Potassium (3.6-5.0) mmol/L Chloride (101-111) mmol/L Carbon Dioxide (21.0-31.0) mmol/L Anion Gap BUN (7-18) mg/dL Creatinine (0.6-1.3) mg/dL Est Cr Clr Drug Dosing mL/min Estimated GFR (MDRD) BUN/Creatinine Ratio Glucose (74-105) mg/dL POC Glucose (70-105) mg/dl Lactic Acid 2.0 (0.5-2.2) mmol/L Calcium (8.4-10.2) mg/dl Magnesium (1.8-2.5) mg/dL Total Bilirubin (0.2-1.0) mg/dL AST (10-42) IU/L ALT (10-60) IU/L Alkaline Phosphatase (42-121) IU/L Ammonia (11-35) umol/L Total Protein (6.7-8.2) g/dl Albumin (3.2-5.5) g/dl Globulin Albumin/Globulin Ratio Amylase (28-100) U/L Lipase (22-51) U/L Urine Color Yellow (YELLOW) Urine Appearance Cloudy (CLEAR) Urine pH 5.5 (5.0-9.0) Ur Specific [place] 1.025 (1.005-1.030) Urine Protein >=300 H (NEGATIVE) Urine Glucose (UA) 500 H (NEGATIVE) Urine Ketones >=160 H (NEGATIVE) Urine Occult Blood Small H (NEGATIVE) Urine Nitrite Negative (NEGATIVE) Urine Bilirubin Negative (NEGATIVE) Urine Urobilinogen 0.2 (0.2-1.0) mg/dL Ur Leukocyte Esterase Negative (NEGATIVE) Urine RBC 5-10 H /HPF Urine WBC 0-5 (0-5/HPF) /HPF Ur Epithelial Cells Few (NOT SEEN) /HPF Amorphous Sediment Many H (NOT SEEN) /HPF Urine Bacteria Rare (0-FEW/HPF) /HPF Urine Mucus Few H (NOT SEEN) /LPF Urine Opiates Screen Negative (NEGATIVE) Ur Oxycodone Screen Positive H (NEGATIVE) Urine Methadone Screen Negative (NEGATIVE) Acetaminophen ug/mL Ur Barbiturates Screen Negative (NEGATIVE) U Tricyclic Antidepress Negative (NEGATIVE) Ur Phencyclidine Scrn Negative (NEGATIVE) Ur Amphetamine Screen Negative (NEGATIVE) U Methamphetamines Scrn Negative (NEGATIVE) Urine MDMA Screen Negative (NEGATIVE) U Benzodiazepines Scrn Negative (NEGATIVE) Urine Cocaine Screen Negative (NEGATIVE) U Marijuana (THC) Screen Positive H (NEGATIVE) Ethyl Alcohol mg/dL Ketones 01/27/19 01/27/19 01/27/19 Range/Units 16:06 17:34 18:18 WBC (5.0-10.0) 10^3/uL RBC (4.2-5.4) 10^6/uL Hgb (12.0-16.0) g/dL Hct (37.0-47.0) % MCV (80-100) fL MCH (27.0-34.0) pg MCHC (33.0-35.0) g/dL Plt Count (150-450) 10^3/uL Neut % (Auto) (42.2-75.2) % Lymph % (Auto) (20.5-50.1) % [place] % (Auto) (2-8) % Eos % (Auto) (1.0-3.0) % Baso % (Auto) (0.0-1.0) % VBG pH 7.33 (7.31-7.41) VBG pCO2 40 L (41-51) mmHg VBG pO2 48 H (35-42) mmHg VBG HCO3 21 (19-25) mmol/l VBG O2 Saturation 80.8 H (60-80) % VBG Base Excess -4.5 L ((-2)-(+3)) mmol/l O2 Delivery Device Room air Sodium (135-145) mmol/L Potassium (3.6-5.0) mmol/L Chloride (101-111) mmol/L Carbon Dioxide (21.0-31.0) mmol/L Anion Gap BUN (7-18) mg/dL Creatinine (0.6-1.3) mg/dL Est Cr Clr Drug Dosing mL/min Estimated GFR (MDRD) BUN/Creatinine Ratio Glucose (74-105) mg/dL POC Glucose 292 H (70-105) mg/dl Lactic Acid (0.5-2.2) mmol/L Calcium (8.4-10.2) mg/dl Magnesium (1.8-2.5) mg/dL Total Bilirubin (0.2-1.0) mg/dL AST (10-42) IU/L ALT (10-60) IU/L Alkaline Phosphatase (42-121) IU/L Ammonia 20 (11-35) umol/L Total Protein (6.7-8.2) g/dl Albumin (3.2-5.5) g/dl Globulin Albumin/Globulin Ratio Amylase (28-100) U/L Lipase (22-51) U/L Urine Color (YELLOW) Urine Appearance (CLEAR) Urine pH (5.0-9.0) Ur Specific [place] (1.005-1.030) Urine Protein (NEGATIVE) Urine Glucose (UA) (NEGATIVE) Urine Ketones (NEGATIVE) Urine Occult Blood (NEGATIVE) Urine Nitrite (NEGATIVE) Urine Bilirubin (NEGATIVE) Urine Urobilinogen (0.2-1.0) mg/dL Ur Leukocyte Esterase (NEGATIVE) Urine RBC /HPF Urine WBC (0-5/HPF) /HPF Ur Epithelial Cells (NOT SEEN) /HPF Amorphous Sediment (NOT SEEN) /HPF Urine Bacteria (0-FEW/HPF) /HPF Urine Mucus (NOT SEEN) /LPF Urine Opiates Screen (NEGATIVE) Ur Oxycodone Screen (NEGATIVE) Urine Methadone Screen (NEGATIVE) Acetaminophen ug/mL Ur Barbiturates Screen (NEGATIVE) U Tricyclic Antidepress (NEGATIVE) Ur Phencyclidine Scrn (NEGATIVE) Ur Amphetamine Screen (NEGATIVE) U Methamphetamines Scrn (NEGATIVE) Urine MDMA Screen (NEGATIVE) U Benzodiazepines Scrn (NEGATIVE) Urine Cocaine Screen (NEGATIVE) U Marijuana (THC) Screen (NEGATIVE) Ethyl Alcohol mg/dL Ketones 01/27/19 01/27/19 01/27/19 Range/Units 19:18 20:00 20:00 WBC 19.7 H (5.0-10.0) 10^3/uL RBC 5.79 H (4.2-5.4) 10^6/uL Hgb 16.3 H D (12.0-16.0) g/dL Hct 46.6 (37.0-47.0) % MCV 80.5 (80-100) fL MCH 28.2 (27.0-34.0) pg MCHC 35.0 (33.0-35.0) g/dL Plt Count 325 (150-450) 10^3/uL Neut % (Auto) 89.3 H (42.2-75.2) % Lymph % (Auto) 6.6 L (20.5-50.1) % [place] % (Auto) 3.9 (2-8) % Eos % (Auto) 0.0 L (1.0-3.0) % Baso % (Auto) 0.2 (0.0-1.0) % VBG pH (7.31-7.41) VBG pCO2 (41-51) mmHg VBG pO2 (35-42) mmHg VBG HCO3 (19-25) mmol/l VBG O2 Saturation (60-80) % VBG Base Excess ((-2)-(+3)) mmol/l O2 Delivery Device Sodium 139 (135-145) mmol/L Potassium 3.4 L (3.6-5.0) mmol/L Chloride 103 (101-111) mmol/L Carbon Dioxide 21.0 (21.0-31.0) mmol/L Anion Gap 18.4 BUN 18 (7-18) mg/dL Creatinine 0.7 (0.6-1.3) mg/dL Est Cr Clr Drug Dosing 84.56 mL/min Estimated GFR (MDRD) > 60 BUN/Creatinine Ratio Glucose 258 H (74-105) mg/dL POC Glucose 242 H (70-105) mg/dl Lactic Acid (0.5-2.2) mmol/L Calcium 8.4 (8.4-10.2) mg/dl Magnesium (1.8-2.5) mg/dL Total Bilirubin (0.2-1.0) mg/dL AST (10-42) IU/L ALT (10-60) IU/L Alkaline Phosphatase (42-121) IU/L Ammonia (11-35) umol/L Total Protein (6.7-8.2) g/dl Albumin (3.2-5.5) g/dl Globulin Albumin/Globulin Ratio Amylase (28-100) U/L Lipase (22-51) U/L Urine Color (YELLOW) Urine Appearance (CLEAR) Urine pH (5.0-9.0) Ur Specific [place] (1.005-1.030) Urine Protein (NEGATIVE) Urine Glucose (UA) (NEGATIVE) Urine Ketones (NEGATIVE) Urine Occult Blood (NEGATIVE) Urine Nitrite (NEGATIVE) Urine Bilirubin (NEGATIVE) Urine Urobilinogen (0.2-1.0) mg/dL Ur Leukocyte Esterase (NEGATIVE) Urine RBC /HPF Urine WBC (0-5/HPF) /HPF Ur Epithelial Cells (NOT SEEN) /HPF Amorphous Sediment (NOT SEEN) /HPF Urine Bacteria (0-FEW/HPF) /HPF Urine Mucus (NOT SEEN) /LPF Urine Opiates Screen (NEGATIVE) Ur Oxycodone Screen (NEGATIVE) Urine Methadone Screen (NEGATIVE) Acetaminophen ug/mL Ur Barbiturates Screen (NEGATIVE) U Tricyclic Antidepress (NEGATIVE) Ur Phencyclidine Scrn (NEGATIVE) Ur Amphetamine Screen (NEGATIVE) U Methamphetamines Scrn (NEGATIVE) Urine MDMA Screen (NEGATIVE) U Benzodiazepines Scrn (NEGATIVE) Urine Cocaine Screen (NEGATIVE) U Marijuana (THC) Screen (NEGATIVE) Ethyl Alcohol mg/dL Ketones 01/27/19 01/27/19 01/27/19 Range/Units 20:29 21:26 22:00 WBC (5.0-10.0) 10^3/uL RBC (4.2-5.4) 10^6/uL Hgb (12.0-16.0) g/dL Hct (37.0-47.0) % MCV (80-100) fL MCH (27.0-34.0) pg MCHC (33.0-35.0) g/dL Plt Count (150-450) 10^3/uL Neut % (Auto) (42.2-75.2) % Lymph % (Auto) (20.5-50.1) % [place] % (Auto) (2-8) % Eos % (Auto) (1.0-3.0) % Baso % (Auto) (0.0-1.0) % VBG pH 7.37 (7.31-7.41) VBG pCO2 35 L (41-51) mmHg VBG pO2 46 H (35-42) mmHg VBG HCO3 20 (19-25) mmol/l VBG O2 Saturation 83.2 H (60-80) % VBG Base Excess -4.6 L ((-2)-(+3)) mmol/l O2 Delivery Device Room air Sodium (135-145) mmol/L Potassium (3.6-5.0) mmol/L Chloride (101-111) mmol/L Carbon Dioxide (21.0-31.0) mmol/L Anion Gap BUN (7-18) mg/dL Creatinine (0.6-1.3) mg/dL Est Cr Clr Drug Dosing mL/min Estimated GFR (MDRD) BUN/Creatinine Ratio Glucose (74-105) mg/dL POC Glucose 241 H 232 H (70-105) mg/dl Lactic Acid (0.5-2.2) mmol/L Calcium (8.4-10.2) mg/dl Magnesium (1.8-2.5) mg/dL Total Bilirubin (0.2-1.0) mg/dL AST (10-42) IU/L ALT (10-60) IU/L Alkaline Phosphatase (42-121) IU/L Ammonia (11-35) umol/L Total Protein (6.7-8.2) g/dl Albumin (3.2-5.5) g/dl Globulin Albumin/Globulin Ratio Amylase (28-100) U/L Lipase (22-51) U/L Urine Color (YELLOW) Urine Appearance (CLEAR) Urine pH (5.0-9.0) Ur Specific [place] (1.005-1.030) Urine Protein (NEGATIVE) Urine Glucose (UA) (NEGATIVE) Urine Ketones (NEGATIVE) Urine Occult Blood (NEGATIVE) Urine Nitrite (NEGATIVE) Urine Bilirubin (NEGATIVE) Urine Urobilinogen (0.2-1.0) mg/dL Ur Leukocyte Esterase (NEGATIVE) Urine RBC /HPF Urine WBC (0-5/HPF) /HPF Ur Epithelial Cells (NOT SEEN) /HPF Amorphous Sediment (NOT SEEN) /HPF Urine Bacteria (0-FEW/HPF) /HPF Urine Mucus (NOT SEEN) /LPF Urine Opiates Screen (NEGATIVE) Ur Oxycodone Screen (NEGATIVE) Urine Methadone Screen (NEGATIVE) Acetaminophen ug/mL Ur Barbiturates Screen (NEGATIVE) U Tricyclic Antidepress (NEGATIVE) Ur Phencyclidine Scrn (NEGATIVE) Ur Amphetamine Screen (NEGATIVE) U Methamphetamines Scrn (NEGATIVE) Urine MDMA Screen (NEGATIVE) U Benzodiazepines Scrn (NEGATIVE) Urine Cocaine Screen (NEGATIVE) U Marijuana (THC) Screen (NEGATIVE) Ethyl Alcohol mg/dL Ketones 01/27/19 01/27/19 01/27/19 Range/Units 22:48 23:26 23:41 WBC (5.0-10.0) 10^3/uL RBC (4.2-5.4) 10^6/uL Hgb (12.0-16.0) g/dL Hct (37.0-47.0) % MCV (80-100) fL MCH (27.0-34.0) pg MCHC (33.0-35.0) g/dL Plt Count (150-450) 10^3/uL Neut % (Auto) (42.2-75.2) % Lymph % (Auto) (20.5-50.1) % [place] % (Auto) (2-8) % Eos % (Auto) (1.0-3.0) % Baso % (Auto) (0.0-1.0) % VBG pH (7.31-7.41) VBG pCO2 (41-51) mmHg VBG pO2 (35-42) mmHg VBG HCO3 (19-25) mmol/l VBG O2 Saturation (60-80) % VBG Base Excess ((-2)-(+3)) mmol/l O2 Delivery Device Sodium 139 (135-145) mmol/L Potassium 2.9 L (3.6-5.0) mmol/L Chloride 107 (101-111) mmol/L Carbon Dioxide 20.0 L (21.0-31.0) mmol/L Anion Gap 14.9 BUN 17 (7-18) mg/dL Creatinine 0.7 (0.6-1.3) mg/dL Est Cr Clr Drug Dosing 91.32 mL/min Estimated GFR (MDRD) > 60 BUN/Creatinine Ratio Glucose 190 H (74-105) mg/dL POC Glucose 191 H 169 H (70-105) mg/dl Lactic Acid (0.5-2.2) mmol/L Calcium 8.5 (8.4-10.2) mg/dl Magnesium (1.8-2.5) mg/dL Total Bilirubin (0.2-1.0) mg/dL AST (10-42) IU/L ALT (10-60) IU/L Alkaline Phosphatase (42-121) IU/L Ammonia (11-35) umol/L Total Protein (6.7-8.2) g/dl Albumin (3.2-5.5) g/dl Globulin Albumin/Globulin Ratio Amylase (28-100) U/L Lipase (22-51) U/L Urine Color (YELLOW) Urine Appearance (CLEAR) Urine pH (5.0-9.0) Ur Specific [place] (1.005-1.030) Urine Protein (NEGATIVE) Urine Glucose (UA) (NEGATIVE) Urine Ketones (NEGATIVE) Urine Occult Blood (NEGATIVE) Urine Nitrite (NEGATIVE) Urine Bilirubin (NEGATIVE) Urine Urobilinogen (0.2-1.0) mg/dL Ur Leukocyte Esterase (NEGATIVE) Urine RBC /HPF Urine WBC (0-5/HPF) /HPF Ur Epithelial Cells (NOT SEEN) /HPF Amorphous Sediment (NOT SEEN) /HPF Urine Bacteria (0-FEW/HPF) /HPF Urine Mucus (NOT SEEN) /LPF Urine Opiates Screen (NEGATIVE) Ur Oxycodone Screen (NEGATIVE) Urine Methadone Screen (NEGATIVE) Acetaminophen ug/mL Ur Barbiturates Screen (NEGATIVE) U Tricyclic Antidepress (NEGATIVE) Ur Phencyclidine Scrn (NEGATIVE) Ur Amphetamine Screen (NEGATIVE) U Methamphetamines Scrn (NEGATIVE) Urine MDMA Screen (NEGATIVE) U Benzodiazepines Scrn (NEGATIVE) Urine Cocaine Screen (NEGATIVE) U Marijuana (THC) Screen (NEGATIVE) Ethyl Alcohol mg/dL Ketones 01/28/19 01/28/19 01/28/19 Range/Units 04:00 06:10 07:33 WBC 19.7 H (5.0-10.0) 10^3/uL RBC 5.58 H (4.2-5.4) 10^6/uL Hgb 15.7 (12.0-16.0) g/dL Hct 45.0 (37.0-47.0) % MCV 80.6 (80-100) fL MCH 28.1 (27.0-34.0) pg MCHC 34.9 (33.0-35.0) g/dL Plt Count 326 (150-450) 10^3/uL Neut % (Auto) 89.2 H (42.2-75.2) % Lymph % (Auto) 7.0 L (20.5-50.1) % [place] % (Auto) 3.7 (2-8) % Eos % (Auto) 0.0 L (1.0-3.0) % Baso % (Auto) 0.1 (0.0-1.0) % VBG pH (7.31-7.41) VBG pCO2 (41-51) mmHg VBG pO2 (35-42) mmHg VBG HCO3 (19-25) mmol/l VBG O2 Saturation (60-80) % VBG Base Excess ((-2)-(+3)) mmol/l O2 Delivery Device Sodium 138 (135-145) mmol/L Potassium 3.2 L (3.6-5.0) mmol/L Chloride 104 (101-111) mmol/L Carbon Dioxide 19.0 L (21.0-31.0) mmol/L Anion Gap 18.2 BUN 16 (7-18) mg/dL Creatinine 0.7 (0.6-1.3) mg/dL Est Cr Clr Drug Dosing 91.32 mL/min Estimated GFR (MDRD) > 60 BUN/Creatinine Ratio Glucose 280 H (74-105) mg/dL POC Glucose 269 H (70-105) mg/dl Lactic Acid (0.5-2.2) mmol/L Calcium 8.5 (8.4-10.2) mg/dl Magnesium (1.8-2.5) mg/dL Total Bilirubin (0.2-1.0) mg/dL AST (10-42) IU/L ALT (10-60) IU/L Alkaline Phosphatase (42-121) IU/L Ammonia (11-35) umol/L Total Protein (6.7-8.2) g/dl Albumin (3.2-5.5) g/dl Globulin Albumin/Globulin Ratio Amylase (28-100) U/L Lipase (22-51) U/L Urine Color (YELLOW) Urine Appearance (CLEAR) Urine pH (5.0-9.0) Ur Specific [place] (1.005-1.030) Urine Protein (NEGATIVE) Urine Glucose (UA) (NEGATIVE) Urine Ketones (NEGATIVE) Urine Occult Blood (NEGATIVE) Urine Nitrite (NEGATIVE) Urine Bilirubin (NEGATIVE) Urine Urobilinogen (0.2-1.0) mg/dL Ur Leukocyte Esterase (NEGATIVE) Urine RBC /HPF Urine WBC (0-5/HPF) /HPF Ur Epithelial Cells (NOT SEEN) /HPF Amorphous Sediment (NOT SEEN) /HPF Urine Bacteria (0-FEW/HPF) /HPF Urine Mucus (NOT SEEN) /LPF Urine Opiates Screen (NEGATIVE) Ur Oxycodone Screen (NEGATIVE) Urine Methadone Screen (NEGATIVE) Acetaminophen ug/mL Ur Barbiturates Screen (NEGATIVE) U Tricyclic Antidepress (NEGATIVE) Ur Phencyclidine Scrn (NEGATIVE) Ur Amphetamine Screen (NEGATIVE) U Methamphetamines Scrn (NEGATIVE) Urine MDMA Screen (NEGATIVE) U Benzodiazepines Scrn (NEGATIVE) Urine Cocaine Screen (NEGATIVE) U Marijuana (THC) Screen (NEGATIVE) Ethyl Alcohol mg/dL Ketones Manuel Results Last 24 Hours: Microbiology 01/27/19 15:25 Anaerobic Blood Culture - Final Blood Med Orders - Current: Current Medications Acetaminophen (Tylenol) 650 mg PO Q4H PRN PRN Reason: Pain (Mild 1-3)/fever Hydrocodone Bitart/Acetaminophen ([place] 325-10 Mg) 1 tab PO Q4H PRN PRN Reason: Pain (moderate 4-6) Last Admin: 01/28/19 08:24 Dose: 1 tab Amlodipine Besylate (Norvasc) 10 mg PO DAILY [facility] Last Admin: 01/28/19 09:53 Dose: 10 mg Atenolol (Tenormin) 50 mg PO DAILY [facility] Last Admin: 01/28/19 09:54 Dose: 50 mg Docusate Sodium (Colace) 100 mg PO BID PRN PRN Reason: Constipation Duloxetine HCl (Cymbalta) 30 mg PO BID [facility] Last Admin: 01/28/19 09:53 Dose: 30 mg Fentanyl (Sublimaze) 25 mcg IVPUSH Q2H PRN PRN Reason: Pain Last Admin: 01/28/19 05:53 Dose: 25 mcg Heparin Sodium (Porcine) (Heparin Sodium) 5,000 units SUBCUT Q12HR [facility] Last Admin: 01/28/19 09:55 Dose: 5,000 units Hydralazine HCl (Apresoline) 10 mg IVPUSH Q6H PRN PRN Reason: for Systolic above 170 Piperacillin Sod/Tazobactam (Sod 4.5 gm/ Sodium Chloride) 100 mls @ 200 mls/hr IV Q6HR [facility] Last Admin: 01/28/19 05:58 Dose: 200 mls/hr Sodium Chloride (Normal Saline) 1,000 mls @ 100 mls/hr IV ASDIRECTED [facility] Last Admin: 01/28/19 00:19 Dose: 100 mls/hr Potassium Chloride 10 meq/ (Premix) 100 mls @ 100 mls/hr IV Q2H [facility] Stop: 01/28/19 14:14 Last Admin: 01/28/19 10:00 Dose: 100 mls/hr Insulin Human Regular 100 unit (/ Sodium Chloride) 100 mls @ 5.76 mls/hr IV TITRATE NGUYEN; Protocol Magnesium Sulfate 2 gm/ Premix 50 mls @ 25 mls/hr IV ONETIME ONE Stop: 01/28/19 11:51 Insulin Glargine (Lantus) 20 unit SUBCUT BEDTIME [facility] Insulin Human Lispro (Humalog) 0 unit SUBCUT WITHMEALSANDBED [facility]; Protocol Last Admin: 01/28/19 09:48 Dose: Not Given Lisinopril (Prinivil) 20 mg PO DAILY [facility] Last Admin: 01/28/19 09:53 Dose: 20 mg Magnesium Hydroxide (Milk Of Magnesia) 30 ml PO Q12H PRN PRN Reason: Constipation Metoclopramide HCl (Reglan) 10 mg IVPUSH Q8H PRN PRN Reason: Nausea Last Admin: 01/28/19 00:43 Dose: 10 mg Nicotine (Habitrol) 21 mg TRDERM DAILY [facility] Last Admin: 01/28/19 09:54 Dose: 21 mg Ondansetron HCl (Zofran) 4 mg IVPUSH Q6H PRN PRN Reason: Nausea/Vomiting Last Admin: 01/28/19 05:53 Dose: 4 mg Pantoprazole Sodium (Protonix Iv) 40 mg IVPUSH BEDTIME [facility] Last Admin: 01/27/19 20:18 Dose: 40 mg Pregabalin (Lyrica) 25 mg PO TID [facility] Simvastatin (Zocor) 10 mg PO BEDTIME [facility] Last Admin: 01/27/19 22:56 Dose: Not Given Discontinued Medications Hydralazine HCl (Apresoline) 10 mg IVPUSH ONETIME ONE Stop: 01/27/19 19:57 Last Admin: 01/27/19 20:19 Dose: 10 mg Sodium Chloride (Normal Saline) 1,000 mls @ 999 mls/hr IV .BOLUS ONE Stop: 01/27/19 17:39 Last Admin: 01/27/19 19:23 Dose: 999 mls/hr Piperacillin Sod/Tazobactam (Sod 3.375 gm/ Sodium Chloride) 100 mls @ 200 mls/ hr IV ONETIME ONE Stop: 01/27/19 18:37 Last Admin: 01/27/19 18:28 Dose: 200 mls/hr Dextrose/Sodium Chloride (Dextrose 5%-Normal Saline) 1,000 mls @ 100 mls/hr IV ASDIRECTED [facility] Stop: 01/28/19 00:01 Last Admin: 01/27/19 20:27 Dose: 100 mls/hr Insulin Human Regular 100 unit (/ Sodium Chloride) 100 mls @ 5.76 mls/hr IV TITRATE [facility]; Protocol Last Titration: 01/27/19 23:59 Dose: 0 units/kg/hr, 0 mls/hr Insulin Glargine (Lantus) 10 unit SUBCUT BEDTIME [facility] Last Admin: 01/27/19 23:03 Dose: 10 units Insulin Human Regular (Humulin R) 10 unit IV ONETIME ONE Stop: 01/27/19 18:08 Last Admin: 01/27/19 18:28 Dose: 10 units Iopamidol (Isovue-300 (61%)) 75 ml IVPUSH ONETIME ONE Stop: 01/27/19 16:41 Last Admin: 01/27/19 16:44 Dose: 75 ml Metoclopramide HCl (Reglan) 10 mg IVPUSH ONETIME ONE Stop: 01/27/19 16:38 Last Admin: 01/27/19 16:46 Dose: 10 mg - Exam Quality Assessment: DVT Prophylaxis General: Alert, Oriented HEENT: Pupils Equal, Pupils Reactive, EOMI, Mucous Membr. Moist/[place] Neck: Supple Lungs: Clear to Auscultation, Normal Respiratory Effort Cardiovascular: Regular Rate, Regular Rhythm GI/Abdominal Exam: Normal Bowel Sounds, Soft, Non-Tender, No Organomegaly, No Distention, No Abnormal Bruit, No Mass, Pelvis Stable (Female) Exam: Normal External Exam, Normal Speculum Exam, Normal Bimanual Exam Back Exam: Normal Inspection, Full Range of Motion Extremities: Normal Inspection, Normal Range of Motion, Non-Tender, No Pedal Edema, Normal Capillary Refill Skin: Warm, Dry, Intact Wound/Incisions: Healing Well Neurological: No New Focal Deficit Psy/Mental Status: Alert, Normal Affect, Normal Mood - Problem List & Annotations (1) Gastritis SNOMED Code(s): 7185546 Code(s): K29.70 - GASTRITIS, UNSPECIFIED, WITHOUT BLEEDING Status: Acute Current Visit: Yes (2) Abdominal pain SNOMED Code(s): 49632364 Code(s): R10.9 - UNSPECIFIED ABDOMINAL PAIN Status: Acute Current Visit: No Qualifiers: Abdominal location: left upper quadrant Qualified Code(s): R10.12 - Left upper quadrant pain (3) Accelerated hypertension SNOMED Code(s): 95728753 Code(s): I10 - ESSENTIAL (PRIMARY) HYPERTENSION Status: Acute Current Visit: No (4) DKA (diabetic ketoacidoses) SNOMED Code(s): 577674076, 427407888 Code(s): E13.10 - OTH DIABETES MELLITUS WITH KETOACIDOSIS WITHOUT COMA Status: Acute Current Visit: No Qualifiers: Diabetes mellitus type: type 2 Diabetes mellitus complication detail: without coma Qualified Code(s): E11.10 - Type 2 diabetes mellitus with ketoacidosis without coma (5) DKA, type 2 SNOMED Code(s): 605779194, 795596620 Code(s): E11.10 - TYPE 2 DIABETES MELLITUS WITH KETOACIDOSIS WITHOUT COMA Status: Acute Current Visit: No Qualifiers: Diabetes mellitus penitentiary insulin use: with penitentiary use Diabetes mellitus complication detail: without coma Qualified Code(s): E11.10 - Type 2 diabetes mellitus with ketoacidosis without coma; Z79.4 - [facility] (current) use of insulin (6) DKA (diabetic ketoacidoses) SNOMED Code(s): 467095940, 278844183 Code(s): E11.10 - TYPE 2 DIABETES MELLITUS WITH KETOACIDOSIS WITHOUT COMA Status: Acute Current Visit: Yes (7) Diverticulosis of sigmoid colon SNOMED Code(s): 866107784 Code(s): K57.30 - DVRTCLOS OF LG INT W/O PERFORATION OR ABSCESS W/O BLEEDING Status: Acute Current Visit: No (8) Epigastric pain SNOMED Code(s): 93420502 Code(s): R10.13 - EPIGASTRIC PAIN Status: Acute Priority: Medium Current Visit: No (9) Gastroenteritis SNOMED Code(s): 53522879 Code(s): K52.9 - NONINFECTIVE GASTROENTERITIS AND COLITIS, UNSPECIFIED Status: Acute Current Visit: No - Problem List Review Problem List Initiated/Reviewed/Updated: Yes - My Orders Last 24 Hours: My Active Orders 01/27/19 19:28 Blood Glucose Check, Bedside [RC] QIDACANDBED Cardiac Monitoring [RC] CONTINUOUS Intake and Output [RC] QSHIFT Notify Provider Vital Signs [RC] ASDIRECTED Oxygen Therapy [RC] PRN Up With Assistance [RC] ASDIRECTED VTE/DVT Education [RC] PER UNIT ROUTINE Vital Signs [RC] 04,08,12,16,20,00 Docusate Sodium [Colace] 100 mg PO BID PRN Magnesium Hydroxide [Milk of Magnesia] 30 ml PO Q12H PRN Ondansetron [Zofran] 4 mg IVPUSH Q6H PRN Resuscitation Status Routine 01/27/19 19:36 fentaNYL [Sublimaze] 25 mcg IVPUSH Q2H PRN 01/27/19 20:35 hydrALAZINE [Apresoline] 10 mg IVPUSH Q6H PRN 01/27/19 20:36 Acetaminophen [Tylenol] 650 mg PO Q4H PRN Acetaminophen/HYDROcodone [[place] 325-10 MG] 1 tab PO Q4H PRN 01/27/19 20:37 CULTURE URINE [RM] Stat 01/27/19 21:00 DULoxetine [Cymbalta] 30 mg PO BID Heparin Sodium 5,000 units SUBCUT Q12HR Pantoprazole [ProTONIX IV] 40 mg IVPUSH BEDTIME 01/27/19 22:30 Simvastatin [Zocor] 10 mg PO BEDTIME 01/28/19 00:00 Piperacillin/Tazobactam [Zosyn] 4.5 gm Sodium Chloride 0.9% [Normal Saline] 100 ml IV Q6HR 01/28/19 00:15 Sodium Chloride 0.9% [Normal Saline] 1,000 ml IV ASDIRECTED 01/28/19 00:27 Metoclopramide [Reglan] 10 mg IVPUSH Q8H PRN 01/28/19 08:00 Insulin Lispro [HumaLOG] See Protocol SUBCUT WITHMEALSANDBED 01/28/19 09:00 Atenolol [Tenormin] 50 mg PO DAILY Lisinopril [Prinivil] 20 mg PO DAILY Nicotine [Habitrol] 21 mg TRDERM DAILY Pregabalin [Lyrica] 25 mg PO TID amLODIPine [Norvasc] 10 mg PO DAILY 01/28/19 09:15 Potassium Chloride [KCl 10 MEQ in Water 100 ML] 10 meq Premix Bag 1 bag IV Q2H 01/28/19 09:52 Magnesium Sulfate/Water [Magnesium Sulfate in Water Premix] 2 gm Premix Bag 1 bag IV ONETIME 01/28/19 10:00 Insulin Regular, Human [HumuLIN R] 100 unit Sodium Chloride 0.9% [Normal Saline] 99 ml IV TITRATE 01/28/19 14:00 BASIC METABOLIC PANEL,BMP [CHEM] Routine MAGNESIUM [CHEM] Routine PHOSPHORUS [CHEM] Routine 01/28/19 21:00 Insulin Glarg,Human.Rec.Analog [LantUS] 20 unit SUBCUT BEDTIME 01/28/19 Breakfast Clear Liquid Diet [DIET] - Plan Plan:: #Acute Gastritis/gastroenteritis -Improving -IVF -Zofran prn for n/v -IV pantoprazole -IV abx #Hyperglycemia due to uncontrolled Type 2 diabetes vs DKA -IVF -Insulin drip -DKA protocol -A1c #Probable sepsis -Etiology not clear most likely could be abdominal source -IVF -IV Zosyn -Follow cxs #Uncontrolled HTN -IV hydralazine -Continue home medications -Monitor BP closely #Hypokalemia -IV replacement #Weakness PT/OT #Substance abuse -Patient counseled on quitting #Code -Full
[2019-01-28 15:40] LABS: ANION GAP 13.4; CHLORIDE,CL 103 mmol/L (101-111); SODIUM,NA 135 mmol/L (135-145)
[2019-01-28] MEDS: Potassium Chloride 10 MEQ Tab.ER PO SCH ×2 (18:37→19:27)
[2019-01-28] MEDS ORDERED: Pregabalin 50 MG Cap PO ONE (20:40)
[2019-01-28] MEDS: Simvastatin 10 MG Tab PO SCH (20:44)
[2019-01-28] MEDS: NS + KCl 20mEq/L 1,000 ML IV SCH (20:47)
[2019-01-28] MEDS: Pantoprazole 40 MG Vial IVPUSH SCH (21:15)
[2019-01-28] MEDS: Insulin Glarg,Human.Rec.Analog 100 UNIT/ML ML SUBCUT SCH (21:17)
[2019-01-29] MEDS: Piperacillin/Tazobactam 4.5 GM in Sodium Chloride 0.9% 100 ML IV SCH ×4 (00:05→21:00)
[2019-01-29] MEDS: Metoclopramide 10 MG/2 ML SDV IVPUSH PRN ×3 (02:12→21:12)
[2019-01-29] MEDS: Acetaminophen/HYDROcodone 325-10 MG Tab PO PRN ×4 (02:12→21:11)
[2019-01-29 06:37] LABS: ANION GAP 11.5; CHLORIDE,CL 106 mmol/L (101-111); SODIUM,NA 135 mmol/L (135-145)
[2019-01-29] MEDS: Heparin Sodium 5,000 Units/ML Vial SUBCUT SCH ×2 (09:18→20:59)
[2019-01-29] MEDS: Ondansetron 4 MG/2 ML SDV IVPUSH PRN ×2 (09:18→16:58)
[2019-01-29] MEDS: Insulin Lispro 100 Units/ML 3 ML Vial SUBCUT SCH ×4 (09:19→21:13)
[2019-01-29] MEDS: Nicotine 21 MG/24 Hr Patch TRDERM SCH (09:19)
[2019-01-29] MEDS: NS + KCl 20mEq/L 1,000 ML IV SCH (09:28)
[2019-01-29] MEDS ORDERED: Calcium Chloride 10% 1 GM/10 ML Syringe IVPUSH ONE (09:40)
[2019-01-29] MEDS ORDERED: Phosphorus #1 250 MG Tab PO ONE (09:41)
[2019-01-29] MEDS ORDERED: Calcium Chloride 1 GM in Sodium Chloride 0.9% 100 ML IV ONE (10:00)
[2019-01-29] MEDS ORDERED: GI Cocktail Oral Solution 30 ML PO ONE (11:31)
--- NOTE | 2019-01-29 11:35 | PCM.PN ---
- General Info Date of Service: 01/29/19 Admission Dx/Problem (Free Text): Admission Diagnosis/Problem Admission Diagnosis/Problem Leukocytosis Subjective Update: Viviane is 48 y/o F with PMH of DM II who was brought to the ED with intractable nausea, vomiting an abdominal pain. She was admitted for acute gastritis vs DKA. Today patiet was see and examined. Continue to improve clinically. Still c/o epigastric pain. Had one episode of n/v last night. wbc is trending down. Functional Status: Reports: Pain Controlled - Review of Systems General: Reports: No Symptoms HEENT: Reports: No Symptoms Pulmonary: Reports: No Symptoms Cardiovascular: Reports: No Symptoms Gastrointestinal: Reports: No Symptoms Genitourinary: Reports: No Symptoms Musculoskeletal: Reports: No Symptoms Skin: Reports: No Symptoms Neurological: Reports: No Symptoms Psychiatric: Reports: No Symptoms - Patient Data Vitals - Most Recent: Last Vital Signs Temp 98.4 F 01/29/19 08:00 Pulse 81 01/29/19 08:00 Resp 18 01/29/19 08:00 BP 175/89 H 01/29/19 08:00 Pulse Ox 98 01/29/19 08:00 Weight - Most Recent: 127 lb I&O - Last 24 Hours: Intake & Output 01/28/19 01/29/19 01/29/19 22:59 06:59 14:59 Intake Total 250 628 Output Total 900 Balance 250 -272 Lab Results Last 24 Hours: Laboratory Results - last 24 hr 01/28/19 01/28/19 01/28/19 Range/Units 10:57 12:08 13:04 WBC (5.0-10.0) 10^3/uL RBC (4.2-5.4) 10^6/uL Hgb (12.0-16.0) g/dL Hct (37.0-47.0) % MCV (80-100) fL MCH (27.0-34.0) pg MCHC (33.0-35.0) g/dL Plt Count (150-450) 10^3/uL Neut % (Auto) (42.2-75.2) % Lymph % (Auto) (20.5-50.1) % [place] % (Auto) (2-8) % Eos % (Auto) (1.0-3.0) % Baso % (Auto) (0.0-1.0) % Sodium (135-145) mmol/L Potassium (3.6-5.0) mmol/L Chloride (101-111) mmol/L Carbon Dioxide (21.0-31.0) mmol/L Anion Gap BUN (7-18) mg/dL Creatinine (0.6-1.3) mg/dL Est Cr Clr Drug Dosing mL/min Estimated GFR (MDRD) Glucose (74-105) mg/dL POC Glucose 321 H 261 H 241 H (70-105) mg/dl Calcium (8.4-10.2) mg/dl Phosphorus (2.5-4.6) mg/dL Magnesium (1.8-2.5) mg/dL 01/28/19 01/28/19 01/28/19 Range/Units 14:01 15:05 16:29 WBC (5.0-10.0) 10^3/uL RBC (4.2-5.4) 10^6/uL Hgb (12.0-16.0) g/dL Hct (37.0-47.0) % MCV (80-100) fL MCH (27.0-34.0) pg MCHC (33.0-35.0) g/dL Plt Count (150-450) 10^3/uL Neut % (Auto) (42.2-75.2) % Lymph % (Auto) (20.5-50.1) % [place] % (Auto) (2-8) % Eos % (Auto) (1.0-3.0) % Baso % (Auto) (0.0-1.0) % Sodium 135 (135-145) mmol/L Potassium 3.4 L (3.6-5.0) mmol/L Chloride 103 (101-111) mmol/L Carbon Dioxide 22.0 (21.0-31.0) mmol/L Anion Gap 13.4 BUN 17 (7-18) mg/dL Creatinine 0.6 (0.6-1.3) mg/dL Est Cr Clr Drug Dosing 106.54 mL/min Estimated GFR (MDRD) > 60 Glucose 155 H (74-105) mg/dL POC Glucose 196 H 205 H (70-105) mg/dl Calcium 8.3 L (8.4-10.2) mg/dl Phosphorus 2.9 (2.5-4.6) mg/dL Magnesium 2.5 (1.8-2.5) mg/dL 01/29/19 01/29/19 Range/Units 05:48 05:48 WBC 16.7 H (5.0-10.0) 10^3/uL RBC 5.02 (4.2-5.4) 10^6/uL Hgb 14.2 D (12.0-16.0) g/dL Hct 41.2 (37.0-47.0) % MCV 82.1 (80-100) fL MCH 28.3 (27.0-34.0) pg MCHC 34.5 (33.0-35.0) g/dL Plt Count 296 (150-450) 10^3/uL Neut % (Auto) 77.1 H (42.2-75.2) % Lymph % (Auto) 15.9 L (20.5-50.1) % [place] % (Auto) 6.8 (2-8) % Eos % (Auto) 0.1 L (1.0-3.0) % Baso % (Auto) 0.1 (0.0-1.0) % Sodium 135 (135-145) mmol/L Potassium 3.5 L (3.6-5.0) mmol/L Chloride 106 (101-111) mmol/L Carbon Dioxide 21.0 (21.0-31.0) mmol/L Anion Gap 11.5 BUN 14 (7-18) mg/dL Creatinine 0.5 L (0.6-1.3) mg/dL Est Cr Clr Drug Dosing 127.85 mL/min Estimated GFR (MDRD) > 60 Glucose 182 H (74-105) mg/dL POC Glucose (70-105) mg/dl Calcium 7.7 L (8.4-10.2) mg/dl Phosphorus 2.3 L (2.5-4.6) mg/dL Magnesium 2.0 (1.8-2.5) mg/dL Manuel Results Last 24 Hours: Microbiology 01/27/19 15:25 Aerobic Blood Culture - Preliminary Blood Anaerobic Blood Culture - Final 01/27/19 20:37 Urine Culture - Preliminary Urine, Clean Catch NO GROWTH AFTER 2 DAYS 01/27/19 16:06 Aerobic Blood Culture - Preliminary Blood NO GROWTH AFTER 1 DAY Anaerobic Blood Culture - Preliminary NO GROWTH AFTER 1 DAY Med Orders - Current: Current Medications Acetaminophen (Tylenol) 650 mg PO Q4H PRN PRN Reason: Pain (Mild 1-3)/fever Hydrocodone Bitart/Acetaminophen ([place] 325-10 Mg) 1 tab PO Q4H PRN PRN Reason: Pain (moderate 4-6) Last Admin: 01/29/19 10:10 Dose: 1 tab Amlodipine Besylate (Norvasc) 10 mg PO DAILY [facility] Last Admin: 01/28/19 09:53 Dose: 10 mg Atenolol (Tenormin) 50 mg PO DAILY [facility] Last Admin: 01/28/19 09:54 Dose: 50 mg Docusate Sodium (Colace) 100 mg PO BID PRN PRN Reason: Constipation Duloxetine HCl (Cymbalta) 30 mg PO BID [facility] Last Admin: 01/28/19 20:44 Dose: 30 mg Fentanyl (Sublimaze) 25 mcg IVPUSH Q2H PRN PRN Reason: Pain Last Admin: 01/28/19 05:53 Dose: 25 mcg Heparin Sodium (Porcine) (Heparin Sodium) 5,000 units SUBCUT Q12HR [facility] Last Admin: 01/29/19 09:18 Dose: 5,000 units Hydralazine HCl (Apresoline) 10 mg IVPUSH Q6H PRN PRN Reason: for Systolic above 170 Piperacillin Sod/Tazobactam (Sod 4.5 gm/ Sodium Chloride) 100 mls @ 200 mls/hr IV Q6HR [facility] Last Admin: 01/29/19 05:43 Dose: 200 mls/hr Vancomycin HCl 1 gm/ Sodium (Chloride) 250 mls @ 166.667 mls/hr IV Q8H [facility] Last Admin: 01/29/19 01:59 Dose: 166.667 mls/hr Insulin Glargine (Lantus) 20 unit SUBCUT BEDTIME [facility] Last Admin: 01/28/19 21:17 Dose: 20 units Insulin Human Lispro (Humalog) 0 unit SUBCUT WITHMEALSANDBED [facility]; Protocol Last Admin: 01/29/19 09:19 Dose: Not Given Lisinopril (Prinivil) 20 mg PO DAILY [facility] Last Admin: 01/28/19 09:53 Dose: 20 mg Magnesium Hydroxide (Milk Of Magnesia) 30 ml PO Q12H PRN PRN Reason: Constipation Metoclopramide HCl (Reglan) 10 mg IVPUSH Q8H PRN PRN Reason: Nausea Last Admin: 01/29/19 02:12 Dose: 10 mg Nicotine (Habitrol) 21 mg TRDERM DAILY [facility] Last Admin: 01/29/19 09:19 Dose: 21 mg Ondansetron HCl (Zofran) 4 mg IVPUSH Q6H PRN PRN Reason: Nausea/Vomiting Last Admin: 01/29/19 09:18 Dose: 4 mg Pantoprazole Sodium (Protonix Iv) 40 mg IVPUSH BEDTIME [facility] Last Admin: 01/28/19 21:15 Dose: 40 mg Pantoprazole Sodium (Protonix Iv) 40 mg IVPUSH BID [facility] Pregabalin (Lyrica) 25 mg PO TID [facility] Simvastatin (Zocor) 10 mg PO BEDTIME [facility] Last Admin: 01/28/19 20:44 Dose: 10 mg Vancomycin HCl (Pharmacy To Dose - Vancomycin) 1 dose .XX ASDIRECTED [facility] Discontinued Medications Calcium Chloride (Calcium Chloride 10%) 1 gm IVPUSH ONETIME ONE Stop: 01/29/19 09:41 Last Admin: 01/29/19 10:18 Dose: Not Given Hydralazine HCl (Apresoline) 10 mg IVPUSH ONETIME ONE Stop: 01/27/19 19:57 Last Admin: 01/27/19 20:19 Dose: 10 mg Sodium Chloride (Normal Saline) 1,000 mls @ 999 mls/hr IV .BOLUS ONE Stop: 01/27/19 17:39 Last Admin: 01/27/19 19:23 Dose: 999 mls/hr Piperacillin Sod/Tazobactam (Sod 3.375 gm/ Sodium Chloride) 100 mls @ 200 mls/ hr IV ONETIME ONE Stop: 01/27/19 18:37 Last Admin: 01/27/19 18:28 Dose: 200 mls/hr Dextrose/Sodium Chloride (Dextrose 5%-Normal Saline) 1,000 mls @ 100 mls/hr IV ASDIRECTED [facility] Stop: 01/28/19 00:01 Last Admin: 01/27/19 20:27 Dose: 100 mls/hr Insulin Human Regular 100 unit (/ Sodium Chloride) 100 mls @ 5.76 mls/hr IV TITRATE [facility]; Protocol Last Titration: 01/27/19 23:59 Dose: 0 units/kg/hr, 0 mls/hr Sodium Chloride (Normal Saline) 1,000 mls @ 100 mls/hr IV ASDIRECTED [facility] Last Admin: 01/28/19 10:46 Dose: 100 mls/hr Potassium Chloride 10 meq/ (Premix) 100 mls @ 100 mls/hr IV Q2H [facility] Stop: 01/28/19 14:14 Last Admin: 01/28/19 13:04 Dose: 100 mls/hr Insulin Human Regular 100 unit (/ Sodium Chloride) 100 mls @ 5.76 mls/hr IV TITRATE [facility]; Protocol Last Titration: 01/28/19 13:05 Dose: 0.14 units/kg/hr, 8.6 mls/hr Magnesium Sulfate 2 gm/ Premix 50 mls @ 25 mls/hr IV ONETIME ONE Stop: 01/28/19 11:51 Last Admin: 01/28/19 10:35 Dose: 25 mls/hr Vancomycin HCl 1.25 gm/ Sodium (Chloride) 250 mls @ 166.667 mls/hr IV ONETIME ONE Stop: 01/28/19 19:44 Last Admin: 01/28/19 18:36 Dose: 166.667 mls/hr Potassium Chloride/Sodium Chloride (Normal Saline With 20 Meq Kcl) 1,000 mls @ 100 mls/hr IV ASDIRECTED [facility] Last Admin: 01/29/19 09:28 Dose: 100 mls/hr Calcium Chloride 1 gm/ Sodium (Chloride) 110 mls @ 110 mls/hr IV ONETIME ONE Stop: 01/29/19 10:59 Last Admin: 01/29/19 10:10 Dose: 110 mls/hr Insulin Glargine (Lantus) 10 unit SUBCUT BEDTIME [facility] Last Admin: 01/27/19 23:03 Dose: 10 units Insulin Human Regular (Humulin R) 10 unit IV ONETIME ONE Stop: 01/27/19 18:08 Last Admin: 01/27/19 18:28 Dose: 10 units Iopamidol (Isovue-300 (61%)) 75 ml IVPUSH ONETIME ONE Stop: 01/27/19 16:41 Last Admin: 01/27/19 16:44 Dose: 75 ml Metoclopramide HCl (Reglan) 10 mg IVPUSH ONETIME ONE Stop: 01/27/19 16:38 Last Admin: 01/27/19 16:46 Dose: 10 mg Potassium Chloride (Klor-Con 10) 40 meq PO BID [facility] Last Admin: 01/28/19 19:27 Dose: Not Given Pregabalin (Lyrica) 50 mg PO ONETIME ONE Stop: 01/28/19 20:41 Last Admin: 01/28/19 21:16 Dose: 50 mg Sodium Phosphate (Neutra-Phos) 250 mg PO TID ONE Stop: 01/29/19 09:42 - Exam Quality Assessment: DVT Prophylaxis General: Alert, Oriented HEENT: Pupils Equal, Pupils Reactive, EOMI, Mucous Membr. Moist/[place] Neck: Supple Lungs: Clear to Auscultation, Normal Respiratory Effort Cardiovascular: Regular Rate, Regular Rhythm GI/Abdominal Exam: Normal Bowel Sounds, Soft, Non-Tender, No Organomegaly, No Distention, No Abnormal Bruit, No Mass, Pelvis Stable (Female) Exam: Normal External Exam, Normal Speculum Exam, Normal Bimanual Exam Back Exam: Normal Inspection, Full Range of Motion Extremities: Normal Inspection, Normal Range of Motion, Non-Tender, No Pedal Edema, Normal Capillary Refill Skin: Warm, Dry, Intact Wound/Incisions: Healing Well Neurological: No New Focal Deficit Psy/Mental Status: Alert, Normal Affect, Normal Mood - Problem List & Annotations (1) Gastritis SNOMED Code(s): 0262656 Code(s): K29.70 - GASTRITIS, UNSPECIFIED, WITHOUT BLEEDING Status: Acute Current Visit: Yes (2) Abdominal pain SNOMED Code(s): 74001862 Code(s): R10.9 - UNSPECIFIED ABDOMINAL PAIN Status: Acute Current Visit: No Qualifiers: Abdominal location: left upper quadrant Qualified Code(s): R10.12 - Left upper quadrant pain (3) Accelerated hypertension SNOMED Code(s): 96237057 Code(s): I10 - ESSENTIAL (PRIMARY) HYPERTENSION Status: Acute Current Visit: No (4) DKA (diabetic ketoacidoses) SNOMED Code(s): 365713348, 408123994 Code(s): E13.10 - OTH DIABETES MELLITUS WITH KETOACIDOSIS WITHOUT COMA Status: Acute Current Visit: No Qualifiers: Diabetes mellitus type: type 2 Diabetes mellitus complication detail: without coma Qualified Code(s): E11.10 - Type 2 diabetes mellitus with ketoacidosis without coma (5) DKA, type 2 SNOMED Code(s): 652392601, 040232949 Code(s): E11.10 - TYPE 2 DIABETES MELLITUS WITH KETOACIDOSIS WITHOUT COMA Status: Acute Current Visit: No Qualifiers: 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 Diabetes mellitus complication detail: without coma Qualified Code(s): E11.10 - Type 2 diabetes mellitus with ketoacidosis without coma; 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 - Problem List Review Problem List Initiated/Reviewed/Updated: Yes - My Orders Last 24 Hours: My Active Orders 01/28/19 10:50 OT Evaluation and Treatment [CONS] Routine PT Evaluation and Treatment [CONS] Routine 01/28/19 17:45 Pharmacy to Dose - Vancomycin 1 dose .XX ASDIRECTED 01/28/19 21:00 Insulin Glarg,Human.Rec.Analog [LantUS] 20 unit SUBCUT BEDTIME 01/28/19 Dinner Consistent Carbohydrate Diet [DIET] 01/29/19 02:00 Vancomycin 1 gm Sodium Chloride 0.9% [Normal Saline] 250 ml IV Q8H 01/29/19 09:45 Pantoprazole [ProTONIX IV] 40 mg IVPUSH BID - Plan Plan:: #Acute Gastritis -Improving -Zofran prn for n/v -IV pantoprazole -GI cock tale #Hyperglycemia due to uncontrolled Type 2 diabetes vs early DKA -Resolved -SSI plus Lantus -Hypoglycemic protocol #Probable sepsis -Resolving -IV Zosyn -Cxs negative to date #Uncontrolled HTN -BP now improved -Continue current care -IV hydralazine #Substance abuse -Patient counseled on quitting #Diabetic diet #Code -Full
[2019-01-29] MEDS: Atenolol 50 MG Tab PO SCH (13:18)
[2019-01-29] MEDS: Lisinopril 5 MG Tab PO SCH (13:18)
[2019-01-29] MEDS: amLODIPine 5 MG Tab PO SCH (13:18)
[2019-01-29] MEDS: DULoxetine 30 MG Cap PO SCH ×2 (13:18→20:59)
[2019-01-29] MEDS: Pantoprazole 40 MG Vial IVPUSH SCH ×2 (13:19→20:59)
[2019-01-29] MEDS: Sodium Chloride 0.9% 10 ML Syringe FLUSH PRN (19:04)
[2019-01-29] MEDS: Simvastatin 10 MG Tab PO SCH (20:59)
[2019-01-29] MEDS: Insulin Glarg,Human.Rec.Analog 100 UNIT/ML ML SUBCUT SCH (21:12)
[2019-01-30] MEDS: Sodium Chloride 0.9% 10 ML Syringe FLUSH PRN ×2 (00:39→08:18)
[2019-01-30] MEDS: Piperacillin/Tazobactam 4.5 GM in Sodium Chloride 0.9% 100 ML IV SCH ×5 (00:42→23:41)
[2019-01-30] MEDS: Acetaminophen/HYDROcodone 325-10 MG Tab PO PRN ×5 (03:22→23:47)
[2019-01-30] MEDS: Ondansetron 4 MG/2 ML SDV IVPUSH PRN ×2 (03:23→12:16)
[2019-01-30] MEDS: Insulin Lispro 100 Units/ML 3 ML Vial SUBCUT SCH ×4 (08:12→21:25)
[2019-01-30] MEDS: Metoclopramide 10 MG/2 ML SDV IVPUSH PRN ×2 (08:14→16:35)
[2019-01-30] MEDS: Pantoprazole 40 MG Vial IVPUSH SCH ×2 (08:15→20:35)
[2019-01-30] MEDS: amLODIPine 5 MG Tab PO SCH (08:19)
[2019-01-30] MEDS: Lisinopril 5 MG Tab PO SCH (08:19)
[2019-01-30] MEDS: DULoxetine 30 MG Cap PO SCH ×2 (08:19→20:32)
[2019-01-30] MEDS: Atenolol 50 MG Tab PO SCH (08:19)
[2019-01-30] MEDS: Nicotine 21 MG/24 Hr Patch TRDERM SCH (08:22)
[2019-01-30] MEDS: Heparin Sodium 5,000 Units/ML Vial SUBCUT SCH ×2 (08:22→20:38)
--- NOTE | 2019-01-30 11:18 | PCM.PN ---
- General Info Date of Service: 01/30/19 Admission Dx/Problem (Free Text): Admission Diagnosis/Problem Admission Diagnosis/Problem Leukocytosis Subjective Update: Viviane is 48 y/o F with PMH of DM II who was brought to the ED with intractable nausea, vomiting an abdominal pain. She was admitted for acute gastritis vs DKA. Today patient was see and examined. Continue to improve clinically. Epigastric pain improved. N/v resolved. wbc now wnl. Blood cx pos for staph. Likely contamination. Vitals stable. No fever or chills. Says she feels very weak. Functional Status: Reports: Pain Controlled - Review of Systems General: Reports: No Symptoms HEENT: Reports: No Symptoms Pulmonary: Reports: No Symptoms Cardiovascular: Reports: No Symptoms Gastrointestinal: Reports: No Symptoms Genitourinary: Reports: No Symptoms Musculoskeletal: Reports: No Symptoms Skin: Reports: No Symptoms Neurological: Reports: No Symptoms Psychiatric: Reports: No Symptoms - Patient Data Vitals - Most Recent: Last Vital Signs Temp 98.4 F 01/30/19 08:00 Pulse 71 01/30/19 08:19 Resp 18 01/30/19 08:00 BP 137/85 01/30/19 09:00 Pulse Ox 99 01/30/19 08:00 Weight - Most Recent: 127 lb I&O - Last 24 Hours: Intake & Output 01/29/19 01/30/19 01/30/19 22:59 06:59 14:59 Intake Total 200 Output Total 1000 Balance -800 Lab Results Last 24 Hours: Laboratory Results - last 24 hr 01/28/19 01/29/19 01/29/19 Range/Units 20:55 00:01 08:01 WBC (5.0-10.0) 10^3/uL RBC (4.2-5.4) 10^6/uL Hgb (12.0-16.0) g/dL Hct (37.0-47.0) % MCV (80-100) fL MCH (27.0-34.0) pg MCHC (33.0-35.0) g/dL Plt Count (150-450) 10^3/uL POC Glucose 230 H 164 H 154 H (70-105) mg/dl Vancomycin Trough (10-15) ug/ml 01/29/19 01/29/19 01/29/19 Range/Units 11:30 16:58 21:12 WBC (5.0-10.0) 10^3/uL RBC (4.2-5.4) 10^6/uL Hgb (12.0-16.0) g/dL Hct (37.0-47.0) % MCV (80-100) fL MCH (27.0-34.0) pg MCHC (33.0-35.0) g/dL Plt Count (150-450) 10^3/uL POC Glucose 159 H 160 H 156 H (70-105) mg/dl Vancomycin Trough (10-15) ug/ml 01/30/19 01/30/19 01/30/19 Range/Units 07:49 09:35 09:35 WBC 8.3 (5.0-10.0) 10^3/uL RBC 4.80 (4.2-5.4) 10^6/uL Hgb 13.5 (12.0-16.0) g/dL Hct 39.0 (37.0-47.0) % MCV 81.3 (80-100) fL MCH 28.1 (27.0-34.0) pg MCHC 34.6 (33.0-35.0) g/dL Plt Count 284 (150-450) 10^3/uL POC Glucose 94 (70-105) mg/dl Vancomycin Trough 15.9 H (10-15) ug/ml Manuel Results Last 24 Hours: Microbiology 01/27/19 15:25 Aerobic Blood Culture - Final Blood Staphylococcus Epidermidis Anaerobic Blood Culture - Final 01/27/19 20:37 Urine Culture - Final Urine, Clean Catch NO GROWTH AFTER 2 DAYS 01/27/19 16:06 Aerobic Blood Culture - Preliminary Blood NO GROWTH AFTER 2 DAYS Anaerobic Blood Culture - Preliminary NO GROWTH AFTER 2 DAYS Med Orders - Current: Current Medications Acetaminophen (Tylenol) 650 mg PO Q4H PRN PRN Reason: Pain (Mild 1-3)/fever Hydrocodone Bitart/Acetaminophen ([place] 325-10 Mg) 1 tab PO Q4H PRN PRN Reason: Pain (moderate 4-6) Last Admin: 01/30/19 08:20 Dose: 1 tab Amlodipine Besylate (Norvasc) 10 mg PO DAILY NGUYEN Last Admin: 01/30/19 08:19 Dose: 10 mg Atenolol (Tenormin) 50 mg PO DAILY [facility] Last Admin: 01/30/19 08:19 Dose: 50 mg Docusate Sodium (Colace) 100 mg PO BID PRN PRN Reason: Constipation Last Admin: 01/30/19 08:20 Dose: 100 mg Duloxetine HCl (Cymbalta) 30 mg PO BID [facility] Last Admin: 01/30/19 08:19 Dose: 30 mg Fentanyl (Sublimaze) 25 mcg IVPUSH Q2H PRN PRN Reason: Pain Last Admin: 01/28/19 05:53 Dose: 25 mcg Heparin Sodium (Porcine) (Heparin Sodium) 5,000 units SUBCUT Q12HR [facility] Last Admin: 01/30/19 08:22 Dose: 5,000 units Hydralazine HCl (Apresoline) 10 mg IVPUSH Q6H PRN PRN Reason: for Systolic above 170 Last Admin: 01/29/19 21:11 Dose: 10 mg Piperacillin Sod/Tazobactam (Sod 4.5 gm/ Sodium Chloride) 100 mls @ 200 mls/hr IV Q6HR [facility] Last Admin: 01/30/19 05:22 Dose: 200 mls/hr Insulin Glargine (Lantus) 20 unit SUBCUT BEDTIME [facility] Last Admin: 01/29/19 21:12 Dose: 20 units Insulin Human Lispro (Humalog) 0 unit SUBCUT WITHMEALSANDBED [facility]; Protocol Last Admin: 01/30/19 08:12 Dose: Not Given Lisinopril (Prinivil) 20 mg PO DAILY [facility] Last Admin: 01/30/19 08:19 Dose: 20 mg Magnesium Hydroxide (Milk Of Magnesia) 30 ml PO Q12H PRN PRN Reason: Constipation Metoclopramide HCl (Reglan) 10 mg IVPUSH Q8H PRN PRN Reason: Nausea Last Admin: 01/30/19 08:14 Dose: 10 mg Nicotine (Habitrol) 21 mg TRDERM DAILY [facility] Last Admin: 01/30/19 08:22 Dose: 21 mg Ondansetron HCl (Zofran) 4 mg IVPUSH Q6H PRN PRN Reason: Nausea/Vomiting Last Admin: 01/30/19 03:23 Dose: 4 mg Pantoprazole Sodium (Protonix Iv) 40 mg IVPUSH BID [facility] Last Admin: 01/30/19 08:15 Dose: 40 mg Pregabalin (Lyrica) 25 mg PO TID NGUYEN Simvastatin (Zocor) 10 mg PO BEDTIME NGUYEN Last Admin: 01/29/19 20:59 Dose: 10 mg Sodium Chloride (Saline Flush) 10 ml FLUSH ASDIRECTED PRN PRN Reason: Keep Vein Open Last Admin: 01/30/19 08:18 Dose: 10 ml Discontinued Medications Al Hydroxide/Mg Hydroxide (Gi Cocktail) 30 ml PO ONETIME ONE Stop: 01/29/19 11:32 Last Admin: 01/29/19 12:16 Dose: 30 ml Calcium Chloride (Calcium Chloride 10%) 1 gm IVPUSH ONETIME ONE Stop: 01/29/19 09:41 Last Admin: 01/29/19 10:18 Dose: Not Given Hydralazine HCl (Apresoline) 10 mg IVPUSH ONETIME ONE Stop: 01/27/19 19:57 Last Admin: 01/27/19 20:19 Dose: 10 mg Sodium Chloride (Normal Saline) 1,000 mls @ 999 mls/hr IV .BOLUS ONE Stop: 01/27/19 17:39 Last Admin: 01/27/19 19:23 Dose: 999 mls/hr Piperacillin Sod/Tazobactam (Sod 3.375 gm/ Sodium Chloride) 100 mls @ 200 mls/ hr IV ONETIME ONE Stop: 01/27/19 18:37 Last Admin: 01/27/19 18:28 Dose: 200 mls/hr Dextrose/Sodium Chloride (Dextrose 5%-Normal Saline) 1,000 mls @ 100 mls/hr IV ASDIRECTED NGUYEN Stop: 01/28/19 00:01 Last Admin: 01/27/19 20:27 Dose: 100 mls/hr Insulin Human Regular 100 unit (/ Sodium Chloride) 100 mls @ 5.76 mls/hr IV TITRATE NGUYEN; Protocol Last Titration: 01/27/19 23:59 Dose: 0 units/kg/hr, 0 mls/hr Sodium Chloride (Normal Saline) 1,000 mls @ 100 mls/hr IV ASDIRECTED NGUYEN Last Admin: 01/28/19 10:46 Dose: 100 mls/hr Potassium Chloride 10 meq/ (Premix) 100 mls @ 100 mls/hr IV Q2H NGUYEN Stop: 01/28/19 14:14 Last Admin: 01/28/19 13:04 Dose: 100 mls/hr Insulin Human Regular 100 unit (/ Sodium Chloride) 100 mls @ 5.76 mls/hr IV TITRATE NGUYEN; Protocol Last Titration: 01/28/19 13:05 Dose: 0.14 units/kg/hr, 8.6 mls/hr Magnesium Sulfate 2 gm/ Premix 50 mls @ 25 mls/hr IV ONETIME ONE Stop: 01/28/19 11:51 Last Admin: 01/28/19 10:35 Dose: 25 mls/hr Vancomycin HCl 1.25 gm/ Sodium (Chloride) 250 mls @ 166.667 mls/hr IV ONETIME ONE Stop: 01/28/19 19:44 Last Admin: 01/28/19 18:36 Dose: 166.667 mls/hr Vancomycin HCl 1 gm/ Sodium (Chloride) 250 mls @ 166.667 mls/hr IV Q8H NGUYEN Last Admin: 01/30/19 01:57 Dose: 166.667 mls/hr Potassium Chloride/Sodium Chloride (Normal Saline With 20 Meq Kcl) 1,000 mls @ 100 mls/hr IV ASDIRECTED NGUYEN Last Admin: 01/29/19 09:28 Dose: 100 mls/hr Calcium Chloride 1 gm/ Sodium (Chloride) 110 mls @ 110 mls/hr IV ONETIME ONE Stop: 01/29/19 10:59 Last Infusion: 01/29/19 11:56 Dose: Infused Insulin Glargine (Lantus) 10 unit SUBCUT BEDTIME NGUYEN Last Admin: 01/27/19 23:03 Dose: 10 units Insulin Human Regular (Humulin R) 10 unit IV ONETIME ONE Stop: 01/27/19 18:08 Last Admin: 01/27/19 18:28 Dose: 10 units Iopamidol (Isovue-300 (61%)) 75 ml IVPUSH ONETIME ONE Stop: 01/27/19 16:41 Last Admin: 01/27/19 16:44 Dose: 75 ml Metoclopramide HCl (Reglan) 10 mg IVPUSH ONETIME ONE Stop: 01/27/19 16:38 Last Admin: 01/27/19 16:46 Dose: 10 mg Pantoprazole Sodium (Protonix Iv) 40 mg IVPUSH BEDTIME [facility] Last Admin: 01/28/19 21:15 Dose: 40 mg Potassium Chloride (Klor-Con 10) 40 meq PO BID [facility] Last Admin: 01/28/19 19:27 Dose: Not Given Pregabalin (Lyrica) 50 mg PO ONETIME ONE Stop: 01/28/19 20:41 Last Admin: 01/28/19 21:16 Dose: 50 mg Sodium Phosphate (Neutra-Phos) 250 mg PO TID ONE Stop: 01/29/19 09:42 Last Admin: 01/29/19 13:18 Dose: Not Given Vancomycin HCl (Pharmacy To Dose - Vancomycin) 1 dose .XX ASDIRECTED NGUYEN - Exam Quality Assessment: DVT Prophylaxis General: Alert, Oriented HEENT: Pupils Equal, Pupils Reactive, EOMI, Mucous Membr. Moist/[place] Neck: Supple Lungs: Clear to Auscultation, Normal Respiratory Effort Cardiovascular: Regular Rate, Regular Rhythm GI/Abdominal Exam: Normal Bowel Sounds, Soft, Non-Tender, No Organomegaly, No Distention, No Abnormal Bruit, No Mass, Pelvis Stable (Female) Exam: Normal External Exam, Normal Speculum Exam, Normal Bimanual Exam Back Exam: Normal Inspection, Full Range of Motion Extremities: Normal Inspection, Normal Range of Motion, Non-Tender, No Pedal Edema, Normal Capillary Refill Skin: Warm, Dry, Intact Wound/Incisions: Healing Well Neurological: No New Focal Deficit Psy/Mental Status: Alert, Normal Affect, Normal Mood - Problem List & Annotations (1) Gastritis SNOMED Code(s): 6188703 Code(s): K29.70 - GASTRITIS, UNSPECIFIED, WITHOUT BLEEDING Status: Acute Current Visit: Yes (2) Abdominal pain SNOMED Code(s): 19135251 Code(s): R10.9 - UNSPECIFIED ABDOMINAL PAIN Status: Acute Current Visit: No Qualifiers: Abdominal location: left upper quadrant Qualified Code(s): R10.12 - Left upper quadrant pain (3) Accelerated hypertension SNOMED Code(s): 33588646 Code(s): I10 - ESSENTIAL (PRIMARY) HYPERTENSION Status: Acute Current Visit: No (4) DKA (diabetic ketoacidoses) SNOMED Code(s): 804591631, 281469359 Code(s): E13.10 - OTH DIABETES MELLITUS WITH KETOACIDOSIS WITHOUT COMA Status: Acute Current Visit: No Qualifiers: Diabetes mellitus type: type 2 Diabetes mellitus complication detail: without coma Qualified Code(s): E11.10 - Type 2 diabetes mellitus with ketoacidosis without coma (5) DKA, type 2 SNOMED Code(s): 293437286, 731781194 Code(s): E11.10 - TYPE 2 DIABETES MELLITUS WITH KETOACIDOSIS WITHOUT COMA Status: Acute Current Visit: No Qualifiers: 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: with usp use Diabetes mellitus complication detail: without coma Qualified Code(s): E11.10 - Type 2 diabetes mellitus with ketoacidosis without coma; Z79.4 - senior living (current) use of insulin - Problem List Review Problem List Initiated/Reviewed/Updated: Yes - My Orders Last 24 Hours: My Active Orders 01/29/19 11:57 Sodium Chloride 0.9% [Saline Flush] 10 ml FLUSH ASDIRECTED PRN Convert IV to Saline Lock [OM.PC] Routine - Plan Plan:: #Acute Gastritis -Improving -Zofran prn for n/v -IV pantoprazole -GI cock tale #Hyperglycemia due to uncontrolled Type 2 diabetes vs early DKA -Resolved -SSI plus Lantus -Hypoglycemic protocol #Probable sepsis -Resolved -Blood cx positive for staph aureus. Likely contaminate -Repeat blood cx #Uncontrolled HTN -BP now improved -Continue current care -IV hydralazine prn for systolic > 170 #Physical debility -PT/OT #Substance abuse -Patient counseled on quitting #Diabetic diet #Code -Full
[2019-01-30] MEDS: fentaNYL 100 MCG/2 ML SDV IVPUSH PRN ×2 (16:02→20:48)
[2019-01-30] MEDS: GI Cocktail Oral Solution 30 ML PO PRN (17:32)
[2019-01-30] MEDS: Simvastatin 10 MG Tab PO SCH (20:32)
[2019-01-30] MEDS: Insulin Glarg,Human.Rec.Analog 100 UNIT/ML ML SUBCUT SCH (21:26)
[2019-01-31] MEDS: Acetaminophen/HYDROcodone 325-10 MG Tab PO PRN ×2 (05:39→10:56)
[2019-01-31] MEDS: Piperacillin/Tazobactam 4.5 GM in Sodium Chloride 0.9% 100 ML IV SCH ×2 (05:40→12:15)
[2019-01-31 07:48] VITALS: BP 108/67
[2019-01-31] MEDS: Insulin Lispro 100 Units/ML 3 ML Vial SUBCUT SCH ×2 (08:56→12:22)
[2019-01-31] MEDS: GI Cocktail Oral Solution 30 ML PO PRN (09:05)
[2019-01-31] MEDS: Lisinopril 5 MG Tab PO SCH (09:06)
[2019-01-31] MEDS: amLODIPine 5 MG Tab PO SCH (09:07)
[2019-01-31] MEDS: Atenolol 50 MG Tab PO SCH (09:07)
[2019-01-31] MEDS: DULoxetine 30 MG Cap PO SCH (09:08)
[2019-01-31] MEDS: Nicotine 21 MG/24 Hr Patch TRDERM SCH (09:08)
[2019-01-31] MEDS: Heparin Sodium 5,000 Units/ML Vial SUBCUT SCH (09:12)
[2019-01-31] MEDS: Pantoprazole 40 MG Vial IVPUSH SCH (09:12)
[2019-01-31] MEDS: Sodium Chloride 0.9% 10 ML Syringe FLUSH PRN (09:12)
--- NOTE | 2019-01-31 11:04 | PCM.DCSUM1 ---
Discharge Summary - Hospital Course HPI Initial Comments: Viviane is 48 y/o F with PMH of DM II who was brought to the ED with intractable nausea, vomiting an abdominal pain. She was admitted for acute gastritis vs DKA and possible sepsis. CT abdomen and pelvis showed diverticulosis without evidence of diverticulitis. Blood cx was positive for staph which was likely a contamination. She received IV abx, insulin infusion, PPI. Her overall symptoms improved. She was seen today and doing well. No n/v. No fever or chills. leukocytosis has resolved. She is being discharged in a stable condition. She will follow up with PCP in 2 days. I recommend GI consult to be made by PCP upon follow up. Diagnosis: Stroke: No - Discharge Data Discharge Date: 01/31/19 Discharge Disposition: Home, Self-Care 01 Condition: Fair - Discharge Diagnosis/Problem(s) (1) Gastritis SNOMED Code(s): 7588455 ICD Code: K29.70 - GASTRITIS, UNSPECIFIED, WITHOUT BLEEDING Status: Acute Current Visit: Yes (2) Abdominal pain SNOMED Code(s): 20077228 ICD Code: R10.9 - UNSPECIFIED ABDOMINAL PAIN Status: Acute Current Visit : No Qualifiers: Abdominal location: left upper quadrant Qualified Code(s): R10.12 - Left upper quadrant pain (3) Accelerated hypertension SNOMED Code(s): 04318567 ICD Code: I10 - ESSENTIAL (PRIMARY) HYPERTENSION Status: Acute Current Visit: No (4) DKA (diabetic ketoacidoses) SNOMED Code(s): 525904770, 893481382 ICD Code: E13.10 - OTH DIABETES MELLITUS WITH KETOACIDOSIS WITHOUT COMA Status: Acute Current Visit: No Qualifiers: Diabetes mellitus type: type 2 Diabetes mellitus complication detail: without coma Qualified Code(s): E11.10 - Type 2 diabetes mellitus with ketoacidosis without coma (5) DKA, type 2 SNOMED Code(s): 015707760, 327285018 ICD Code: E11.10 - TYPE 2 DIABETES MELLITUS WITH KETOACIDOSIS WITHOUT COMA Status: Acute Current Visit: No Qualifiers: Diabetes mellitus manager intermediate insulin use: with manager intermediate use Diabetes mellitus complication detail: without coma Qualified Code(s): E11.10 - Type 2 diabetes mellitus with ketoacidosis without coma; Z79.4 - [facility] (current) use of insulin - Patient Summary/Data Consults: Consultations 01/28/19 10:50 OT Evaluation and Treatment [CONS] Routine PT Evaluation and Treatment [CONS] Routine - Patient Instructions Diet: Diabetic Diet Activity: As Tolerated Driving: May Drive Today Showering/Bathing: May Shower Notify Provider of: Increased Pain, Swelling and Redness, Nausea and/or Vomiting - Discharge Plan *PRESCRIPTION DRUG MONITORING PROGRAM REVIEWED*: Not Applicable *COPY OF PRESCRIPTION DRUG MONITORING REPORT IN PATIENT LIAN: Not Applicable Prescriptions/Med Rec: GI Cocktail 30 ml PO Q8HR PRN #1 bottle PRN Reason: Indigestion Acetaminophen/HYDROcodone [[place] 325-10 MG] 1 tab PO Q6H PRN #10 tablet PRN Reason: Pain (Moderate 4-6) amLODIPine [Norvasc] 10 mg PO DAILY 2 Days #30 tablet Ciprofloxacin [Cipro XR] 500 mg PO DAILY #10 tab metroNIDAZOLE [Flagyl] 500 mg PO Q8H #21 tab Home Medications: Home Meds Atenolol [Tenormin] 50 mg PO DAILY 09/30/13 [History] DULoxetine HCl [Duloxetine HCl] 30 mg PO BID 04/11/18 [History] Insulin Aspart [NovoLOG] 15 unit SQ TIDAC 04/11/18 [History] Pantoprazole Sodium [Protonix] 40 mg PO BID 04/11/18 [History] Simvastatin [Zocor] 10 mg PO BEDTIME 04/11/18 [History] Acetaminophen [Tylenol] 650 mg PO Q4H PRN tablet 04/12/18 [Rx] Insulin Detemir [Levemir] 15 unit SUBCUT BEDTIME #5 pen 04/12/18 [Rx] Lisinopril [Prinivil] 20 mg PO DAILY #0 04/12/18 [Rx] Nicotine [Habitrol] 21 mg TRDERM DAILY #30 patch 04/12/18 [Rx] Pregabalin [Lyrica] 25 mg PO TID 01/27/19 [History] tiZANidine [Zanaflex] 4 mg PO Q8H PRN 01/27/19 [History] Acetaminophen/HYDROcodone [[place] 325-10 MG] 1 tab PO Q6H PRN #10 tablet [Rx] Ciprofloxacin [Cipro XR] 500 mg PO DAILY #10 tab 01/31/19 [Rx] GI Cocktail 30 ml PO Q8HR PRN #1 bottle 01/31/19 [Rx] amLODIPine [Norvasc] 10 mg PO DAILY 2 Days #30 tablet 01/31/19 [Rx] metroNIDAZOLE [Flagyl] 500 mg PO Q8H #21 tab 01/31/19 [Rx] Patient Handouts: Acetaminophen; Hydrocodone tablets or capsules, Gastritis, Adult, [id number], Abdominal Pain, Adult, [id number], Amlodipine tablets, Ciprofloxacin tablets, Metronidazole tablets or capsules Referrals: Jermaine Hooks [employer]PER[employer] [Primary Care Provider] - - Discharge Summary/Plan Comment DC Time >30 min.: Yes - General Info Date of Service: 01/31/19 Admission Dx/Problem (Free Text: Admission Diagnosis/Problem Admission Diagnosis/Problem Leukocytosis Functional Status: Reports: Pain Controlled - Review of Systems General: Reports: No Symptoms HEENT: Reports: No Symptoms Pulmonary: Reports: No Symptoms Cardiovascular: Reports: No Symptoms Gastrointestinal: Reports: No Symptoms Genitourinary: Reports: No Symptoms Musculoskeletal: Reports: No Symptoms Skin: Reports: No Symptoms Neurological: Reports: No Symptoms Psychiatric: Reports: No Symptoms - Patient Data Vitals - Most Recent: Last Vital Signs Temp 97.8 F 01/31/19 07:48 Pulse 58 L 01/31/19 09:07 Resp 18 01/31/19 07:48 BP 108/67 01/31/19 09:07 Pulse Ox 98 01/31/19 07:48 Weight - Most Recent: 127 lb I&O - Last 24 hours: Intake & Output 01/30/19 01/31/19 01/31/19 22:59 06:59 14:59 Intake Total 1195 635 320 Output Total 150 200 Balance 1045 435 320 Lab Results - Last 24 hrs: Laboratory Results - last 24 hr 01/30/19 01/30/19 01/30/19 Range/Units 11:57 16:17 21:13 POC Glucose 184 H 238 H 88 (70-105) mg/dl VAN Results - Last 24 hrs: Microbiology 01/27/19 16:06 Aerobic Blood Culture - Preliminary Blood NO GROWTH AFTER 3 DAYS Anaerobic Blood Culture - Preliminary NO GROWTH AFTER 3 DAYS 01/27/19 15:25 Aerobic Blood Culture - Final Blood Staphylococcus Epidermidis Anaerobic Blood Culture - Final 08/17/19 20:37 Urine Culture - Final Urine, Clean Catch NO GROWTH AFTER 2 DAYS Med Orders - Current: Current Medications Acetaminophen (Tylenol) 650 mg PO Q4H PRN PRN Reason: Pain (Mild 1-3)/fever Hydrocodone Bitart/Acetaminophen ([place] 325-10 Mg) 1 tab PO Q4H PRN PRN Reason: Pain (moderate 4-6) Last Admin: 01/31/19 10:56 Dose: 1 tab Al Hydroxide/Mg Hydroxide (Gi Cocktail) 30 ml PO Q8HR PRN PRN Reason: Indigestion Last Admin: 01/31/19 09:05 Dose: 30 ml Amlodipine Besylate (Norvasc) 10 mg PO DAILY [facility] Last Admin: 01/31/19 09:07 Dose: 10 mg Atenolol (Tenormin) 50 mg PO DAILY [facility] [place] Last Admin: 01/31/19 09:07 Dose: 50 mg Docusate Sodium (Colace) 100 mg PO BID PRN PRN Reason: Constipation Last Admin: 01/30/19 08:20 Dose: 100 mg Duloxetine HCl (Cymbalta) 30 mg PO BID [facility] [place] Last Admin: 01/31/19 09:08 Dose: 30 mg Fentanyl (Sublimaze) 25 mcg IVPUSH Q2H PRN PRN Reason: Pain Last Admin: 01/30/19 20:48 Dose: 25 mcg Heparin Sodium (Porcine) (Heparin Sodium) 5,000 units SUBCUT Q12HR [facility] [place] Last Admin: 01/31/19 09:12 Dose: 5,000 units Hydralazine HCl (Apresoline) 10 mg IVPUSH Q6H PRN PRN Reason: for Systolic above 170 Last Admin: 01/29/19 21:11 Dose: 10 mg Piperacillin Sod/Tazobactam (Sod 4.5 gm/ Sodium Chloride) 100 mls @ 200 mls/hr IV Q6HR [facility] [place] Last Admin: 01/31/19 05:40 Dose: 200 mls/hr Insulin Glargine (Lantus) 20 unit SUBCUT BEDTIME [facility] [place] Last Admin: 01/30/19 21:26 Dose: Not Given Insulin Human Lispro (Humalog) 0 unit SUBCUT WITHMEALSANDBED [facility]; Protocol Last Admin: 01/31/19 08:56 Dose: Not Given Lisinopril (Prinivil) 20 mg PO DAILY [facility] [place] Last Admin: 01/31/19 09:06 Dose: 20 mg Magnesium Hydroxide (Milk Of Magnesia) 30 ml PO Q12H PRN PRN Reason: Constipation Metoclopramide HCl (Reglan) 10 mg IVPUSH Q8H PRN PRN Reason: Nausea Last Admin: 01/30/19 16:35 Dose: 10 mg Nicotine (Habitrol) 21 mg TRDERM DAILY [facility] [place] Last Admin: 01/31/19 09:08 Dose: 21 mg Ondansetron HCl (Zofran) 4 mg IVPUSH Q6H PRN PRN Reason: Nausea/Vomiting Last Admin: 01/30/19 12:16 Dose: 4 mg Pantoprazole Sodium (Protonix Iv) 40 mg IVPUSH BID [facility] [place] Last Admin: 01/31/19 09:12 Dose: 40 mg Pregabalin (Lyrica) 25 mg PO TID NGUYEN Simvastatin (Zocor) 10 mg PO BEDTIME [facility] [place] Last Admin: 01/30/19 20:32 Dose: 10 mg Sodium Chloride (Saline Flush) 10 ml FLUSH ASDIRECTED PRN PRN Reason: Keep Vein Open Last Admin: 01/31/19 09:12 Dose: 10 ml Discontinued Medications Al Hydroxide/Mg Hydroxide (Gi Cocktail) 30 ml PO ONETIME ONE Stop: 01/29/19 11:32 Last Admin: 01/29/19 12:16 Dose: 30 ml Calcium Chloride (Calcium Chloride 10%) 1 gm IVPUSH ONETIME ONE Stop: 01/29/19 09:41 Last Admin: 01/29/19 10:18 Dose: Not Given Hydralazine HCl (Apresoline) 10 mg IVPUSH ONETIME ONE Stop: 01/27/19 19:57 Last Admin: 01/27/19 20:19 Dose: 10 mg Sodium Chloride (Normal Saline) 1,000 mls @ 999 mls/hr IV .BOLUS ONE Stop: 01/27/19 17:39 Last Admin: 01/27/19 19:23 Dose: 999 mls/hr Piperacillin Sod/Tazobactam (Sod 3.375 gm/ Sodium Chloride) 100 mls @ 200 mls/ hr IV ONETIME ONE Stop: 01/27/19 18:37 Last Admin: 01/27/19 18:28 Dose: 200 mls/hr Dextrose/Sodium Chloride (Dextrose 5%-Normal Saline) 1,000 mls @ 100 mls/hr IV ASDIRECTED NGUYEN Stop: 01/28/19 00:01 Last Admin: 01/27/19 20:27 Dose: 100 mls/hr Insulin Human Regular 100 unit (/ Sodium Chloride) 100 mls @ 5.76 mls/hr IV TITRATE NGUYEN; Protocol Last Titration: 01/27/19 23:59 Dose: 0 units/kg/hr, 0 mls/hr Sodium Chloride (Normal Saline) 1,000 mls @ 100 mls/hr IV ASDIRECTED NGUYEN Last Admin: 01/28/19 10:46 Dose: 100 mls/hr Potassium Chloride 10 meq/ (Premix) 100 mls @ 100 mls/hr IV Q2H NGUYEN Stop: 01/28/19 14:14 Last Admin: 01/28/19 13:04 Dose: 100 mls/hr Insulin Human Regular 100 unit (/ Sodium Chloride) 100 mls @ 5.76 mls/hr IV TITRATE NGUYEN; Protocol Last Titration: 01/28/19 13:05 Dose: 0.14 units/kg/hr, 8.6 mls/hr Magnesium Sulfate 2 gm/ Premix 50 mls @ 25 mls/hr IV ONETIME ONE Stop: 01/28/19 11:51 Last Admin: 01/28/19 10:35 Dose: 25 mls/hr Vancomycin HCl 1.25 gm/ Sodium (Chloride) 250 mls @ 166.667 mls/hr IV ONETIME ONE Stop: 01/28/19 19:44 Last Admin: 01/28/19 18:36 Dose: 166.667 mls/hr Vancomycin HCl 1 gm/ Sodium (Chloride) 250 mls @ 166.667 mls/hr IV Q8H NGUYEN Last Admin: 01/30/19 01:57 Dose: 166.667 mls/hr Potassium Chloride/Sodium Chloride (Normal Saline With 20 Meq Kcl) 1,000 mls @ 100 mls/hr IV ASDIRECTED NGUYEN Last Admin: 01/29/19 09:28 Dose: 100 mls/hr Calcium Chloride 1 gm/ Sodium (Chloride) 110 mls @ 110 mls/hr IV ONETIME ONE Stop: 01/29/19 10:59 Last Infusion: 01/29/19 11:56 Dose: Infused Insulin Glargine (Lantus) 10 unit SUBCUT BEDTIME [facility] [place] Last Admin: 01/27/19 23:03 Dose: 10 units Insulin Human Regular (Humulin R) 10 unit IV ONETIME ONE Stop: 01/27/19 18:08 Last Admin: 01/27/19 18:28 Dose: 10 units Iopamidol (Isovue-300 (61%)) 75 ml IVPUSH ONETIME ONE Stop: 01/27/19 16:41 Last Admin: 01/27/19 16:44 Dose: 75 ml Metoclopramide HCl (Reglan) 10 mg IVPUSH ONETIME ONE Stop: 01/27/19 16:38 Last Admin: 01/27/19 16:46 Dose: 10 mg Pantoprazole Sodium (Protonix Iv) 40 mg IVPUSH BEDTIME [facility] [place] Last Admin: 01/28/19 21:15 Dose: 40 mg Potassium Chloride (Klor-Con 10) 40 meq PO BID [facility] [place] Last Admin: 01/28/19 19:27 Dose: Not Given Pregabalin (Lyrica) 50 mg PO ONETIME ONE Stop: 01/28/19 20:41 Last Admin: 01/28/19 21:16 Dose: 50 mg Sodium Phosphate (Neutra-Phos) 250 mg PO TID ONE Stop: 01/29/19 09:42 Last Admin: 01/29/19 13:18 Dose: Not Given Vancomycin HCl (Pharmacy To Dose - Vancomycin) 1 dose .XX ASDIRECTED NGUYEN - Exam Quality Assessment: Reports: DVT Prophylaxis General: Reports: Alert, Oriented HEENT: Reports: Pupils Equal, Pupils Reactive, EOMI, Mucous Membr. Moist/[place] Neck: Reports: Supple Lungs: Reports: Clear to Auscultation, Normal Respiratory Effort Cardiovascular: Reports: Regular Rate, Regular Rhythm GI/Abdominal Exam: Normal Bowel Sounds, Soft, Non-Tender, No Organomegaly, No Distention, No Abnormal Bruit, No Mass, Pelvis Stable (Female) Exam: Normal External Exam, Normal Speculum Exam, Normal Bimanual Exam Rectal (Female) Exam: Normal Exam, Normal Rectal Tone Back Exam: Reports: Normal Inspection, Full Range of Motion Extremities: Normal Inspection, Normal Range of Motion, Non-Tender, No Pedal Edema, Normal Capillary Refill Skin: Reports: Warm, Dry, Intact Wound/Incisions: Reports: Healing Well Neurological: Reports: No New Focal Deficit Psy/Mental Status: Reports: Alert, Normal Affect, Normal Mood
== END 2019-01-31 13:00 | disposition home or self-care (01) | DRG 871 ==
LOC: DL.ED 15:10 → EEVIPCON 18:42 → DL.MS 18:42 → UNDOADMIN 19:17
PROVIDERS: ADMIT Student in an Organized Health Care Education/Training Program; ATTEND Student in an Organized Health Care Education/Training Program
DX: A41.9 Sepsis, unspecified organism (principal); K57.90 Diverticulosis of intestine, part unspecified, without perforation or abscess without bleeding; D72.825 Bandemia; R10.12 Left upper quadrant pain; E11.10 Type 2 diabetes mellitus with ketoacidosis without coma; K29.00 Acute gastritis without bleeding; E11.65 Type 2 diabetes mellitus with hyperglycemia; E11.9 Type 2 diabetes mellitus without complications; F12.90 Cannabis use, unspecified, uncomplicated; E78.00 Pure hypercholesterolemia, unspecified; I10 Essential (primary) hypertension; M19.90 Unspecified osteoarthritis, unspecified site; F41.9 Anxiety disorder, unspecified; F19.10 Other psychoactive substance abuse, uncomplicated; K57.30 Diverticulosis of large intestine without perforation or abscess without bleeding; K52.9 Noninfective gastroenteritis and colitis, unspecified; E87.6 Hypokalemia; Z79.4 Long term (current) use of insulin; Z87.442 Personal history of urinary calculi; Z90.49 Acquired absence of other specified parts of digestive tract; Z90.710 Acquired absence of both cervix and uterus; Z79.899 Other long term (current) drug therapy
CPT/HCPCS: 36415 ×2; 51702; 74177; 80053; 80305; 81001; 82009; 82140; 82150; 82803; 82962 ×2; 83605; 83690; 83735; 85025; 87040 ×2; 87077; 87186; 96361; 96365; 96375; 99285; G0480 ×2; J1815; J2543; J2765; J7030; J7050; Q9967; 80048; 80202; 84100; 85027; 87086; 97162-GP; 97165-GO; A9270-GY; C9113; J0360; J1644; J2405; J3010; J3370; J3475; J3480; J7042

== ENCOUNTER 2019-04-10 00:04 | Emergency (ER) | payer MEDICAID ==
[~2019-04-10 00:04] MED LIST: Pantoprazole 40 MG Vial IVPUSH ONE; Sodium Chloride 0.9% 1,000 ML IV ONE
[2019-04-10] MEDS ORDERED: Ondansetron 4 MG/2 ML SDV IV ONE (00:11)
[2019-04-10] MEDS ORDERED: Iopamidol 612 MG/ML 75 ML Bottle IVPUSH ONE (00:12)
[2019-04-10 00:47] LABS: ANION GAP 17.6; CHLORIDE,CL 87 mmol/L (101-111); SODIUM,NA 126 mmol/L (135-145)
[2019-04-10] MEDS ORDERED: Insulin Regular, Human 100 Units/ML 3 ML Vial IV ONE (01:04)
[2019-04-10] MEDS ORDERED: Octreotide 500 MCG in Sodium Chloride 0.9% 250 ML IV ONE (01:09)
[2019-04-10] MEDS ORDERED: Octreotide 100 MCG/ML SDV IVPUSH ONE (01:09)
[2019-04-10 01:17] LABS: BASE EXCESS ARTERIAL 2 mmol/L ((-2)-(+3)); BICARBONATE,ARTERIAL 25.4 mmol/L (22-26); O2 DELIVERY DEVICE ROOM AIR; O2 SATURATION ARTERIAL 95 % (95-100); PCO2 ARTERIAL 40 mmHg (35-45); PO2 ARTERIAL 83 mmHg (70-100)
[2019-04-10] MEDS ORDERED: HYDROmorphone 1 MG/ML Syringe IVPUSH ONE (01:17)
[2019-04-10 01:22] LABS: ALLEN TEST pos; O2 FLOW RATE 0
[2019-04-10 01:39] VITALS: BP 142/88; PULSE 120
--- NOTE | 2019-04-10 02:15 | EDM.PDOC ---
ED HPI GENERAL MEDICAL PROBLEM - General Chief Complaint: Diabetic Complaint Stated Complaint: AMBULANCE Time Seen by Provider: 04/10/19 00:20 Source of Information: Reports: Patient, EMS, RN History Limitations: Reports: Uncooperative - History of Present Illness INITIAL COMMENTS - FREE TEXT/NARRATIVE: ED via [facility] with report of abdominal pain and vomiting blood. EMS noted 2 moderate emesis in home and one now on arrival to ED. All bright red. Patient admits ETOH on Tuesday. Patient familiar with similar presentations. Diabetic, unsure when last took insulin or checked blood sugar. unsure when last took any of medications. Hx esophagitis, hiatal hernia, esophageal stricture, Diverticulitis. No reported hx of varices. No reported fever or chills. No cough , no SOB Epigastric Pain Score (Numeric/FACES): 7 - Related Data Allergies Allergy/AdvReac Type Severity Reaction Status Date / Time No Known Allergies Allergy Verified 04/10/19 00:06 Home Meds: Home Meds Atenolol [Tenormin] 50 mg PO DAILY 09/30/13 [History] DULoxetine HCl [Duloxetine HCl] 30 mg PO BID 04/11/18 [History] Insulin Aspart [NovoLOG] 15 unit SQ TIDAC 04/11/18 [History] Pantoprazole Sodium [Protonix] 40 mg PO BID 04/11/18 [History] Simvastatin [Zocor] 10 mg PO BEDTIME 04/11/18 [History] Acetaminophen [Tylenol] 650 mg PO Q4H PRN tablet 04/12/18 [Rx] Insulin Detemir [Levemir] 15 unit SUBCUT BEDTIME #5 pen 04/12/18 [Rx] Lisinopril [Prinivil] 20 mg PO DAILY #0 04/12/18 [Rx] Nicotine [Habitrol] 21 mg TRDERM DAILY #30 patch 04/12/18 [Rx] Pregabalin [Lyrica] 25 mg PO TID 01/27/19 [History] tiZANidine [Zanaflex] 4 mg PO Q8H PRN 01/27/19 [History] Acetaminophen/HYDROcodone [[place] 325-10 MG] 1 tab PO Q6H PRN #10 tablet [Rx] Ciprofloxacin [Cipro XR] 500 mg PO DAILY #10 tab 08/21/19 [Rx] GI Cocktail 30 ml PO Q8HR PRN #1 bottle 01/31/19 [Rx] amLODIPine [Norvasc] 10 mg PO DAILY 2 Days #30 tablet 01/31/19 [Rx] metroNIDAZOLE [Flagyl] 500 mg PO Q8H #21 tab 01/31/19 [Rx] Past Medical History HEENT History: Reports: None Cardiovascular History: Reports: High Cholesterol, Hypertension Respiratory History: Reports: None Gastrointestinal History: Reports: Cholelithiasis, Gastritis, GI Bleed, Hepatitis Genitourinary History: Reports: Renal Calculus [employer]ER History: Reports: Musculoskeletal History: Reports: Arthritis Neurological History: Reports: None Psychiatric History: Reports: Anxiety Endocrine/Metabolic History: Reports: Diabetes, Type II, IDDM, Other (See Below) Other Endocrine/Metabolic History: diagnosed in 2009 Hematologic History: Reports: None Immunologic History: Reports: None Oncologic (Cancer) History: Reports: None Dermatologic History: Reports: Cellulitis - Infectious Disease History Infectious Disease History: Reports: Chicken Pox, MRSA - Past Surgical History GI Surgical History: Reports: Cholecystectomy, EGD Female Surgical History: Reports: Hysterectomy Social & Family History - Family History Family Medical History: Noncontributory - Tobacco Use Smoking Status *Q: Current Every Day Smoker Years of Tobacco use: 28 Packs/Tins Daily: 0.5 Used Tobacco, but Quit: No Second Hand Smoke Exposure: Yes - Caffeine Use Caffeine Use: Reports: Coffee Other Caffeine Use: green tea - Alcohol Use Days Per Week of Alcohol Use: 3 Number of Drinks Per Day: 6 Total Drinks Per Week: 18 - Recreational Drug Use Recreational Drug Use: Yes Drug Use in Last 12 Months: Yes Recreational Drug Type: Reports: Marijuana/Hashish Recreational Drug Use Frequency: Binges - Living Situation & Occupation Living situation: Reports: with Family Occupation: Unemployed ED ROS GENERAL - Review of Systems Review Of Systems: ROS reveals no pertinent complaints other than HPI. ED EXAM GENERAL NO PERIP PULSE - Physical Exam Exam: See Below Exam Limited By: No Limitations General Appearance: Alert, Mild Distress, Thin, Other (unkempt) Eye Exam: Bilateral Eye: EOMI, PERRL Ears: Normal External Exam Nose: Normal Inspection Throat/Mouth: Normal Inspection Head: Atraumatic, Normocephalic Neck: Normal Inspection, Supple Respiratory/Chest: No Respiratory Distress, Lungs Clear, Normal Breath Sounds Cardiovascular: Normal Peripheral Pulses, Regular Rate, Rhythm, Tachycardia GI/Abdominal: Normal Bowel Sounds, Soft, Tender (mid gastric), Other (emesis on arrival elmer blood. ). No: Distended, Guarding Back Exam: Normal Inspection, Full Range of Motion Neurological: Oriented, Normal Cognition, Slow to Respond Skin Exam: Warm, Dry, Intact, Normal Color Course - Vital Signs Last Recorded V/S: Last Vital Signs Temp 97.9 F 04/10/19 01:37 Pulse 120 H 04/10/19 01:37 Resp 16 04/10/19 01:37 BP 142/88 H 04/10/19 01:37 Pulse Ox 89 L 04/10/19 01:37 - Orders/Labs/Meds Orders: Active Orders 24 hr Category Date Time Status Abdomen Pelvis w Cont [CT] Urgent Exams 04/10/19 00:12 Taken Labs: Laboratory Tests 04/09/19 04/09/19 04/09/19 Range/Units 00:20 00:20 00:20 WBC 27.8 H* (5.0-10.0) 10^3/uL RBC 5.66 H (4.2-5.4) 10^6/uL Hgb 16.5 H D (12.0-16.0) g/dL Hct 46.9 (37.0-47.0) % MCV 82.9 (80-100) fL MCH 29.2 (27.0-34.0) pg MCHC 35.2 H (33.0-35.0) g/dL Plt Count 310 (150-450) 10^3/uL Neut % (Auto) 89.0 H (42.2-75.2) % Lymph % (Auto) 2.8 L (20.5-50.1) % [place] % (Auto) 8.1 H (2-8) % Eos % (Auto) 0.0 L (1.0-3.0) % Baso % (Auto) 0.1 (0.0-1.0) % Add Manual Diff Yes Neutrophils % (Manual) 92 H (42-75) % Lymphocytes % (Manual) 2 L (20-50) % Monocytes % (Manual) 6 (2-8) % PT 10.4 (9.0-12.0) SEC INR 1.0 (0.9-1.2) ABG pH (7.35-7.45) ABG pCO2 (35-45) mmHg ABG pO2 (70-100) mmHg ABG HCO3 (22-26) mmol/L ABG O2 Saturation (95-100) % ABG Base Excess ((-2)-(+3)) mmol/L Sawyer Test O2 Delivery Device Oxygen Flow Rate Sodium 126 L (135-145) mmol/L Potassium 3.6 (3.6-5.0) mmol/L Chloride 87 L D (101-111) mmol/L Carbon Dioxide 25.0 (21.0-31.0) mmol/L Anion Gap 17.6 BUN 46 H D (7-18) mg/dL Creatinine 1.0 (0.6-1.3) mg/dL Est Cr Clr Drug Dosing 50.49 mL/min Estimated GFR (MDRD) 60 BUN/Creatinine Ratio 46.00 Glucose 805 H* (74-105) mg/dL POC Glucose (70-105) mg/dl Lactic Acid (0.5-2.2) mmol/L Calcium 8.7 (8.4-10.2) mg/dl Magnesium 2.2 (1.8-2.5) mg/dL Total Bilirubin 1.3 H (0.2-1.0) mg/dL AST 14 (10-42) IU/L ALT 16 (10-60) IU/L Alkaline Phosphatase 91 (42-121) IU/L Total Protein 7.5 (6.7-8.2) g/dl Albumin 3.9 (3.2-5.5) g/dl Globulin 3.6 Albumin/Globulin Ratio 1.08 Amylase 43 (28-100) U/L Lipase 36 (22-51) U/L Urine Color (YELLOW) Urine Appearance (CLEAR) Urine pH (5.0-9.0) Ur Specific [place] (1.005-1.030) Urine Protein (NEGATIVE) Urine Glucose (UA) (NEGATIVE) Urine Ketones (NEGATIVE) Urine Occult Blood (NEGATIVE) Urine Nitrite (NEGATIVE) Urine Bilirubin (NEGATIVE) Urine Urobilinogen (0.2-1.0) mg/dL Ur Leukocyte Esterase (NEGATIVE) Urine Opiates Screen (NEGATIVE) Ur Oxycodone Screen (NEGATIVE) Urine Methadone Screen (NEGATIVE) Ur Barbiturates Screen (NEGATIVE) U Tricyclic Antidepress (NEGATIVE) Ur Phencyclidine Scrn (NEGATIVE) Ur Amphetamine Screen (NEGATIVE) U Methamphetamines Scrn (NEGATIVE) Urine MDMA Screen (NEGATIVE) U Benzodiazepines Scrn (NEGATIVE) Urine Cocaine Screen (NEGATIVE) U Marijuana (THC) Screen (NEGATIVE) Ethyl Alcohol < 5 mg/dL Ketones Trace 04/09/19 04/10/19 04/10/19 Range/Units 00:20 01:10 01:28 WBC (5.0-10.0) 10^3/uL RBC (4.2-5.4) 10^6/uL Hgb (12.0-16.0) g/dL Hct (37.0-47.0) % MCV (80-100) fL MCH (27.0-34.0) pg MCHC (33.0-35.0) g/dL Plt Count (150-450) 10^3/uL Neut % (Auto) (42.2-75.2) % Lymph % (Auto) (20.5-50.1) % [place] % (Auto) (2-8) % Eos % (Auto) (1.0-3.0) % Baso % (Auto) (0.0-1.0) % Add Manual Diff Neutrophils % (Manual) (42-75) % Lymphocytes % (Manual) (20-50) % Monocytes % (Manual) (2-8) % PT (9.0-12.0) SEC INR (0.9-1.2) ABG pH 7.42 (7.35-7.45) ABG pCO2 40 (35-45) mmHg ABG pO2 83 (70-100) mmHg ABG HCO3 25.4 (22-26) mmol/L ABG O2 Saturation 95 (95-100) % ABG Base Excess 2 ((-2)-(+3)) mmol/L Sawyer Test pos O2 Delivery Device Room air Oxygen Flow Rate 0 Sodium (135-145) mmol/L Potassium (3.6-5.0) mmol/L Chloride (101-111) mmol/L Carbon Dioxide (21.0-31.0) mmol/L Anion Gap BUN (7-18) mg/dL Creatinine (0.6-1.3) mg/dL Est Cr Clr Drug Dosing mL/min Estimated GFR (MDRD) BUN/Creatinine Ratio Glucose (74-105) mg/dL POC Glucose (70-105) mg/dl Lactic Acid 2.0 (0.5-2.2) mmol/L Calcium (8.4-10.2) mg/dl Magnesium (1.8-2.5) mg/dL Total Bilirubin (0.2-1.0) mg/dL AST (10-42) IU/L ALT (10-60) IU/L Alkaline Phosphatase (42-121) IU/L Total Protein (6.7-8.2) g/dl Albumin (3.2-5.5) g/dl Globulin Albumin/Globulin Ratio Amylase (28-100) U/L Lipase (22-51) U/L Urine Color Yellow (YELLOW) Urine Appearance Clear (CLEAR) Urine pH 6.0 (5.0-9.0) Ur Specific [place] <= 1.005 (1.005-1.030) Urine Protein Negative (NEGATIVE) Urine Glucose (UA) 500 H (NEGATIVE) Urine Ketones 15 H (NEGATIVE) Urine Occult Blood Negative (NEGATIVE) Urine Nitrite Negative (NEGATIVE) Urine Bilirubin Negative (NEGATIVE) Urine Urobilinogen 0.2 (0.2-1.0) mg/dL Ur Leukocyte Esterase Negative (NEGATIVE) Urine Opiates Screen (NEGATIVE) Ur Oxycodone Screen (NEGATIVE) Urine Methadone Screen (NEGATIVE) Ur Barbiturates Screen (NEGATIVE) U Tricyclic Antidepress (NEGATIVE) Ur Phencyclidine Scrn (NEGATIVE) Ur Amphetamine Screen (NEGATIVE) U Methamphetamines Scrn (NEGATIVE) Urine MDMA Screen (NEGATIVE) U Benzodiazepines Scrn (NEGATIVE) Urine Cocaine Screen (NEGATIVE) U Marijuana (THC) Screen (NEGATIVE) Ethyl Alcohol mg/dL Ketones 04/10/19 04/10/19 Range/Units 01:28 02:21 WBC (5.0-10.0) 10^3/uL RBC (4.2-5.4) 10^6/uL Hgb (12.0-16.0) g/dL Hct (37.0-47.0) % MCV (80-100) fL MCH (27.0-34.0) pg MCHC (33.0-35.0) g/dL Plt Count (150-450) 10^3/uL Neut % (Auto) (42.2-75.2) % Lymph % (Auto) (20.5-50.1) % [place] % (Auto) (2-8) % Eos % (Auto) (1.0-3.0) % Baso % (Auto) (0.0-1.0) % Add Manual Diff Neutrophils % (Manual) (42-75) % Lymphocytes % (Manual) (20-50) % Monocytes % (Manual) (2-8) % PT (9.0-12.0) SEC INR (0.9-1.2) ABG pH (7.35-7.45) ABG pCO2 (35-45) mmHg ABG pO2 (70-100) mmHg ABG HCO3 (22-26) mmol/L ABG O2 Saturation (95-100) % ABG Base Excess ((-2)-(+3)) mmol/L Sawyer Test O2 Delivery Device Oxygen Flow Rate Sodium (135-145) mmol/L Potassium (3.6-5.0) mmol/L Chloride (101-111) mmol/L Carbon Dioxide (21.0-31.0) mmol/L Anion Gap BUN (7-18) mg/dL Creatinine (0.6-1.3) mg/dL Est Cr Clr Drug Dosing mL/min Estimated GFR (MDRD) BUN/Creatinine Ratio Glucose (74-105) mg/dL POC Glucose 364 H (70-105) mg/dl Lactic Acid (0.5-2.2) mmol/L Calcium (8.4-10.2) mg/dl Magnesium (1.8-2.5) mg/dL Total Bilirubin (0.2-1.0) mg/dL AST (10-42) IU/L ALT (10-60) IU/L Alkaline Phosphatase (42-121) IU/L Total Protein (6.7-8.2) g/dl Albumin (3.2-5.5) g/dl Globulin Albumin/Globulin Ratio Amylase (28-100) U/L Lipase (22-51) U/L Urine Color (YELLOW) Urine Appearance (CLEAR) Urine pH (5.0-9.0) Ur Specific [place] (1.005-1.030) Urine Protein (NEGATIVE) Urine Glucose (UA) (NEGATIVE) Urine Ketones (NEGATIVE) Urine Occult Blood (NEGATIVE) Urine Nitrite (NEGATIVE) Urine Bilirubin (NEGATIVE) Urine Urobilinogen (0.2-1.0) mg/dL Ur Leukocyte Esterase (NEGATIVE) Urine Opiates Screen Negative (NEGATIVE) Ur Oxycodone Screen Negative (NEGATIVE) Urine Methadone Screen Negative (NEGATIVE) Ur Barbiturates Screen Negative (NEGATIVE) U Tricyclic Antidepress Negative (NEGATIVE) Ur Phencyclidine Scrn Negative (NEGATIVE) Ur Amphetamine Screen Negative (NEGATIVE) U Methamphetamines Scrn Negative (NEGATIVE) Urine MDMA Screen Negative (NEGATIVE) U Benzodiazepines Scrn Negative (NEGATIVE) Urine Cocaine Screen Negative (NEGATIVE) U Marijuana (THC) Screen Negative (NEGATIVE) Ethyl Alcohol mg/dL Ketones Meds: Medications Discontinued Medications Generic Name Dose Route Start Last Admin Trade Name Freq PRN Reason Stop Dose Admin Hydromorphone HCl 1 mg 04/10/19 01:17 04/10/19 01:25 Dilaudid IVPUSH 04/10/19 01:18 1 mg ONETIME ONE Administration Sodium Chloride 1,000 mls @ 999 mls/hr 04/09/19 23:52 04/10/19 00:56 Normal Saline IV 04/10/19 00:52 999 mls/hr .BOLUS ONE Administration Insulin Human Regular 100 unit 100 mls @ 5.79 mls/hr 04/10/19 01:15 04/10/19 01:35 / Sodium Chloride IV 0.1 units/kg/hr TITRATE NGUYEN 5.79 mls/hr Administration Protocol 0.1 UNITS/KG/HR Octreotide Acetate 500 mcg/ 255 mls @ 12.5 mls/hr 04/10/19 01:09 04/10/19 01: 43 Sodium Chloride IV 04/10/19 21:32 12.5 mls/hr ASDIRECTED ONE Administration Insulin Human Regular 10 unit 04/10/19 01:04 04/10/19 01:13 Humulin R IV 04/10/19 01:05 10 units ONETIME ONE Administration Iopamidol 75 ml 04/10/19 00:12 04/10/19 01:41 Isovue-300 (61%) IVPUSH 04/10/19 00:13 75 ml ONETIME ONE Administration Octreotide Acetate 50 mcg 04/10/19 01:09 04/10/19 01:19 Sandostatin IVPUSH 04/10/19 01:10 50 mcg ONETIME ONE Administration Ondansetron HCl 4 mg 04/10/19 00:11 04/10/19 00:56 Zofran IV 04/10/19 00:12 4 mg ONETIME ONE Administration Pantoprazole Sodium 40 mg 04/09/19 23:53 04/10/19 00:57 Protonix Iv IVPUSH 04/09/19 23:54 40 mg ONETIME ONE Administration - Re-Assessments/Exams Free Text/Narrative Re-Assessment/Exam: 04/10/19 02:18 Dr Tristan Bryson accepting of patient. Tx via [facility]. 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 insulin use status Qualified Code(s): E11.65 - Type 2 diabetes mellitus with hyperglycemia GI bleed Qualifiers: GI bleed type/associated pathology: unspecified gastrointestinal hemorrhage type Qualified Code(s): K92.2 - Gastrointestinal hemorrhage, unspecified - Discharge Information *PRESCRIPTION DRUG MONITORING PROGRAM REVIEWED*: Not Applicable *COPY OF PRESCRIPTION DRUG MONITORING REPORT IN PATIENT LAIN: Not Applicable Referrals: Jermaine Hooks NP [Primary Care Provider] - Forms: ED Department Discharge - My Orders Last 24 Hours: My Active Orders 04/10/19 00:12 Abdomen Pelvis w Cont [CT] Urgent - Assessment/Plan Last 24 Hours: My Active Orders 04/10/19 00:12 Abdomen Pelvis w Cont [CT] Urgent
== END 2019-04-10 02:47 ==
LOC: DL.ED 00:04
DX: K92.0 Hematemesis (principal); K92.2 Gastrointestinal hemorrhage, unspecified; E11.65 Type 2 diabetes mellitus with hyperglycemia; I10 Essential (primary) hypertension; E78.00 Pure hypercholesterolemia, unspecified; F41.9 Anxiety disorder, unspecified; F17.210 Nicotine dependence, cigarettes, uncomplicated; Z90.49 Acquired absence of other specified parts of digestive tract; Z79.4 Long term (current) use of insulin; Z79.899 Other long term (current) drug therapy
CPT/HCPCS: 36415; 36600; 74177; 80053; 80305; 80320; 81003; 82009; 82150; 82272; 82803; 82962; 83605; 83690; 83735; 85025; 85610; 96365; 96368; 96375; 96376; 99285; C9113; J1170; J1815; J2354; J2405; J7030; J7050; Q9967; G0480

== ENCOUNTER 2019-06-26 02:10 | Emergency (ER) | payer MEDICAID ==
[2019-06-26] MEDS ORDERED: Sodium Chloride 0.9% 1,000 ML IV ONE (02:15)
[2019-06-26] MEDS ORDERED: Ondansetron 4 MG/2 ML SDV IVPUSH ONE (02:15)
[2019-06-26] MEDS ORDERED: Pantoprazole 40 MG Vial IVPUSH ONE (02:15)
[2019-06-26] MEDS ORDERED: Insulin Regular, Human 100 Units/ML 3 ML Vial IV ONE (02:17)
[2019-06-26 02:19] VITALS: PULSE 97
[2019-06-26] MEDS ORDERED: Labetalol 100 MG/20 ML MDV IVPUSH ONE ×2 (02:20→02:47)
[2019-06-26 02:34] VITALS: BP 242/113
--- NOTE | 2019-06-26 02:44 | EDM.PDOC ---
ED HPI GENERAL MEDICAL PROBLEM - General Chief Complaint: Gastrointestinal Problem Stated Complaint: AMBULANCE Time Seen by Provider: 06/26/19 02:10 Source of Information: Reports: Patient History Limitations: Reports: No Limitations - History of Present Illness INITIAL COMMENTS - FREE TEXT/NARRATIVE: ED via [facility] with c/o general abdominal pain, vomiting blood multi times tonight. Onset not feeling well around 4pm today. Body aches. Abdominal pain, Admits not taking her medications for past few days. Coffee ground emesis x3 for EMS BP elevated 230/112 systolic Epigastric Pain Score (Numeric/FACES): 9 - Related Data Allergies Allergy/AdvReac Type Severity Reaction Status Date / Time No Known Allergies Allergy Verified 05/29/19 19:07 Home Meds: Home Meds Atenolol [Tenormin] 50 mg PO DAILY 09/30/13 [History] DULoxetine HCl [Duloxetine HCl] 30 mg PO BID 04/11/18 [History] Insulin Aspart [NovoLOG] 15 unit SQ TIDAC 04/11/18 [History] Pantoprazole Sodium [Protonix] 40 mg PO BID 04/11/18 [History] Simvastatin [Zocor] 10 mg PO BEDTIME 04/11/18 [History] Acetaminophen [Tylenol] 650 mg PO Q4H PRN tablet 04/12/18 [Rx] Insulin Detemir [Levemir] 15 unit SUBCUT BEDTIME #5 pen 04/12/18 [Rx] Nicotine [Habitrol] 21 mg TRDERM DAILY #30 patch 04/12/18 [Rx] lisinopriL [Prinivil] 20 mg PO DAILY #0 04/12/18 [Rx] Pregabalin [Lyrica] 25 mg PO TID 01/27/19 [History] tiZANidine [Zanaflex] 4 mg PO Q8H PRN 01/27/19 [History] Acetaminophen/HYDROcodone [[place] 325-10 MG] 1 tab PO Q6H PRN #10 tablet [Rx] Ciprofloxacin [Cipro XR] 500 mg PO DAILY #10 tab 01/31/19 [Rx] GI Cocktail 30 ml PO Q8HR PRN #1 bottle 01/31/19 [Rx] amLODIPine [Norvasc] 10 mg PO DAILY 2 Days #30 tablet 01/31/19 [Rx] metroNIDAZOLE [Flagyl] 500 mg PO Q8H #21 tab 01/31/19 [Rx] Past Medical History HEENT History: Reports: None Cardiovascular History: Reports: High Cholesterol, Hypertension Respiratory History: Reports: None Gastrointestinal History: Reports: Cholelithiasis, Gastritis, GI Bleed, Hepatitis Genitourinary History: Reports: Renal Calculus 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: Musculoskeletal History: Reports: Arthritis Neurological History: Reports: None Psychiatric History: Reports: Anxiety Endocrine/Metabolic History: Reports: Diabetes, Type II, IDDM, Other (See Below) Other Endocrine/Metabolic History: diagnosed in 2009 Hematologic History: Reports: None Immunologic History: Reports: None Oncologic (Cancer) History: Reports: None Dermatologic History: Reports: Cellulitis - Infectious Disease History Infectious Disease History: Reports: Chicken Pox, MRSA - Past Surgical History GI Surgical History: Reports: Cholecystectomy, EGD Female Surgical History: Reports: Hysterectomy Social & Family History - Family History Family Medical History: Noncontributory - Caffeine Use Caffeine Use: Reports: Coffee Other Caffeine Use: green tea - Living Situation & Occupation Living situation: Reports: with Family Occupation: Unemployed ED ROS GENERAL - Review of Systems Review Of Systems: Comprehensive ROS is negative, except as noted in HPI. ED EXAM, GI/ABD - Physical Exam Exam: See Below Exam Limited By: No Limitations General Appearance: Mild Distress, Active Emesis (small mucus, coffee ground) Eyes: Bilateral: EOMI Ears: Normal External Exam Nose: Normal Inspection Throat/Mouth: Normal Inspection Head: Atraumatic, Normocephalic Neck: Normal Inspection Respiratory/Chest: No Respiratory Distress, Lungs Clear, Decreased Breath Sounds Cardiovascular: Normal Peripheral Pulses, Regular Rate, Rhythm GI/Abdominal Exam: Normal Bowel Sounds, Soft, Tender (general) (Female) Exam: Normal External Exam Extremities: Normal Inspection Neurological: Oriented Psychiatric: Flat Affect, Other (avoidant, squints eyes closed, looks around when staff not standing at bediside, Responses apporpriate when does answer questions.) Course - Vital Signs Last Recorded V/S: Last Vital Signs Temp 98.2 F 06/26/19 02:10 Pulse 97 06/26/19 02:10 Resp 18 06/26/19 02:10 BP 242/113 H 06/26/19 02:29 Pulse Ox 100 06/26/19 02:10 - Orders/Labs/Meds Orders: Active Orders 24 hr Category Date Time Status Blood Glucose Check, Bedside [] ONETIME Care 06/26/19 02:29 Active Glucose [Blood Glucose Check, Bedside] [] ONETIME Care 06/26/19 03:15 Active CULTURE BLOOD [BC] Stat Lab 06/26/19 02:26 Results CULTURE BLOOD [] Stat Lab 06/26/19 02:41 Received Blood Culture x2 Reflex Set [OM.PC] Stat Oth 06/26/19 02:15 Ordered Labs: Laboratory Tests 06/26/19 06/26/19 06/26/19 Range/Units 02:26 02:26 02:26 WBC 22.1 H (5.0-10.0) 10^3/uL RBC 5.85 H (4.2-5.4) 10^6/uL Hgb 16.4 H D (12.0-16.0) g/dL Hct 46.2 (37.0-47.0) % MCV 79.0 L D (80-100) fL MCH 28.0 (27.0-34.0) pg MCHC 35.5 H (33.0-35.0) g/dL Plt Count 242 (150-450) 10^3/uL Neut % (Auto) 88.9 H (42.2-75.2) % Lymph % (Auto) 6.9 L (20.5-50.1) % [place] % (Auto) 3.8 (2-8) % Eos % (Auto) 0.2 L (1.0-3.0) % Baso % (Auto) 0.2 (0.0-1.0) % Sodium 134 L (135-145) mmol/L Potassium 3.1 L (3.6-5.0) mmol/L Chloride 93 L (101-111) mmol/L Carbon Dioxide 23.0 (21.0-31.0) mmol/L Anion Gap 21.1 BUN 8 (7-18) mg/dL Creatinine 0.7 (0.6-1.3) mg/dL Est Cr Clr Drug Dosing TNP Estimated GFR (MDRD) > 60 BUN/Creatinine Ratio 11.42 Glucose 366 H (74-105) mg/dL POC Glucose (70-105) mg/dl Lactic Acid 2.5 H* (0.5-2.0) mmol/L Calcium 9.6 (8.4-10.2) mg/dl Magnesium 1.7 L (1.8-2.5) mg/dL Total Bilirubin 1.2 H (0.2-1.0) mg/dL AST 22 (10-42) IU/L ALT 19 (10-60) IU/L Alkaline Phosphatase 107 (42-121) IU/L Total Protein 9.0 H (6.7-8.2) g/dl Albumin 4.8 (3.2-5.5) g/dl Globulin 4.2 Albumin/Globulin Ratio 1.14 Amylase 45 (28-100) U/L Lipase 28 (22-51) U/L Urine Color (YELLOW) Urine Appearance (CLEAR) Urine pH (5.0-9.0) Ur Specific [place] (1.005-1.030) Urine Protein (NEGATIVE) Urine Glucose (UA) (NEGATIVE) Urine Ketones (NEGATIVE) Urine Occult Blood (NEGATIVE) Urine Nitrite (NEGATIVE) Urine Bilirubin (NEGATIVE) Urine Urobilinogen (0.2-1.0) mg/dL Ur Leukocyte Esterase (NEGATIVE) Urine RBC /HPF Urine WBC (0-5/HPF) /HPF Ur Epithelial Cells (NOT SEEN) /HPF Urine Bacteria (0-FEW/HPF) /HPF Hyaline Casts (NOT SEEN) /LPF Urine Mucus (NOT SEEN) /LPF Ethyl Alcohol mg/dL 06/26/19 06/26/19 06/26/19 Range/Units 02:26 02:29 03:25 WBC (5.0-10.0) 10^3/uL RBC (4.2-5.4) 10^6/uL Hgb (12.0-16.0) g/dL Hct (37.0-47.0) % MCV (80-100) fL MCH (27.0-34.0) pg MCHC (33.0-35.0) g/dL Plt Count (150-450) 10^3/uL Neut % (Auto) (42.2-75.2) % Lymph % (Auto) (20.5-50.1) % [place] % (Auto) (2-8) % Eos % (Auto) (1.0-3.0) % Baso % (Auto) (0.0-1.0) % Sodium (135-145) mmol/L Potassium (3.6-5.0) mmol/L Chloride (101-111) mmol/L Carbon Dioxide (21.0-31.0) mmol/L Anion Gap BUN (7-18) mg/dL Creatinine (0.6-1.3) mg/dL Est Cr Clr Drug Dosing Estimated GFR (MDRD) BUN/Creatinine Ratio Glucose (74-105) mg/dL POC Glucose 366 H (70-105) mg/dl Lactic Acid (0.5-2.0) mmol/L Calcium (8.4-10.2) mg/dl Magnesium (1.8-2.5) mg/dL Total Bilirubin (0.2-1.0) mg/dL AST (10-42) IU/L ALT (10-60) IU/L Alkaline Phosphatase (42-121) IU/L Total Protein (6.7-8.2) g/dl Albumin (3.2-5.5) g/dl Globulin Albumin/Globulin Ratio Amylase (28-100) U/L Lipase (22-51) U/L Urine Color Yellow (YELLOW) Urine Appearance Slightly cloudy (CLEAR) Urine pH 7.0 (5.0-9.0) Ur Specific [place] 1.025 (1.005-1.030) Urine Protein >=300 H (NEGATIVE) Urine Glucose (UA) 500 H (NEGATIVE) Urine Ketones >=160 H (NEGATIVE) Urine Occult Blood Trace-intact H (NEGATIVE) Urine Nitrite Negative (NEGATIVE) Urine Bilirubin Negative (NEGATIVE) Urine Urobilinogen 0.2 (0.2-1.0) mg/dL Ur Leukocyte Esterase Negative (NEGATIVE) Urine RBC 0-5 /HPF Urine WBC 0-5 (0-5/HPF) /HPF Ur Epithelial Cells Few (NOT SEEN) /HPF Urine Bacteria Few (0-FEW/HPF) /HPF Hyaline Casts Occasional H (NOT SEEN) /LPF Urine Mucus Few H (NOT SEEN) /LPF Ethyl Alcohol < 5 mg/dL Meds: Medications Discontinued Medications Generic Name Dose Route Start Last Admin Trade Name Freq PRN Reason Stop Dose Admin Hydralazine HCl 10 mg 06/26/19 03:02 06/26/19 03:07 Apresoline IVPUSH 06/26/19 03:03 10 mg ONETIME ONE Administration Sodium Chloride 1,000 mls @ 999 mls/hr 06/26/19 02:15 06/26/19 02:29 Normal Saline IV 06/26/19 03:15 999 mls/hr .BOLUS ONE Administration Piperacillin Sod/Tazobactam 100 mls @ 200 mls/hr 06/26/19 03:08 06/26/19 03: 27 Sod 3.375 gm/ Sodium Chloride IV 06/26/19 03:37 200 mls/hr ONETIME ONE Administration Insulin Human Regular 10 unit 06/26/19 02:17 06/26/19 02:39 Humulin R IV 06/26/19 02:18 10 units ONETIME ONE Administration Labetalol HCl 20 mg 06/26/19 02:20 06/26/19 02:36 Normodyne IVPUSH 06/26/19 02:21 10 mg ONETIME ONE Administration Protocol Labetalol HCl 10 mg 06/26/19 02:47 06/26/19 02:48 Normodyne IVPUSH 06/26/19 02:48 10 mg ONETIME ONE Administration Protocol Metoclopramide HCl 10 mg 06/26/19 04:21 Reglan IVPUSH 06/26/19 04:22 ONETIME ONE Ondansetron HCl 4 mg 06/26/19 02:15 06/26/19 02:30 Zofran IVPUSH 06/26/19 02:16 4 mg ONETIME ONE Administration Pantoprazole Sodium 80 mg 06/26/19 02:15 06/26/19 02:32 Protonix Iv IVPUSH 06/26/19 02:16 80 mg .BOLUS ONE Administration - Re-Assessments/Exams Free Text/Narrative Re-Assessment/Exam: 06/26/19 03:50 Dr Hudson accepting patient Tx via [facility]. Departure - Departure Time of Disposition: 04:22 Disposition: DC/Tfer to Acute Hospital 02 Condition: Undetermined Clinical Impression: Epigastric pain, Hypokalemia, Hyperglycemia, Non compliance w medication regimen Leukocytosis Qualifiers: Leukocytosis type: bandemia Qualified Code(s): D72.825 - Bandemia - Discharge Information *PRESCRIPTION DRUG MONITORING PROGRAM REVIEWED*: No *COPY OF PRESCRIPTION DRUG MONITORING REPORT IN PATIENT LIAN: No Forms: ED Department Discharge Sepsis Event Note - Evaluation Sepsis Screening Result: No Definite Risk - Focused Exam Vital Signs: Vital Signs Temp Pulse Resp BP Pulse Ox 06/26/19 02:29 242/113 H 06/26/19 02:10 98.2 F 97 18 256/112 H 100 Date Exam was Performed: 06/26/19 Time Exam was Performed: 04:22 - My Orders Last 24 Hours: My Active Orders 06/26/19 02:15 Blood Culture x2 Reflex Set [OM.PC] Stat 06/26/19 02:26 CULTURE BLOOD [BC] Stat 06/26/19 02:29 Blood Glucose Check, Bedside [RC] ONETIME 06/26/19 02:41 CULTURE BLOOD [BC] Stat 06/26/19 03:15 Glucose [Blood Glucose Check, Bedside] [RC] ONETIME - Assessment/Plan Last 24 Hours: My Active Orders 06/26/19 02:15 Blood Culture x2 Reflex Set [OM.PC] Stat 06/26/19 02:26 CULTURE BLOOD [BC] Stat 06/26/19 02:29 Blood Glucose Check, Bedside [RC] ONETIME 06/26/19 02:41 CULTURE BLOOD [BC] Stat 06/26/19 03:15 Glucose [Blood Glucose Check, Bedside] [RC] ONETIME
[2019-06-26] MEDS ORDERED: hydrALAZINE 20 MG/ML SDV IVPUSH ONE (03:02)
[2019-06-26 03:05] LABS: ANION GAP 21.1; CHLORIDE,CL 93 mmol/L (101-111); SODIUM,NA 134 mmol/L (135-145)
[2019-06-26] MEDS ORDERED: Piperacillin/Tazobactam 3.375 GM in Sodium Chloride 0.9% 100 ML IV ONE (03:08)
[2019-06-26] MEDS ORDERED: Metoclopramide 10 MG/2 ML SDV IVPUSH ONE (04:21)
== END 2019-06-26 04:28 ==
LOC: DL.ED 02:10
DX: R10.13 Epigastric pain (principal); E11.65 Type 2 diabetes mellitus with hyperglycemia; E87.6 Hypokalemia; D72.825 Bandemia; I10 Essential (primary) hypertension; Z79.899 Other long term (current) drug therapy; Z79.4 Long term (current) use of insulin
CPT/HCPCS: 36415; 80053; 80320; 81001; 82150; 82272; 82962; 83605; 83690; 83735; 85025; 87040; 96361; 96365; 96375; 99285; C9113; J0360; J1815; J2405; J2543; J2765; J3490; J7030; J7050; G0480

== ENCOUNTER 2019-09-28 22:53 | Emergency (ER) | payer MEDICAID, SELFPAY ==
[2019-09-28 23:03] VITALS: BP 226/130; PULSE 58
[2019-09-28] MEDS ORDERED: Sodium Chloride 0.9% 1,000 ML IV ONE (23:05)
[2019-09-28] MEDS ORDERED: Ondansetron 4 MG/2 ML SDV IVPUSH ONE (23:05)
[2019-09-28] MEDS ORDERED: Pantoprazole 40 MG Vial IVPUSH ONE (23:05)
--- NOTE | 2019-09-28 23:07 | EDM.PDOC ---
ED HPI GENERAL MEDICAL PROBLEM - General Chief Complaint: Gastrointestinal Problem Stated Complaint: ESOPHOGUS BLEEDING Time Seen by Provider: 09/28/19 23:04 Source of Information: Reports: Patient History Limitations: Reports: No Limitations - History of Present Illness INITIAL COMMENTS - FREE TEXT/NARRATIVE: c/o onset vomiting blood 2 hours ago. pt vomiting dark red blood. Abdominal Pain Score (Numeric/FACES): 10 - Related Data Allergies Allergy/AdvReac Type Severity Reaction Status Date / Time No Known Allergies Allergy Verified 05/29/19 19:07 Home Meds: Home Meds Atenolol [Tenormin] 50 mg PO DAILY 09/30/13 [History] DULoxetine HCl [Duloxetine HCl] 30 mg PO BID 04/11/18 [History] Insulin Aspart [NovoLOG] 15 unit SQ TIDAC 04/11/18 [History] Pantoprazole Sodium [Protonix] 40 mg PO BID 04/11/18 [History] Simvastatin [Zocor] 10 mg PO BEDTIME 04/11/18 [History] Acetaminophen [Tylenol] 650 mg PO Q4H PRN tablet 04/12/18 [Rx] Insulin Detemir [Levemir] 15 unit SUBCUT BEDTIME #5 pen 04/12/18 [Rx] Nicotine [Habitrol] 21 mg TRDERM DAILY #30 patch 04/12/18 [Rx] lisinopriL [Prinivil] 20 mg PO DAILY #0 04/12/18 [Rx] Pregabalin [Lyrica] 25 mg PO TID 01/27/19 [History] tiZANidine [Zanaflex] 4 mg PO Q8H PRN 01/27/19 [History] Acetaminophen/HYDROcodone [[place] 325-10 MG] 1 tab PO Q6H PRN #10 tablet [Rx] Ciprofloxacin [Cipro XR] 500 mg PO DAILY #10 tab 01/31/19 [Rx] GI Cocktail 30 ml PO Q8HR PRN #1 bottle 01/31/19 [Rx] amLODIPine [Norvasc] 10 mg PO DAILY 2 Days #30 tablet 01/31/19 [Rx] metroNIDAZOLE [Flagyl] 500 mg PO Q8H #21 tab 01/31/19 [Rx] Past Medical History HEENT History: Reports: None Cardiovascular History: Reports: High Cholesterol, Hypertension Respiratory History: Reports: None Gastrointestinal History: Reports: Cholelithiasis, Gastritis, GI Bleed, Hepatitis Genitourinary History: Reports: Renal Calculus 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: Musculoskeletal History: Reports: Arthritis Neurological History: Reports: None Psychiatric History: Reports: Anxiety Endocrine/Metabolic History: Reports: Diabetes, Type II, IDDM, Other (See Below) Other Endocrine/Metabolic History: diagnosed in 2009 Hematologic History: Reports: None Immunologic History: Reports: None Oncologic (Cancer) History: Reports: None Dermatologic History: Reports: Cellulitis - Infectious Disease History Infectious Disease History: Reports: Chicken Pox, MRSA - Past Surgical History GI Surgical History: Reports: Cholecystectomy, EGD Female Surgical History: Reports: Hysterectomy Social & Family History - Family History Family Medical History: Noncontributory - Tobacco Use Smoking Status *Q: Unknown Ever Smoked Second Hand Smoke Exposure: Yes - Caffeine Use Caffeine Use: Reports: Coffee Other Caffeine Use: green tea - Recreational Drug Use Recreational Drug Use: No - Living Situation & Occupation Living situation: Reports: with Family Occupation: Unemployed ED ROS GENERAL - Review of Systems Review Of Systems: Comprehensive ROS is negative, except as noted in HPI. ED EXAM, GI/ABD - Physical Exam Exam: See Below Exam Limited By: No Limitations General Appearance: Alert, WD/WN, Moderate Distress, Active Emesis Ears: Hearing Grossly Normal Throat/Mouth: Normal Voice, No Airway Compromise Head: Atraumatic Neck: Non-Tender, Full Range of Motion Respiratory/Chest: No Respiratory Distress Cardiovascular: Regular Rate, Rhythm GI/Abdominal Exam: Guarding, Tender. No: Distended, Rigid, Rebound Neurological: Alert, Oriented, Normal Cognition, Normal Gait, No Motor/Sensory Deficits Psychiatric: Tearful Skin Exam: Warm, Dry, Normal Color Lymphatic: No Adenopathy Course - Vital Signs Last Recorded V/S: Last Vital Signs Temp 36.3 C 09/28/19 23:00 Pulse 58 L 09/28/19 23:00 Resp 16 09/28/19 23:00 BP 226/130 H 09/28/19 23:00 Pulse Ox 100 09/28/19 23:00 - Orders/Labs/Meds Orders: Active Orders 24 hr Category Date Time Status EKG 12 Lead [EKG Documentation Completion] [RC] STAT Care 09/29/19 00:07 Active Chest 1V Frontal [CR] Urgent Exams 09/29/19 00:05 Taken INR,PT,PROTHROMBIN TIME [COAG] Stat Lab 09/28/19 23:15 Received PTT,PARTIAL THROMBOPLSTIN TIME [COAG] Stat Lab 09/28/19 23:15 Received Labs: Laboratory Tests 09/28/19 09/28/19 09/28/19 Range/Units 23:15 23:15 23:15 WBC 17.9 H (5.0-10.0) 10^3/uL RBC 5.91 H (4.2-5.4) 10^6/uL Hgb 16.4 H (12.0-16.0) g/dL Hct 46.8 (37.0-47.0) % MCV 79.2 L (80-100) fL MCH 27.7 (27.0-34.0) pg MCHC 35.0 (33.0-35.0) g/dL Plt Count 396 D (150-450) 10^3/uL Neut % (Auto) 89.6 H (42.2-75.2) % Lymph % (Auto) 8.8 L (20.5-50.1) % [place] % (Auto) 1.4 L (2-8) % Eos % (Auto) 0.0 L (1.0-3.0) % Baso % (Auto) 0.2 (0.0-1.0) % Sodium 137 (136-145) mmol/L Potassium 3.7 (3.5-5.1) mmol/L Chloride 95 L (98-107) mmol/L Carbon Dioxide 24 (21-32) mmol/L Anion Gap 21.7 H (7-13) mEq/L BUN 15 (7-18) mg/dL Creatinine 0.88 (0.55-1.02) mg/dL Est Cr Clr Drug Dosing 57.38 mL/min Estimated GFR (MDRD) > 60 BUN/Creatinine Ratio 17.0 (No establ ref range) Glucose 324 H (74-99) mg/dL Lactic Acid 2.8 H* (0.4-2.0) mmol/L Calcium 10.3 H (8.5-10.1) mg/dL Total Bilirubin 0.6 (0.2-1.0) mg/dL AST 23 (15-37) U/L ALT 38 (14-59) U/L Alkaline Phosphatase 116 (46-116) U/L Total Protein 10.0 H (6.4-8.2) g/dL Albumin 5.1 H (3.4-5.0) g/dL Globulin 4.9 Albumin/Globulin Ratio 1.04 Urine Color (YELLOW) Urine Appearance (CLEAR) Urine pH (5.0-9.0) Ur Specific [place] (1.005-1.030) Urine Protein (NEGATIVE) Urine Glucose (UA) (NEGATIVE) Urine Ketones (NEGATIVE) Urine Occult Blood (NEGATIVE) Urine Nitrite (NEGATIVE) Urine Bilirubin (NEGATIVE) Urine Urobilinogen (0.2-1.0) mg/dL Ur Leukocyte Esterase (NEGATIVE) Urine RBC /HPF Urine WBC (0-5/HPF) /HPF Ur Epithelial Cells (NOT SEEN) /HPF Urine Bacteria (0-FEW/HPF) /HPF Urine Opiates Screen (NEGATIVE) Ur Oxycodone Screen (NEGATIVE) Urine Methadone Screen (NEGATIVE) Ur Barbiturates Screen (NEGATIVE) U Tricyclic Antidepress (NEGATIVE) Ur Phencyclidine Scrn (NEGATIVE) Ur Amphetamine Screen (NEGATIVE) U Methamphetamines Scrn (NEGATIVE) Urine MDMA Screen (NEGATIVE) U Benzodiazepines Scrn (NEGATIVE) Urine Cocaine Screen (NEGATIVE) U Marijuana (THC) Screen (NEGATIVE) Ethyl Alcohol < 3 (0) mg/dL 09/29/19 09/29/19 Range/Units 00:06 00:06 WBC (5.0-10.0) 10^3/uL RBC (4.2-5.4) 10^6/uL Hgb (12.0-16.0) g/dL Hct (37.0-47.0) % MCV (80-100) fL MCH (27.0-34.0) pg MCHC (33.0-35.0) g/dL Plt Count (150-450) 10^3/uL Neut % (Auto) (42.2-75.2) % Lymph % (Auto) (20.5-50.1) % [place] % (Auto) (2-8) % Eos % (Auto) (1.0-3.0) % Baso % (Auto) (0.0-1.0) % Sodium (136-145) mmol/L Potassium (3.5-5.1) mmol/L Chloride (98-107) mmol/L Carbon Dioxide (21-32) mmol/L Anion Gap (7-13) mEq/L BUN (7-18) mg/dL Creatinine (0.55-1.02) mg/dL Est Cr Clr Drug Dosing mL/min Estimated GFR (MDRD) BUN/Creatinine Ratio (No establ ref range) Glucose (74-99) mg/dL Lactic Acid (0.4-2.0) mmol/L Calcium (8.5-10.1) mg/dL Total Bilirubin (0.2-1.0) mg/dL AST (15-37) U/L ALT (14-59) U/L Alkaline Phosphatase (46-116) U/L Total Protein (6.4-8.2) g/dL Albumin (3.4-5.0) g/dL Globulin Albumin/Globulin Ratio Urine Color Yellow (YELLOW) Urine Appearance Slightly cloudy (CLEAR) Urine pH 6.5 (5.0-9.0) Ur Specific [place] 1.025 (1.005-1.030) Urine Protein >=300 H (NEGATIVE) Urine Glucose (UA) 500 H (NEGATIVE) Urine Ketones >=160 H (NEGATIVE) Urine Occult Blood Trace-lysed H (NEGATIVE) Urine Nitrite Negative (NEGATIVE) Urine Bilirubin Negative (NEGATIVE) Urine Urobilinogen 0.2 (0.2-1.0) mg/dL Ur Leukocyte Esterase Negative (NEGATIVE) Urine RBC 0-5 /HPF Urine WBC 0-5 (0-5/HPF) /HPF Ur Epithelial Cells Occasional (NOT SEEN) /HPF Urine Bacteria Few (0-FEW/HPF) /HPF Urine Opiates Screen Negative (NEGATIVE) Ur Oxycodone Screen Negative (NEGATIVE) Urine Methadone Screen Negative (NEGATIVE) Ur Barbiturates Screen Negative (NEGATIVE) U Tricyclic Antidepress Negative (NEGATIVE) Ur Phencyclidine Scrn Negative (NEGATIVE) Ur Amphetamine Screen Negative (NEGATIVE) U Methamphetamines Scrn Negative (NEGATIVE) Urine MDMA Screen Negative (NEGATIVE) U Benzodiazepines Scrn Negative (NEGATIVE) Urine Cocaine Screen Negative (NEGATIVE) U Marijuana (THC) Screen Positive H (NEGATIVE) Ethyl Alcohol (0) mg/dL Meds: Medications Discontinued Medications Generic Name Dose Route Start Last Admin Trade Name Freq PRN Reason Stop Dose Admin Diltiazem HCl 10 mg 09/29/19 00:14 09/29/19 00:23 Diltiazem IVPUSH 09/29/19 00:15 10 mg ONETIME ONE Administration Sodium Chloride 1,000 mls @ 999 mls/hr 09/28/19 23:05 09/28/19 23:13 Normal Saline IV 09/29/19 00:05 999 mls/hr .BOLUS ONE Administration Metoclopramide HCl 10 mg 09/29/19 00:12 09/29/19 00:22 Reglan IVPUSH 09/29/19 00:13 10 mg ONETIME ONE Administration Ondansetron HCl 4 mg 09/28/19 23:05 09/28/19 23:14 Zofran IVPUSH 09/28/19 23:06 4 mg ONETIME ONE Administration Pantoprazole Sodium 80 mg 09/28/19 23:05 09/28/19 23:15 Protonix Iv IVPUSH 09/28/19 23:06 80 mg .BOLUS ONE Administration - Re-Assessments/Exams Free Text/Narrative Re-Assessment/Exam: 09/29/19 00:[address] Mayfield @ who kindly accepted pt. Departure - Departure Time of Disposition: 00:15 Disposition: DC/Tfer to Acute Hospital 02 Condition: Fair Clinical Impression: Epigastric pain, Hypertension, uncontrolled, Upper GI bleed GI bleed Qualifiers: GI bleed type/associated pathology: unspecified gastrointestinal hemorrhage type Qualified Code(s): K92.2 - Gastrointestinal hemorrhage, unspecified - Discharge Information Forms: Interfacility Transfer [facility] Sepsis Event Note - Evaluation Sepsis Screening Result: No Definite Risk - Focused Exam Vital Signs: Vital Signs Temp Pulse Resp BP Pulse Ox 09/28/19 23:00 36.3 C 58 L 16 226/130 H 100 Date Exam was Performed: 09/29/19 Time Exam was Performed: 00:29 - My Orders Last 24 Hours: My Active Orders 09/28/19 23:15 INR,PT,PROTHROMBIN TIME [COAG] Stat PTT,PARTIAL THROMBOPLSTIN TIME [COAG] Stat 09/29/19 00:05 Chest 1V Frontal [CR] Urgent 09/29/19 00:07 EKG 12 Lead [EKG Documentation Completion] [RC] STAT - Assessment/Plan Last 24 Hours: My Active Orders 09/28/19 23:15 INR,PT,PROTHROMBIN TIME [COAG] Stat PTT,PARTIAL THROMBOPLSTIN TIME [COAG] Stat 09/29/19 00:05 Chest 1V Frontal [CR] Urgent 09/29/19 00:07 EKG 12 Lead [EKG Documentation Completion] [RC] STAT
[2019-09-28 23:45] LABS: ANION GAP 21.7 mEq/L (7-13); CHLORIDE,CL 95 mmol/L (98-107); SODIUM,NA 137 mmol/L (136-145)
[2019-09-29] MEDS ORDERED: Metoclopramide 10 MG/2 ML SDV IVPUSH ONE (00:12)
[2019-09-29] MEDS ORDERED: Diltiazem 25 MG/5 ML SDV IVPUSH ONE (00:14)
[2019-09-29 00:34] LABS: PTT,PARTIAL THROMBOPLSTIN TIME 22.1 SEC (22.0-34.0)
== END 2019-09-29 01:04 ==
LOC: DL.ED 22:53
DX: K92.2 Gastrointestinal hemorrhage, unspecified (principal); I10 Essential (primary) hypertension; F41.9 Anxiety disorder, unspecified; E11.9 Type 2 diabetes mellitus without complications; E78.00 Pure hypercholesterolemia, unspecified; Z77.22 Contact with and (suspected) exposure to environmental tobacco smoke (acute) (chronic); Z79.4 Long term (current) use of insulin; Z79.899 Other long term (current) drug therapy
CPT/HCPCS: 36415; 71045; 80053; 80305; 80307; 81001; 83605; 85025; 85610; 85730; 93005; 96361; 96374; 96375; 99285; C9113; J2405; J2765; J3490; J7030

== ENCOUNTER 2019-11-06 21:47 | Emergency (ER) | payer MEDICAID ==
[2019-11-06 22:01] VITALS: BP 152/82; PULSE 67
[2019-11-06 22:33] LABS: ANION GAP 10.7 mEq/L (7-13)
[2019-11-06] MEDS ORDERED: GI Cocktail Oral Solution 30 ML PO ONE (22:49)
--- NOTE | 2019-11-06 23:25 | EDM.PDOC ---
ED HPI GENERAL MEDICAL PROBLEM - General Chief Complaint: Respiratory Problem Stated Complaint: lungs hurt Time Seen by Provider: 11/06/19 22:00 Source of Information: Reports: Patient History Limitations: Reports: No Limitations - History of Present Illness INITIAL COMMENTS - FREE TEXT/NARRATIVE: ED ambulatory with c/o of "lungs hurting, mostly below right shoulder blade, Relays was to have esophageal dilation done today and procedure had to be stopped because she quit breathing and had to be bagged for 15minutes, kept for about 4 hours and and released, Ate in GF prior to coming home, No nausea or vomiting , no pain with eating, onset approx 30 minutes prior to arriva. has not tried anything for discomfort. No SOB . Some discomfort on both side with deep breathing, no pain with movement. [facility]- report reviewed, ressp ditress with procedure sats decreased, narcan given and bag assist, procedure stopped. Patient improved with narcan. No dilation needed. mild espohagitis. Upper Back Pain Score (Numeric/FACES): 8 - Related Data Allergies Allergy/AdvReac Type Severity Reaction Status Date / Time No Known Allergies Allergy Verified 05/29/19 19:07 Home Meds: Home Meds Atenolol [Tenormin] 50 mg PO DAILY 09/30/13 [History] DULoxetine HCl [Duloxetine HCl] 30 mg PO BID 04/11/18 [History] Insulin Aspart [NovoLOG] 15 unit SQ TIDAC 04/11/18 [History] Pantoprazole Sodium [Protonix] 40 mg PO BID 04/11/18 [History] Simvastatin [Zocor] 10 mg PO BEDTIME 04/11/18 [History] Acetaminophen [Tylenol] 650 mg PO Q4H PRN tablet 04/12/18 [Rx] Insulin Detemir [Levemir] 15 unit SUBCUT BEDTIME #5 pen 04/12/18 [Rx] Nicotine [Habitrol] 21 mg TRDERM DAILY #30 patch 04/12/18 [Rx] lisinopriL [Prinivil] 20 mg PO DAILY #0 04/12/18 [Rx] Pregabalin [Lyrica] 25 mg PO TID 01/27/19 [History] tiZANidine [Zanaflex] 4 mg PO Q8H PRN 01/27/19 [History] Acetaminophen/HYDROcodone [[place] 325-10 MG] 1 tab PO Q6H PRN #10 tablet [Rx] Ciprofloxacin [Cipro XR] 500 mg PO DAILY #10 tab 01/31/19 [Rx] GI Cocktail 30 ml PO Q8HR PRN #1 bottle 01/31/19 [Rx] amLODIPine [Norvasc] 10 mg PO DAILY 2 Days #30 tablet 01/31/19 [Rx] metroNIDAZOLE [Flagyl] 500 mg PO Q8H #21 tab 01/31/19 [Rx] Past Medical History HEENT History: Reports: None Cardiovascular History: Reports: High Cholesterol, Hypertension Respiratory History: Reports: None Gastrointestinal History: Reports: Cholelithiasis, Gastritis, GI Bleed, Hepatitis Genitourinary History: Reports: Renal Calculus [employer] History: Reports: Musculoskeletal History: Reports: Arthritis Neurological History: Reports: None Psychiatric History: Reports: Anxiety Endocrine/Metabolic History: Reports: Diabetes, Type II, IDDM, Other (See Below) Other Endocrine/Metabolic History: diagnosed in 2009 Hematologic History: Reports: None Immunologic History: Reports: None Oncologic (Cancer) History: Reports: None Dermatologic History: Reports: Cellulitis - Infectious Disease History Infectious Disease History: Reports: Chicken Pox, MRSA - Past Surgical History GI Surgical History: Reports: Cholecystectomy, EGD, Esophageal Dilatation Female Surgical History: Reports: Hysterectomy Social & Family History - Family History Family Medical History: Noncontributory - Tobacco Use Smoking Status *Q: Unknown Ever Smoked Second Hand Smoke Exposure: No - Caffeine Use Caffeine Use: Reports: Coffee Other Caffeine Use: green tea - Recreational Drug Use Recreational Drug Use: No - Living Situation & Occupation Living situation: Reports: with Family Occupation: Unemployed ED ROS GENERAL - Review of Systems Review Of Systems: Comprehensive ROS is negative, except as noted in HPI. Constitutional: Denies: Fever, Chills, Malaise, Weakness, Decreased Appetite HEENT: Reports: No Symptoms Respiratory: Reports: Pleuritic Chest Pain. Denies: Shortness of Breath Cardiovascular: Reports: No Symptoms GI/Abdominal: Denies: Abdominal Pain Musculoskeletal: Reports: No Symptoms Neurological: Reports: No Symptoms ED EXAM, GENERAL - Physical Exam Exam: See Below Exam Limited By: No Limitations General Appearance: Alert, No Apparent Distress, Anxious Eye Exam: Bilateral Eye: PERRL Ears: Normal External Exam Nose: Normal Inspection Throat/Mouth: Normal Inspection Head: Atraumatic, Normocephalic Neck: Normal Inspection Respiratory/Chest: No Respiratory Distress, Lungs Clear, Normal Breath Sounds, Chest Non-Tender Cardiovascular: Normal Peripheral Pulses, Regular Rate, Rhythm, No Edema GI/Abdominal: Normal Bowel Sounds, Soft, Non-Tender Back Exam: Normal Inspection, Full Range of Motion. No: CVA Tenderness (L), CVA Tenderness (R), Decreased Range of Motion, Paraspinal Tenderness, Vertebral Tenderness Extremities: Normal Inspection Neurological: Alert, Oriented, Normal Cognition Skin Exam: Warm, Dry, Intact, Normal Color Course - Vital Signs Last Recorded V/S: Last Vital Signs Temp 98.3 F 11/06/19 21:58 Pulse 67 11/06/19 21:58 Resp 18 11/06/19 21:58 BP 152/82 H 11/06/19 21:58 Pulse Ox 97 11/06/19 21:58 - Orders/Labs/Meds Orders: Active Orders 24 hr Category Date Time Status EKG Documentation Completion [RC] URGENT Care 11/06/19 22:06 Active Chest 2V [CR] Urgent Exams 11/06/19 21:57 Taken Labs: Laboratory Tests 11/06/19 11/06/19 Range/Units 22:08 22:08 WBC 6.1 (5.0-10.0) 10^3/uL RBC 4.50 (4.2-5.4) 10^6/uL Hgb 12.9 D (12.0-16.0) g/dL Hct 37.5 (37.0-47.0) % MCV 83.3 D (80-100) fL MCH 28.7 (27.0-34.0) pg MCHC 34.4 (33.0-35.0) g/dL Plt Count 297 D (150-450) 10^3/uL Neut % (Auto) 39.4 L (42.2-75.2) % Lymph % (Auto) 48.7 (20.5-50.1) % [place] % (Auto) 9.8 H (2-8) % Eos % (Auto) 1.8 (1.0-3.0) % Baso % (Auto) 0.3 (0.0-1.0) % Sodium 136 (136-145) mmol/L Potassium 4.7 (3.5-5.1) mmol/L Chloride 98 (98-107) mmol/L Carbon Dioxide 32 (21-32) mmol/L Anion Gap 10.7 (7-13) mEq/L BUN 16 (7-18) mg/dL Creatinine 1.03 H (0.55-1.02) mg/dL Est Cr Clr Drug Dosing 49.02 mL/min Estimated GFR (MDRD) 58 BUN/Creatinine Ratio 15.5 (No establ ref range) Glucose 336 H (74-99) mg/dL Calcium 9.3 (8.5-10.1) mg/dL Total Bilirubin 0.3 (0.2-1.0) mg/dL AST 23 (15-37) U/L ALT 68 H (14-59) U/L Alkaline Phosphatase 125 H (46-116) U/L Total Protein 7.6 (6.4-8.2) g/dL Albumin 3.9 (3.4-5.0) g/dL Globulin 3.7 Albumin/Globulin Ratio 1.1 Meds: Medications Discontinued Medications Generic Name Dose Route Start Last Admin Trade Name Freq PRN Reason Stop Dose Admin Al Hydroxide/Mg Hydroxide 30 ml 11/06/19 22:49 11/06/19 22:53 Gi Cocktail PO 11/06/19 22:50 30 ml ONETIME ONE Administration Departure - Departure Time of Disposition: 23:20 Disposition: Home, Self-Care 01 Condition: Good Clinical Impression: Rib pain on right side, Hyperglycemia due to diabetes mellitus - Discharge Information *PRESCRIPTION DRUG MONITORING PROGRAM REVIEWED*: No *COPY OF PRESCRIPTION DRUG MONITORING REPORT IN PATIENT LIAN: No Instructions: Nonspecific Chest Pain, Adult, [id number], Hyperglycemia, Easy- to-Read Additional Instructions: monitor blood sugar tylenol 650mg every 4 hours as needed for discomfort follow up if symptoms worsen or not improve Telephone follow up with [facility] in am if continued discomfort urgent follow up vomiting blood, difficultly breathing or dizziness light activity tomorrow Sepsis Event Note - Evaluation Sepsis Screening Result: No Definite Risk - Focused Exam Vital Signs: Vital Signs Temp Pulse Resp BP Pulse Ox 11/06/19 21:58 98.3 F 67 18 152/82 H 97 Date Exam was Performed: 11/06/19 Time Exam was Performed: 23:20 - My Orders Last 24 Hours: My Active Orders 11/06/19 21:57 Chest 2V [CR] Urgent 11/06/19 22:06 EKG Documentation Completion [RC] URGENT - Assessment/Plan Last 24 Hours: My Active Orders 11/06/19 21:57 Chest 2V [CR] Urgent 11/06/19 22:06 EKG Documentation Completion [RC] URGENT
== END 2019-11-06 23:28 | disposition home or self-care (01) ==
LOC: DL.ED 21:47
DX: R07.81 Pleurodynia (principal); E11.65 Type 2 diabetes mellitus with hyperglycemia; I10 Essential (primary) hypertension; E78.00 Pure hypercholesterolemia, unspecified; M19.90 Unspecified osteoarthritis, unspecified site; F41.9 Anxiety disorder, unspecified; Z79.4 Long term (current) use of insulin; Z79.899 Other long term (current) drug therapy
CPT/HCPCS: 36415; 71046; 80053; 85025; 93005; 99284; A9270

== ENCOUNTER 2021-06-07 14:50 | Emergency (ER) | payer BC, MEDICAID, SELFPAY ==
[2021-06-07 15:22] VITALS: BP 167/77; PULSE 70
--- NOTE | 2021-06-07 15:54 | CR ---
PROCEDURE INFORMATION: Exam: XR Right Finger(s) Exam date and time: 06/07/2021 3:32 PM Age: 50 years old Clinical indication: Other: Slammed in window; Additional info: Slammed in window, pain TECHNIQUE: Imaging protocol: XR Right fingers. Views: Minimum 2 views. COMPARISON: No relevant prior studies available. FINDINGS: Bones/joints: Normal. Soft tissues: Normal. IMPRESSION: No acute findings.
[2021-06-07] MEDS ORDERED: Ketorolac 30 MG/ML SDV IM ONE (16:06)
--- NOTE | 2021-06-07 16:12 | EDM.PDOC ---
Scribed by Fátima Burleson 06/07/21 1612 for Bonilla Sutton MD ED HPI GENERAL MEDICAL PROBLEM - General Chief Complaint: Upper Extremity Injury/Pain Stated Complaint: HURT HAND-SLAMMED IT INTO A WINDOW Time Seen by Provider: 06/07/21 16:02 Source of Information: Reports: Patient, RN, RN Notes Reviewed History Limitations: Reports: No Limitations - History of Present Illness INITIAL COMMENTS - FREE TEXT/NARRATIVE: Patient presents to ED by POV with c/o injury to Rt middle finger sustained from shutting it in a house window today. Denies any other injury. Right Finger-Middle Pain Score (Numeric/FACES): 9 - Related Data Allergies Allergy/AdvReac Type Severity Reaction Status Date / Time No Known Allergies Allergy Verified 06/07/21 15:14 Home Meds: Home Meds DULoxetine HCl [Duloxetine HCl] 30 mg PO BID 04/11/18 [History] Insulin Aspart [NovoLOG] 15 unit SQ TIDAC 04/11/18 [History] Pantoprazole Sodium [Protonix] 40 mg PO BID 04/11/18 [History] Simvastatin [Zocor] 10 mg PO BEDTIME 04/11/18 [History] Insulin Detemir [Levemir] 15 unit SUBCUT BEDTIME #5 pen 04/12/18 [Rx] lisinopriL [Prinivil] 20 mg PO DAILY #0 04/12/18 [Rx] amLODIPine [Norvasc] 10 mg PO DAILY 2 Days #30 tablet 01/31/19 [Rx] Past Medical History HEENT History: Reports: None Cardiovascular History: Reports: High Cholesterol, Hypertension Respiratory History: Reports: None Gastrointestinal History: Reports: Cholelithiasis, Gastritis, GI Bleed, Hepatitis Genitourinary History: Reports: Renal Calculus [employer] History: Reports: Musculoskeletal History: Reports: Arthritis Neurological History: Reports: None Psychiatric History: Reports: Anxiety Endocrine/Metabolic History: Reports: Diabetes, Type II, IDDM, Other (See Below) Other Endocrine/Metabolic History: diagnosed in 2009 Hematologic History: Reports: None Immunologic History: Reports: None Oncologic (Cancer) History: Reports: None Dermatologic History: Reports: Cellulitis - Infectious Disease History Infectious Disease History: Reports: Chicken Pox, MRSA - Past Surgical History HEENT Surgical History: Reports: None Cardiovascular Surgical History: Reports: None Respiratory Surgical History: Reports: None GI Surgical History: Reports: Cholecystectomy, EGD, Esophageal Dilatation Female Surgical History: Reports: Hysterectomy Other Female Surgeries/Procedures: partial hysterectomy, just took out urerus Social & Family History - Family History Family Medical History: No Pertinent Family History - Tobacco Use Tobacco Use Status *Q: Current Every Day Tobacco User Years of Tobacco use: 30 Packs/Tins Daily: 0.3 - Caffeine Use Caffeine Use: Reports: None Other Caffeine Use: green tea - Recreational Drug Use Recreational Drug Use: Yes Recreational Drug Type: Reports: Marijuana/Hashish - Living Situation & Occupation Living situation: Reports: with Family Occupation: Unemployed Review of Systems - Review of Systems Review Of Systems: Comprehensive ROS is negative, except as noted in HPI. ED EXAM, GENERAL - Physical Exam Exam: See Below Exam Limited By: No Limitations General Appearance: Alert, WD/WN, No Apparent Distress Respiratory/Chest: No Respiratory Distress Cardiovascular: Normal Peripheral Pulses Extremities: Normal Range of Motion, Normal Capillary Refill, Other (Distal Rt 3rd finger with contusion, tenderness, and small subungual hematoma). No: Joint Swelling Neurological: Alert, Oriented, No Motor/Sensory Deficits Psychiatric: Normal Mood Skin Exam: Warm, Dry, Intact, No Rash Course - Vital Signs Last Recorded V/S: Last Vital Signs Temp 96.3 F L 06/07/21 15:17 Pulse 70 06/07/21 15:17 Resp 20 06/07/21 15:17 BP 167/77 H 06/07/21 15:17 Pulse Ox 97 06/07/21 15:17 - Orders/Labs/Meds Orders: Active Orders 24 hr Category Date Time Status DME for Discharge [COMM] Routine Oth 06/07/21 16:07 Ordered Meds: Medications Discontinued Medications Generic Name Dose Route Start Last Admin Trade Name Freq PRN Reason Stop Dose Admin Ketorolac Tromethamine 30 mg 06/07/21 16:06 Ketorolac 30 Mg/Ml Sdv IM 06/07/21 16:07 ONETIME ONE - Radiology Interpretation Free Text/Narrative:: XR Rt 3rd finger: no acute fractures per Rad. report. Departure - Departure Time of Disposition: 16:10 Disposition: Home, Self-Care 01 Condition: Good Clinical Impression: Contusion of right middle finger with damage to nail, initial encounter, Subungual hematoma of right middle finger - Discharge Information *PRESCRIPTION DRUG MONITORING PROGRAM REVIEWED*: Not Applicable *COPY OF PRESCRIPTION DRUG MONITORING REPORT IN PATIENT LIAN: Not Applicable Instructions: Subungual Hematoma, [id number], Contusion, [id number] Forms: ED Department Discharge Additional Instructions: Ice pack and elevate injured finger to reduce pain and swelling. Use finger splint as needed for comfort. Follow up in clinic if any further problems. Sepsis Event Note (ED) - Evaluation Sepsis Screening Result: No Definite Risk - Focused Exam Vital Signs: Vital Signs Temp Pulse Resp BP Pulse Ox 06/07/21 15:17 96.3 F L 70 20 167/77 H 97 - My Orders Last 24 Hours: My Active Orders 06/07/21 16:07 DME for Discharge [COMM] Routine - Assessment/Plan Last 24 Hours: My Active Orders 06/07/21 16:07 DME for Discharge [COMM] Routine I have read and agree with the documentation that has been completed regarding this visit. By signing this record, I attest that the documentation was completed in my physical presence and is an accurate record of the encounter.
== END 2021-06-07 16:16 | disposition home or self-care (01) ==
LOC: DL.ED 14:50
DX: S60.131A Contusion of right middle finger with damage to nail, initial encounter (principal); I10 Essential (primary) hypertension; E78.00 Pure hypercholesterolemia, unspecified; E11.9 Type 2 diabetes mellitus without complications; Z79.4 Long term (current) use of insulin; Z79.899 Other long term (current) drug therapy; W23.0XXA Caught, crushed, jammed, or pinched between moving objects, initial encounter
CPT/HCPCS: 73140; 96372; 99283; J1885

== ENCOUNTER 2021-07-21 10:41 | Emergency (ER) | payer BC, OTHER ==
[2021-07-21] MEDS ORDERED: Sodium Chloride 0.9% 10 ML Syringe FLUSH PRN (10:45)
[2021-07-21] MEDS ORDERED: Insulin Regular, Human 100 Units/ML 3 ML Vial IV ONE (10:46)
[2021-07-21] MEDS ORDERED: Sodium Chloride 0.9% 1,000 ML IV ONE ×2 (10:46→10:48)
[2021-07-21] MEDS ORDERED: Ondansetron 4 MG/2 ML SDV IV ONE (10:46)
[2021-07-21] MEDS ORDERED: Insulin Regular, Human 100 Units/ML 3 ML Vial ONE (11:09)
[2021-07-21 11:19] LABS: BASE EXCESS ARTERIAL -14 mmol/L ((-2)-(+3)); BICARBONATE,ARTERIAL 11.3 mmol/L (22-26); O2 DELIVERY DEVICE ROOM AIR; O2 SATURATION ARTERIAL 96 % (95-100); PCO2 ARTERIAL 25 mmHg (35-45); PO2 ARTERIAL 85 mmHg (70-100)
[2021-07-21 11:22] LABS: ALLEN TEST pos; O2 FLOW RATE 0
[2021-07-21 11:31] LABS: PTT,PARTIAL THROMBOPLSTIN TIME 20.2 SEC (22.0-34.0)
[2021-07-21 11:32] LABS: AMPHETAMINES,URINE NEGATIVE (NEGATIVE); BARBITURATES,URINE NEGATIVE (NEGATIVE); BENZODIAZEPINE,URINE NEGATIVE (NEGATIVE); MDMA (ECSTASY), URINE NEGATIVE (NEGATIVE); METHADONE,URINE NEGATIVE (NEGATIVE); METHAMPHETAMINES,URINE NEGATIVE (NEGATIVE); OPIATES,URINE NEGATIVE (NEGATIVE); OXYCODONE,URINE NEGATIVE (NEGATIVE); PHENCYCLIDINE,URINE NEGATIVE (NEGATIVE); TCA,URINE NEGATIVE (NEGATIVE)
[2021-07-21 11:43] LABS: ANION GAP 29.1 mEq/L (7-13); CHLORIDE,CL 100 mmol/L (98-107); SODIUM,NA 142 mmol/L (136-145)
[2021-07-21] MEDS ORDERED: Heparin Sodium 5,000 Units/ML Vial IVPUSH ONE (11:47)
[2021-07-21 11:57] LABS: RESPIRATORY SYNCYTIAL VIR NAA NEGATIVE (NEGATIVE)
[2021-07-21] MEDS ORDERED: Heparin Sodium/0.45% NaCl 25,000 UNITS/500 ML BAG IV SCH (12:00)
[2021-07-21 12:05] LABS: CORONAVIRUS COVID-19 NAA POSITIVE (NEGATIVE)
[2021-07-21 15:33] VITALS: BP 121/87; PULSE 122
== END 2021-07-21 14:56 ==
LOC: DL.ED 10:41
DX: U07.1 COVID-19 (principal); E11.10 Type 2 diabetes mellitus with ketoacidosis without coma; N17.9 Acute kidney failure, unspecified; E86.0 Dehydration; E78.00 Pure hypercholesterolemia, unspecified; I10 Essential (primary) hypertension; Z79.4 Long term (current) use of insulin; R77.8 Other specified abnormalities of plasma proteins; Z79.899 Other long term (current) drug therapy; Z20.822 Contact with and (suspected) exposure to COVID-19
CPT/HCPCS: 0241U; 36415; 36600; 71045; 80053; 80305; 80307; 81001; 81025; 82009; 82150; 82272; 82803; 82947; 83605; 83690; 83735; 84100; 84443; 84484; 85025; 85379; 85610; 85730; 86140; 87040; 93005; 96365; 96366; 96375; 99285; J1644; J1815; J2405; J7030; 93010

== ENCOUNTER 2021-08-30 21:17 | Emergency (ER) | payer MEDICAID, OTHER ==
[2021-08-30] MEDS ORDERED: Ondansetron 4 MG Tab.DIS PO ONE (21:18)
[2021-08-30] MEDS ORDERED: Sodium Chloride 0.9% 1,000 ML IV ONE ×2 (21:32→23:59)
[2021-08-30 22:13] VITALS: BP 159/124; PULSE 138
[2021-08-30 22:18] LABS: ANION GAP 23.9 mEq/L (7-13); CHLORIDE,CL 97 mmol/L (98-107); SODIUM,NA 138 mmol/L (136-145)
[2021-08-30] MEDS ORDERED: Ondansetron 4 MG/2 ML SDV IVPUSH ONE (22:20)
[2021-08-30] MEDS ORDERED: Metoclopramide 10 MG/2 ML SDV IVPUSH ONE (23:10)
[2021-08-30 23:18] LABS: BASE EXCESS ARTERIAL -4 mmol/L ((-2)-(+3)); BICARBONATE,ARTERIAL 19.7 mmol/L (22-26); O2 DELIVERY DEVICE ROOM AIR; O2 SATURATION ARTERIAL 97 % (95-100); PCO2 ARTERIAL 34 mmHg (35-45); PO2 ARTERIAL 82 mmHg (70-100)
[2021-08-30 23:20] LABS: ALLEN TEST rb; O2 FLOW RATE 0
[2021-08-30 23:49] LABS: BARBITURATES,URINE NEGATIVE (NEGATIVE); BENZODIAZEPINE,URINE NEGATIVE (NEGATIVE); MDMA (ECSTASY), URINE NEGATIVE (NEGATIVE); METHADONE,URINE NEGATIVE (NEGATIVE); METHAMPHETAMINES,URINE NEGATIVE (NEGATIVE); OPIATES,URINE NEGATIVE (NEGATIVE); TCA,URINE NEGATIVE (NEGATIVE)
[2021-08-30 23:50] LABS: AMPHETAMINES,URINE NEGATIVE (NEGATIVE); OXYCODONE,URINE NEGATIVE (NEGATIVE); PHENCYCLIDINE,URINE NEGATIVE (NEGATIVE)
[2021-08-31 00:20] LABS: CORONAVIRUS COVID-19 NAA NEGATIVE (NEGATIVE)
[2021-08-31] MEDS ORDERED: Ondansetron 4 MG Tab.DIS ONE (01:19)
== END 2021-08-31 01:30 | disposition home or self-care (01) ==
LOC: DL.ED 21:17
DX: K52.9 Noninfective gastroenteritis and colitis, unspecified (principal); E86.0 Dehydration; E78.00 Pure hypercholesterolemia, unspecified; I10 Essential (primary) hypertension; E11.9 Type 2 diabetes mellitus without complications; Z79.4 Long term (current) use of insulin; Z79.899 Other long term (current) drug therapy; Z20.822 Contact with and (suspected) exposure to COVID-19
CPT/HCPCS: 0240U; 36415; 36600; 80053; 80305; 81001; 82009; 82140; 82150; 82803; 82947; 83605; 83690; 83735; 84484; 85025; 93005; 96374; 96375; 99284; A9270; J2405; J2765; J7030

== ENCOUNTER 2022-01-24 11:52 | Inpatient (IN) | payer MEDICAID ==
[~2022-01-24 11:52] MED LIST changes: -Pantoprazole 40 MG Vial IVPUSH ONE
[2022-01-24 12:03] LABS: ANION GAP 30.8 mEq/L (7-13); CHLORIDE,CL 77 mmol/L (98-107)
[2022-01-24 12:05] LABS: ESTIMATED GFR 34 mL/min (>=60); SODIUM,NA 119 mmol/L (136-145)
[2022-01-24] MEDS ORDERED: Insulin Regular, Human 100 Units/ML 3 ML Vial IV ONE ×3 (12:41→16:53)
[2022-01-24] MEDS ORDERED: 50% Dextrose in Water 50 ML Syringe IVPUSH PRN ×5 (12:41→16:55)
[2022-01-24] MEDS ORDERED: Glucagon,Human Recombinant 1 MG Vial IM PRN ×5 (12:41→16:55)
[2022-01-24] MEDS ORDERED: Sodium Chloride 0.9% 1,000 ML IV ONE (12:41)
[2022-01-24 12:43] LABS: O2 DELIVERY DEVICE ROOM AIR
[2022-01-24 12:45] LABS: O2 SATURATION ARTERIAL 98 % (95-100); PCO2 ARTERIAL 19 mmHg (35-45); PO2 ARTERIAL 121 mmHg (70-100)
[2022-01-24 12:45] LABS: AMPHETAMINES,URINE NEGATIVE (NEGATIVE); BARBITURATES,URINE NEGATIVE (NEGATIVE); BENZODIAZEPINE,URINE NEGATIVE (NEGATIVE); MDMA (ECSTASY), URINE NEGATIVE (NEGATIVE); METHADONE,URINE NEGATIVE (NEGATIVE); METHAMPHETAMINES,URINE NEGATIVE (NEGATIVE); OPIATES,URINE NEGATIVE (NEGATIVE); OXYCODONE,URINE POSITIVE (NEGATIVE); PHENCYCLIDINE,URINE NEGATIVE (NEGATIVE); TCA,URINE NEGATIVE (NEGATIVE)
[2022-01-24 12:46] LABS: ALLEN TEST PERFORMED; BASE EXCESS ARTERIAL -17 mmol/L ((-2)-(+3))
[2022-01-24] MEDS ORDERED: cefTRIAXone 1 GM in Sodium Chloride 0.9% 50 ML IV ONE (12:55)
[2022-01-24] MEDS ORDERED: Docusate Sodium 100 MG Cap PO PRN (14:54)
[2022-01-24] MEDS ORDERED: Bisacodyl 5 MG Tab PO PRN (14:54)
[2022-01-24] MEDS ORDERED: Acetaminophen 325 MG Tab PO PRN (14:54)
[2022-01-24] MEDS ORDERED: Ondansetron 4 MG/2 ML SDV IVPUSH PRN (14:54)
[2022-01-24] MEDS ORDERED: Insulin Glarg,Human.Rec.Analog 100 Unit/ML SUBCUT ONE (15:02)
[2022-01-24] MEDS ORDERED: Potassium Chloride 20 MEQ in Premix Bag 1 BAG IV ONE (15:04)
[2022-01-24] MEDS: NS + KCl 20mEq/L 1,000 ML IV SCH ×2 (15:47→20:46)
[2022-01-24 15:48] LABS: HEMOGLOBIN A1C 9.5 % (<5.7)
[2022-01-24] MEDS: Pantoprazole 40 MG Tab.CR PO SCH (15:52)
[2022-01-24] MEDS: Acetaminophen/HYDROcodone 325-5 MG Tab PO PRN ×2 (15:57→20:45)
[2022-01-24] MEDS ORDERED: Potassium Chloride 10 MEQ Tab.ER PO SCH (18:00)
[2022-01-24] MEDS ORDERED: Potassium Chloride 10% 20 MEQ/15 ML Soln 15 ML UD Cup PO ONE (20:45)
[2022-01-24] MEDS: Insulin Lispro 100 Units/ML 3 ML Vial SUBCUT SCH (21:04)
[2022-01-25] MEDS: Acetaminophen/HYDROcodone 325-5 MG Tab PO PRN ×4 (01:33→20:57)
[2022-01-25] MEDS: Insulin Lispro 100 Units/ML 3 ML Vial SUBCUT SCH ×4 (01:34→20:58)
[2022-01-25] MEDS: NS + KCl 20mEq/L 1,000 ML IV SCH (05:15)
[2022-01-25] MEDS: Pantoprazole 40 MG Tab.CR PO SCH ×2 (06:09→15:15)
[2022-01-25 07:46] LABS: ANION GAP 12.2 mEq/L (7-13)
[2022-01-25] MEDS: Enoxaparin 30 MG/0.3 ML Syringe SUBCUT SCH (08:00)
[2022-01-25] MEDS ORDERED: Potassium Chloride 10% 20 MEQ/15 ML Soln 15 ML UD Cup PO SCH ×2 (08:00)
[2022-01-25] MEDS ORDERED: Insulin Lispro 100 Units/ML 3 ML Vial SUBCUT SCH (12:00)
[2022-01-25] MEDS ORDERED: cefTRIAXone 1 GM in Sodium Chloride 0.9% 50 ML IV SCH (15:00)
[2022-01-26] MEDS: Acetaminophen/HYDROcodone 325-5 MG Tab PO PRN ×2 (04:58→09:19)
[2022-01-26] MEDS: Pantoprazole 40 MG Tab.CR PO SCH (05:00)
[2022-01-26 06:47] LABS: ANION GAP 13.5 mEq/L (7-13)
[2022-01-26 08:26] VITALS: BP 152/66; PULSE 93
[2022-01-26] MEDS: Enoxaparin 30 MG/0.3 ML Syringe SUBCUT SCH (09:11)
[2022-01-26] MEDS: Insulin Lispro 100 Units/ML 3 ML Vial SUBCUT SCH ×2 (09:11→12:25)
== END 2022-01-26 12:30 | disposition home or self-care (01) | DRG 638 ==
LOC: DL.ED 11:52 → DL.MS 12:56
PROVIDERS: ADMIT Internal Medicine; ATTEND Internal Medicine
DX: E11.10 Type 2 diabetes mellitus with ketoacidosis without coma (principal); E87.1 Hypo-osmolality and hyponatremia; N17.9 Acute kidney failure, unspecified; E87.5 Hyperkalemia; Z20.822 Contact with and (suspected) exposure to COVID-19; E87.6 Hypokalemia; E87.8 Other disorders of electrolyte and fluid balance, not elsewhere classified; I10 Essential (primary) hypertension; E78.00 Pure hypercholesterolemia, unspecified; E78.5 Hyperlipidemia, unspecified; M19.90 Unspecified osteoarthritis, unspecified site; F41.9 Anxiety disorder, unspecified; E11.42 Type 2 diabetes mellitus with diabetic polyneuropathy; Z79.899 Other long term (current) drug therapy; Z79.4 Long term (current) use of insulin; Z90.49 Acquired absence of other specified parts of digestive tract; Z87.19 Personal history of other diseases of the digestive system; Z87.442 Personal history of urinary calculi; Z95.5 Presence of coronary angioplasty implant and graft; Z90.710 Acquired absence of both cervix and uterus
CPT/HCPCS: 36415; 36600; 51702; 71045; 80048; 80053; 80305-QW; 81001; 82009; 82803; 82947; 83036; 83605; 84484; 85025; 87040; 87086; 93005; 93010; 96360; 99285; 99285-25; A9270-GY; J0696; J1650; J1815-GY; J3480; J7030; U0002

== ENCOUNTER 2022-02-01 12:19 | Emergency (ER) | payer MEDICAID ==
[2022-02-01] MEDS ORDERED: Ondansetron 4 MG/2 ML SDV IVPUSH ONE ×3 (12:34→15:25)
[2022-02-01] MEDS ORDERED: fentaNYL 100 MCG/2 ML SDV IVPUSH ONE (12:35)
[2022-02-01] MEDS ORDERED: Sodium Chloride 0.9% 1,000 ML IV ONE ×2 (12:35→14:24)
[2022-02-01] MEDS ORDERED: Iopamidol 612 MG/ML 100 ML Bottle IVPUSH ONE (14:17)
[2022-02-01] MEDS ORDERED: Insulin Regular, Human 100 Units/ML 3 ML Vial IV ONE (14:25)
[2022-02-01] MEDS ORDERED: 50% Dextrose in Water 50 ML Syringe IVPUSH PRN (14:25)
[2022-02-01] MEDS ORDERED: Glucagon,Human Recombinant 1 MG Vial IM PRN (14:25)
[2022-02-01] MEDS ORDERED: HYDROmorphone 0.5 MG/0.5 ML Syringe IVPUSH ONE (14:50)
[2022-02-01 14:55] VITALS: BP 121/76; PULSE 88
== END 2022-02-01 15:41 ==
LOC: DL.ED 12:19
DX: K92.2 Gastrointestinal hemorrhage, unspecified (principal); E11.65 Type 2 diabetes mellitus with hyperglycemia; E87.1 Hypo-osmolality and hyponatremia; E78.00 Pure hypercholesterolemia, unspecified; I10 Essential (primary) hypertension; Z79.4 Long term (current) use of insulin; Z79.899 Other long term (current) drug therapy; Z20.822 Contact with and (suspected) exposure to COVID-19
CPT/HCPCS: 36415; 36430; 74177; 80053; 81001; 81025; 83605; 83690; 83735; 85025; 86140; 86850; 86900; 86901; 86920; 86922; 87040; 87635; 96361; 96374; 96375; 96376; 99284; 99285; J1170; J1815; J2405; J3010; J7030; P9016; Q9967; U0002

== ENCOUNTER 2022-03-13 22:14 | Emergency (ER) | payer MEDICAID ==
[2022-03-13 21:45] VITALS: BP 186/110; PULSE 122
[2022-03-13] MEDS: Sodium Chloride 0.9% 1,000 ML IV ONE ×2 (21:48→22:36)
[2022-03-13 22:12] LABS: ANION GAP 34.7 mEq/L (7-13); CHLORIDE,CL 83 mmol/L (98-107); SODIUM,NA 124 mmol/L (136-145)
[2022-03-13 22:13] LABS: ESTIMATED GFR 58 mL/min (>=60)
[~2022-03-13 22:14] MED LIST changes: +50% Dextrose in Water 50 ML Syringe IVPUSH PRN; +Glucagon,Human Recombinant 1 MG Vial IM PRN; +HYDROmorphone 1 MG/ML Syringe SUBCUT ONE; +Insulin Regular, Human 100 Units/ML 3 ML Vial IV ONE; +Metoprolol Tartrate 5 MG/5 ML SDV IVPUSH ONE; +Ondansetron 4 MG/2 ML SDV IVPUSH ONE; +Pantoprazole 80 MG in Sodium Chloride 0.9% 100 ML IV ONE; +Piperacillin/Tazobactam 3.375 GM in Sodium Chloride 0.9% 100 ML IV ONE; -Sodium Chloride 0.9% 1,000 ML IV ONE
[2022-03-13] MEDS ORDERED: Potassium Chloride 20 MEQ in Premix Bag 1 BAG IV ONE (22:26)
[2022-03-13] MEDS ORDERED: Iopamidol 755 Mg/ML 100 ML Bottle IVPUSH ONE (22:36)
[2022-03-13 22:59] LABS: O2 DELIVERY DEVICE ROOM AIR
[2022-03-13 23:02] LABS: ALLEN TEST PERFORMED
[2022-03-13 23:06] LABS: BASE EXCESS ARTERIAL 11 mmol/L ((-2)-(+3)); O2 SATURATION ARTERIAL 97 % (95-100); PCO2 ARTERIAL 23 mmHg (35-45); PO2 ARTERIAL 101 mmHg (70-100)
[2022-03-13] MEDS ORDERED: Sodium Bicarbonate 8.4% 50 MEQ/50 ML Syringe IVPUSH ONE (23:09)
[2022-03-13] MEDS ORDERED: Metoclopramide 10 MG/2 ML SDV IVPUSH ONE (23:42)
[2022-03-13] MEDS ORDERED: Octreotide 100 MCG/ML SDV IVPUSH ONE (23:44)
[2022-03-13] MEDS ORDERED: HYDROmorphone 1 MG/ML Syringe IVPUSH ONE (23:45)
[2022-03-14] MEDS ORDERED: Potassium Chloride 20 MEQ in Premix Bag 1 BAG IV ONE (01:31)
[2022-03-14] MEDS ORDERED: HYDROmorphone 1 MG/ML Syringe IVPUSH ONE (01:41)
[2022-03-14] MEDS ORDERED: HYDROmorphone 1 MG/ML Syringe ONE (01:43)
== END 2022-03-14 01:48 ==
LOC: DL.ED 22:14
DX: A41.9 Sepsis, unspecified organism (principal); E11.10 Type 2 diabetes mellitus with ketoacidosis without coma; E87.6 Hypokalemia; E87.1 Hypo-osmolality and hyponatremia; R00.0 Tachycardia, unspecified; E78.00 Pure hypercholesterolemia, unspecified; I10 Essential (primary) hypertension; M19.90 Unspecified osteoarthritis, unspecified site; E11.9 Type 2 diabetes mellitus without complications; Z79.4 Long term (current) use of insulin; Z79.899 Other long term (current) drug therapy; Z20.822 Contact with and (suspected) exposure to COVID-19
CPT/HCPCS: 36415; 36600; 71260; 80053; 80307; 81001; 82140; 82150; 82803; 82947; 83605; 83690; 83735; 84132; 84484; 85025; 85610; 87040; 87635; 93005; 93010; 96361; 96365; 96366; 96367; 96372; 96375; 99285; C9113; J1170; J1815; J2354; J2405; J2543; J2765; J3480; J3490; J7030; U0002

== ENCOUNTER 2022-06-26 17:37 | Emergency (ER) | payer MEDICAID ==
[2022-06-26] MEDS ORDERED: Sodium Chloride 0.9% 1,000 ML IV ONE ×2 (17:58→18:46)
[2022-06-26 18:14] LABS: O2 DELIVERY DEVICE ROOM AIR
[2022-06-26 18:15] LABS: ALLEN TEST PERFORMED; BASE EXCESS ARTERIAL 8 mmol/L ((-2)-(+3)); BICARBONATE,ARTERIAL 31.5 mmol/L (22-26); O2 SATURATION ARTERIAL 95 % (95-100); PCO2 ARTERIAL 42 mmHg (35-45); PO2 ARTERIAL 70 mmHg (70-100)
[2022-06-26] MEDS ORDERED: Glucagon,Human Recombinant 1 MG Vial IM PRN (18:20)
[2022-06-26] MEDS ORDERED: 50% Dextrose in Water 50 ML Syringe IVPUSH PRN (18:20)
[2022-06-26] MEDS: Sodium Chloride 0.9% 10 ML Syringe FLUSH PRN ×7 (18:27→22:09)
[2022-06-26 18:36] LABS: ANION GAP 18.8 mEq/L (7-13)
[2022-06-26] MEDS ORDERED: Ondansetron 4 MG/2 ML SDV IVPUSH ONE (19:08)
[2022-06-26] MEDS ORDERED: HYDROmorphone 0.5 MG/0.5 ML Syringe IVPUSH ONE ×2 (19:08→20:40)
[2022-06-26 19:53] LABS: CORONAVIRUS COVID-19 NAA NEGATIVE (NEGATIVE); RESPIRATORY SYNCYTIAL VIR NAA NEGATIVE (NEGATIVE)
[2022-06-26] MEDS ORDERED: Pantoprazole 40 MG Vial IVPUSH ONE (20:41)
[2022-06-26 21:45] VITALS: BP 138/89; PULSE 125
== END 2022-06-26 22:30 ==
LOC: DL.ED 17:37
DX: K92.2 Gastrointestinal hemorrhage, unspecified (principal); K31.1 Adult hypertrophic pyloric stenosis; E10.65 Type 1 diabetes mellitus with hyperglycemia; E78.00 Pure hypercholesterolemia, unspecified; I10 Essential (primary) hypertension; Z79.4 Long term (current) use of insulin; Z79.899 Other long term (current) drug therapy; Z20.822 Contact with and (suspected) exposure to COVID-19
CPT/HCPCS: 0241U; 36415; 36600; 71250; 74176; 80053; 81001; 82009; 82271; 82803; 82947; 83605; 83735; 84100; 84145; 84484; 85025; 86140; 87040; 93005; 93010; 96361; 96374; 96375; 96376; 99285; C1758; C9113; J1170; J1815; J2405; J3490; J7030

== ENCOUNTER 2022-08-06 15:20 | Emergency (ER) | payer MEDICAID ==
[2022-08-06] MEDS: Sodium Chloride 0.9% 10 ML Syringe FLUSH PRN ×2 (15:26→16:24)
[2022-08-06 15:29] VITALS: BP 215/120; PULSE 108
[2022-08-06] MEDS ORDERED: Ondansetron 4 MG/2 ML SDV IVPUSH ONE (15:45)
[2022-08-06 15:52] LABS: ANION GAP 25.1 mEq/L (7-13); CHLORIDE,CL 97 mmol/L (98-107); SODIUM,NA 139 mmol/L (136-145)
[2022-08-06 15:54] LABS: ESTIMATED GFR 71 mL/min (>=60)
[2022-08-06 15:55] LABS: O2 DELIVERY DEVICE ROOM AIR
[2022-08-06 15:56] LABS: BASE EXCESS ARTERIAL -8 mmol/L ((-2)-(+3))
[2022-08-06 15:57] LABS: ALLEN TEST POSITIVE; BICARBONATE,ARTERIAL 17.5 mmol/L (22-26); O2 SATURATION ARTERIAL 87 % (95-100); PCO2 ARTERIAL 33 mmHg (35-45); PO2 ARTERIAL 55 mmHg (70-100)
[2022-08-06] MEDS ORDERED: Sodium Chloride 0.9% 1,000 ML IV ONE (16:27)
[2022-08-06] MEDS ORDERED: Labetalol 20 MG/4 ML Syringe IVPUSH ONE (16:49)
[2022-08-06] MEDS ORDERED: HYDROmorphone 0.5 MG/0.5 ML Syringe IVPUSH ONE (16:50)
[2022-08-06] MEDS ORDERED: Pantoprazole 40 MG Vial IVPUSH ONE (17:01)
== END 2022-08-06 18:13 | disposition home or self-care (01) ==
LOC: DL.ED 15:20
DX: K20.90 Esophagitis, unspecified without bleeding (principal); E78.00 Pure hypercholesterolemia, unspecified; I10 Essential (primary) hypertension; M19.90 Unspecified osteoarthritis, unspecified site; E11.9 Type 2 diabetes mellitus without complications; Z79.4 Long term (current) use of insulin; Z79.02 Long term (current) use of antithrombotics/antiplatelets; Z79.899 Other long term (current) drug therapy
CPT/HCPCS: 36415; 36600; 80053; 81001; 82009; 82150; 82803; 82947; 83605; 83690; 83735; 85025; 86140; 96361; 96374; 96375; 99284; C9113; J1170; J2405; J3490; J7030

== ENCOUNTER 2022-08-23 10:08 | Emergency (ER) | payer MEDICAID ==
[2022-08-23] MEDS ORDERED: Sodium Chloride 0.9% 1,000 ML IV ONE ×2 (10:26→11:27)
[2022-08-23 10:52] VITALS: BP 151/122; PULSE 134
[2022-08-23] MEDS ORDERED: Metoclopramide 10 MG/2 ML SDV IVPUSH ONE (11:16)
[2022-08-23] MEDS ORDERED: Pantoprazole 40 MG Vial IVPUSH ONE (11:16)
[2022-08-23 11:57] LABS: CHLORIDE,CL 102 mmol/L (98-107); SODIUM,NA 147 mmol/L (136-145)
[2022-08-23 12:04] LABS: ANION GAP 43.30001 mEq/L (7-13); ESTIMATED GFR 37 mL/min (>=60)
[2022-08-23] MEDS ORDERED: Sodium Bicarbonate 8.4% 50 MEQ/50 ML Syringe IVPUSH ONE ×4 (12:08→13:42)
[2022-08-23 12:18] LABS: O2 DELIVERY DEVICE ROOM AIR
[2022-08-23 12:22] LABS: BASE EXCESS ARTERIAL -25 mmol/L ((-2)-(+3)); BICARBONATE,ARTERIAL 3.9 mmol/L (22-26); O2 SATURATION ARTERIAL 98 % (95-100); PO2 ARTERIAL 152 mmHg (70-100)
[2022-08-23] MEDS ORDERED: 50% Dextrose in Water 50 ML Syringe IVPUSH PRN (12:25)
[2022-08-23] MEDS ORDERED: Glucagon,Human Recombinant 1 MG Vial IM PRN (12:25)
[2022-08-23 12:28] LABS: ALLEN TEST POSITIVE; PCO2 ARTERIAL 13 mmHg (35-45)
[2022-08-23] MEDS ORDERED: Lactated Ringers 1,000 ML IV ONE (12:44)
[2022-08-23 13:21] LABS: AMPHETAMINES,URINE NEGATIVE (NEGATIVE); BARBITURATES,URINE NEGATIVE (NEGATIVE); BENZODIAZEPINE,URINE NEGATIVE (NEGATIVE); MDMA (ECSTASY), URINE NEGATIVE (NEGATIVE); METHADONE,URINE NEGATIVE (NEGATIVE); METHAMPHETAMINES,URINE NEGATIVE (NEGATIVE); OPIATES,URINE NEGATIVE (NEGATIVE); OXYCODONE,URINE NEGATIVE (NEGATIVE); PHENCYCLIDINE,URINE NEGATIVE (NEGATIVE); TCA,URINE NEGATIVE (NEGATIVE)
== END 2022-08-23 13:34 ==
LOC: DL.ED 10:08
DX: E11.10 Type 2 diabetes mellitus with ketoacidosis without coma (principal); E78.00 Pure hypercholesterolemia, unspecified; I10 Essential (primary) hypertension; Z79.899 Other long term (current) drug therapy; Z79.4 Long term (current) use of insulin; Z79.02 Long term (current) use of antithrombotics/antiplatelets
CPT/HCPCS: 36415; 36600; 51702; 80053; 80305-QW; 80307; 81001; 82009; 82140; 82150; 82803; 82947; 83605; 83690; 83735; 84443; 84484; 85025; 86140; 87040; 93005; 93010; 96361; 96374; 96375; 96376; 99285; 99285-25; C9113; J1815-GY; J2765; J3490; J7030; J7120

== ENCOUNTER 2022-10-28 15:54 | Emergency (ER) | payer MEDICAID ==
[2022-10-28 16:21] LABS: HEMOGLOBIN 14.7 g/dL (12.0-16.0); MEAN CORPUSCULAR HEMOGLOBIN 28.2 pg (27.0-34.0); MEAN CORPUSCULAR HGB CONC 30.6 g/dL (33.0-35.0); PLATELET COUNT,PLT 420 10^3/uL (150-450); RED BLOOD CELL COUNT 5.22 10^6/uL (4.2-5.4)
[2022-10-28 16:33] LABS: BASOPHILS PERCENT AUTO 0.2 % (0.0-1.0); EOSINOPHILS PERCENT AUTO 0.1 % (1.0-3.0); LYMPHOCYTES PERCENT AUTO 6.8 % (20.5-50.1); MONOCYTES PERCENT AUTO 9.1 % (2-8); NEUTROPHILS PERCENT AUTO 83.8 % (42.2-75.2); WHITE BLOOD CELL COUNT,WBC 26.6 10^3/uL (5.0-10.0)
[2022-10-28] MEDS: Sodium Chloride 0.9% 1,000 ML IV ONE ×4 (16:35→20:24)
[2022-10-28 16:47] VITALS: BP 145/85; PULSE 140
[2022-10-28 16:52] LABS: APPEARANCE,URINE CLEAR (CLEAR); COLOR,URINE YELLOW (YELLOW)
[2022-10-28] MEDS: Sodium Chloride 0.9% 10 ML Syringe FLUSH PRN (16:52)
[2022-10-28 16:54] LABS: BASE EXCESS ARTERIAL -23 mmol/L ((-2)-(+3)); O2 DELIVERY DEVICE ROOM AIR; O2 SATURATION ARTERIAL 96 % (95-100); PO2 ARTERIAL 103 mmHg (70-100)
[2022-10-28 16:56] LABS: BILIRUBIN,URINE NEGATIVE (NEGATIVE); GLUCOSE,URINE 500 (NEGATIVE); KETONES,URINE >=160 (NEGATIVE); LEUKOCYTE ESTERASE,URINE NEGATIVE (NEGATIVE); NITRITE,URINE NEGATIVE (NEGATIVE); OCCULT BLOOD,URINE SMALL (NEGATIVE); PROTEIN,URINE >=300 (NEGATIVE); UROBILINOGEN,URINE 0.2 mg/dL (0.2-1.0)
[2022-10-28 17:00] LABS: BACTERIA,URINE FEW /HPF (0-FEW/HPF); EPITHELIAL CELLS,URINE FEW /HPF (NOT SEEN); RBC,URINE 0-5 /HPF (0-5); WBC,URINE 0-5 /HPF (0-5/HPF)
[2022-10-28 17:00] LABS: ALLEN TEST pos; PCO2 ARTERIAL 14 mmHg (35-45); PH,ARTERIAL 7.18 (7.35-7.45)
[2022-10-28] MEDS: Sodium Bicarbonate 8.4% 50 MEQ/50 ML Syringe IVPUSH ONE ×2 (17:03→19:40)
[2022-10-28 17:27] LABS: ALANINE AMINOTRANSFERASE,ALT 25 U/L (14-59); ALBUMIN 3.2 g/dL (3.4-5.0); ALKALINE PHOSPHATASE 203 U/L (46-116); ANION GAP 39.1 mEq/L (7-13); ASPARTATE AMNIOTRANSFERASE,AST 11 U/L (15-37); BILIRUBIN TOTAL 0.6 mg/dL (0.2-1.0); BLOOD UREA NITROGEN,BUN 50 mg/dL (7-18); BUN/CREATININE RATIO 30.1 (No establ ref range); CALCIUM 10.2 mg/dL (8.5-10.1); CARBON DIOXIDE,CO2 10 mmol/L (21-32); CHLORIDE,CL 97 mmol/L (98-107); CREATININE 1.66 mg/dL (0.55-1.02); MAGNESIUM 2.9 mg/dL (1.8-2.4); POTASSIUM,K 4.1 mmol/L (3.5-5.1); PROTEIN TOTAL,TP 8.9 g/dL (6.4-8.2); SODIUM,NA 142 mmol/L (136-145)
[2022-10-28 17:31] LABS: LACTIC ACID 4.1 mmol/L (0.4-2.0)
[2022-10-28 17:43] LABS: BLASTS PERCENT MAN 3; LYMPHOCYTES PERCENT MAN 11 % (20-50); MONOCYTES PERCENT MAN 3 % (2-8); SEG NEUTROPHILS PERCENT MAN 83 % (42-75)
[2022-10-28 17:45] LABS: A/G RATIO 0.56; C-REACTIVE PROTEIN 32.5 mg/dL (0.0-0.9); ESTIMATED GFR 38 mL/min (>=60); GLUCOSE RANDOM 1048 mg/dL (70-99)
[2022-10-28] MEDS ORDERED: 50% Dextrose in Water 50 ML Syringe IVPUSH PRN ×2 (17:53→19:15)
[2022-10-28] MEDS ORDERED: Glucagon,Human Recombinant 1 MG Vial IM PRN ×2 (17:53→19:15)
[2022-10-28 18:07] LABS: AMYLASE 36 U/L (25-115); LIPASE 91 U/L (73-393)
[2022-10-28] MEDS: Insulin Regular, Human 100 Units/ML 3 ML Vial IV ONE ×2 (18:27→19:29)
[2022-10-28] MEDS: Piperacillin/Tazobactam 4.5 GM in Sodium Chloride 0.9% 100 ML IV ONE (18:28)
[2022-10-28 19:32] LABS: PROTHROMBIN TIME 9.8 SEC (9.0-12.0)
[2022-10-28] MEDS ORDERED: Norepinephrine Bit/D5W Premix 250 ML ONE (19:43)
[2022-10-28] MEDS ORDERED: Norepinephrine Bit/D5W Premix 250 ML IV SCH (19:45)
== END 2022-10-28 20:15 ==
LOC: DL.ED 15:54
DX: A41.9 Sepsis, unspecified organism (principal); E11.10 Type 2 diabetes mellitus with ketoacidosis without coma; K63.89 Other specified diseases of intestine; E78.00 Pure hypercholesterolemia, unspecified; I10 Essential (primary) hypertension; Z79.4 Long term (current) use of insulin; Z79.899 Other long term (current) drug therapy; Z79.02 Long term (current) use of antithrombotics/antiplatelets
CPT/HCPCS: 31500; 36415; 36600; 43752; 51702; 70450; 74176; 80053; 81001; 82150; 82803; 82947; 83605; 83690; 83735; 84145; 85025; 85610; 86140; 87040; 93005; 93010; 96361; 96365; 96367; 96375; 96376; 99285; J1815; J2543; J3370; J3490; J7030; J7050

== ENCOUNTER 2023-06-18 12:16 | Emergency (ER) | payer MEDICAID ==
[2023-06-18 12:41] VITALS: BP 173/92; PULSE 101
[2023-06-18] MEDS ORDERED: Sodium Chloride 0.9% 10 ML Syringe FLUSH PRN (12:43)
[2023-06-18] MEDS ORDERED: levETIRAcetam in NaCl (iso-os) 1,500 MG in Premix Bag 1 BAG IV ONE ×2 (12:44)
[2023-06-18] MEDS ORDERED: Sodium Chloride 0.9% 1,000 ML IV ONE ×2 (12:44→13:27)
[2023-06-18 12:55] LABS: BASOPHILS PERCENT AUTO 0.3 % (0.0-1.0); EOSINOPHILS PERCENT AUTO 1.6 % (1.0-3.0); HEMATOCRIT 32.7 % (37.0-47.0); HEMOGLOBIN 10.3 g/dL (12.0-16.0); LYMPHOCYTES PERCENT AUTO 18.3 % (20.5-50.1); MEAN CORPUSCULAR HEMOGLOBIN 26.8 pg (27.0-34.0); MEAN CORPUSCULAR HGB CONC 31.5 g/dL (33.0-35.0); MEAN CORPUSCULAR VOLUME 85.2 fL (80-100); MONOCYTES PERCENT AUTO 8.4 % (2-8); NEUTROPHILS PERCENT AUTO 71.4 % (42.2-75.2); PLATELET COUNT,PLT 407 10^3/uL (150-450); RED BLOOD CELL COUNT 3.84 10^6/uL (4.2-5.4); WHITE BLOOD CELL COUNT,WBC 10.8 10^3/uL (5.0-10.0)
[2023-06-18 13:22] LABS: ALBUMIN 2.6 g/dL (3.4-5.0); ANION GAP 13.5 mEq/L (7-13); BILIRUBIN TOTAL 0.2 mg/dL (0.2-1.0); BUN/CREATININE RATIO 36.7 (No establ ref range); C-REACTIVE PROTEIN 1.17 ng/dL (<=0.50); CALCIUM 8.6 mg/dL (8.5-10.1); CREATININE 1.09 mg/dL (0.55-1.02); EST CRCL DRUG DOSING (CG) 44.35 mL/min; MAGNESIUM 1.9 mg/dL (1.8-2.4); POTASSIUM,K 4.5 mmol/L (3.5-5.1); PROTEIN TOTAL,TP 7.2 g/dL (6.4-8.2); TSH ULTRASENSITIVE 1.23 uIU/mL (0.36-3.74)
[2023-06-18 13:24] LABS: A/G RATIO 0.57
[2023-06-18] MEDS ORDERED: Glucagon,Human Recombinant 1 MG Vial IM PRN (13:26)
[2023-06-18] MEDS ORDERED: 50% Dextrose in Water 50 ML Syringe IVPUSH PRN (13:26)
[2023-06-18] MEDS ORDERED: oxyCODONE 5 MG Tab PO ONE (14:01)
[2023-06-18 14:02] LABS: O2 DELIVERY DEVICE ROOM AIR
[2023-06-18 14:05] LABS: BASE EXCESS VENOUS -0.8 mmol/l ((-2)-(+3)); BICARBONATE,VENOUS 26 mmol/l (19-25); O2 SATURATION VENOUS 40.9 % (60-80); PCO2 VENOUS 60 mmHg (41-51); PH,VENOUS 7.27 (7.31-7.41); PO2 VENOUS 30 mmHg (35-42)
[2023-06-18 15:38] LABS: APPEARANCE,URINE CLEAR (CLEAR); BILIRUBIN,URINE NEGATIVE (NEGATIVE); COLOR,URINE YELLOW (YELLOW); GLUCOSE,URINE 500 (NEGATIVE); KETONES,URINE NEGATIVE (NEGATIVE); LEUKOCYTE ESTERASE,URINE NEGATIVE (NEGATIVE); NITRITE,URINE NEGATIVE (NEGATIVE); OCCULT BLOOD,URINE MODERATE (NEGATIVE); PROTEIN,URINE 100 (NEGATIVE); UROBILINOGEN,URINE 0.2 mg/dL (0.2-1.0)
[2023-06-18 15:42] LABS: AMPHETAMINES,URINE NEGATIVE (NEGATIVE); BARBITURATES,URINE NEGATIVE (NEGATIVE); BENZODIAZEPINE,URINE NEGATIVE (NEGATIVE); MDMA (ECSTASY), URINE NEGATIVE (NEGATIVE); METHADONE,URINE NEGATIVE (NEGATIVE); METHAMPHETAMINES,URINE NEGATIVE (NEGATIVE); OPIATES,URINE NEGATIVE (NEGATIVE); OXYCODONE,URINE POSITIVE (NEGATIVE); PHENCYCLIDINE,URINE NEGATIVE (NEGATIVE); TCA,URINE NEGATIVE (NEGATIVE)
[2023-06-18 15:47] LABS: AMORPHOUS SEDIMENT,URINE FEW /HPF (NOT SEEN); BACTERIA,URINE FEW /HPF (0-FEW/HPF); EPITHELIAL CELLS,URINE FEW /HPF (NOT SEEN); MUCUS,URINE RARE /LPF (NOT SEEN); WBC,URINE 0-5 /HPF (0-5/HPF)
== END 2023-06-18 18:06 ==
LOC: DL.ED 12:16
DX: G40.109 Localization-related (focal) (partial) symptomatic epilepsy and epileptic syndromes with simple partial seizures, not intractable, without status epilepticus (principal); E11.10 Type 2 diabetes mellitus with ketoacidosis without coma; E11.65 Type 2 diabetes mellitus with hyperglycemia; E78.00 Pure hypercholesterolemia, unspecified; I10 Essential (primary) hypertension; Z79.4 Long term (current) use of insulin; Z79.899 Other long term (current) drug therapy; Z79.02 Long term (current) use of antithrombotics/antiplatelets
CPT/HCPCS: 36415; 70450; 80053; 80305-QW; 81001; 82009; 82550; 82803; 82947; 83735; 84443; 84484; 85025; 86140; 96361; 96374; 96375; 99284; 99285-25; A9270-GY; J1815-GY; J1953; J3360; J7030